=== PATIENT | male | born 1945 | race Caucasian/White ===

== ENCOUNTER → 2017-06-27 | Outpatient (CLI) | payer OTHER ==
[~2017-06-27] MED LIST: ASPCH81X PO; FLV1 PO; GABA-113 PO; LISI-787 PO; MTH25 PO; MULT-506 PO; OMEP20TA PO; [UNRECOGNIZED DRUG - CODE] PO; [UNRECOGNIZED DRUG - OTHER] INJ
[2017-06-27 12:45] LABS: BASO % 0.6 %; BASO ABS # 0.05 K/uL (0-0.2); EOS % 2.7 %; EOS ABS # 0.22 K/uL (0-0.5); HEMATOCRIT 44.7 % (42-52); IG# 0.04 K/uL (0.00-0.02); LYMPH % 20.1 %; LYMPH ABS # 1.67 K/uL (1.2-3.4); MEAN CELL VOLUME 93.5 fL (80-100); MEAN CORPUSCULAR HEMOGLOBIN 31.4 pg (25-34); MEAN CORPUSCULAR HGB CONC 33.6 g/dl (32-36); MEAN PLATELET VOLUME 9.4 fL (7.4-10.4); MONO % 7.8 %; MONO ABS # 0.65 K/uL (0.11-0.59); NEUT % 68.3 %; NEUT ABS # 5.66 K/uL (1.4-6.5); PLATELET COUNT 183 K/uL (130-400); RED CELL DISTRIBUTION WIDTH CV 14.7 % (11.5-14.5); RED CELL DISTRIBUTION WIDTH SD 49.6 fL (36.4-46.3); WHITE BLOOD COUNT 8.29 K/uL (4.8-10.8)
[2017-06-27 13:14] LABS: HEMOGLOBIN A1C 5.3 % (4.5-5.6)
[2017-06-27 15:35] LABS: ALBUMIN 3.6 gm/dl (3.4-5.0); ALT/SGPT 30 U/L (12-78); AST/SGOT 27 U/L (15-37); BLOOD UREA NITROGEN 16 mg/dl (7-18); CARBON DIOXIDE 30 mmol/L (21-32); CREATININE 0.96 mg/dl (0.60-1.40); GLUCOSE 74 mg/dl (70-99); POTASSIUM 4.4 mmol/L (3.5-5.1); SODIUM 139 mmol/L (136-145)
[2017-06-27 15:38] LABS: ALKALINE PHOSPHATASE 79 U/L (45-117); CHOLESTEROL 132 mg/dl (0-200); LDL CHOLESTEROL CALCULATED 41 mg/dl; TOTAL PROTEIN 7.3 gm/dl (6.4-8.2)
== END | disposition home or self-care (01) ==
LOC: C.LABPBG 10:25
PROVIDERS: ATTEND Internal Medicine Geriatric Medicine
DX: Z12.5 Encounter for screening for malignant neoplasm of prostate (principal); M06.9 Rheumatoid arthritis, unspecified; I10 Essential (primary) hypertension; R73.9 Hyperglycemia, unspecified; M45.9 Ankylosing spondylitis of unspecified sites in spine; I25.10 Atherosclerotic heart disease of native coronary artery without angina pectoris

== ENCOUNTER → 2017-11-05 | Outpatient (CLI) | payer OTHER ==
[2017-11-05 13:45] LABS: HEMOGLOBIN 14.4 g/dL (14.0-18.0); MEAN CELL VOLUME 91.9 fL (80-100); MEAN CORPUSCULAR HEMOGLOBIN 30.8 pg (25-34); MEAN CORPUSCULAR HGB CONC 33.5 g/dl (32-36); MEAN PLATELET VOLUME 9.5 fL (7.4-10.4); NUCLEATED RED BLOOD CELL ABS 0.06 K/uL (0-0); PLATELET COUNT 185 K/uL (130-400); RED CELL DISTRIBUTION WIDTH CV 14.6 % (11.5-14.5); WHITE BLOOD COUNT 8.35 K/uL (4.8-10.8)
[2017-11-05 13:47] LABS: BASO % 0.7 %; BASO ABS # 0.06 K/uL (0-0.2); EOS % 3.1 %; EOS ABS # 0.26 K/uL (0-0.5); IG# 0.04 K/uL (0.00-0.02); LYMPH % 20.6 %; LYMPH ABS # 1.72 K/uL (1.2-3.4); MONO % 8.5 %; MONO ABS # 0.71 K/uL (0.11-0.59); NEUT % 66.6 %; NEUT ABS # 5.56 K/uL (1.4-6.5)
== END | disposition home or self-care (01) ==
LOC: C.LABPBG 10:45
PROVIDERS: ATTEND Internal Medicine
DX: M05.79 Rheumatoid arthritis with rheumatoid factor of multiple sites without organ or systems involvement (principal); Z79.899 Other long term (current) drug therapy

== ENCOUNTER 2023-06-23 12:46 | Inpatient (IN) ==
[2023-06-23 13:34] LABS: Basophils # (auto) 0.05 K/uL (0.00-0.20); Basophils % (auto) 0.3 %; Eosinophils # (auto) 0.11 K/uL (0.00-0.50); Eosinophils % (auto) 0.8 %; Hematocrit (blood only) 41.8 % (42.0-52.0); Hemoglobin 14.1 g/dl (14.0-18.0); Immature Granulocytes # (auto) 0.09 K/uL (0.01-0.20); Immature Granulocytes % (auto) 0.6 %; Lymphocytes # (auto) 0.99 K/uL (1.20-3.40); Lymphocytes % (auto) 6.9 %; Mean Corpuscular Hemoglobin 27.9 pg (25.0-34.0); Mean Corpuscular Hgb Conc 33.7 g/dL (32.0-36.0); Mean Corpuscular Volume 82.8 fL (80.0-100.0); Mean Platelet Volume 9.5 fL (9.4-12.4); Monocytes # (auto) 0.67 K/uL (0.11-0.59); Monocytes % (auto) 4.7 %; Neutrophils # (auto) 12.45 K/uL (1.40-6.50); Neutrophils % (auto) 86.7 %; Platelet Count 204 K/uL (130-400); RDW Coefficient of Variation 15.7 % (11.5-14.5); RDW Standard Deviation 47.7 fL (36.4-46.3); Red Blood Count 5.05 M/uL (4.70-6.10); White Blood Count 14.36 K/ul (4.8-10.8)
--- NOTE | 2023-06-23 13:37 | Emergency Department Note ---
Impression & Plan Pneumonia, Interstitial lung disease, Chronic hypoxic respiratory failure, UTI (urinary tract infection), Immunocompromised state ED Provider Note NAME: JOSE F KANG AGE: 78 SEX: M ARRIVES VIA: Walk-In INFORMANT: Patient ED PROVIDER(S): Warren Alfonso MD CHIEF COMPLAINT: Weakness, congestion PLAN: Disposition: Admit MEDICAL DECISION MAKING: The patient is a pleasant 78-year-old gentleman with a past medical history of interstitial pulmonary fibrosis, chronic hypoxic respiratory failure on home oxygen which the patient reports he uses during the day but does not use at night though admits that this was recommended to be used at night, rheumatoid arthritis, on chronic prednisone, essential tremor, hypertension, GERD who presents to the emergency department via walk-in, by his for evaluation of worsening cough, congestion,, generalized weakness and body aches over the past several days. He denies nausea, vomiting or diarrhea. The patient feels he is hydrating but concurs with his that he probably could be hydrating better. The patient denies chest pain or new shortness of breath. On my evaluation the patient is acute on chronic ill-appearing but no acute distress, afebrile with heart in the 100s and O2 saturation 84% on room air though the patient does have oxygen ordered for home, vital signs otherwise stable. He appears clinically dry. He is wheezes and rhonchi of bilateral lower lung yeung without significant increased work of breathing. EKG without overt acute ischemia. Chest x-ray without overt acute cardiopulmonary process and otherwise evidence of interstitial lung disease. WBC 14.3 K with neutrophil predominance though no left shift, nonspecific. Hemoglobin and platelets within normal limits. Chemistry without metabolic acidosis. BUNs/creatinine is 40 consistent with the patient's clinically dry appearance. High-sensitivity troponin is 24, nonspecific. Procalcitonin is elevated at 0.7. TSH within normal limits. Respiratory BioFire was negative. Given the patient's elevated procalcitonin and negative BioFire in the setting of degree of immunocompromise status on chronic prednisone blood cultures were obtained and empiric cefepime ordered in addition to CTA of the chest to further evaluate the patient's symptoms /SIRS. CTA of the chest was performed was negative for PE. Note is made of mild dilation of central pulmonary arteries which raises possibility of pulmonary hypertension. Additional description of basilar and peripheral honeycombing consistent with UIP pattern of pulmonary fibrosis has progressed since April 2023. Additionally, mild grass glass opacities within the lungs may reflect superimposed infectious process or active alveolitis. Markedly enlarged mediastinal and bilateral hilar lymph nodes are seen and likely reactive. The patient did feel some improvement after initial treatment with IV fluid hydration, Solu-Medrol, DuoNeb, guaifenesin. Findings reviewed with the patient and family. Initially, patient did prefer outpatient management but ultimately did agree with plan for admission due to his pneumonia in the setting of his interstitial lung disease and immunocompromise status. Of note, the patient was also reporting burning with urination for approximately the past week. Ultimately he was able to urinate and his urine is suspicious for infection. This likely would be covered by his cefepime provided. He was additionally ordered IV doxycycline for atypical coverage. MRSA swab was negative. The patient did receive 2L of normal saline which in combination of volume from additional medications are 30 cc/kg given SIRS criteria. Case was discussed with CHACHA Fabian PAC, with CHACHA Parisi hospitalist who will evaluate the patient for admission. Further management per admitting team. Triage Nursing notes reviewed and agree them. Prior/external medical records reviewed Vital Signs: reviewed Differential diagnosis: Reactive airway disease, pneumonia, pneumothorax, COPD, CHF, infections, cardiac ischemia, pulmonary embolism, musculoskeletal, gastrointestinal, as well as other pathologies. ER treatment provided: See below. Diagnostics interpreted by me: ECG: Sinus tachycardia with premature supraventricular complexes, 108 bpm, no overt ST elevation or depression, QTc 434, QRS 90. Cardiac Monitoring: An order for continuous cardiac monitoring was placed and demonstrated inus tachycardia with premature supraventricular complexes, 108 bpm. Laboratory studies: See below Imaging studies: See below Consultation(s): CHACHA Fabian PAC, with CHACHA Parisi hospitalist HPI: The patient is a pleasant 78-year-old gentleman with a past medical history of interstitial pulmonary fibrosis, chronic hypoxic respiratory failure on home oxygen which the patient reports he uses during the day but does not use at night though admits that this was recommended to be used at night, rheumatoid arthritis, on chronic prednisone, essential tremor, hypertension, GERD who presents to the emergency department via walk-in, by his for evaluation of worsening cough, congestion,, generalized weakness and body aches over the past several days. He denies nausea, vomiting or diarrhea. The patient feels he is hydrating but concurs with his that he probably could be hydrating better. The patient denies chest pain or new shortness of breath. ROS: See above HPI for pertinent positives & negatives. A total of 10 systems reviewed and were otherwise negative. VITALS:See Below PHYSICAL EXAMINATION: GENERAL: Awake, alert, acute on chronically ill-appearing, in no distress HENT: Normocephalic, atraumatic. Oropharynx with dry mucous membranes and otherwise unremarkable. EYES: Normal conjunctiva. Sclera non-icteric. NECK: Supple. No nuchal rigidity. FROM. No JVD. RESPIRATORY: Wheezes and rhonchi of bilateral lower lung yeung and otherwise clear. CARDIAC: Tachycardic rate, normal rhythm. Extremities warm and well perfused. Pulses equal. ABDOMEN: Soft, non-distended. No tenderness to palpation. No rebound or guarding. No masses. RECTAL: Deferred. MUSCULOSKELETAL: Chest examination reveals no tenderness. The back is symmetrical on inspection without obvious abnormality. There is no CVA tenderness to palpation. No joint edema. LOWER EXTREMITIES: Calves are equal size bilaterally and non-tender. No edema. No discoloration. NEURO: Normal sensorium. No sensory or motor deficits noted. SKIN: No rash or jaundice noted. ED COURSE: Critical Care: I have personally spent greater than 35 minutes of critical care time in the direct management of this patient. This includes bedside care, interpretation of diagnostic studies, and testing, discussion with consultants, patient, and family members, and other required patient management activities. This 35 minutes is in excess of all separately billable procedures. Warren Alfonso MD Past Med/Surg History Medical History Chronic cough Hypoxia Essential tremor Urinary incontinence Pulmonary emphysema 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, intermediate, current use Exercise hypoxemia Interstitial lung disease Post herpetic neuralgia Coronary artery calcification GERD without esophagitis Rheumatoid arthritis Pulmonary nodules Interstitial pulmonary fibrosis Hypertension Carotid artery disease Surgical History History of tonsillectomy and adenoidectomy History of cholecystectomy (2000) Family History Other Adopted Social History Smoking Status: Never smoker Age Quit Using Tobacco: 54; packs per day: 2; Second Hand Exposure: No; Do You Dip or Chew Tobacco: No; Hx Alcohol Use: Yes Alcohol type: beer Alcohol Intake Frequency: 2-3 x/Week Hx Substance Use: No Preferred Language: [place] Communication Ability: Effective Visual Impairment: No Limitations Hearing Ability: Normal Automation Tester Required: No Beliefs That Will Affect Care: None marital status: Current Living Situation: Spouse current occupational status: retired 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 [employer] Feels Safe at Home: Yes Childhood Exposure to Second-Hand Smoke: Yes Diet: regular Diet Comment: regular caffeine: Yes (coffee x 2-3 per day.) during the past year weight has: decreased > 10 lbs Dental Care, Regularly: Yes Physical Activity Frequency: Daily Physical Activity Frequency Comment: walk Seatbelt Use: always Sunscreen Use: Yes Allergies Allergies Allergy/AdvReac Type Severity Reaction Status Date / Time No Known Allergies Allergy Verified 06/23/23 15:05 Home Meds Home Medications Medication Instructions Recorded Confirmed multivitamin (Daily Multi-Vitamin 1 tab PO DAILY 02/03/19 06/23/23 tablet) aspirin 81 mg tablet,delayed 81 mg PO DAILY 06/23/23 06/23/23 release brinzolamide 1 % eye 1 drp ophthalmic (eye) DIRECTED 06/23/23 06/23/23 drops,suspension (Azopt) gabapentin 300 mg capsule 300 mg PO HS 06/23/23 06/23/23 latanoprost 0.005 % eye drops 1 drp ophthalmic (eye) PM 06/23/23 06/23/23 leflunomide 10 mg tablet (Arava) 10 mg PO DAILY 06/23/23 06/23/23 naproxen 500 mg tablet 500 mg PO BID PRN Pain 06/23/23 06/23/23 prednisone 5 mg tablet 5 mg PO DAILY 06/23/23 06/23/23 Previous Rx's Medication Instructions Recorded atorvastatin 10 mg tablet 10 mg PO DAILY #90 tabs 01/06/23 omeprazole 20 mg capsule,delayed 20 mg PO DAILY #90 caps 01/22/23 release lisinopril 20 1 tab PO DAILY #90 tabs 01/23/23 mg-hydrochlorothiazide 12.5 mg tablet Oxygen Home #2 L 05/19/23 pirfenidone 267 mg capsule See Rx Instructions PO .COMPLEX 06/13/23 (Esbriet) #90 caps Results & Data (ED) Vital Signs Vital Signs - 24 hr 06/23/23 12:51 06/23/23 12:58 06/23/23 13:37 Temperature 36.8 C Temperature Source Temporal Artery Scan Pulse Rate 103 H 102 H Pulse Rate [Apical] Pulse Rate from SpO2 Sensor Respiratory Rate 18 Respiratory Effort / Characteristics Respiratory Depth Respiratory Pattern Blood Pressure 121/76 Blood Pressure [Left Arm] Blood Pressure Mean 91 Blood Pressure Mean [Left Arm] Blood Pressure Position [Left Arm] Pulse Oximetry 84 L 84 L Oxygen Delivery Method Room Air Room Air Oxygen Flow Rate Sepsis Recent Fever Within 48 Hours No Sepsis New/Unexplained Change in Mental Status N/A Sepsis Action Taken by Nursing No Action Required Oxygen Flow Rate - Titration 2 Pulse Oximetry Post Tiitration 95 06/23/23 14:27 06/23/23 15:32 06/23/23 16:30 Temperature Temperature Source Pulse Rate 99 H Pulse Rate [Apical] 99 H 102 H Pulse Rate from SpO2 Sensor 99 H Respiratory Rate 20 18 24 Respiratory Effort / Characteristics Non-Labored Spontaneous Respiratory Depth Normal Normal Respiratory Pattern Regular Blood Pressure 124/81 Blood Pressure [Left Arm] 120/78 122/78 Blood Pressure Mean 95 Blood Pressure Mean [Left Arm] 92 92 Blood Pressure Position [Left Arm] Sitting Pulse Oximetry 96 97 96 Oxygen Delivery Method Nasal Cannula Room Air Oxygen Flow Rate 2 Sepsis Recent Fever Within 48 Hours Sepsis New/Unexplained Change in Mental Status Sepsis Action Taken by Nursing Oxygen Flow Rate - Titration Pulse Oximetry Post Tiitration Laboratory Data Attestation: I reviewed the patient's lab results. 06/23/23 13:09 06/23/23 13:09 Lab Results 06/23/23 06/23/23 06/23/23 Range/Units 13:09 13:22 14:43 WBC 14.36 H (4.8-10.8) K/ul RBC 5.05 (4.70-6.10) M/uL Hgb 14.1 (14.0-18.0) g/dl Hct 41.8 L (42.0-52.0) % MCV 82.8 (80.0-100.0) fL MCH 27.9 (25.0-34.0) pg MCHC 33.7 (32.0-36.0) g/dL RDW Std Deviation 47.7 H (36.4-46.3) fL RDW Coeff of Carl 15.7 H (11.5-14.5) % Plt Count 204 (130-400) K/uL MPV 9.5 (9.4-12.4) fL Immature Gran % (Auto) 0.6 % Neut % (Auto) 86.7 % Lymph % (Auto) 6.9 % Blanco % (Auto) 4.7 % Eos % (Auto) 0.8 % Baso % (Auto) 0.3 % Neut # (Auto) 12.45 H (1.40-6.50) K/uL Lymph # (Auto) 0.99 L (1.20-3.40) K/uL Blanco # (Auto) 0.67 H (0.11-0.59) K/uL Eos # (Auto) 0.11 (0.00-0.50) K/uL Baso # (Auto) 0.05 (0.00-0.20) K/uL Immature Gran # (Auto) 0.09 (0.01-0.20) K/uL Sodium 131 L (136-145) mmol/L Potassium 4.1 (3.5-5.1) mmol/L Chloride 96 L (98-107) mmol/L Carbon Dioxide 26 (21-32) mmol/L Anion Gap 9 (3-11) BUN 34 H (6-23) mg/dl Creatinine 0.84 (0.6-1.4) mg/dl Est Cr Clr Drug Dosing 70.1 ml/min Est GFR ( Amer) 95.8 ml/min Est GFR (Non-Af Amer) 82.7 ml/min BUN/Creatinine Ratio 40.5 H (10-20) Glucose 103 H (70-99(Fasting)) mg/dl Lactate 1.1 (0.4-2.0) mmol/L Calcium 9.0 (8.6-10.3) mg/dl Total Bilirubin 0.8 (0.2-1.0) mg/dl AST 32 (13-39) U/L ALT 16 (7-52) U/L Alkaline Phosphatase 82 (34-104) U/L Troponin I High Sens 24.4 H (0-20) pg/ml Total Protein 7.3 (6.0-8.3) gm/dl Albumin 3.3 L (3.4-5.0) gm/dl Globulin 4.0 (2.5-4.0) gm/dl Albumin/Globulin Ratio 0.8 L (0.9-2) Procalcitonin 0.70 H (0-0.5) ng/ml TSH 3.590 (0.300-4.500) uIu/ml Nasal Screen MRSA (PCR) (Negative) Adenovirus (PCR) Not Detected (NotDetected) B. pertussis DNA (PCR) Not Detected (NotDetected) B.parapertussis DNA PCR Not Detected (NotDetected) C. pneumoniae DNA (PCR) Not Detected (NotDetected) Coronavirus OC43 (PCR) Not Detected (NotDetected) Coronavirus HKU1 (PCR) Not Detected (NotDetected) Coronavirus 229E (PCR) Not Detected (NotDetected) SARS-CoV-2 (PCR) Not Detected (NotDetected) Coronavirus NL63 (PCR) Not Detected (NotDetected) Human Metapneumovir PCR Not Detected (NotDetected) Influenza Type A (PCR) Not Detected (NotDetected) Influenza Type B (PCR) Not Detected (NotDetected) M. pneumoniae (PCR) Not Detected (NotDetected) Parainfluenza 1 (PCR) Not Detected (NotDetected) Parainfluenza 2 (PCR) Not Detected (NotDetected) Parainfluenza 3 (PCR) Not Detected (NotDetected) Parainfluenza 4 (PCR) Not Detected (NotDetected) RSV (PCR) Not Detected (NotDetected) Entero/Rhino (PCR) Not Detected (NotDetected) 06/23/23 06/23/23 Range/Units 15:11 15:45 WBC (4.8-10.8) K/ul RBC (4.70-6.10) M/uL Hgb (14.0-18.0) g/dl Hct (42.0-52.0) % MCV (80.0-100.0) fL MCH (25.0-34.0) pg MCHC (32.0-36.0) g/dL RDW Std Deviation (36.4-46.3) fL RDW Coeff of Carl (11.5-14.5) % Plt Count (130-400) K/uL MPV (9.4-12.4) fL Immature Gran % (Auto) % Neut % (Auto) % Lymph % (Auto) % Blanco % (Auto) % Eos % (Auto) % Baso % (Auto) % Neut # (Auto) (1.40-6.50) K/uL Lymph # (Auto) (1.20-3.40) K/uL Blanco # (Auto) (0.11-0.59) K/uL Eos # (Auto) (0.00-0.50) K/uL Baso # (Auto) (0.00-0.20) K/uL Immature Gran # (Auto) (0.01-0.20) K/uL Sodium (136-145) mmol/L Potassium (3.5-5.1) mmol/L Chloride (98-107) mmol/L Carbon Dioxide (21-32) mmol/L Anion Gap (3-11) BUN (6-23) mg/dl Creatinine (0.6-1.4) mg/dl Est Cr Clr Drug Dosing ml/min Est GFR ( Amer) ml/min Est GFR (Non-Af Amer) ml/min BUN/Creatinine Ratio (10-20) Glucose (70-99(Fasting)) mg/dl Lactate (0.4-2.0) mmol/L Calcium (8.6-10.3) mg/dl Total Bilirubin (0.2-1.0) mg/dl AST (13-39) U/L ALT (7-52) U/L Alkaline Phosphatase (34-104) U/L Troponin I High Sens 22.4 H (0-20) pg/ml Total Protein (6.0-8.3) gm/dl Albumin (3.4-5.0) gm/dl Globulin (2.5-4.0) gm/dl Albumin/Globulin Ratio (0.9-2) Procalcitonin (0-0.5) ng/ml TSH (0.300-4.500) uIu/ml Nasal Screen MRSA (PCR) Negative (Negative) Adenovirus (PCR) (NotDetected) B. pertussis DNA (PCR) (NotDetected) B.parapertussis DNA PCR (NotDetected) C. pneumoniae DNA (PCR) (NotDetected) Coronavirus OC43 (PCR) (NotDetected) Coronavirus HKU1 (PCR) (NotDetected) Coronavirus 229E (PCR) (NotDetected) SARS-CoV-2 (PCR) (NotDetected) Coronavirus NL63 (PCR) (NotDetected) Human Metapneumovir PCR (NotDetected) Influenza Type A (PCR) (NotDetected) Influenza Type B (PCR) (NotDetected) M. pneumoniae (PCR) (NotDetected) Parainfluenza 1 (PCR) (NotDetected) Parainfluenza 2 (PCR) (NotDetected) Parainfluenza 3 (PCR) (NotDetected) Parainfluenza 4 (PCR) (NotDetected) RSV (PCR) (NotDetected) Entero/Rhino (PCR) (NotDetected) Administered Medications Albuterol (Albut/Ipratrop 3mg/0.5mg Neb 3 Ml Vial) 3 ml NEB QIDR [facility]; Protocol Stop: 07/23/23 18:59 Last Admin: 06/23/23 20:11 Dose: 3 ml Documented By: SAGAR Discontinued Medications Albuterol (Albut/Ipratrop 3mg/0.5mg Neb 3 Ml Vial) 3 ml NEB NOW STA; Protocol Stop: 06/23/23 14:32 Last Admin: 06/23/23 14:45 Dose: 3 ml Documented By: CONCEPCION Doxycycline Hyclate (Doxycycline Hyclate 100 Mg Cap) 100 mg PO NOW STA Stop: 06/23/23 16:51 Last Admin: 06/23/23 18:04 Dose: 100 mg Documented By: NADIA Guaifenesin (Guaifenesin 600 Mg Tabcr) 1,200 mg PO NOW STA Stop: 06/23/23 14:32 Last Admin: 06/23/23 14:43 Dose: 1,200 mg Documented By: CONCEPCION Sodium Chloride (Nss) 1,000 mls @ 999 mls/hr IV .Q1H1M [facility] Stop: 06/23/23 16:45 Last Infusion: 06/23/23 17:38 Dose: Infused Documented By: Admin: 06/23/23 15:45 Dose: 999 mls/hr Documented By: Infusion: 06/23/23 15:45 Dose: Infused Documented By: Admin: 06/23/23 14:55 Dose: 999 mls/hr Documented By: CONCEPCION Cefepime HCl (Maxipime) 2,000 mg in 20 mls @ 5 mls/min IV NOW STA; Protocol Stop: 06/23/23 14:37 Last Admin: 06/23/23 14:43 Dose: 5 mls/min Documented By: CONCEPCION Ioversol (Optiray 320 125ml) 115 ml IV ONCE ONE Stop: 06/23/23 15:31 Last Admin: 06/23/23 15:30 Dose: 115 ml Documented By: CAMELIA Methylprednisolone (Methylprednisolone 125 Mg/2 Ml Vial) 125 mg IV NOW STA Stop: 06/23/23 14:32 Last Admin: 06/23/23 14:43 Dose: 125 mg Documented By: CONCEPCION Tamsulosin HCl (Tamsulosin Hcl 0.4 Mg Cap) 0.4 mg PO NOW ONE Stop: 06/23/23 17:36 Last Admin: 06/23/23 19:13 Dose: Not Given Documented By: JAMES Tamsulosin HCl (Tamsulosin Hcl 0.4 Mg Cap) Confirm Administered Dose 0.4 mg .ROUTE .STK-MED ONE Stop: 06/23/23 18:04 Last Admin: 06/23/23 18:04 Dose: 0.4 mg Documented By: NADIA Imaging Data Radiologist's Impression: Chest X-Ray 06/23/23 12:57 XR chest 1V portable CLINICAL HISTORY: Weakness. COMPARISON STUDY: Chest radiograph June 22, 2022. Chest CT May 01, 2023. FINDINGS: Elevation of the right hemidiaphragm is chronic. There is no pneumothorax or pleural effusion. Diffuse interstitial thickening is similar to CT of May 01, 2023. Cardiomegaly is unchanged. No superimposed consolidation is identified. IMPRESSION: 1. Diffuse interstitial thickening, similar to chest CT of May 01, 2023. This is consistent with interstitial lung disease with pulmonary fibrosis. No superimposed consolidation. 2. Cardiomegaly. ACT 112: Negative or not required by law. Electronically signed by: Jon Valladares M.D. 06/23/2023 1:59 PM Chest CTA 06/23/23 14:34 CT ANGIOGRAPHY OF THE CHEST, PULMONARY EMBOLUS PROTOCOL CLINICAL HISTORY: Shortness of breath. Hypoxia. Evaluate for pulmonary embolus. COMPARISON STUDY: Chest radiograph performed earlier today. Chest CT May 01, 2023. Chest CT December 15, 2012. TECHNIQUE: Following IV administration of 115 mL of Optiray, helical axial images of the chest were obtained utilizing the pulmonary embolus protocol. Maximal intensity projections and sagittal and coronal reformats were viewed on an independent 3D workstation. IV contrast was administered without complication. Automated exposure control was utilized for the study. A dose lowering technique was utilized adhering to the principles of ALARA. CT DOSE: 905.2 mGy.cm FINDINGS: No pulmonary emboli are identified. There is mild dilatation of the central pulmonary arteries. There is mild cardiomegaly and moderate coronary artery catheterization. No pericardial effusion is present. There is no thoracic aortic dissection. Mildly enlarged mediastinal and bilateral hilar lymph nodes are similar to CT of May 01, 2023. Index right paratracheal lymph node on image 152 of 261 measures 1.1 cm in short axis diameter. No pneumothorax or pleural effusion is present. Basilar and peripheral predominant honeycombing has mildly progressed since CT of May 01, 2023. Associated traction bronchiectasis is present. Scattered ground glass opacities are most evident within the left lower lobe. No confluent consolidation is present. No central obstructing mass is present. There is no cavitation. Upper lobe predominant emphysema is also noted. There are several incompletely healed right-sided rib fractures which appear unchanged since prior CT. The gallbladder is surgically absent. IMPRESSION: 1. No pulmonary emboli identified. Mild dilatation of the central pulmonary arteries which raises the possibility of pulmonary arterial hypertension. 2. Basilar and peripheral predominant honeycombing. The findings are consistent with a UIP pattern of pulmonary fibrosis with mild progression since CT of May 01, 2023. 3. Mild groundglass opacities within the lungs, as described above. The findings could reflect a superimposed infectious process or active alveolitis. 4. Mildly enlarged mediastinal and bilateral hilar lymph nodes which are probably reactive or related to interstitial lung disease. ACT 112: Negative or not required by law. Electronically signed by: Jon Valladares M.D. 06/23/2023 3:49 PM Discharge Plan Visit Data Chief Complaint: Weakness Stated Complaint: WEAKNESS ED Provider: Warren Alfonso Discharge Problem: Pneumonia, Interstitial lung disease, Chronic hypoxic respiratory failure, UTI (urinary tract infection), Immunocompromised state Patient Disposition: Admitted As Inpatient Discharge Instructions Interventions: ED Discharge Assessment Last Done: 06/23/23 19:51 Discharge Problem: Pneumonia Qualifiers: Pneumonia type: due to unspecified organism Laterality: bilateral Lung location: lower lobe of lung Qualified Code(s): J18.9 - Pneumonia, unspecified organism UTI (urinary tract infection) Qualifiers: Urinary tract infection type: acute cystitis Hematuria presence: without hematuria Qualified Code(s): N30.00 - Acute cystitis without hematuria
[2023-06-23 13:53] LABS: Albumin Globulin Ratio 0.8 (0.9-2); Albumin Level 3.3 gm/dl (3.4-5.0); BUN Creatinine Ratio 40.5 (10-20); Bilirubin,Total 0.8 mg/dl (0.2-1.0); Creatinine Clr Calc Pharmacy 70.1 ml/min; Est GFR (African American) 95.8 ml/min; Est GFR (Non-African American) 82.7 ml/min; Potassium 4.1 mmol/L (3.5-5.1); Total Protein 7.3 gm/dl (6.0-8.3)
[2023-06-23 14:00] LABS: Troponin I High Sensitivity 24.4 pg/ml (0-20)
--- NOTE | 2023-06-23 14:01 | XRay Report ---
XR chest 1V portable CLINICAL HISTORY: Weakness. COMPARISON STUDY: Chest radiograph June 22, 2022. Chest CT May 01, 2023. FINDINGS: Elevation of the right hemidiaphragm is chronic. There is no pneumothorax or pleural effusi on. Diffuse interstitial thickening is similar to CT of May 01, 2023. Cardiomegaly is unchanged. No superimposed consolidation is identified. IMPRESSION: 1. Diffuse interstitial thickening, similar to chest CT of May 01, 2023. This is consistent with interstitial lung disease with pulmonary fibrosis. No superimposed consolidation. 2. Cardiomegaly. ACT 112: Negative or not required by law. Electronically signed by: Jon Valladares M.D. 06/23/2023 1:59 PM
[2023-06-23 14:09] LABS: Thyroid Stimulating Hormone 3.59 uIu/ml (0.300-4.500)
[2023-06-23 14:23] LABS: Adenovirus PCR Not Detected (NotDetected); Bordetella parapertussis PCR Not Detected (NotDetected); Bordetella pertussis PCR Not Detected (NotDetected); Chlamydia pneumoniae PCR Not Detected (NotDetected); Coronavirus 229E PCR Not Detected (NotDetected); Coronavirus CoV-2 (COVID19)PCR Not Detected (NotDetected); Coronavirus HKU1 PCR Not Detected (NotDetected); Coronavirus NL63 PCR Not Detected (NotDetected); Coronavirus OC43PCR Not Detected (NotDetected); Human Metapneumovirus PCR Not Detected (NotDetected); Influenza A PCR Not Detected (NotDetected); Influenza B PCR Not Detected (NotDetected); Mycoplasma pneumoniae PCR Not Detected (NotDetected); Parainfluenza Virus 1 PCR Not Detected (NotDetected); Parainfluenza Virus 2 PCR Not Detected (NotDetected); Parainfluenza Virus 3 PCR Not Detected (NotDetected); Parainfluenza Virus 4 PCR Not Detected (NotDetected); Respiratory Syncytial VirusPCR Not Detected (NotDetected); Rhinovirus/Enterovirus PCR Not Detected (NotDetected)
[2023-06-23] MEDS ORDERED: methylPREDNISolone 125 MG/2 ML VIAL IV STA (14:31)
[2023-06-23] MEDS ORDERED: guaiFENesin 600 MG TABCR PO STA (14:31)
[2023-06-23] MEDS ORDERED: ALBUT/IPRATROP 3MG/0.5MG NEB 3 ML VIAL NEB STA (14:31)
[2023-06-23] MEDS ORDERED: CEFEPIME 2,000 MG/20 ML VIAL IV STA (14:34)
--- NOTE | 2023-06-23 14:48 | Electrocardiogram Report ---
Test Reason : Blood Pressure : / mmHG Vent. Rate : 108 BPM Atrial Rate : 108 BPM P-R Int : 130 ms QRS Dur : 090 ms QT Int : 324 ms P-R-T Axes : 031 -34 046 degrees QTc Int : 434 ms Sinus tachycardia with Premature supraventricular complexes Left axis deviation Abnormal ECG When compared with ECG of 29-MAY-2023 13:19, Premature supraventricular complexes are now Present Confirmed by Grzegorz Palomo ([id number]) on 06/23/2023 2:48:21 PM Referred By: Confirmed By:Grzegorz Palomo
[2023-06-23] MEDS: SODIUM CHLORIDE 0.9% 1,000 ML IV SCH ×2 (14:55→15:45)
[2023-06-23] MEDS ORDERED: OPTIRAY 320 125ml IV ONE (15:30)
--- NOTE | 2023-06-23 15:51 | CT Scan Report ---
CT ANGIOGRAPHY OF THE CHEST, PULMONARY EMBOLUS PROTOCOL CLINICAL HISTORY: Shortness of breath. Hypoxia. Evaluate for pulmonary embolus. COMPARISON STUDY: Chest radiograph performed earlier today. Chest CT May 01, 2023. Chest CT December 15, 2012. TECHNIQUE: Following IV administration of 115 mL of Optiray, helical axial images of the chest were o btained utilizing the pulmonary embolus protocol. Maximal intensity projections and sagittal and cor onal reformats were viewed on an independent 3D workstation. IV contrast was administered without co mplication. Automated exposure control was utilized for the study. A dose lowering technique was ut ilized adhering to the principles of ALARA. CT DOSE: 905.2 mGy.cm FINDINGS: No pulmonary emboli are identified. There is mild dilatation of the central pulmonary lu clemencia. There is mild cardiomegaly and moderate coronary artery catheterization. No pericardial effusio n is present. There is no thoracic aortic dissection. Mildly enlarged mediastinal and bilateral hilar lymph nodes are similar to CT of May 01, 2023. Index right paratracheal lymph node on image 152 of 261 measures 1.1 cm in short axis diameter. No pneumothorax or pleural effusion is present. Basila r and peripheral predominant honeycombing has mildly progressed since CT of May 01, 2023. Associa octavio traction bronchiectasis is present. Scattered ground glass opacities are most evident within the left lower lobe. No confluent consolidation is present. No central obstructing mass is present. There is no cavitation. Upper lobe predominant emphysema is also noted. There are several incompletely hea led right-sided rib fractures which appear unchanged since prior CT. The gallbladder is surgically ab sent. IMPRESSION: 1. No pulmonary emboli identified. Mild dilatation of the central pulmonary arteries which raises the possibility of pulmonary arterial hypertension. 2. Basilar and peripheral predominant honeycombing. The findings are consistent with a UIP pattern of pulmonary fibrosis with mild progression since CT of May 01, 2023. 3. Mild groundglass opacities within the lungs, as described above. The findings could reflect a supe rimposed infectious process or active alveolitis. 4. Mildly enlarged mediastinal and bilateral hilar lymph nodes which are probably reactive or related to interstitial lung disease. ACT 112: Negative or not required by law. Electronically signed by: Jon Valladares M.D. 06/23/2023 3:49 PM
[2023-06-23] MEDS ORDERED: DOXYCYCLINE HYCLATE 100 MG CAP PO STA (16:50)
--- NOTE | 2023-06-23 17:11 | History & Physical Report ---
Date of Service June 23, 2023 Assessment & Plan (1) Pneumonia: Plan: -Admit to med/tele -Currently hemodynamically stable and stable on his baseline 2L NC -Presented to the ED with 3 days of significantly increased cough, wheezing and generalized weakness -States that his chronic cough has been getting progressively worse over the past month -Is stable on his baseline 2L NC and not in acute respiratory failure -Has a leukocytosis of 14 with neutrophil predominance of 12, these are near his baseline levels with chronic steroid use -Procal is elevated at 0.70, CTA of the chest shows Mild groundglass opacities within the lungs -S/P cefepime, doxycycline, albuterol, and guaifenesin in the ED -Will continue with Cefepime and doxycycline with his structural lung disease -S/P 125 mg IV solu-medrol in the ED, will continue with 40 mg IV q8h for now -Blood cultures obtained in the ED, will obtain sputum culture with gram stain -Incentive spirometry, flutter therapy, QIDr DuoNebs, prn O2 to keep SpO2 between 89-92% -SQ Lovenox for DVT PPX -HH diet -AM CBC, BMP, mag (2) Interstitial lung disease: Plan: -See pneumonia (3) UTI (urinary tract infection): Plan: -Noted on UA today -Likely contributing to his urinary retention along with dehydration -No previous hx of resistant UTI's -Continue Cefepime for PNA and UTI -Follow urine culture (4) Urinary retention: Plan: -Patient has not voided since ED arrival -Was bladder scanned earlier for approximately 250 cc -He is dehydrated on exam, renal function is stable -UA finally resulted and appears consistent with UTI as well -Will continue to monitor for now and given one dose of flomax -Monitor intake/output q-shift (5) Hypertension: Plan: -Stable -Will hold his lisinopril-HCTZ for now as he appears mildly dehydrated on exam today with urinary retention (6) Rheumatoid arthritis: Plan: -Has been on Prednisone and Arava -Hold both for now with IV steroids (7) Carotid artery disease: Plan: -Continue aspirin Plan The patient was discussed with Dr. Hsieh at the time of the admission History of Present Illness Chief Complaint: Cough, congestion, generalized weakness Primary Care Provider: Rosanna Torres DO Arun Knutson is an 78 year old male with a PMH significant for Idiopathic pulmonary fibrosis on chronic O2 therapy, RA on methotrexate and prednisone therapy, HTN, CAD, and GERD who presented to the [facility] ED on 06/23/23 with complaints of generalized weakness, cough, and congestion. He was noted to be hypoxic at 84% on RA in triage and tachycardic at 102 but otherwise stable. Labs were significant for a leukocytosis of 14 with neutrophil predominance of 12, sodium of 131, chloride of 96, BUN of 34, initial high sen trop of 24, procal of 0.70, and full respiratory biofire negative. Chest xray was read as 1. Diffuse interstitial thickening, similar to chest CT of May 01, 2023. This is consistent with interstitial lung disease with pulmonary fibrosis. No superimposed consolidation. 2. Cardiomegaly.. CTA of the chest with PE protocol was read as "1. No pulmonary emboli identified. Mild dilatation of the central pulmonary arteries which raises the possibility of pulmonary arterial hypertension. 2. Basilar and peripheral predominant honeycombing. The findings are consistent with a UIP pattern of pulmonary fibrosis with mild progression since CT of May 01, 2023. 3. Mild groundglass opacities within the lungs, as described above. The findings could reflect a superimposed infectious process or active alveolitis. 4. Mildly enlarged mediastinal and bilateral hilar lymph nodes which are probably reactive or related to interstitial lung disease.". Prior to admission the patient was given 1L NSS, 125 IV Solu-Medrol, an albuterol treatment, a dose of cefepime, and a dose of Guaifenesin. At the time of the exam the patient was sitting in bed in no acute distress, currently stable on 2L NC. He states that he started to develop a mild, non- productive cough approximately one month ago. Over the past 3 days his cough, wheezing, and generalized weakness have significantly increased. He uses 2L NC prn during the day and is supposed to us HS O2 as well but tries to avoid it as it often keeps him up at night. He has not seen a need for increased O2 but feels generally unwell. He denies recent fever, chills, chest pain, hemoptysis, abd pain, nausea, vomiting, diarrhea, dysuria, hematuria, melena, LE swelling, and recent trauma. At this time he wishes to be a full code. He would want his daughter to make medical decisions for him if he could not make them himself. Please refer to Dr. Hsieh's attestation for any changes to the treatment plan Allergies Allergy/AdvReac Type Severity Reaction Status Date / Time No Known Allergies Allergy Verified 06/23/23 15:05 Home Medications Medication Instructions Recorded Confirmed Type multivitamin (Daily Multi-Vitamin 1 tab PO DAILY 02/03/19 06/23/23 History tablet) atorvastatin 10 mg tablet 10 mg PO DAILY #90 tabs 01/06/23 06/23/23 Rx omeprazole 20 mg capsule,delayed 20 mg PO DAILY #90 caps 01/22/23 06/23/23 Rx release lisinopril 20 1 tab PO DAILY #90 tabs 01/23/23 06/23/23 Rx mg-hydrochlorothiazide 12.5 mg tablet Oxygen Home #2 L 05/19/23 05/19/23 Rx pirfenidone 267 mg capsule See Rx Instructions PO .COMPLEX 06/13/23 06/23/23 Rx (Esbriet) #90 caps aspirin 81 mg tablet,delayed 81 mg PO DAILY 06/23/23 06/23/23 History release brinzolamide 1 % eye 1 drp ophthalmic (eye) DIRECTED 06/23/23 06/23/23 History drops,suspension (Azopt) gabapentin 300 mg capsule 300 mg PO HS 06/23/23 06/23/23 History latanoprost 0.005 % eye drops 1 drp ophthalmic (eye) PM 06/23/23 06/23/23 History leflunomide 10 mg tablet (Arava) 10 mg PO DAILY 06/23/23 06/23/23 History naproxen 500 mg tablet 500 mg PO BID PRN Pain 06/23/23 06/23/23 History prednisone 5 mg tablet 5 mg PO DAILY 06/23/23 06/23/23 History Past Med/Surg History Medical History (Updated 06/23/23 @ 18:08 by Smith Holley PA-C) Chronic cough Hypoxia Essential tremor Urinary incontinence Pulmonary emphysema 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, assisted, current use Exercise hypoxemia Interstitial lung disease Post herpetic neuralgia Coronary artery calcification GERD without esophagitis Rheumatoid arthritis Pulmonary nodules Interstitial pulmonary fibrosis Hypertension Carotid artery disease Surgical History History of tonsillectomy and adenoidectomy History of cholecystectomy (2000) Family History Other Adopted Social History Smoking Status: Never smoker Age Quit Using Tobacco: 54; packs per day: 2; Second Hand Exposure: No; Do You Dip or Chew Tobacco: No; Hx Alcohol Use: Yes Alcohol type: beer Alcohol Intake Frequency: 2-3 x/Week Hx Substance Use: No Preferred Language: Burmese Communication Ability: Effective Visual Impairment: No Limitations Hearing Ability: Normal Manager Online Required: No Beliefs That Will Affect Care: None marital status: Current Living Situation: Spouse current occupational status: retired 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 [employer] Feels Safe at Home: Yes Childhood Exposure to Second-Hand Smoke: Yes Diet: regular Diet Comment: regular caffeine: Yes (coffee x 2-3 per day.) during the past year weight has: decreased > 10 lbs Dental Care, Regularly: Yes Physical Activity Frequency: Daily Physical Activity Frequency Comment: walk Seatbelt Use: always Sunscreen Use: Yes Physical Exam Physical Exam: Physical Exam: General: In no acute distress, stated age, malnourished, chronically ill appearing HEENT: Normocephalic, atraumatic, no scleral icterus, pupils around round, symmetrical, and reactive to light, moist mucus membranes, trachea midline, no thyromegaly Chest/Pulm: No respiratory distress, symmetrical chest expansion, scattered rhonchi and wheezing throughout Cardiac: RRR, no murmurs noted Abdomen: Negative for ascites and bruising, normoactive bowel sounds, soft, non-tender to palpation throughout Musculoskeletal: Symmetrical and without signs of acute trauma, upper and lower extremities with full ROM, no atrophy, spasticity, or flaccidity Extremities: Radial, dorsalis pedis, and posterior tibial pulses are intact and symmetrical, no edema noted in the BL LE's Skin: Warm, dry, no rashes , lesions, or scars noted Neuro: Alert and oriented to person, place, month, year, and president, no focal defects, no tremors noted Psych: No acute distress, calm and cooperative during the exam Results & Data Results & Data Vital Signs (Past 12 Hours) Vital Signs Temp Pulse Pulse Resp BP BP Pulse Ox 01/01/24 15:32 102 H 18 122/78 97 06/23/23 14:27 99 H 20 120/78 96 06/23/23 13:37 102 H 06/23/23 12:58 84 L 06/23/23 12:51 36.8 C 103 H 18 121/76 84 L O2 Del Method O2 Flow Rate 06/23/23 15:32 Nasal Cannula 2 06/23/23 14:27 06/23/23 13:37 06/23/23 12:58 Room Air 06/23/23 12:51 Room Air Laboratory Results Abnormal lab results 06/23/23 06/23/23 Range/Units 13:09 15:11 WBC 14.36 H (4.8-10.8) K/ul Hct 41.8 L (42.0-52.0) % RDW Std Deviation 47.7 H (36.4-46.3) fL RDW Coeff of Carl 15.7 H (11.5-14.5) % Neut # (Auto) 12.45 H (1.40-6.50) K/uL Lymph # (Auto) 0.99 L (1.20-3.40) K/uL Meriwether # (Auto) 0.67 H (0.11-0.59) K/uL Sodium 131 L (136-145) mmol/L Chloride 96 L (98-107) mmol/L BUN 34 H (6-23) mg/dl BUN/Creatinine Ratio 40.5 H (10-20) Glucose 103 H (70-99(Fasting)) mg/dl Troponin I High Sens 24.4 H 22.4 H (0-20) pg/ml Albumin 3.3 L (3.4-5.0) gm/dl Albumin/Globulin Ratio 0.8 L (0.9-2) Procalcitonin 0.70 H (0-0.5) ng/ml Diagnostic Findings Chest X-Ray 06/23/23 12:57 XR chest 1V portable CLINICAL HISTORY: Weakness. COMPARISON STUDY: Chest radiograph June 22, 2022. Chest CT May 01, 2023. FINDINGS: Elevation of the right hemidiaphragm is chronic. There is no pneumothorax or pleural effusion. Diffuse interstitial thickening is similar to CT of May 01, 2023. Cardiomegaly is unchanged. No superimposed consolidation is identified. IMPRESSION: 1. Diffuse interstitial thickening, similar to chest CT of May 01, 2023. This is consistent with interstitial lung disease with pulmonary fibrosis. No superimposed consolidation. 2. Cardiomegaly. ACT 112: Negative or not required by law. Electronically signed by: Jon Valladares M.D. 06/23/2023 1:59 PM Chest CTA 06/23/23 14:34 CT ANGIOGRAPHY OF THE CHEST, PULMONARY EMBOLUS PROTOCOL CLINICAL HISTORY: Shortness of breath. Hypoxia. Evaluate for pulmonary embolus. COMPARISON STUDY: Chest radiograph performed earlier today. Chest CT May 01, 2023. Chest CT December 15, 2012. TECHNIQUE: Following IV administration of 115 mL of Optiray, helical axial images of the chest were obtained utilizing the pulmonary embolus protocol. Maximal intensity projections and sagittal and coronal reformats were viewed on an independent 3D workstation. IV contrast was administered without complication. Automated exposure control was utilized for the study. A dose lowering technique was utilized adhering to the principles of ALARA. CT DOSE: 905.2 mGy.cm FINDINGS: No pulmonary emboli are identified. There is mild dilatation of the central pulmonary arteries. There is mild cardiomegaly and moderate coronary artery catheterization. No pericardial effusion is present. There is no thoracic aortic dissection. Mildly enlarged mediastinal and bilateral hilar lymph nodes are similar to CT of May 01, 2023. Index right paratracheal lymph node on image 152 of 261 measures 1.1 cm in short axis diameter. No pneumothorax or pleural effusion is present. Basilar and peripheral predominant honeycombing has mildly progressed since CT of May 01, 2023. Associated traction bronchiectasis is present. Scattered ground glass opacities are most evident within the left lower lobe. No confluent consolidation is present. No central obstructing mass is present. There is no cavitation. Upper lobe predominant emphysema is also noted. There are several incompletely healed right-sided rib fractures which appear unchanged since prior CT. The gallbladder is surgically absent. IMPRESSION: 1. No pulmonary emboli identified. Mild dilatation of the central pulmonary arteries which raises the possibility of pulmonary arterial hypertension. 2. Basilar and peripheral predominant honeycombing. The findings are consistent with a UIP pattern of pulmonary fibrosis with mild progression since CT of May 01, 2023. 3. Mild groundglass opacities within the lungs, as described above. The findings could reflect a superimposed infectious process or active alveolitis. 4. Mildly enlarged mediastinal and bilateral hilar lymph nodes which are probably reactive or related to interstitial lung disease. ACT 112: Negative or not required by law. Electronically signed by: Jon Valladares M.D. 06/23/2023 3:49 PM ECG Additional Comments: Sinus tachycardia with Premature supraventricular complexes Left axis deviation Abnormal ECG When compared with ECG of 29-MAY-2023 13:19, Premature supraventricular complexes are now Present Code Status & VTE Plan Code Status full code VTE Prophylaxis Plan VTE Prophylaxis will be ordered: Yes Supervising Physician Co-Signing Physician Notes Patient was seen and examined independently I discussed the case with Smith HILL I reviewed pertinent past medical social family history and also the plan of care and agree with the plan of care. Patient interviewed in the face of his family is having increasing respiratory distress. Cough and weakness. Patient has history of chronic lung disease with both interstitial lung disease and changes of some bullous emphysema. Physical exam the patient was conversant he was on 2 L nasal cannula but took his oxygen off to the bathroom and was not significantly hypoxic. His lung exams had to have coarse rales heard throughout all lung yeung there is no wheezes or focal air loss. Patient be admitted for good pulmonary pain at toilet and broad-spectrum antibiotics covering for Pseudomonas with cefepime and atypical Patient put on steroids and if he declines will see Dr. pan who is his typical outpatient physician Any exceptions will be noted below PG Care Time/CCT Total # of Minutes Spent Total Time Spent with Patient: Total time spent is greater than 50% in coordination of care (as documented) at patient's floor/unit and/or counseling patient: Coding [place] [address] INT INP/OBS CARE 3/75MIN Patient Type Established History Comprehensive Exam Comprehensive Medical Decision Making High Complexity Diagnoses Pneumonia J18.9 Interstitial lung disease J84.9 UTI (urinary tract infection) N39.0 Urinary retention R33.9 Hypertension I10 Rheumatoid arthritis M06.9 Carotid artery disease I77.9
[2023-06-23] MEDS ORDERED: TAMSULOSIN HCL 0.4 MG CAP PO ONE (17:35)
[2023-06-23] MEDS ORDERED: ACETAMINOPHEN 325 MG TAB PO PRN (17:44)
[2023-06-23 17:58] LABS: Appearance Urine Cloudy (Clear); Bacteria Urine Automated Negative (Negative); Bilirubin Urine Negative (Negative); Blood Urine 2+ (Negative); Color Urine Yellow; Glucose Urine UA Negative (Negative); Ketones Urine 1+ (Negative); Leukocyte Esterase Urine 2+ (Negative); Nitrite Urine Positive (Negative); Specific Gravity Urine > 1.045 (1.000-1.030); Urobilinogen Urine Negative (Negative); WBC Urine Automated >30 /hpf (0-5); pH Urine 8.5 (4.5-7.5)
[2023-06-23] MEDS ORDERED: TAMSULOSIN HCL 0.4 MG CAP ONE (18:03)
[2023-06-23 18:07] LABS: Protein Urine 2+ (Negative)
[2023-06-23] MEDS ORDERED: BRINZOLAMIDE (AZOPT) OPS 10 ML BTL OP SCH (19:50)
[2023-06-23] MEDS: ALBUT/IPRATROP 3MG/0.5MG NEB 3 ML VIAL NEB SCH (20:11)
[2023-06-23] MEDS ORDERED: LATANOPROST 0.005% OP SOLN 2.5 ML BTL OP SCH (21:00)
[2023-06-23] MEDS: ENOXAPARIN INJ 40 MG/0.4 ML SYR SQ SCH (21:46)
[2023-06-23] MEDS: CEFEPIME 2,000 MG in SYRINGE 0 ML IV SCH (21:47)
[2023-06-23] MEDS: GABAPENTIN 300 MG CAP PO SCH (21:47)
[2023-06-23] MEDS: guaiFENesin 600 MG TABCR PO SCH (21:47)
[2023-06-23] MEDS: methylPREDNISolone 40 MG in SYRINGE 0 ML IV SCH (21:47)
[2023-06-24] MEDS: methylPREDNISolone 40 MG in SYRINGE 0 ML IV SCH ×3 (06:23→20:20)
[2023-06-24] MEDS: CEFEPIME 2,000 MG in SYRINGE 0 ML IV SCH ×3 (06:31→20:20)
[2023-06-24] MEDS: DOXYCYCLINE HYCLATE 100 MG in DEXTROSE 5% MINI-B 100 ML IV SCH ×2 (06:35→18:14)
[2023-06-24] MEDS: ALBUT/IPRATROP 3MG/0.5MG NEB 3 ML VIAL NEB SCH ×4 (07:43→20:22)
[2023-06-24] MEDS: PANTOprazole 40 MG TAB PO SCH ×2 (08:27→08:35)
[2023-06-24] MEDS: ASPIRIN 81 MG ECTAB PO SCH ×2 (08:27→08:36)
[2023-06-24] MEDS: guaiFENesin 600 MG TABCR PO SCH ×2 (08:27→20:20)
[2023-06-24] MEDS: ATORVASTATIN 10 MG TAB PO SCH (08:28)
[2023-06-24 10:38] LABS: Basophils # (auto) 0.02 K/uL (0.00-0.20); Basophils % (auto) 0.3 %; Hematocrit (blood only) 38.6 % (42.0-52.0); Hemoglobin 12.8 g/dl (14.0-18.0); Immature Granulocytes # (auto) 0.05 K/uL (0.01-0.20); Immature Granulocytes % (auto) 0.8 %; Lymphocytes # (auto) 0.53 K/uL (1.20-3.40); Lymphocytes % (auto) 8.3 %; Mean Corpuscular Hemoglobin 27.6 pg (25.0-34.0); Mean Corpuscular Hgb Conc 33.2 g/dL (32.0-36.0); Mean Corpuscular Volume 83.2 fL (80.0-100.0); Mean Platelet Volume 9.2 fL (9.4-12.4); Monocytes % (auto) 1.6 %; Neutrophils # (auto) 5.67 K/uL (1.40-6.50); Platelet Count 185 K/uL (130-400); RDW Coefficient of Variation 15.5 % (11.5-14.5); RDW Standard Deviation 46.8 fL (36.4-46.3); Red Blood Count 4.64 M/uL (4.70-6.10); White Blood Count 6.37 K/ul (4.8-10.8)
[2023-06-24 10:58] LABS: BUN Creatinine Ratio 44.3 (10-20); Calcium 8.7 mg/dl (8.6-10.3); Creatinine Clr Calc Pharmacy 74.6 ml/min; Est GFR (African American) 98.3 ml/min; Est GFR (Non-African American) 84.8 ml/min; Potassium 4.2 mmol/L (3.5-5.1)
--- NOTE | 2023-06-24 17:15 | Hospitalist Progress Note ---
Date of Service June 24, 2023 Assessment & Plan (1) Pneumonia: Plan: Clinically improving On cefepime and doxycycline Plan to switch to p.o. antibiotics soon Awaiting blood cultures Leukocytosis resolved (2) Interstitial lung disease: Plan: Continue to treat with IV Solu-Medrol 40 mg every 8 Plan to switch to p.o. prednisone soon (3) UTI (urinary tract infection): Plan: -Noted on UA today However urine culture is negative Continue to treat pneumonia with cefepime (4) Urinary retention: Plan: -Patient has not voided since ED arrival Seems to have resolved -He was dehydrated on exam, renal function is stable -Monitor intake/output q-shift (5) Hypertension: Plan: -Stable -Will continue to hold his lisinopril-HCTZ for now as he appeared mildly dehydrated on exam with urinary retention on admission (6) Rheumatoid arthritis: Plan: -Has been on Prednisone and Arava -Hold both for now with IV steroids (7) Carotid artery disease: Plan: -Continue aspirin Admission and Anticipated Discharge Date Admission Date: June 23, 2023 Subjective Patient feels better overall. Breathing better. Denies chest pain. Review of Systems Review of Systems: All systems reviewed & are unremarkable except as noted in Subjective Physical Exam Physical Exam: General: Awake, conversant Heart: S1, S2/regular rate and rhythm, no murmur rubs or gallops Lungs: Bilateral crackles. Normal effort Abdomen: Soft/nontender/nondistended. No hepatosplenomegaly Extremities: No clubbing/cyanosis. No edema Behavior: Appropriate, cooperative Results & Data Results & Data Vital Signs (Past 12 Hours) Vital Signs Temp Pulse Pulse Resp BP Pulse Ox O2 Del Method 06/24/23 16:49 78 06/24/23 15:38 83 18 96 Nasal Cannula 06/24/23 15:21 36.7 C 72 18 134/79 96 Nasal Cannula 06/24/23 10:53 36.8 C 81 20 117/72 95 Nasal Cannula 06/24/23 10:41 81 18 97 Nasal Cannula 06/24/23 08:30 Nasal Cannula 06/24/23 07:45 78 18 98 Nasal Cannula 06/24/23 07:42 68 06/24/23 07:34 36.7 C 83 18 118/65 96 Nasal Cannula O2 Flow Rate 06/24/23 16:49 06/24/23 15:38 2 06/24/23 15:21 2 06/24/23 10:53 2 06/24/23 10:41 2 06/24/23 08:30 2 06/24/23 07:45 2 06/24/23 07:42 06/24/23 07:34 2 Laboratory Results Abnormal lab results 06/23/23 06/24/23 Range/Units 17:45 09:52 RBC 4.64 L (4.70-6.10) M/uL Hgb 12.8 L (14.0-18.0) g/dl Hct 38.6 L (42.0-52.0) % RDW Std Deviation 46.8 H (36.4-46.3) fL RDW Coeff of Carl 15.5 H (11.5-14.5) % MPV 9.2 L (9.4-12.4) fL Lymph # (Auto) 0.53 L (1.20-3.40) K/uL Porter # (Auto) 0.10 L (0.11-0.59) K/uL Sodium 132 L (136-145) mmol/L BUN 35 H (6-23) mg/dl BUN/Creatinine Ratio 44.3 H (10-20) Glucose 187 H (70-99(Fasting)) mg/dl Urine Appearance Cloudy A (Clear) Urine pH 8.5 H (4.5-7.5) Ur Specific Wallace > 1.045 H (1.000-1.030) Urine Protein 2+ H (Negative) Urine Ketones 1+ H (Negative) Urine Blood 2+ H (Negative) Urine Nitrite Positive A (Negative) Ur Leukocyte Esterase 2+ H (Negative) Urine WBC (Auto) >30 H (0-5) /hpf Urine RBC (Auto) 10-30 H (0-4) /hpf U Epithel Cells (Auto) 10-20 H (0-5) /lpf PG Care Time/CCT Total # of Minutes Spent Total Time Spent with Patient: Total time spent is greater than 50% in coordination of care (as documented) at patient's floor/unit and/or counseling patient: Coding Level of Care Code 21370 SUB INP/OBS CARE 2/35MIN Diagnoses Pneumonia J18.9 Laterality: bilateral Lung location: lower lobe of lung Pneumonia type: due to unspecified organism Interstitial lung disease J84.9 UTI (urinary tract infection) N30.00 Hematuria presence: without hematuria Urinary tract infection type: acute cystitis Urinary retention R33.9 Hypertension I10 Rheumatoid arthritis M06.9 Carotid artery disease I77.9 (1) Pneumonia Laterality: bilateral Lung location: lower lobe of lung Pneumonia type: due to unspecified organism Qualified Code(s): J18.9 - Pneumonia, unspecified organism (3) UTI (urinary tract infection) Hematuria presence: without hematuria Urinary tract infection type: acute cystitis Qualified Code(s): N30.00 - Acute cystitis without hematuria
[2023-06-24] MEDS: ENOXAPARIN INJ 40 MG/0.4 ML SYR SQ SCH (20:20)
[2023-06-24] MEDS: GABAPENTIN 300 MG CAP PO SCH (20:20)
[2023-06-25] MEDS: methylPREDNISolone 40 MG in SYRINGE 0 ML IV SCH (05:42)
[2023-06-25] MEDS: CEFEPIME 2,000 MG in SYRINGE 0 ML IV SCH (05:42)
[2023-06-25] MEDS: DOXYCYCLINE HYCLATE 100 MG in DEXTROSE 5% MINI-B 100 ML IV SCH ×2 (05:42→17:56)
[2023-06-25 07:19] LABS: Basophils # (auto) 0.02 K/uL (0.00-0.20); Basophils % (auto) 0.1 %; Hematocrit (blood only) 36.9 % (42.0-52.0); Hemoglobin 12.2 g/dl (14.0-18.0); Immature Granulocytes # (auto) 0.15 K/uL (0.01-0.20); Immature Granulocytes % (auto) 1.1 %; Lymphocytes # (auto) 0.89 K/uL (1.20-3.40); Lymphocytes % (auto) 6.6 %; Mean Corpuscular Hemoglobin 27.9 pg (25.0-34.0); Mean Corpuscular Hgb Conc 33.1 g/dL (32.0-36.0); Mean Corpuscular Volume 84.2 fL (80.0-100.0); Mean Platelet Volume 9.4 fL (9.4-12.4); Monocytes # (auto) 0.53 K/uL (0.11-0.59); Monocytes % (auto) 3.9 %; Neutrophils # (auto) 11.91 K/uL (1.40-6.50); Neutrophils % (auto) 88.3 %; Platelet Count 203 K/uL (130-400); RDW Coefficient of Variation 15.1 % (11.5-14.5); RDW Standard Deviation 46.5 fL (36.4-46.3); Red Blood Count 4.38 M/uL (4.70-6.10)
[2023-06-25 07:27] LABS: Calcium 8.6 mg/dl (8.6-10.3); Est GFR (African American) 90.7 ml/min; Est GFR (Non-African American) 78.3 ml/min; Potassium 4.5 mmol/L (3.5-5.1)
[2023-06-25] MEDS: ALBUT/IPRATROP 3MG/0.5MG NEB 3 ML VIAL NEB SCH ×4 (07:29→18:37)
[2023-06-25] MEDS: ATORVASTATIN 10 MG TAB PO SCH (08:08)
[2023-06-25] MEDS: ASPIRIN 81 MG ECTAB PO SCH (08:08)
[2023-06-25] MEDS: guaiFENesin 600 MG TABCR PO SCH ×2 (08:08→19:31)
[2023-06-25] MEDS: PANTOprazole 40 MG TAB PO SCH (08:08)
[2023-06-25] MEDS ORDERED: methylPREDNISolone 40 MG in SYRINGE 0 ML IV SCH (09:00)
[2023-06-25] MEDS: cephALEXin 500 MG CAP PO SCH ×4 (09:47→19:32)
--- NOTE | 2023-06-25 15:12 | Hospitalist Progress Note ---
Date of Service June 25, 2023 Assessment & Plan (1) Pneumonia: Plan: Clinically improving Switch cefepime to p.o. Keflex Continue doxycycline Blood cultures negative so far Leukocytosis resolved but now elevated likely steroid-induced (2) Interstitial lung disease: Plan: Will decrease IV Solu-Medrol to once daily. Plan to switch to p.o. prednisone soon (3) UTI (urinary tract infection): Plan: -Noted on UA today However urine culture is negative Continue to treat pneumonia with ceftriaxone Patient has not had any further issues with urinary retention (4) Urinary retention: Plan: -Patient has not voided since ED arrival Seems to have resolved -He was dehydrated upon presentation, renal function is stable -Monitor intake/output q-shift (5) Hypertension: Plan: -Stable -Will continue to hold his lisinopril-HCTZ for now as he appeared mildly dehydrated on exam with urinary retention on admission (6) Rheumatoid arthritis: Plan: -Has been on Prednisone and Arava -Hold both for now with IV steroids (7) Carotid artery disease: Plan: -Continue aspirin Admission and Anticipated Discharge Date Admission Date: June 23, 2023 Subjective Patient continues to feel better overall. Denies chest pain. Says that his cough is becoming more and more loose. Shortness of breath is improving. Review of Systems Review of Systems: All systems reviewed & are unremarkable except as noted in Subjective Physical Exam Physical Exam: General: Awake, conversant Heart: S1, S2/regular rate and rhythm, no murmur rubs or gallops Lungs: Bilateral crackles. Normal effort Abdomen: Soft/nontender/nondistended. No hepatosplenomegaly Extremities: No clubbing/cyanosis. No edema Behavior: Appropriate, cooperative Results & Data Results & Data Vital Signs (Past 12 Hours) Vital Signs Temp Pulse Pulse Resp BP Pulse Ox O2 Del Method 06/25/23 12:02 36.2 C L 86 15 124/80 97 Nasal Cannula 06/25/23 11:11 85 18 98 Nasal Cannula 06/25/23 08:09 36.7 C 83 16 98/40 L 95 Nasal Cannula 06/25/23 08:00 Nasal Cannula 06/25/23 07:50 36.7 C 64 15 111/64 97 Nasal Cannula 06/25/23 07:30 85 18 96 Nasal Cannula 06/25/23 07:14 79 O2 Flow Rate 06/25/23 12:02 2 06/25/23 11:11 2 06/25/23 08:09 2 06/25/23 08:00 2 06/25/23 07:50 2 06/25/23 07:30 2 06/25/23 07:14 Laboratory Results Abnormal lab results 06/25/23 Range/Units 06:43 WBC 13.50 H (4.8-10.8) K/ul RBC 4.38 L (4.70-6.10) M/uL Hgb 12.2 L (14.0-18.0) g/dl Hct 36.9 L (42.0-52.0) % RDW Std Deviation 46.5 H (36.4-46.3) fL RDW Coeff of Carl 15.1 H (11.5-14.5) % Neut # (Auto) 11.91 H (1.40-6.50) K/uL Lymph # (Auto) 0.89 L (1.20-3.40) K/uL Sodium 134 L (136-145) mmol/L BUN 35 H (6-23) mg/dl BUN/Creatinine Ratio 38.0 H (10-20) Glucose 123 H (70-99(Fasting)) mg/dl PG Care Time/CCT Total # of Minutes Spent Total Time Spent with Patient: Total time spent is greater than 50% in coordination of care (as documented) at patient's floor/unit and/or counseling patient: Coding Level of Care Code 02278 SUB INP/OBS CARE 2/35MIN Diagnoses Pneumonia J18.9 Laterality: bilateral Lung location: lower lobe of lung Pneumonia type: due to unspecified organism Interstitial lung disease J84.9 UTI (urinary tract infection) N30.00 Hematuria presence: without hematuria Urinary tract infection type: acute cystitis Urinary retention R33.9 Hypertension I10 Rheumatoid arthritis M06.9 Carotid artery disease I77.9 (1) Pneumonia Laterality: bilateral Lung location: lower lobe of lung Pneumonia type: due to unspecified organism Qualified Code(s): J18.9 - Pneumonia, unspecified organism (3) UTI (urinary tract infection) Hematuria presence: without hematuria Urinary tract infection type: acute cystitis Qualified Code(s): N30.00 - Acute cystitis without hematuria
[2023-06-25] MEDS: GABAPENTIN 300 MG CAP PO SCH (19:31)
[2023-06-25] MEDS: ENOXAPARIN INJ 40 MG/0.4 ML SYR SQ SCH (19:32)
[2023-06-26] MEDS: DOXYCYCLINE HYCLATE 100 MG in DEXTROSE 5% MINI-B 100 ML IV SCH (05:44)
[2023-06-26 07:35] LABS: Basophils # (auto) 0.09 K/uL (0.00-0.20); Basophils % (auto) 0.8 %; Hematocrit (blood only) 36.9 % (42.0-52.0); Immature Granulocytes # (auto) 0.48 K/uL (0.01-0.20); Immature Granulocytes % (auto) 4.2 %; Lymphocytes # (auto) 1.82 K/uL (1.20-3.40); Lymphocytes % (auto) 15.9 %; Mean Corpuscular Hemoglobin 27.5 pg (25.0-34.0); Mean Corpuscular Hgb Conc 32.5 g/dL (32.0-36.0); Mean Corpuscular Volume 84.4 fL (80.0-100.0); Mean Platelet Volume 9.3 fL (9.4-12.4); Monocytes # (auto) 0.82 K/uL (0.11-0.59); Monocytes % (auto) 7.2 %; Neutrophils # (auto) 8.22 K/uL (1.40-6.50); Neutrophils % (auto) 71.9 %; Platelet Count 209 K/uL (130-400); RDW Coefficient of Variation 15.1 % (11.5-14.5); RDW Standard Deviation 47.1 fL (36.4-46.3); Red Blood Count 4.37 M/uL (4.70-6.10); White Blood Count 11.43 K/ul (4.8-10.8)
[2023-06-26] MEDS: ALBUT/IPRATROP 3MG/0.5MG NEB 3 ML VIAL NEB SCH ×2 (07:48→10:38)
[2023-06-26 07:51] LABS: BUN Creatinine Ratio 37.2 (10-20); Calcium 8.5 mg/dl (8.6-10.3); Creatinine Clr Calc Pharmacy 75.5 ml/min; Est GFR (African American) 98.8 ml/min; Est GFR (Non-African American) 85.3 ml/min; Potassium 4.2 mmol/L (3.5-5.1)
[2023-06-26] MEDS ORDERED: predniSONE 20 MG TAB PO ONE (08:00)
[2023-06-26] MEDS: PANTOprazole 40 MG TAB PO SCH (08:45)
[2023-06-26] MEDS: cephALEXin 500 MG CAP PO SCH (08:45)
[2023-06-26] MEDS: guaiFENesin 600 MG TABCR PO SCH (08:46)
[2023-06-26] MEDS: ASPIRIN 81 MG ECTAB PO SCH (08:46)
[2023-06-26] MEDS: ATORVASTATIN 10 MG TAB PO SCH (08:46)
--- NOTE | 2023-06-26 10:13 | Discharge Summary ---
Date of Service June 26, 2023 Admission HPI Per Admitting Provider Arun Knutson is an 78 year old male with a PMH significant for Idiopathic pulmonary fibrosis on chronic O2 therapy, RA on methotrexate and prednisone therapy, HTN, CAD, and GERD who presented to the [facility] ED on 06/23/23 with complaints of generalized weakness, cough, and congestion. He was noted to be hypoxic at 84% on RA in triage and tachycardic at 102 but otherwise stable. Labs were significant for a leukocytosis of 14 with neutrophil predominance of 12, sodium of 131, chloride of 96, BUN of 34, initial high sen trop of 24, procal of 0.70, and full respiratory biofire negative. Chest xray was read as 1. Diffuse interstitial thickening, similar to chest CT of May 01, 2023. This is consistent with interstitial lung disease with pulmonary fibrosis. No superimposed consolidation. 2. Cardiomegaly.. CTA of the chest with PE protocol was read as "1. No pulmonary emboli identified. Mild dilatation of the central pulmonary arteries which raises the possibility of pulmonary arterial hypertension. 2. Basilar and peripheral predominant honeycombing. The findings are consistent with a UIP pattern of pulmonary fibrosis with mild progression since CT of May 01, 2023. 3. Mild groundglass opacities within the lungs, as described above. The findings could reflect a superimposed infectious process or active alveolitis. 4. Mildly enlarged mediastinal and bilateral hilar lymph nodes which are probably reactive or related to interstitial lung disease.". Prior to admission the patient was given 1L NSS, 125 IV Solu-Medrol, an albuterol treatment, a dose of cefepime, and a dose of Guaifenesin. At the time of the exam the patient was sitting in bed in no acute distress, currently stable on 2L NC. He states that he started to develop a mild, non- productive cough approximately one month ago. Over the past 3 days his cough, wheezing, and generalized weakness have significantly increased. He uses 2L NC prn during the day and is supposed to us HS O2 as well but tries to avoid it as it often keeps him up at night. He has not seen a need for increased O2 but feels generally unwell. He denies recent fever, chills, chest pain, hemoptysis, abd pain, nausea, vomiting, diarrhea, dysuria, hematuria, melena, LE swelling, and recent trauma. At this time he wishes to be a full code. He would want his daughter to make medical decisions for him if he could not make them himself. Please refer to Dr. Hsieh's attestation for any changes to the treatment plan Admission Exam Per Admitting Provider General: In no acute distress, stated age, malnourished, chronically ill appearing HEENT: Normocephalic, atraumatic, no scleral icterus, pupils around round, symmetrical, and reactive to light, moist mucus membranes, trachea midline, no thyromegaly Chest/Pulm: No respiratory distress, symmetrical chest expansion, scattered rhonchi and wheezing throughout Cardiac: RRR, no murmurs noted Abdomen: Negative for ascites and bruising, normoactive bowel sounds, soft, non- tender to palpation throughout Musculoskeletal: Symmetrical and without signs of acute trauma, upper and lower extremities with full ROM, no atrophy, spasticity, or flaccidity Extremities: Radial, dorsalis pedis, and posterior tibial pulses are intact and symmetrical, no edema noted in the BL LE's Skin: Warm, dry, no rashes , lesions, or scars noted Neuro: Alert and oriented to person, place, month, year, and president, no focal defects, no tremors noted Psych: No acute distress, calm and cooperative during the exam Principal Diagnosis Pneumonia Acute exacerbation of insterstitial pulmonary fibrosis Discharge Exam General: Awake, conversant Heart: S1, S2/regular rate and rhythm, no murmur rubs or gallops Lungs: Bilateral crackles. Normal effort Abdomen: Soft/nontender/nondistended. No hepatosplenomegaly Extremities: No clubbing/cyanosis. No edema Behavior: Appropriate, cooperative Discharge Data Allergies Allergy/AdvReac Type Severity Reaction Status Date / Time No Known Allergies Allergy Verified 06/23/23 15:05 Consultations 06/23/23 17:19 ED Decision to Admit Stat Ordered Studies 06/23/23 14:34 CT angio chest PE protocol Stat Hospital Course (1) Pneumonia: Clinically improving Being discharged on Keflex and doxycycline to complete the course Blood cultures negative so far Leukocytosis resolved but now mildly elevated likely steroid-induced (2) Interstitial lung disease: Was treated with IV Solu-Medrol during the hospital stay Discharging on p.o. prednisone few more days Advised to complete the 40 mg p.o. prednisone course, then switch to usual 5 mg home dose of prednisone (3) UTI (urinary tract infection): -Suspected on urinalysis However urine culture is negative Patient has not had any further issues with urinary retention (4) Urinary retention: Seems to have resolved -He was dehydrated upon presentation, renal function is stable -Monitor intake/output q-shift (5) Hypertension: -Stable -Resume lisinopril/hydrochlorothiazide upon discharge (6) Rheumatoid arthritis: -Has been on Prednisone and Arava Resume (7) Carotid artery disease: -Continue aspirin Plan Discharge today Total Time Total Time Spent Total Time Spent (In Minutes): 35 Discharge Plan Discharge Items Patient Disposition: Home - Self-Care Reason For Visit: PNEUMONITIS, GENERALIZED WEAKNESS Discharge Diagnosis: Pneumonia Acute exacerbation of insterstitial pulmonary fibrosis Activity: Resume your previous activity Non-emergency contact: Primary Care Provider Call non-emergency contact if: you have any medication questions and your symptoms worsen Follow-up/Referrals: Rosanna Torres DO [Primary Care Provider] - 07/08/23 10:20 am Diet: Regular Addtl Attending Provider Instructions: Advised to follow-up with PCP in 1 week Advised to note that you are being discharged on 40 mg of prednisone for 3 days, Keflex and doxycycline to complete the course. Advised that you can resume your 5 mg of prednisone after the 40 mg prednisone course is finished. Pending Studies at Discharge: No Stand-Alone Forms: My [facility] Medications and DC Order Prescriptions: New cephalexin 500 mg Capsule 500 mg PO BID 4 Days Qty: 8 0RF prednisone 20 mg Tablet 40 mg PO NOW Qty: 6 0RF doxycycline hyclate 100 mg capsule 100 mg PO BID 3 Days Qty: 6 0RF Continued atorvastatin 10 mg tablet 10 mg PO DAILY Qty: 90 1RF omeprazole 20 mg capsule,delayed release(DR/EC) 20 mg PO DAILY Qty: 90 1RF lisinopril-hydrochlorothiazide 20-12.5 mg tablet 1 tab PO DAILY Qty: 90 1RF (DME) Oxygen Home Liters Per Minute See Rx Instructions .ROUTE .MEDSUPPLY Qty: 2 0RF Rx Instructions: 2 L of oxygen with exertion and when sleeping. Assess for portability. Length of need 99 years. pirfenidone [Esbriet] 267 mg capsule See Rx Instructions PO .COMPLEX Qty: 90 0RF Rx Instructions: ORDERED 06/12/23... take 1 capsule 3 times daily for 7 days; 2 capsules 3 times daily for 7 days, then 3 capsules 3 times daily DAY 15 AND ON. multivitamin [Daily Multi-Vitamin] tablet 1 tab PO DAILY latanoprost 0.005 % Drops 1 drp OPHTHALMIC (EYE) PM brinzolamide [Azopt] 1 % Drops,Suspension 1 drp OPHTHALMIC (EYE) DIRECTED leflunomide [Arava] 10 mg Tablet 10 mg PO DAILY aspirin 81 mg Tablet,Delayed Release (Dr/Ec) 81 mg PO DAILY gabapentin 300 mg capsule 300 mg PO HS naproxen 500 mg tablet 500 mg PO BID PRN (Reason: Pain) Held prednisone 5 mg tablet 5 mg PO DAILY Hold Instructions: Resume on 06/29/23. Resume after 40 mg prednisone course completed Discharge Orders: Discharge Order (Routine); Ordered 06/26/23 Ordered By: Karey Danielson Admission Data Admit Date/Time: 06/23/23 17:21 Attending Provider: Karey Danielson Admit Provider: Geoff Hsieh Primary Care Provider: Rosanna Torres Other Providers: Geoff Hsieh Other Interventions: Discharge Summary Assessment (RN) Last Done: 06/26/23 12:13 Coding Level of Care Code 01437 INP/OBS DISCH >30 MIN Diagnoses Pneumonia J18.9 Laterality: bilateral Lung location: lower lobe of lung Pneumonia type: due to unspecified organism Interstitial lung disease J84.9 UTI (urinary tract infection) N30.00 Hematuria presence: without hematuria Urinary tract infection type: acute cystitis Urinary retention R33.9 Hypertension I10 Rheumatoid arthritis M06.9 Carotid artery disease I77.9
--- NOTE | 2023-07-01 12:58 | Coding Query ---
CODING QUERY To promote full compliance with coding requirements relating to patient care, provider participation is requested in all cases of caster helper uncertainty. Please assist us with the question(s) below: Coding Question(s): The Discharge Summary documents, " UTI (urinary tract infection): -Suspected on urinalysis However urine culture is negative Patient has not had any further issues with urinary retention". It is not clear if there was still suspected/possible UTI, or if it was ruled- out. Please specify below, in your clinical opinion, regarding Suspected UTI: ( ) Suspected UTI still possible (x ) UTI Ruled-Out ( ) Other: Please Specify Physician's Response(s): Thank you Domitila Lowry Principal Diagnosis: "that condition established after study, to be chiefly responsible for occasioning the admission of the patient to the hospital for care." Co-Existing Principal Diagnosis: "when two or more diagnoses equally meet the criteria for principal diagnosis as determined by the circumstances of admission, diagnostic work up, and/or therapy provided, and the Alphabetic Index, Tabular List, or another coding guideline does not provide sequencing direction, any one of the diagnoses may be sequenced first." "When the physician has documented what appears to be a current diagnosis in the body of the record, but has not included the diagnosis in the final diagnostic statement, the physician should be asked whether the diagnosis should be added." (Source Coding [facility] 2 QTR90. p3-4) LUCIO
--- NOTE | 2023-07-01 13:04 | Coding Query ---
To promote full compliance with coding requirements relating to patient care, provider participation is requested in all cases of supervisor cigarette making department uncertainty. Please assist us with the question(s) below: Coding Question(s): The diagnosis(es) below was documented in the ER, then subsequently fell off all further documentation. Please indicate if it is still a possible diagnosis or ruled out. Physician's Response(s): CHRONIC HYPOXIC RESPIRATORY FAILURE (documented on ER) ( x ) Diagnosed ( ) Ruled out ( ) Other (please specify) IMMUNOCOMPROMISED STATE (documented on ER) ( x ) Diagnosed ( ) Ruled out ( ) Other (please specify) MTDD
== END 2023-06-26 13:31 | disposition home or self-care (01) | DRG 194 ==
LOC: ED 12:46 → EDINP 17:21 → SUATTDRO 17:21 → EDINP 19:51 → 2N 06-24 00:57

== ENCOUNTER 2024-06-08 14:48 | Observation (INO) ==
--- NOTE | 2024-06-08 15:15 | ED Triage Note ---
Date of Service June 08, 2024 Provider in Triage Author: Myla Suggs History of Present Illness This patient was briefly evaluated while in triage. An abbreviated physical exam was performed. This patient is a 79-year-old Male who presents to the ED for evaluation of generalized weakness x3 days. No pain, CP, SOB. Able to ambulate. No recent diarrhea or vomiting. Per daughter, been having difficulty getting around. Pt. supposed to wear Oxygen due to emphysema and interstitial lung disease, though is noncompliant with Oxygen therapy. Physical Exam VITALS: Vitals are noted on the nurse's note and reviewed by myself. GENERAL: This is an 79 year old male, in no acute distress, nondiaphoretic, well-developed well-nourished. SKIN: No obvious rashes, edema, erythema HEAD: Normocephalic atraumatic. EYES: Conjunctivae without injection, sclerae without icterus. NECK: No JVD. LUNGS: No retractions or accessory muscle use. MUSCULOSKELETAL: Presents in a wheelchair. NEURO: Patient was alert and oriented to person place and time. No focal neurological deficits. Initial orders for labs and / or imaging were placed and patient was placed in the waiting area until a bed is available. Please see further documentation for the full ED course.
[2024-06-08 17:02] LABS: Basophils % (auto) 0.9 %; Eosinophils % (auto) 0.9 %; Hematocrit (blood only) 42.9 % (42.0-52.0); Hemoglobin 14.1 g/dl (14.0-18.0); Immature Granulocytes # (auto) 0.19 K/uL (0.01-0.20); Immature Granulocytes % (auto) 1.7 %; Lymphocytes # (auto) 1.16 K/uL (1.20-3.40); Lymphocytes % (auto) 10.4 %; Mean Corpuscular Hemoglobin 26.7 pg (25.0-34.0); Mean Corpuscular Hgb Conc 32.9 g/dL (32.0-36.0); Mean Corpuscular Volume 81.3 fL (80.0-100.0); Mean Platelet Volume 8.5 fL (9.4-12.4); Monocytes # (auto) 0.81 K/uL (0.11-0.59); Monocytes % (auto) 7.2 %; Neutrophils # (auto) 8.84 K/uL (1.40-6.50); Neutrophils % (auto) 78.9 %; Platelet Count 321 K/uL (130-400); RDW Coefficient of Variation 15.5 % (11.5-14.5); RDW Standard Deviation 45.4 fL (36.4-46.3); Red Blood Count 5.28 M/uL (4.70-6.10)
[2024-06-08 17:09] LABS: Albumin Globulin Ratio 0.8 (0.9-2); Albumin Level 3.6 gm/dl (3.4-5.0); Bilirubin,Total 0.4 mg/dl (0.2-1.0); Calcium 9.6 mg/dl (8.6-10.3); Creatinine Clr Calc Pharmacy 54.4 ml/min; Globulin 4.3 gm/dl (2.5-4.0); Magnesium 1.8 mg/dl (1.7-2.4); Potassium 4.7 mmol/L (3.5-5.1); Total Protein 7.9 gm/dl (6.0-8.3)
[2024-06-08 17:17] LABS: Troponin I High Sensitivity 23.1 pg/ml (0-20)
[2024-06-08 17:24] LABS: Thyroid Stimulating Hormone 5.474 uIu/ml (0.300-4.500)
[2024-06-08 17:27] LABS: INR 1.1 (0.9-1.1); Prothrombin Time 11.4 Seconds (9.0-12.0)
--- NOTE | 2024-06-08 17:30 | Emergency Department Note ---
Impression & Plan Generalized weakness, Acute hyponatremia ED Provider Note HISTORY OF PRESENT ILLNESS: Patient is an 79-year-old male presenting with generalized weakness. Patient reports has been feeling very weak and rundown for the last 4 days. Reports has gotten progressively worse over the last 4 days. He denies any focal deficits. Denies any chest pain or shortness of breath. Denies any abdominal pain, nausea or vomiting. Denies any dysuria or hematuria. Patient lives home alone. He reports that he has been very "slow" and getting his daily activities finished. He states that he feels very unsteady on his feet when he ambulates. He walks with no assistive devices at home. Daughter reports that since June he has lost about 40 pounds. Patient denies any fevers. Patient denies any recent sick contact exposure or recent travel. ROS: as above PHYSICAL EXAM: Constitutional: Patient appears in no acute distress. HENT: Head: Normocephalic and atraumatic. Eyes: EOMI, PERRL Mouth/Throat: Mucous membranes moist. Neck: Trachea midline. Neck supple. Cardiovascular: RRR, No murmurs, rubs or gallops. Intact distal pulses. Pulmonary/Chest: No respiratory distress. Breath sounds clear and equal bilaterally. No wheezes or rales. Abdominal: Abdomen soft, no tenderness, rebound or guarding. Musculoskeletal: No edema, tenderness or deformity noted. Skin: Warm and dry. No rash, erythema, pallor or cyanosis Psychiatric: Appropriate mood and affect for situation. Neurological: Alert and keenly responsive. Facies symmetric. Able to raise eyebrows, close eyes, smile, puff mouth, stick out tongue, move tongue left and right and raise palate symmetrically. Able to shrug shoulders. PERRLA. SILT to forehead below eye and at jawline. Can hear soft noise bilaterally. Strength 5/5 in bilateral upper and lower extremities. SILT throughout bilateral upper and lower extremities. MDM: - Vitals signs stable - History obtained via patient. History as above. - Chronic conditions affecting care: rheumatoid arthritis; HTN; CAD; GERD; interstitial lung disease - Differential diagnoses include, but are not limited to: pneumonia; UTI; CVA; intracranial hemorrhage; ACS; electrolyte abnormality; dehydration; viral syndrome - Order placed for continuous cardiac monitoring. At this time, monitor showed rate of 77 bpm with normal sinus rhythm, per my interpretation. - External medical records reviewed. Primary care visit note dated 05/24/2024 was reviewed. Patient was seen in the clinic for his depression and fatigue. He had noted he has been feeling very rundown and they noted that it is likely secondary to his depressed mood. - EKG interpreted by myself showed normal sinus rhythm. Rate 96 bpm. QT 348. No acute ischemic changes. - Laboratory workup interpreted by myself showed slight leukocytosis (WBC 11.20); normal PT/INR; acute hyponatremia (Na 128); elevated troponin (28); elevated TSH (5.474) with normal T4; normal procalcitonin - UA negative for infection. Noted to have ketonuria - CXR negative for pneumonia, per my interpretation - CT head wo contrast negative for acute pathology - Viral respiratory panel negative - Unclear etiology for patient's generalized weakness at this time. May be secondary to patient's hyponatremia. Will admit to hospitalist service for further evaluation and management. - Discussion was had with case manager specialist about patient's case and need for admission - Hospitalist, Dr. Moody, consulted for admission - Patient admitted to [facility] hospitalist service for further evaluation and management. ASSESSMENT AND PLAN: Diagnosis: generalized weakness; acute hyponatremia Plan: admit Past Med/Surg History Problem List (Updated 06/09/24 @ 00:17 by No Calix MD) Acute hyponatremia (Acute) Generalized weakness (Acute) Depression Immunocompromised state (Acute) Urinary retention Chronic hypoxic respiratory failure Essential tremor Gait disturbance Urinary incontinence Pulmonary emphysema Interstitial lung disease (Acute) Coronary artery calcification GERD without esophagitis Carotid artery disease Hypertension Interstitial pulmonary fibrosis Pulmonary nodules Rheumatoid arthritis Medical History Chronic cough Hypoxia 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, 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, 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 Exercise hypoxemia Post herpetic neuralgia Pneumonia Surgical History S/P cataract surgery History of tonsillectomy and adenoidectomy History of cholecystectomy (2000) Family History Other Adopted Social History Smoking Status: Former smoker Tobacco Type: Cigarettes Age Started Using Tobacco: 14; Age Quit Using Tobacco: 54; packs per day: 2; Second Hand Exposure: No; Do You Dip or Chew Tobacco: No; Hx Alcohol Use: Yes Alcohol type: beer Alcohol Intake Frequency: 2-3 x/Week Hx Substance Use: No Preferred Language: Tajik Communication Ability: Effective Visual Impairment: No Limitations Hearing Ability: Normal 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 Required: No Beliefs That Will Affect Care: None marital status: Current Living Situation: Alone current occupational status: retired 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 [employer] Feels Safe at Home: Yes Childhood Exposure to Second-Hand Smoke: Yes Diet: regular Diet Comment: regular caffeine: Yes (coffee x 2-3 per day.) during the past year weight has: decreased > 10 lbs Dental Care, Regularly: Yes Physical Activity Frequency: Daily Physical Activity Frequency Comment: walk Seatbelt Use: always Sunscreen Use: Yes Assistive Devices: Oxygen - Continuous (w/exertion - from yourdelivery ([facility], [employer] Allergies Allergies Allergy/AdvReac Type Severity Reaction Status Date / Time No Known Allergies Allergy Verified 05/24/24 09:49 Home Meds Home Medications Medication Instructions Recorded Confirmed multivitamin (Daily Multi-Vitamin 1 tab PO DAILY 02/03/19 05/24/24 tablet) aspirin 81 mg tablet,delayed 81 mg PO DAILY 06/23/23 05/24/24 release Previous Rx's Medication Instructions Recorded Oxygen Home #1 ea 07/02/23 gabapentin 300 mg capsule 300 mg PO HS #90 caps 07/22/23 naproxen 500 mg tablet 500 mg PO BID PRN Pain #180 tabs 09/25/23 atorvastatin 10 mg tablet 10 mg PO DAILY #90 tabs 01/12/24 lisinopril 20 1 tab PO DAILY #90 tabs 01/26/24 mg-hydrochlorothiazide 12.5 mg tablet omeprazole 20 mg capsule,delayed 20 mg PO DAILY #90 caps 01/26/24 release prednisone 1 mg tablet 4 mg (4 x 1 mg) PO DAILY #120 tabs 03/02/24 sertraline 50 mg tablet See Rx Instructions .Route 05/24/24 .COMPLEX #30 tabs Results & Data (ED) Vital Signs Vital Signs - 24 hr 06/08/24 15:14 06/08/24 16:52 06/08/24 16:52 Temperature 36.7 C Temperature Source Temporal Artery Scan Pulse Rate 97 H Pulse Rate [Apical] 88 Pulse Rhythm Pulse Rhythm [Apical] Regular Pulse Strength [Apical] Normal Respiratory Rate 18 17 Respiratory Effort / Characteristics Non-Labored Spontaneous Non-Labored Spontaneous Respiratory Depth Normal Normal Respiratory Pattern Regular Regular Blood Pressure 95/60 L Blood Pressure [Left Arm] 106/69 Blood Pressure Mean 71 Blood Pressure Mean [Left Arm] 81 Blood Pressure Position [Left Arm] Sitting Pulse Oximetry 91 95 94 Oxygen Delivery Method Room Air Room Air Room Air Sepsis Recent Fever Within 48 Hours No Sepsis New/Unexplained Change in Mental Status N/A Sepsis Action Taken by Nursing No Action Required 06/08/24 16:52 06/08/24 17:25 06/08/24 17:47 Temperature Temperature Source Pulse Rate 87 80 Pulse Rate [Apical] 80 Pulse Rhythm Regular Pulse Rhythm [Apical] Pulse Strength [Apical] Respiratory Rate 17 29 H Respiratory Effort / Characteristics Spontaneous Respiratory Depth Normal Respiratory Pattern Regular Blood Pressure Blood Pressure [Left Arm] 113/69 Blood Pressure Mean Blood Pressure Mean [Left Arm] 83 Blood Pressure Position [Left Arm] Semi-fowlers Pulse Oximetry 95 96 Oxygen Delivery Method Room Air Room Air Sepsis Recent Fever Within 48 Hours Sepsis New/Unexplained Change in Mental Status Sepsis Action Taken by Nursing Laboratory Data 06/08/24 16:30 06/08/24 16:30 Lab Results 06/08/24 06/08/24 Range/Units 16:30 19:08 WBC 11.20 H (4.8-10.8) K/ul RBC 5.28 (4.70-6.10) M/uL Hgb 14.1 (14.0-18.0) g/dl Hct 42.9 (42.0-52.0) % MCV 81.3 (80.0-100.0) fL MCH 26.7 (25.0-34.0) pg MCHC 32.9 (32.0-36.0) g/dL RDW Std Deviation 45.4 (36.4-46.3) fL RDW Coeff of Carl 15.5 H (11.5-14.5) % Plt Count 321 (130-400) K/uL MPV 8.5 L (9.4-12.4) fL Immature Gran % (Auto) 1.7 % Neut % (Auto) 78.9 % Lymph % (Auto) 10.4 % [place] % (Auto) 7.2 % Eos % (Auto) 0.9 % Baso % (Auto) 0.9 % Neut # (Auto) 8.84 H (1.40-6.50) K/uL Lymph # (Auto) 1.16 L (1.20-3.40) K/uL [place] # (Auto) 0.81 H (0.11-0.59) K/uL Eos # (Auto) 0.10 (0.00-0.50) K/uL Baso # (Auto) 0.10 (0.00-0.20) K/uL Immature Gran # (Auto) 0.19 (0.01-0.20) K/uL PT 11.4 (9.0-12.0) Seconds INR 1.1 (0.9-1.1) Sodium 128 L (136-145) mmol/L Potassium 4.7 (3.5-5.1) mmol/L Chloride 93 L (98-107) mmol/L Carbon Dioxide 30 (21-32) mmol/L Anion Gap 5 (3-11) BUN 36 H (6-23) mg/dl Creatinine 1.03 (0.6-1.4) mg/dl Est Cr Clr Drug Dosing 54.4 ml/min eGFR 72.98 BUN/Creatinine Ratio 35.0 H (10-20) Glucose 137 H (70-99(Fasting)) mg/dl Calcium 9.6 (8.6-10.3) mg/dl Magnesium 1.8 (1.7-2.4) mg/dl Total Bilirubin 0.4 (0.2-1.0) mg/dl AST 20 (13-39) U/L ALT 10 (7-52) U/L Alkaline Phosphatase 82 (34-104) U/L Troponin I High Sens 23.1 H 28.0 H (0-20) pg/ml Total Protein 7.9 (6.0-8.3) gm/dl Albumin 3.6 (3.4-5.0) gm/dl Globulin 4.3 H (2.5-4.0) gm/dl Albumin/Globulin Ratio 0.8 L (0.9-2) Procalcitonin 0.13 (0-0.5) ng/ml TSH 5.474 H (0.300-4.500) uIu/ml Free T4 1.01 (0.61-1.60) ng/dl Adenovirus (PCR) Not Detected (NotDetected) B. pertussis DNA (PCR) Not Detected (NotDetected) B.parapertussis DNA PCR Not Detected (NotDetected) Lyme Disease Screen Negative (Negative) C. pneumoniae DNA (PCR) Not Detected (NotDetected) Coronavirus OC43 (PCR) Not Detected (NotDetected) Coronavirus HKU1 (PCR) Not Detected (NotDetected) Coronavirus 229E (PCR) Not Detected (NotDetected) SARS-CoV-2 (PCR) Not Detected (NotDetected) Coronavirus NL63 (PCR) Not Detected (NotDetected) Human Metapneumovir PCR Not Detected (NotDetected) Influenza Type A (PCR) Not Detected (NotDetected) Influenza Type B (PCR) Not Detected (NotDetected) M. pneumoniae (PCR) Not Detected (NotDetected) Parainfluenza 1 (PCR) Not Detected (NotDetected) Parainfluenza 2 (PCR) Not Detected (NotDetected) Parainfluenza 3 (PCR) Not Detected (NotDetected) Parainfluenza 4 (PCR) Not Detected (NotDetected) RSV (PCR) Not Detected (NotDetected) Entero/Rhino (PCR) Not Detected (NotDetected) Administered Medications Sodium Chloride (Nss) 1,000 mls @ 80 mls/hr IV .[id number] SAMMY Stop: 06/09/24 12:18 Last Admin: 06/09/24 00:01 Dose: 80 mls/hr Documented By: TAYLOR Discontinued Medications Sodium Chloride (Nss) 500 mls @ 999 mls/hr IV .Q31M ONE Stop: 06/08/24 17:52 Last Infusion: 06/08/24 18:26 Dose: Infused Documented By: Admin: 06/08/24 17:51 Dose: 999 mls/hr Documented By: TONEY Sodium Chloride (Nss) 500 mls @ 999 mls/hr IV .Q31M ONE Stop: 06/08/24 21:57 Last Infusion: 06/08/24 22:15 Dose: Infused Documented By: Admin: 06/08/24 21:44 Dose: 999 mls/hr Documented By: TASH Imaging Data Radiologist's Impression: Chest X-Ray 06/08/24 15:15 EXAM: Radiograph of the Chest 1 View INDICATION: Chest pain and cough. TECHNIQUE: Frontal view of the chest. COMPARISON: 06/23/2023 FINDINGS: Lungs and pleural spaces: Stable extensive fibrosis and honeycombing in the lung bases. No pleural effusion or pneumothorax. Heart: Stable cardiac shadow. Mediastinum: Normal contour. Bones/joints: No fracture, erosion or dislocation. Soft tissues: No abnormality noted. No radiopaque foreign body noted. Vasculature: Stable mild ectatic aorta. Upper abdomen: No abnormality noted. IMPRESSION: Stable extensive fibrosis and honeycombing in the lung bases. Exclusion of acute superimposed pneumonitis or pulmonary edema is difficult given the severity of fibrotic changes. ACT 112: Negative or not required by law. Electronically signed by Maria Luisa Braxton 06-08-2024 6:[address] 06/08/24 17:36 EXAM: CT Head Without Intravenous Contrast INDICATION: Weakness. TECHNIQUE: Axial computed tomography images of the head/brain without intravenous contrast. Sagittal and/or coronal reformats are provided. Sagittal and coronal reformatted images were created and reviewed. This CT exam was performed using one or more of the following dose reduction techniques: automated exposure control, adjustment of the mA and/or kV according to patient size, and/or use of iterative reconstruction technique. COMPARISON: No relevant prior studies available. FINDINGS: Limitations: None. Brain and extra-axial spaces: There is age appropriate cortical atrophy and chronic ischemic periventricular white matter hypodensity. No acute infarct, hemorrhage or mass noted. Bones/joints: No acute changes. Soft tissues: No significant abnormality noted. Vasculature: Atherosclerotic calcification of the intracranial right vertebral and bilateral carotid arteries. Sinuses: No layering fluid in the visualized portions of the paranasal sinuses. Mastoid air cells: No mastoid effusion. Orbits: No significant abnormality noted. IMPRESSION: Cerebral atrophy. No acute changes. ACT 112: Negative or not required by law. Electronically signed by Maria Luisa Braxton 06-08-2024 6:56 PM Discharge Plan Visit Data Chief Complaint: Weakness Stated Complaint: WEAKNESS, CAN'T WALK ED Provider: No Calix Discharge Problem: Generalized weakness, Acute hyponatremia Discharge Instructions Interventions: ED Discharge Assessment Last Done: 06/08/24 23:02
[2024-06-08 17:43] LABS: Adenovirus PCR Not Detected (NotDetected); Bordetella parapertussis PCR Not Detected (NotDetected); Bordetella pertussis PCR Not Detected (NotDetected); Chlamydia pneumoniae PCR Not Detected (NotDetected); Coronavirus 229E PCR Not Detected (NotDetected); Coronavirus CoV-2 (COVID19)PCR Not Detected (NotDetected); Coronavirus HKU1 PCR Not Detected (NotDetected); Coronavirus NL63 PCR Not Detected (NotDetected); Coronavirus OC43PCR Not Detected (NotDetected); Human Metapneumovirus PCR Not Detected (NotDetected); Influenza A PCR Not Detected (NotDetected); Influenza B PCR Not Detected (NotDetected); Mycoplasma pneumoniae PCR Not Detected (NotDetected); Parainfluenza Virus 1 PCR Not Detected (NotDetected); Parainfluenza Virus 2 PCR Not Detected (NotDetected); Parainfluenza Virus 3 PCR Not Detected (NotDetected); Parainfluenza Virus 4 PCR Not Detected (NotDetected); Respiratory Syncytial VirusPCR Not Detected (NotDetected); Rhinovirus/Enterovirus PCR Not Detected (NotDetected)
[2024-06-08] MEDS: SODIUM CHLORIDE 0.9% 500 ML IV ONE ×2 (17:51→21:44)
[2024-06-08 17:59] LABS: T4 Free Thyroxine 1.01 ng/dl (0.61-1.60)
--- NOTE | 2024-06-08 18:02 | XRay Report ---
EXAM: Radiograph of the Chest 1 View INDICATION: Chest pain and cough. TECHNIQUE: Frontal view of the chest. COMPARISON: 06/23/2023 FINDINGS: Lungs and pleural spaces: Stable extensive fibrosis and honeycombing in the lung bases. No pleural effusion or pneumothorax. Heart: Stable cardiac shadow. Mediastinum: Normal contour. Bones/joints: No fracture, erosion or dislocation. Soft tissues: No abnormality noted. No radiopaque foreign body noted. Vasculature: Stable mild ectatic aorta. Upper abdomen: No abnormality noted. IMPRESSION: Stable extensive fibrosis and honeycombing in the lung bases. Exclusion of acute superimposed pneumonitis or pulmonary edema is difficult given the severity of fibrotic changes. ACT 112: Negative or not required by law. Electronically signed by Maria Luisa Braxton 06-08-2024 6:01 PM
--- NOTE | 2024-06-08 18:56 | CT Scan Report ---
EXAM: CT Head Without Intravenous Contrast INDICATION: Weakness. TECHNIQUE: Axial computed tomography images of the head/brain without intravenous contrast. Sagittal and/or coronal reformats are provided. Sagittal and coronal reformatted images were created and reviewed. This CT exam was performed using one or more of the following dose reduction techniques: automated exposure control, adjustment of the mA and/or kV according to patient size, and/or use of iterative reconstruction technique. COMPARISON: No relevant prior studies available. FINDINGS: Limitations: None. Brain and extra-axial spaces: There is age appropriate cortical atrophy and chronic ischemic periventricular white matter hypodensity. No acute infarct, hemorrhage or mass noted. Bones/joints: No acute changes. Soft tissues: No significant abnormality noted. Vasculature: Atherosclerotic calcification of the intracranial right vertebral and bilateral carotid arteries. Sinuses: No layering fluid in the visualized portions of the paranasal sinuses. Mastoid air cells: No mastoid effusion. Orbits: No significant abnormality noted. IMPRESSION: Cerebral atrophy. No acute changes. ACT 112: Negative or not required by law. Electronically signed by Maria Luisa Braxton 06-08-2024 6:56 PM
--- NOTE | 2024-06-08 21:16 | History & Physical Report ---
Date of Service June 08, 2024 Assessment & Plan (1) Generalized weakness: Plan: 79yo male presenting with 4 days of generalized weakness and gait instability. Patient with no additional complaints. Labs reveal leukocytosis with WBC=11.2 and elevated neutrophil:lympohocyte, mild hyponatremia and hypochloremia as well as mildly elevated BUN and Cr from prior. Possible early infection? Possible dehydration? -Admit to medical -Continue gentle IVF - NSS at 80mL/hr x 1L ordered -PT/OT evaluation -Encourage PO intake - consider nutritional assessment, dietary supplements (2) Depression: Plan: Chronic. -Continue Sertraline 50mg po daily. This medication was recently started for Depression (3) GERD without esophagitis: Plan: Chronic. Stable -Continue Omeprazole (4) Hypertension: Plan: Chronic. Blood pressure is at goal currently -Hold Lisinopril/HCTZ for now -Monitor (5) Rheumatoid arthritis: Plan: Chronic. Patient does not feel that his is in RA flare at present -Continue Prednisone 4mg po daily -Low threshold for stress dosing should patient develop hypotension History of Present Illness Chief Complaint: generalized weakness Primary Care Provider: Rosanna Torres DO Arun Knutson is an 79yo male with history of RA on Prednisone, ILD, HTN, CAD and GERD presenting with 4 days of generalized weakness as well as gait instability. Patient reports poor appetite and decreased oral intake as well. He denies fever, chills, nausea, vomiting, diarrhea or constipation. Denies chest pain, palpitations, SOB. He is having a zaldivar time urinating today but otherwise has no urinary complaints. No recent travel or vaccinations. No sick contacts. He currently lives alone and is independent. Ambulates with a cane History of RA but does not feel that he is currently in a flare Patient's family is at bedside and reports they are concerned about his poor appetite and decreased intake. In the ER patient is afebrile, HD stable ER Course: NSS x 1L Allergies Allergy/AdvReac Type Severity Reaction Status Date / Time No Known Allergies Allergy Verified 05/24/24 09:49 Home Medications Medication Instructions Recorded Confirmed Type multivitamin (Daily Multi-Vitamin 1 tab PO DAILY 02/03/19 05/24/24 History tablet) aspirin 81 mg tablet,delayed 81 mg PO DAILY 06/23/23 05/24/24 History release Oxygen Home #1 ea 07/02/23 05/24/24 Rx gabapentin 300 mg capsule 300 mg PO HS #90 caps 07/22/23 05/24/24 Rx naproxen 500 mg tablet 500 mg PO BID PRN Pain #180 tabs 09/25/23 05/24/24 Rx atorvastatin 10 mg tablet 10 mg PO DAILY #90 tabs 01/12/24 05/24/24 Rx lisinopril 20 1 tab PO DAILY #90 tabs 01/26/24 05/24/24 Rx mg-hydrochlorothiazide 12.5 mg tablet omeprazole 20 mg capsule,delayed 20 mg PO DAILY #90 caps 01/26/24 05/24/24 Rx release prednisone 1 mg tablet 4 mg (4 x 1 mg) PO DAILY #120 tabs 03/02/24 05/24/24 Rx sertraline 50 mg tablet See Rx Instructions .Route 05/24/24 05/24/24 Rx .COMPLEX #30 tabs Past Med/Surg History Problem List Acute hyponatremia (Acute) Generalized weakness (Acute) Depression Immunocompromised state (Acute) Urinary retention Chronic hypoxic respiratory failure Essential tremor Gait disturbance Urinary incontinence Pulmonary emphysema Interstitial lung disease (Acute) Coronary artery calcification GERD without esophagitis Carotid artery disease Hypertension Interstitial pulmonary fibrosis Pulmonary nodules Rheumatoid arthritis Medical History Chronic cough Hypoxia 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, prison, current use Exercise hypoxemia Post herpetic neuralgia Pneumonia Surgical History S/P cataract surgery Jul 2023 History of tonsillectomy and adenoidectomy History of cholecystectomy (2000) Family History Other Adopted Social History Smoking Status: Former smoker Tobacco Type: Cigarettes Age Started Using Tobacco: 14; Age Quit Using Tobacco: 54; packs per day: 2; Second Hand Exposure: No; Do You Dip or Chew Tobacco: No; Hx Alcohol Use: Yes Alcohol type: beer Alcohol Intake Frequency: 2-3 x/Week Hx Substance Use: No Preferred Language: Lao Communication Ability: Effective Visual Impairment: No Limitations Hearing Ability: Normal Neurodiagnostic Tech Required: No Beliefs That Will Affect Care: None marital status: Current Living Situation: Alone current occupational status: retired 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 [employer] Feels Safe at Home: Yes Safety Concerns: Feels Safe At This Time Childhood Exposure to Second-Hand Smoke: Yes Diet: regular Diet Comment: regular caffeine: Yes (coffee x 2-3 per day.) during the past year weight has: decreased > 10 lbs Dental Care, Regularly: Yes Physical Activity Frequency: Daily Physical Activity Frequency Comment: walk Seatbelt Use: always Sunscreen Use: Yes Assistive Devices: Denture - Upper and Denture - Lower Assistive Devices Comment: hearing aids at home per pt Review of Systems Review of Systems: All systems reviewed & are unremarkable except as noted in HPI & below Physical Exam Physical Exam: General: patient resting comfortably, NAD, non-toxic in appearance, AA&O x 4 Skin: warm, dry, intact, no rashes or lesions HEENT: NC/AT, PERRL, EOMI, anicteric sclera, conjunctiva without injection, external ear normal to inspection and nontender, nares patent, moist mucus membranes, dentition intact, no oropharyngeal lesions, neck supple, trachea midline, no LAD, no thyromegaly, no JVD Heart: +S1/S2, regular, no m/r/g Lungs: equal air entry bilaterally, no rales/rhonchi/wheezes Abd: +BS, soft, NT/ND, no masses/organomegaly/ascites Ext: warm, 2+ pulses in UE/LE bilaterally, no clubbing/cyanosis or edema Neuro: nonfocal, patient AA&O x 4, speech intact, no facial droop, moving all extremities on command with equal strength 5/5 Results & Data Results & Data Vital Signs (Past 12 Hours) Vital Signs Temp Pulse Pulse Resp BP BP Pulse Ox 06/08/24 17:47 80 29 H 113/69 96 06/08/24 17:25 80 06/08/24 16:52 87 17 95 06/08/24 16:52 88 17 106/69 94 06/08/24 16:52 95 06/08/24 15:14 36.7 C 97 H 18 95/60 L 91 O2 Del Method 06/08/24 17:47 Room Air 06/08/24 17:25 12/17/24 16:52 Room Air 06/08/24 16:52 Room Air 06/08/24 16:52 Room Air 06/08/24 15:14 Room Air Laboratory Results Laboratory Results WBC 11.20 K/ul (4.8-10.8) H 06/08/24 16:30 RBC 5.28 M/uL (4.70-6.10) 06/08/24 16:30 Hgb 14.1 g/dl (14.0-18.0) 06/08/24 16:30 Hct 42.9 % (42.0-52.0) 06/08/24 16:30 MCV 81.3 fL (80.0-100.0) 06/08/24 16:30 MCH 26.7 pg (25.0-34.0) 06/08/24 16:30 MCHC 32.9 g/dL (32.0-36.0) 06/08/24 16:30 RDW Std Deviation 45.4 fL (36.4-46.3) 06/08/24 16:30 RDW Coeff of Carl 15.5 % (11.5-14.5) H 06/08/24 16:30 Plt Count 321 K/uL (130-400) 06/08/24 16:30 MPV 8.5 fL (9.4-12.4) L 06/08/24 16:30 Immature Gran % (Auto) 1.7 % 06/08/24 16:30 Neut % (Auto) 78.9 % 06/08/24 16:30 Lymph % (Auto) 10.4 % 06/08/24 16:30 [place] % (Auto) 7.2 % 06/08/24 16:30 Eos % (Auto) 0.9 % 06/08/24 16:30 Baso % (Auto) 0.9 % 06/08/24 16:30 Neut # (Auto) 8.84 K/uL (1.40-6.50) H 06/08/24 16:30 Lymph # (Auto) 1.16 K/uL (1.20-3.40) L 06/08/24 16:30 [place] # (Auto) 0.81 K/uL (0.11-0.59) H 06/08/24 16:30 Eos # (Auto) 0.10 K/uL (0.00-0.50) 06/08/24 16:30 Baso # (Auto) 0.10 K/uL (0.00-0.20) 06/08/24 16:30 Immature Gran # (Auto) 0.19 K/uL (0.01-0.20) 06/08/24 16:30 PT 11.4 Seconds (9.0-12.0) 06/08/24 16:30 INR 1.1 (0.9-1.1) 06/08/24 16:30 Sodium 128 mmol/L (136-145) L 06/08/24 16:30 Potassium 4.7 mmol/L (3.5-5.1) 06/08/24 16:30 Chloride 93 mmol/L (98-107) L 06/08/24 16:30 Carbon Dioxide 30 mmol/L (21-32) 06/08/24 16:30 Anion Gap 5 (3-11) 06/08/24 16:30 BUN 36 mg/dl (6-23) H 06/08/24 16:30 Creatinine 1.03 mg/dl (0.6-1.4) 06/08/24 16:30 Est Cr Clr Drug Dosing 54.4 ml/min 06/08/24 16:30 eGFR 72.98 06/08/24 16:30 BUN/Creatinine Ratio 35.0 (10-20) H 06/08/24 16:30 Glucose 137 mg/dl (70-99(Fasting)) H 06/08/24 16:30 Calcium 9.6 mg/dl (8.6-10.3) 06/08/24 16:30 Magnesium 1.8 mg/dl (1.7-2.4) 06/08/24 16:30 Total Bilirubin 0.4 mg/dl (0.2-1.0) 06/08/24 16:30 AST 20 U/L (13-39) 06/08/24 16:30 ALT 10 U/L (7-52) 06/08/24 16:30 Alkaline Phosphatase 82 U/L (34-104) 06/08/24 16:30 Troponin I High Sens 29.5 pg/ml (0-20) H 06/09/24 00:20 Total Protein 7.9 gm/dl (6.0-8.3) 06/08/24 16: Albumin 3.6 gm/dl (3.4-5.0) 06/08/24 16: Globulin 4.3 gm/dl (2.5-4.0) H 06/08/24 16:30 Albumin/Globulin Ratio 0.8 (0.9-2) L 06/08/24 16:30 Procalcitonin 0.13 ng/ml (0-0.5) 06/08/24 16:30 TSH 5.474 uIu/ml (0.300-4.500) H 06/08/24 16: Free T4 1.01 ng/dl (0.61-1.60) 06/08/24 16: Urine Color Dark Yellow 06/08/24 23:25 Urine Appearance Clear (Clear) 06/08/24 23: Urine pH 5.5 (4.5-7.5) 06/08/24 23:25 Ur Specific [place] 1.026 (1.000-1.030) 06/08/24 23:25 Urine Protein Trace (Negative) H 06/08/24 23:25 Urine Glucose (UA) Negative (Negative) 06/08/24 23: Urine Ketones 1+ (Negative) H 06/08/24 23: Urine Blood Negative (Negative) 06/08/24 23: Urine Nitrite Negative (Negative) 06/08/24 23: Urine Bilirubin 1+ (Negative) H 06/08/24 23:25 Urine Urobilinogen Negative (Negative) 06/08/24 23: Ur Leukocyte Esterase Negative (Negative) 06/08/24 23:25 Urine WBC (Auto) 0-5 /hpf (0-5) 06/08/24 23:25 Urine RBC (Auto) 0-2 /hpf (0-2) 06/08/24 23: U Hyaline Cast (Auto) 0-2 /lpf (0-2) 06/08/24 23:25 U Epithel Cells (Auto) 0-2 /hpf (0-2) 06/08/24 23:25 Urine Bacteria (Auto) None Seen (None Seen) 06/08/24 23:25 Adenovirus (PCR) Not Detected (NotDetected) 06/08/24 16:30 B. pertussis DNA (PCR) Not Detected (NotDetected) 06/08/24 16:30 B.parapertussis DNA PCR Not Detected (NotDetected) 06/08/24 16:30 Lyme Disease Screen Negative (Negative) 06/08/24 16:30 C. pneumoniae DNA (PCR) Not Detected (NotDetected) 06/08/24 16:30 Coronavirus OC43 (PCR) Not Detected (NotDetected) 06/08/24 16:30 Coronavirus HKU1 (PCR) Not Detected (NotDetected) 06/08/24 16:30 Coronavirus 229E (PCR) Not Detected (NotDetected) 06/08/24 16:30 SARS-CoV-2 (PCR) Not Detected (NotDetected) 06/08/24 16:30 Coronavirus NL63 (PCR) Not Detected (NotDetected) 06/08/24 16:30 Human Metapneumovir PCR Not Detected (NotDetected) 06/08/24 16:30 Influenza Type A (PCR) Not Detected (NotDetected) 06/08/24 16:30 Influenza Type B (PCR) Not Detected (NotDetected) 06/08/24 16:30 M. pneumoniae (PCR) Not Detected (NotDetected) 06/08/24 16:30 Parainfluenza 1 (PCR) Not Detected (NotDetected) 06/08/24 16:30 Parainfluenza 2 (PCR) Not Detected (NotDetected) 06/08/24 16:30 Parainfluenza 3 (PCR) Not Detected (NotDetected) 06/08/24 16:30 Parainfluenza 4 (PCR) Not Detected (NotDetected) 06/08/24 16:30 RSV (PCR) Not Detected (NotDetected) 06/08/24 16:30 Entero/Rhino (PCR) Not Detected (NotDetected) 06/08/24 16:30 Impressions Chest X-Ray 06/08/24 15:15 EXAM: Radiograph of the Chest 1 View INDICATION: Chest pain and cough. TECHNIQUE: Frontal view of the chest. COMPARISON: 06/23/2023 FINDINGS: Lungs and pleural spaces: Stable extensive fibrosis and honeycombing in the lung bases. No pleural effusion or pneumothorax. Heart: Stable cardiac shadow. Mediastinum: Normal contour. Bones/joints: No fracture, erosion or dislocation. Soft tissues: No abnormality noted. No radiopaque foreign body noted. Vasculature: Stable mild ectatic aorta. Upper abdomen: No abnormality noted. IMPRESSION: Stable extensive fibrosis and honeycombing in the lung bases. Exclusion of acute superimposed pneumonitis or pulmonary edema is difficult given the severity of fibrotic changes. ACT 112: Negative or not required by law. Electronically signed by Maria Luisa Braxton 06-08-2024 6:[address] 06/08/24 17:36 EXAM: CT Head Without Intravenous Contrast INDICATION: Weakness. TECHNIQUE: Axial computed tomography images of the head/brain without intravenous contrast. Sagittal and/or coronal reformats are provided. Sagittal and coronal reformatted images were created and reviewed. This CT exam was performed using one or more of the following dose reduction techniques: automated exposure control, adjustment of the mA and/or kV according to patient size, and/or use of iterative reconstruction technique. COMPARISON: No relevant prior studies available. FINDINGS: Limitations: None. Brain and extra-axial spaces: There is age appropriate cortical atrophy and chronic ischemic periventricular white matter hypodensity. No acute infarct, hemorrhage or mass noted. Bones/joints: No acute changes. Soft tissues: No significant abnormality noted. Vasculature: Atherosclerotic calcification of the intracranial right vertebral and bilateral carotid arteries. Sinuses: No layering fluid in the visualized portions of the paranasal sinuses. Mastoid air cells: No mastoid effusion. Orbits: No significant abnormality noted. IMPRESSION: Cerebral atrophy. No acute changes. ACT 112: Negative or not required by law. Electronically signed by Maria Luisa Braxton 06-08-2024 6:56 PM Code Status & VTE Plan VTE Prophylaxis Plan VTE Prophylaxis will be ordered: Yes PG Care Time/CCT Total # of Minutes Spent Total Time Spent with Patient: Total time spent is greater than 50% in coordination of care (as documented) at patient's floor/unit and/or counseling patient: Coding Level of Care Code 28647 INT INP/OBS CARE 2/55MIN Diagnoses Generalized weakness R53.1 Depression F32.A GERD without esophagitis K21.9 Hypertension I10 Rheumatoid arthritis M06.9
[2024-06-08 22:09] VITALS: RESP 18
[2024-06-08 23:47] LABS: Appearance Urine Clear (Clear); Bacteria Urine Automated None Seen (None Seen); Bilirubin Urine 1+ (Negative); Blood Urine Negative (Negative); Cast Urine Automated 0-2 /lpf (0-2); Color Urine Dark Yellow; Epithelial Cell Urine Auto 0-2 /hpf (0-2); Glucose Urine UA Negative (Negative); Ketones Urine 1+ (Negative); Leukocyte Esterase Urine Negative (Negative); Nitrite Urine Negative (Negative); Protein Urine Trace (Negative); RBC Urine Automated 0-2 /hpf (0-2); Specific Gravity Urine 1.026 (1.000-1.030); Urobilinogen Urine Negative (Negative); WBC Urine Automated 0-5 /hpf (0-5); pH Urine 5.5 (4.5-7.5)
[2024-06-08] MEDS ORDERED: ONDANSETRON INJ 2 MG/ML 2 ML VIAL IV PRN (23:49)
[2024-06-08] MEDS ORDERED: ACETAMINOPHEN 325 MG TAB PO PRN (23:49)
[2024-06-09] MEDS: SODIUM CHLORIDE 0.9% 1,000 ML IV SCH (00:01)
[2024-06-09 07:14] VITALS: TEMP 97.9
[2024-06-09] MEDS: predniSONE 1 MG TAB PO SCH (07:30)
[2024-06-09] MEDS: ATORVASTATIN 10 MG TAB PO SCH (07:31)
[2024-06-09] MEDS: ASPIRIN 81 MG ECTAB PO SCH (07:31)
[2024-06-09] MEDS: PANTOprazole 40 MG TAB PO SCH (07:31)
[2024-06-09] MEDS: SERTRALINE HCL 50 MG TABLET PO SCH (07:31)
[2024-06-09 08:48] LABS: Hematocrit (blood only) 37.8 % (42.0-52.0); Hemoglobin 12.4 g/dl (14.0-18.0); Mean Corpuscular Hemoglobin 26.7 pg (25.0-34.0); Mean Corpuscular Hgb Conc 32.8 g/dL (32.0-36.0); Mean Corpuscular Volume 81.3 fL (80.0-100.0); Mean Platelet Volume 8.4 fL (9.4-12.4); Platelet Count 240 K/uL (130-400); RDW Coefficient of Variation 15.3 % (11.5-14.5); RDW Standard Deviation 45.1 fL (36.4-46.3); Red Blood Count 4.65 M/uL (4.70-6.10); White Blood Count 8.39 K/ul (4.8-10.8)
--- NOTE | 2024-06-09 08:54 | Hospitalist Progress Note ---
Date of Service June 09, 2024 Assessment & Plan (1) Generalized weakness: Plan: Presented with generalized weakness, gait instability, and decreased PO intake x 4 days prior to admission - Mild leukocytosis, however in setting of chronic daily steroid use. Afebrile, no additional signs of infection - Received 2 L NSS on admission - Hyponatremic with Mf=217 on admission, which could explain his symptoms of lethargy and decreased appetite/PO intake > Suspect this is due to starting Sertraline recently -- placed on HOLD - Encourage PO intake - consider nutritional assessment, dietary supplements - PT/OT evaluation (2) Depression: Plan: Recently started on Sertraline 50mg po daily for depression - Placed on HOLD as possibly the cause of his hyponatremia/symptoms that brought him to the hospital (3) Rheumatoid arthritis: Plan: Chronic. Patient does not feel that his is in RA flare at present - Continue Prednisone 4mg po daily - Low threshold for stress dosing should patient develop hypotension Pulmonary fibrosis thought to be related to RA - Established with Dr Mak - Per review of PCP note, patient is to be on supplemental O2 with exertion and HS (4) Hypertension: Plan: Chronic. Blood pressure is at goal currently - Hold Lisinopril/HCTZ for now - Monitor Plan Chronic stable problems: GERD: Continue omeprazole/formulary equivalent CAD: Continue aspirin, atorvastatin Postherpetic neuralgia: Continue gabapentin Of note, TSH elevated with normal Free T4. TSH WNL in April 2024. Could repeat TSH in 6 weeks to ensure WNL VTE PPx: SCDs CODE STATUS: Full code Admission and Anticipated Discharge Date Admission Date: June 08, 2024 Physical Exam Physical Exam: General: No acute distress, nondiaphoretic, well-developed, well-nourished. Skin: The skin was without rashes, erythema, edema, or bruising. Cardiac: Regular rate and rhythm without murmurs gallops or rubs. Pulm: Diminished breath sounds in bases bilaterally R>L but otherwise clear to auscultation without wheezes, rales or rhonchi. No respiratory distress. 91% on room air. Abdominal: Soft, nontender, nondistended. Bowel sounds present. Neuro: A&O x3. No focal neurological deficits. Results & Data Results & Data Vital Signs (Past 12 Hours) Vital Signs Temp Pulse Pulse Pulse Resp BP BP 06/09/24 07:14 97.9 F 89 18 130/79 06/09/24 07:00 78 06/09/24 02:55 97.7 F 83 18 135/77 06/08/24 23:54 83 06/08/24 23:45 06/08/24 23:45 97.9 F 73 18 127/80 06/08/24 22:08 77 18 136/87 06/08/24 21:25 83 Pulse Ox O2 Del Method 06/09/24 07:14 91 Room Air 06/09/24 07:00 06/09/24 02:55 93 Room Air 06/08/24 23:54 06/08/24 23:45 Room Air 06/08/24 23:45 96 Room Air 06/08/24 22:08 97 Room Air 06/08/24 21:25 Laboratory Results Reviewed CBC Reviewed BMP PG Care Time/CCT Total # of Minutes Spent Total Time Spent with Patient: Total time spent is greater than 50% in coordination of care (as documented) at patient's floor/unit and/or counseling patient: Coding Diagnoses Generalized weakness R53.1 Depression F32.A Rheumatoid arthritis M06.9 Hypertension I10
[2024-06-09 09:05] LABS: Calcium 8.6 mg/dl (8.6-10.3); Creatinine Clr Calc Pharmacy 78.9 ml/min; Potassium 4.2 mmol/L (3.5-5.1)
[2024-06-09 11:37] VITALS: O2SAT 93
--- NOTE | 2024-06-09 14:39 | Discharge Summary ---
Discharge Summary Date of Service June 09, 2024 Principal Dx & Hospital Course #1 = Principal Diagnosis (1) Generalized weakness: Presented with generalized weakness, gait instability, and decreased PO intake x 4 days prior to admission - Mild leukocytosis on admission (now resolved), in setting of chronic daily steroid use. Afebrile, no additional signs of infection - Received 2 L NSS on admission - Hyponatremic with Bb=724 on admission, which could explain his symptoms of lethargy and decreased appetite/PO intake > Suspect this is due to starting Sertraline recently -- discontinued on discharge - Na improved to 131 with subjective improvement in symptoms - Encourage PO intake - PT/OT recommended home health and walker -- set up by case management prior to discharge - Recommend PCP recheck BMP in 1 week (2) Acute hyponatremia: Has chronic hyponatremia possibly from HCTZ use but here Na+ worse at 128 after starting sertraline as above ok to continue HCTZ but stop sertraline (3) Depression: Recently started on Sertraline 50mg po daily for depression - Discontinued on discharge as suspect this was the cause of his hyponatr emia/symptoms that brought him to the hospital (4) Rheumatoid arthritis: Chronic. Patient does not feel that his is in RA flare at present - Continue Prednisone 4mg po daily Pulmonary fibrosis thought to be related to RA - Established with Dr Mak - Per review of PCP note, patient is to be on supplemental O2 with exertion and HS (5) Hypertension: Chronic. Blood pressure is at goal currently - Continue Lisinopril/HCTZ Plan Chronic stable problems: GERD: Continue omeprazole/formulary equivalent CAD: Continue aspirin, atorvastatin Postherpetic neuralgia: Continue gabapentin Of note, TSH elevated with normal Free T4. TSH WNL in April 2024. Could repeat TSH in 6 weeks to ensure WNL VTE PPx: SCDs CODE STATUS: Full code Notes For Next Care Provider Suspect recent sertraline use caused hyponatremia, which resulted in the symptoms bring him to the hospital Consider new medication for his underlying depression Recommend BMP recheck in 1 week from discharge Consider repeat TSH in 6 weeks Medication Changes From Visit Discontinued sertraline Admission HPI Per Admitting Provider Arun Knutson is an 79yo male with history of RA on Prednisone, ILD, HTN, CAD and GERD presenting with 4 days of generalized weakness as well as gait instability. Patient reports poor appetite and decreased oral intake as well. He denies fever, chills, nausea, vomiting, diarrhea or constipation. Denies chest pain, palpitations, SOB. He is having a zaldivar time urinating today but otherwise has no urinary complaints. No recent travel or vaccinations. No sick contacts. He currently lives alone and is independent. Ambulates with a cane History of RA but does not feel that he is currently in a flare Patient's family is at bedside and reports they are concerned about his poor appetite and decreased intake. In the ER patient is afebrile, HD stable ER Course: NSS x 1L Discharge Exam General: No acute distress, nondiaphoretic, well-developed, well-nourished. Skin: The skin was without rashes, erythema, edema, or bruising. Cardiac: Regular rate and rhythm without murmurs gallops or rubs. Pulm: Diminished breath sounds in bases bilaterally R>L but otherwise clear to auscultation without wheezes, rales or rhonchi. No respiratory distress. 93% on room air. Abdominal: Soft, nontender, nondistended. Bowel sounds present. Neuro: A&O x3. No focal neurological deficits. Discharge Plan Discharge Items Patient Disposition: Home - Self-Care Reason For Visit: GENERALIZED WEAKNESS Discharge Diagnosis: Hyponatremia, generalized weakness Activity: Resume your previous activity Non-emergency contact: Primary Care Provider Call non-emergency contact if: you have any medication questions and your symptoms worsen Follow-up/Referrals: Rosanna Torres DO [Primary Care Provider] - 06/22/24 9:20 am () Diet: Heart Healthy Addtl Attending Provider Instructions: Mr. Knutson, Michel were admitted to the hospital due to generalized weakness. You were found to be hyponatremic (low sodium levels), which could explain your symptoms of weakness, gait instability, and decreased oral intake. I suspect this was due to recently being started on sertraline (Zoloft) for depression. Upon discharge from the hospital: * STOP taking sertraline (Zoloft). * Follow-up with your PCP in 1-2 weeks. You can discuss further options for depression treatment. * Continue your other home medications as prescribed. * Please have your PCP check your sodium levels again in 1 week. Please return to the hospital if you experience any of the following: Chest pain , heart palpitations, shortness of breath, difficulty breathing, lightheadedness, dizziness, passing out, confusion, or any other symptoms concerning for you. It was a pleasure taking care of you while you were in the hospital, Neva Allen PA-C Pending Studies at Discharge: No Stand-Alone Forms: [facility], Smoking Cessation Medications and DC Order Prescriptions: Continued gabapentin 300 mg capsule 300 mg PO HS Qty: 90 3RF naproxen 500 mg tablet 500 mg PO BID PRN (Reason: Pain) Qty: 180 3RF atorvastatin 10 mg tablet 10 mg PO DAILY Qty: 90 1RF lisinopril-hydrochlorothiazide 20-12.5 mg tablet 1 tab PO DAILY Qty: 90 1RF omeprazole 20 mg capsule,delayed release(DR/EC) 20 mg PO DAILY Qty: 90 1RF prednisone 1 mg tablet 4 mg PO DAILY Qty: 120 0RF Hold Instructions: Resume on 06/29/23. Resume after 40 mg prednisone course completed (DME) Oxygen Home Liters Per Minute See Rx Instructions .MEDSUPPLY Qty: 1 0RF Rx Instructions: Home Oxygen concentrator with portability, test for conserving device. 0LMP via n/c at rest and 2LPM via n/c with exertion/sleep; KHUSHI 99. multivitamin [Daily Multi-Vitamin] tablet 1 tab PO DAILY aspirin 81 mg Tablet,Delayed Release (Dr/Ec) 81 mg PO DAILY Discontinued sertraline 50 mg tablet See Rx Instructions .Route .COMPLEX Qty: 30 2RF Rx Instructions: Take 1/2 tab PO daily x 6 days, then 1 tab PO daily Discharge Orders: Discharge Order (Routine); Ordered 06/09/24 Ordered By: Neva Allen Admission Data Admit Date/Time: 06/08/24 21:15 Attending Provider: Rafaela Almazan Admit Provider: Val Moody Primary Care Provider: Rosanna Torres Other Providers: Val Moody; [facility],Home Healthcare Other Interventions: Discharge Summary Assessment (RN) Last Done: 06/09/24 14:54 Hospital Stay Data Consultations 06/08/24 20:54 ED Decision to Admit Stat Diagnostic Imagining Performed 06/08/24 17:36 CT head/brain wo con Stat Pending Results Patient Have Any Pending Studies at Discharge: No Discharge Instructions Given to Patient (Per Discharging Provider) Mr. Knutson, You were admitted to the hospital due to generalized weakness. You were found to be hyponatremic (low sodium levels), which could explain your symptoms of weakness, gait instability, and decreased oral intake. I suspect this was due to recently being started on sertraline (Zoloft) for depression. Upon discharge from the hospital: * STOP taking sertraline (Zoloft). * Follow-up with your PCP in 1-2 weeks. You can discuss further options for depression treatment. * Continue your other home medications as prescribed. * Please have your PCP check your sodium levels again in 1 week. Please return to the hospital if you experience any of the following: Chest pain, heart palpitations, shortness of breath, difficulty breathing, lightheadedness, dizziness, passing out, confusion, or any other symptoms concerning for you. It was a pleasure taking care of you while you were in the hospital, Neva Allen PA-C Supervising Physician Co-Signing Physician Notes PA Supervision Note: I personally saw and examined the patient. I verified all balbuena points and agree with EDER Allen with the following exceptions and/or additions: S-Pt feeling much better, stronger O- Vitals reviewed Gen: [AAOx3, NAD] HEENT: [anicteric sclerae, EOMI] CV: [RRR no mgr nl S1S2] Pulm: [+basilar crackles] BMP reviewed A/P-79 yo male here with weakness from acute on chronic hyyponatremia stop sertraline stable for dc to home Total Time Total Time Spent Total Time Spent (In Minutes): Greater than 30 minutes spent completing this discharge process including direct patient care, medication reconciliation, documentation, review of labs and images, and coordination of care. Coding Level of Care Code 74331 INP/OBS DISCH >30 MIN Diagnoses Generalized weakness R53.1 Acute hyponatremia E87.1 Depression F32.A Rheumatoid arthritis M06.9 Hypertension I10
[2024-06-09 14:55] VITALS: BP 135/77; PULSE 73
[2024-06-09] MEDS ORDERED: GABAPENTIN 300 MG CAP PO SCH (21:00)
--- NOTE | 2024-06-10 21:22 | Electrocardiogram Report ---
Test Reason : Blood Pressure : */* mmHG Vent. Rate : 96 BPM Atrial Rate : 96 BPM P-R Int : 134 ms QRS Dur : 92 ms QT Int : 348 ms P-R-T Axes : 22 -31 40 degrees QTcB Int : 439 ms Normal sinus rhythm Left axis deviation Abnormal ECG When compared with ECG of 23-Jun-2023 13:00, Premature supraventricular complexes are no longer Present Confirmed by Blaine Aparicio ([id number]) on 06/10/2024 9:22:35 PM Referred By: Confirmed By: Blaine Aparicio
== END 2024-06-09 17:59 | disposition home or self-care (01) ==
LOC: ED 14:48 → 2N 14:48 → SUATTDRO 21:15 → 2N 23:02

== ENCOUNTER 2024-06-26 17:20 | Inpatient (IN) ==
--- OUTSIDE RECORDS SUMMARY | 2024-06-26 17:26 | External Medical Summary | Summary of Care ---
Author Name Unknown Organization [facility] Address [address] [facility] [place] [address] Phone [phone] Care Team Providers Care Salesperson Men'S Hats Name Role Phone NeelampetrRosanna DO Primary Care Provider [phone] Reason for Visit * Reason Comments Rheum Follow Up Follow up - RA, pt h as been feeling weak lately Encounter Details Date Type Department Care Team (Late st Contact Info) Description 06/18/2024 8:00 AM EST Office Visit Rheumatology [address] [place] [phone] Tali Arroyo CRNP [address] [facility] [place] [address] Rheumatoid arthritis involving multiple sites with positive rheumatoid factor (HCC)*; GENERAL OSTEOARTHROSIS; Osteoporosis with symptom management only; halfway current use of systemic steroids Allergies No known active allergiesdocumented as of this encounter (statuses as of 06/21/2024) Medications OMEPRAZOLE 20 MG PO CPDR One pill by mouth once a day 1 hour before the first meal of the day 0 Active NAPROXEN 500 MG PO TABSIndications:Ar thritis, rheumatoid (HCC),Generalized osteoarthritis TAKE 1 TABLET TWICE A DAY NEEDED 180 Tab 3 1 Active LISINOPRIL-HYDROCH LOROTHIAZIDE 20-12.5 MG PO TABSIndications:HT N, goal below 140/90 TAKE 1 TABLET EVERY DAY 90 Tab 3 2 Active Aspirin 81 MG Tablet Take 1 Tablet by mouth in the morning. Active Multiple Vitamins-Minerals (MULTIVITAL) chewable tablet Take 1 Tablet by mouth in the morning. Active gabapentin (NEURONTIN) 300 MG Capsule Take 1 Capsule by mouth at bedtime. 30 Cap 8 Active AZOPT 1 % ophthalmic suspension As directed 9 Active latanoprost (XALATAN) 0.005 % ophthalmic solution As directed 9 Active atorvaSTATin (LIPITOR) 10 MG Tablet 1 daily 9 Active Pirfenidone 267 MG Oral Capsule (Esbriet) Take 3 capsules (801mg) orally three times a day 270 Capsule 2 3 Active Pirfenidone 267 MG Oral Capsule (Esbriet) Take 1 capsule by mouth 3 times daily with meals on days 1-7, then 2 capsules 3 times daily wtih meals on days 8-14, then 3 capsules 3 times daily days 15 and on 207 Capsule 3 Active predniSONE 5 MG Oral Tablet (Deltasone) TAKE ONE TABLET BY MOUTH IN THE MORNING 60 Tablet 4 Active Leflunomide 10 MG Oral Tablet (Arava)Indications :Rheumatoid arthritis involving multiple sites with positive rheumatoid factor (HCC) Take by mouth 1 Tablet in the morning. 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 GENERAL OSTEOARTHROSIS 07/21/2007 documented as of this encounter (statuses as of 06/21/2024) Resolved Problems Problem Noted Date Diagnosed Date Resolved Date BENIGN HYPERTENSION 10/10/2000 04/28/20 09 Overview (2009): Modified per HTN Taxonomy. ARTHRITIS,RHEUMATOID 016 Calculus of gallbladder with out mention of cholecystitis or obstruction 01/26/2008 documented as of this encounter (statuses as of 06/21/2024) Immunizations Name Administration Dates Next Due COVID-19 mRNA, LNP-s, No Pre serve, 2-Dose Series (Pfizer) 04/09/2021,09/01/2020,08/11/2020 Pneumococcal Polysaccharide PPV23 (Pneumovax) 09/12/2014,08/02/2008 Seasonal Influenza Vac., MDV , IM, 0.5 mL (Fluzone) 03/15/2014,03/13/2012,03/12/2011,05/01,04/10/2009,04/23/2007,04/21/2006 Seasonal Influenza, Quadriva lent, No Preserve, IM 04/08/2015 Seasonal Influenza, Trivalen t, (IIV3), PF, (Fluzone) 04/08/2017,04/12/2016,04/14/2014 TDAP, Age 7 and older, IM (Adacel) 01/26/2008 Zoster Vaccine Recombinant (Shingrix) 03/23/2019 ,12/18/2018 documented as of this encounter Social History Tobacco Use Types Packs/Day Years Used Date Smoking Tobacco: Former Smokeless Tobacco: Never Tobacco Cessation:Counseling Given: Not Answered Comments:quit 1999 Alcohol Use Standard Drinks/Week Comments Yes 0 (1 standard drink = 0.6 oz pur e alcohol) rarely Sex and Gender Information Value Date Recorded Sex Assigned at Not on file Legal Sex Male 5:27 AM EST Gender Identity Not on file Sexual Orientation Not on file documented as of this encounter Last Filed Vital Signs Vital Sign Reading Time Taken Comments Blood Pressure 102/56 06/18/2024 8:08 AM EST Pulse - - Temperature 35.8 C (96.4 F) 06/18/2024 8:08 AM ES T Respiratory Rate - - Oxygen Saturation - - Inhaled Oxygen Concentration - - Weight 69.4 kg (153 lb) 06/18/2024 8:08 AM EST Height - - Body Mass Index 21.95 11/07/2017 1:25 PM EDT documented in this encounter Progress Notes * Tali Arroyo CRNP - 06/18/2024 8:03 AM EST Date of last clinic visit reviewed: 04/16/2023 Current medication therapy: Prednisone Prior medication therapy: 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, sulfasalazine, leflunomide, Enbrel, Humira Subjective: Patient seen today for further follow up evaluation of rheumatoid arthritis with positive rheumatoid factor, OA, . He is accompanied by his aid who is providing some history. Since the last visit he declined osteoporosis treatment. Continues on prednisone 5 mg daily. Reports that he feels weakness in his upper body. He saw his PCP two weeks ago and has a follow up 06/29/2024. He went to the ER at [facility] last week and did a CT and labs which I do not have available at this time. Reports that his RA is feeling ok without hot swollen joints. Reports that he is doing PT for his back and going 3x a week for a week or so. Denies interval fractures but had a fall getting into the car and his right ribs are painful but hedid not want an X-ray, continues multivitamin. He reports he is taking 2 Motrin a day for rib pain. Denies interval illnesses or surgeries. Musculoskeletal ROS: . Normal Other ROS: . Constitutional: normal . Head normal . Eyes: normal . Ears, nose, throat, mouth: normal . Cardiovascular: normal . Respiratory: normal . Gastrointestinal: normal . Genitourinary: normal . Skin: normal . Neurologic: normal All other ROS reviewed and negative. Pertinent positives listed in HPI. Social History: Social History Tobacco Use Smoking status: Former Smokeless tobacco: Never Tobacco comments: quit 1999 Substance Use Topics Alcohol use: Yes Comment: rarely Vaping/E-Cigarette Use Vaping/E-Cigarette Substances Vaping/E-Cigarette Devices Current Outpatient Medications Medication Sig Dispense Refill OMEPRAZOLE 20 MG PO CPDR One pill by mouth once a day 1 hour before the first meal of the day NAPROXEN 500 MG PO TABS TAKE 1 TABLET TWICE A DAY NEEDED 180 Tab 3 LISINOPRIL-HYDROCHLOROTHIAZIDE 20-12.5 MG PO TABS TAKE 1 TABLET EVERY DAY 90 Tab 3 Aspirin 81 MG Tablet Take 1 Tablet by mouth in the morning. Multiple Vitamins-Minerals (MULTIVITAL) chewable tablet Take 1 Tablet by mouth in the morning. gabapentin (NEURONTIN) 300 MG Capsule Take 1 Capsule by mouth at bedtime. 30 Cap 0 atorvaSTATin (LIPITOR) 10 MG Tablet 1 daily Pirfenidone 267 MG Oral Capsule (Esbriet) Take 3 capsules (801mg) orally three times a day 270 Capsule 2 Pirfenidone 267 MG Oral Capsule (Esbriet) Take 1 capsule by mouth 3 times daily with meals on days 1-7, then 2 capsules 3 times daily wtih meals on days 8-14, then 3 capsules 3 times daily days 15 and on 207 Capsule 0 predniSONE 5 MG Oral Tablet (Deltasone) TAKE ONE TABLET BY MOUTH IN THE MORNING 60 Tablet 0 AZOPT 1 % ophthalmic suspension As directed (Patient not taking: Reported on 06/18/2024) latanoprost (XALATAN) 0.005 % ophthalmic solution As directed (Patient not taking: Reported on 06/18/2024) No current facility-administered medications for this visit. Physical Exam: BP 102/56 (BP Site: Right Arm, BP Position: Sitting) | Temp 35.8 C (96.4 F) (Infrared ) | Wt 69.4 kg (153 lb) | BMI 21.95 kg/m | BSA 1.85 m General: alert, healthy, and no distress HENT: normocephalic, external ears normal, no mucosal erythema, no mucosal edema, moist mucosa, no oral ulcers Eye Exam: PERRL, EOMI, conjunctiva are pink and non-injected, sclera clear Neck: supple, no adenopathy Lymph: no palpable lymphadenopathy Heart: regular rate & rhythm, no murmur, and no gallops Lungs: clear to auscultation , no rales, wheezes or rhonchi Extremities: no edema, no clubbing, no cyanosis Neuro Exam: alert & oriented x 3 with fluent speech, no focal motor/sensory deficits, gait normal Musculoskeletal Exam: A comprehensive musculoskeletal exam was performed for all joints of each upper and lower extremity and assessed for swelling, tenderness and range of motion. No peripheral joint tenderness. Good range of motion of all joints. No SI joint tenderness. No joint swelling. Muscle strength 5/5 in upper and lower extremities. Numberer And Wirer strength 4/5 in bilateral hands. Chronic degenerati ve changes of bilateral hands. Assessment: (M05.79) Rheumatoid arthritis involving multiple sites with positive rheumatoid factor (HCC) (primary encounter diagnosis) (M15.9) GENERAL OSTEOARTHROSIS (M81.0) Osteoporosis with symptom management only (Z79.52) halfway current use of systemic steroids Mr. Knutson returns today for management of RA. He is doing overall well from an RA standpoint on low-dose prednisone. We will continue low-dose prednisone. Advised patient to take Tylenol instead ofMotrin for acute rib pain due to prednisone use. We will have patient sign release of records from [facility] for review of labs and imaging. Patient's muscle strength intact. Discussed his upper back pain may be causing his arms to feel weak. Discussed stretching and exercising daily to improvesymptoms. We will continue symptom management only for osteoporosis. We will continue multivitamin daily.Patient encouraged to participate in weight-bearing exercise (i.e., walking). Discussed fall avoidance measures and recommend fall prevention. Although falls are never planned, I discussed with the patient the goal of therapy to slow down / stop the process of osteoporosis from progressing. Patient voiced understanding of the discussion. Discussed the above in detail with the patient. All questions were answered. Plan: 1. Sign release of records from [facility] 2. Continue low-dose prednisone 3. Follow up 8 months, sooner if needed 4. Contact clinic with any questions, concerns or worsening symptoms 5. Discussed the above in detail with the patient. All questions answered. CC NATHAN Amanda Department of Rheumatology The patient was discussed with me. I agree with the findings and plan as documented by Tali EVANS in this note. Howard Saez MD Rheumatology Department documented in this encounter Nursing Notes * Abbi Ly LPN - 06/18/2024 8:04 AM EST Chief Complaint Patient presents with Rheum Follow Up Follow up - RA, pt has been feeling weak lately Pt reported a fall injuring the right rib area. Pt reports feeling tired and weak for the past week. documented in this encounter Plan of Treatment Upcoming Encounters Date Type Department Care Team (Late st Contact Info) Description 08/11/2024 12:00 PM EST Office [address], [address] [place] [address] Marcello Mcclure, DO [address] [place] [address] 08/23/2024 9:50 AM EST [address] [place] [address] Marcello Mcclure, DO [address] [place] [address] 02/25/2025 8:00 AM EDT Office Visit Rheumatology [address] [place] [phone] Tali Arroyo CRNP [address] [place] [address] [place] [address] Health Maintenance Due Date Last Done Comments Depression Screening 1957 Albumin/Creatinine Ratio 1961 DTap/Tdap Vaccines (2 - Td or Tdap) 01/25/2018 01/26/2008 GFR 12/16/2019 12/15/2018, 05/24, 11/11/2016, Additional history exists Zoster Vaccines Completed 03/23/2019, 12/18/2018 Pneumococcal Vaccine: 50+ Years Completed 10/14/2022, 09/12/2014, 08/02/2008 Influenza Vaccine (FLU shot) Completed , 03/22/2024, 02/22/2020, Additional history exists COVID-19 Vaccine Completed 03/29/2024, , 03/31/2023, Additional history exists HPV (Gardasil) Vaccine Aged Out No lo nger eligible based on patient's age to complete this topic Hepatitis B Vaccine Aged Out No longe r eligible based on patient's age to complete this topic MENINGOCOCCAL (MENACTRA/MENVEO) Aged Out No longer eligible based on patient's age to complete this topic documented as of this encounter Medical Devices Not on filedocumented as of this encounter Visit Diagnoses Diagnosis Rheumatoid arthritis involving multiple sites with positive rheumatoid factor (HCC)- Primary GENERAL OSTEOARTHROSIS Generalized osteoarthrosis, unspecified site Osteoporosis with symptom management only Osteoporosis, unspecified halfway current use of systemic steroids Encounter for long-term (current) use of steroids documented in this encounter Care Teams Salesperson Men'S Hats Relationship Specialty Start Date End Date Rosanna Torres DO [address] [address] PCP - General Family Medicine 03/22/19 documented as of this encounter"
[2024-06-26 18:00] LABS: Basophils # (auto) 0.08 K/uL (0.00-0.20); Basophils % (auto) 0.6 %; Eosinophils # (auto) 0.03 K/uL (0.00-0.50); Eosinophils % (auto) 0.2 %; Hemoglobin 13.4 g/dl (14.0-18.0); Immature Granulocytes # (auto) 0.14 K/uL (0.01-0.20); Immature Granulocytes % (auto) 1.1 %; Lymphocytes # (auto) 1.05 K/uL (1.20-3.40); Mean Corpuscular Hemoglobin 27.2 pg (25.0-34.0); Mean Corpuscular Hgb Conc 33.5 g/dL (32.0-36.0); Mean Corpuscular Volume 81.3 fL (80.0-100.0); Mean Platelet Volume 8.5 fL (9.4-12.4); Monocytes # (auto) 0.73 K/uL (0.11-0.59); Monocytes % (auto) 5.5 %; Neutrophils # (auto) 11.15 K/uL (1.40-6.50); Neutrophils % (auto) 84.6 %; Platelet Count 347 K/uL (130-400); RDW Coefficient of Variation 15.7 % (11.5-14.5); RDW Standard Deviation 46.2 fL (36.4-46.3); Red Blood Count 4.92 M/uL (4.70-6.10); White Blood Count 13.18 K/ul (4.8-10.8)
[2024-06-26] MEDS: SODIUM CHLORIDE 0.9% 1,000 ML IV SCH (18:06)
--- NOTE | 2024-06-26 18:10 | Emergency Department Note ---
Impression & Plan Generalized weakness, Tremor, Hyponatremia, Acute UTI (urinary tract infection), Unintended weight loss, Non-compliant behavior ED Provider Note ED Provider Note NAME: JOSE F KANG AGE:79 SEX: Male : 1945 ARRIVES VIA: Private vehicle INFORMANT: Patient ED PROVIDER(s): Temi Zhou DO CHIEF COMPLAINT: Weakness, decreased appetite, tremors HPI: This is an 79-year-old male brought in by family due to concern for worsening weakness, decreased appetite, and tremors that began 1 month ago. They state he was evaluated in the ER 2 weeks ago and discharged home to follow- up with his PCP. They state he has not improved. They state they thought his symptoms at the time were due to low sodium and discussed this with his PCP. They state he has hardly been eating and drinking. Patient denies having an appetite but denies overt nausea and has had no vomiting. He denies fevers but admits to frequent chills. Family states he has been more fatigued and sleeping. They state 2 weeks ago he did have a slight fall where he landed on his side. He states he has had mild right rib pain, but no difficulty breathing and no other concern for injury. No head injury or loss of consciousness. He did not seek any evaluation for this. He denies chest pain, abdominal pain, headaches, neck or back pain, or difficulty breathing. He denies any diarrhea or change in urine. PAST MEDICAL HISTORY:See Below PAST SURGICAL HISTORY:See Below FAMILY HISTORY:See Below SOCIAL HISTORY:See Below HOME MEDICATIONS:See Below ALLERGIES:See Below VITALS:See Below PHYSICAL EXAMINATION: GENERAL: alert, unwell appearing, well nourished, no distress, non-toxic EYE EXAM: normal conjunctiva, PERRL and EOM's grossly intact OROPHARYNX: no exudate, no erythema, lips, buccal mucosa, and tongue normal and mucous membranes are dry NECK: supple, no nuchal rigidity, no adenopathy, non-tender LUNGS: Decreased b/l to auscultation. Normal chest wall mechanics, no w/r/r HEART: no murmurs, S1 normal and S2 normal ABDOMEN: abdomen soft, non-tender, normo-active bowel sounds, no masses, no rebound or guarding. BACK: Back is symmetrical on inspection and there is no deformity SKIN: no rashes, petechiae, orbruising UPPER EXTREMITIES: upper extremities are grossly normal. FROM, nml pulses b/l. LOWER EXTREMITIES: No pitting edema. FROM, nml pulses b/l. NEURO EXAM: Normal sensorium, cranial nerves II-XII grossly intact, normal speech, no facial droop,nogross weakness of arms, no gross weakness of legs. Gross sensation intact. No ataxia. Tremulous. Vital Signs: reviewed and remarkable Differential Diagnosis: dehydration, stroke, anemia, hypoglycemia, hyponatremia, hypernatremia, urinary tract infection, pneumonia, bronchitis, sepsis, gastroenteritis, additional abdominal pathology, metabolic abnormalities, as well as others were considered MEDICAL DECISION MAKING: This is an 79-year-old male presents emergency department with family bedside due to concern for worsening weakness, tremors, and decreased appetite over the course of the last month or so. Patient with prior evaluation here 2 weeks ago. They also note a fall following that evaluation at home 2 weeks ago the patient did not seek any treatment or evaluation of. Labs drawn and sent, IV established, EKG performed at bedside interpreted me and patient monitored on telemetry. He was started on gentle IV fluid hydration due to concern for clinical dehydration and reported decreased appetite. After review of outpatient PCP evaluation additionally, patient sent for CT chest and CT abdomen and pelvis. Patient was noted to have hyponatremia although improved compared to prior. It is unclear how much this could have been contributing to his symptoms over the course of the last month. Patient was hydrated however was unable to provide urine specimen. Patient did have greater than 200 on a bedside bladder scan and eventually a cath urine specimen was obtained which was suggestive of infection. Patient started on IV antibiotics additionally after review of prior cultures. I did review all CT results with the patient and family at bedside. Patient does have a known history of pulmonary fibrosis and follows with pulmonology. They were unaware of the abdominal aortic aneurysm that was noted and we discussed follow-up for this with vascular surgery. Due to concern for multifactorial etiology of the patient's symptoms and family concern as the patient lives alone and due to increasing weakness they are concern for increased risk of fall safe discharge plan, case was discussed with the hospitalist team for additional evaluation and management. Patient was noted to have mild hypoxia here down to 88% and was placed on oxygen at 2 L via nasal cannula. Patient does state he is supposed to wear oxygen at home but typically does not. Consultation(s): 234: Discussed with Dr. Wei, [place] hospitalist team for additional evaluation and management. ER Treatment Provided: See below 2335: Patient and family updated at bedside. Patient states he does follow with [facility] pulmonology due to the history of pulmonary fibrosis. He admits to not wearing his oxygen as he was previously instructed to. He states he does not routinely use any MDI/nebulizer treatments for it. Diagnostics Interpreted By Me: -ECG: Sinus tachycardia 115, leftward axis, normal intervals, nonspecific ST/T wave change -Cardiac Monitoring: An order was placed for continuous cardiac monitoring. The monitor shows a rate of 112 with sinus tachycardia rhythm. -Laboratory studies: As stated above and show below. -Imaging studies: ct chest: Changes of pulmonary fibrosis noted bilaterally Triage Nursing Note Reviewed Prior/Outside Records Reviewed Past Med/Surg History Problem List (Updated 06/27/24 @ 06:02 by Eric Wei MD) Right rib fracture Status post fall Hypomagnesemia Non-compliant behavior (Acute) Unintended weight loss (Acute) Acute UTI (urinary tract infection) (Acute) Hyponatremia (Acute) Tremor (Acute) Generalized weakness (Acute) Mild anemia Hyponatremia Depression Immunocompromised state (Acute) Urinary retention Chronic hypoxic respiratory failure Essential tremor Gait disturbance Urinary incontinence Pulmonary emphysema Interstitial lung disease (Acute) Coronary artery calcification GERD without esophagitis Carotid artery disease Hypertension Interstitial pulmonary fibrosis Pulmonary nodules Rheumatoid arthritis Medical History (Updated 06/27/24 @ 06:02 by Eric Wei MD) Acute hyponatremia Generalized weakness Chronic cough Hypoxia 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, 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, 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 Exercise hypoxemia Post herpetic neuralgia Pneumonia Surgical History S/P cataract surgery Jul 2023 History of tonsillectomy and adenoidectomy History of cholecystectomy (2000) Family History Other Adopted Social History Smoking Status: Former smoker Tobacco Type: Cigarettes Age Started Using Tobacco: 14; Age Quit Using Tobacco: 54; packs per day: 2; Second Hand Exposure: No; Do You Dip or Chew Tobacco: No; Hx Alcohol Use: Yes Alcohol type: beer Alcohol Intake Frequency: 2-3 x/Week Hx Substance Use: No Preferred Language: [place]al[place] Communication Ability: Effective Visual Impairment: No Limitations Hearing Ability: Normal Reliability Manager Required: No Beliefs That Will Affect Care: None marital status: Current Living Situation: Alone current occupational status: retired 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 [employer] Feels Safe at Home: Yes Childhood Exposure to Second-Hand Smoke: Yes Diet: regular Diet Comment: regular caffeine: Yes (coffee x 2-3 per day.) during the past year weight has: decreased > 10 lbs Dental Care, Regularly: Yes Physical Activity Frequency: Daily Physical Activity Frequency Comment: walk Seatbelt Use: always Sunscreen Use: Yes Assistive Devices: Oxygen - Continuous Allergies Allergies Allergy/AdvReac Type Severity Reaction Status Date / Time No Known Allergies Allergy Verified 06/10/24 15:36 Home Meds Home Medications Medication Instructions Recorded Confirmed multivitamin (Daily Multi-Vitamin 1 tab PO DAILY 02/03/19 06/26/24 tablet) aspirin 81 mg tablet,delayed 81 mg PO DAILY 06/23/23 06/26/24 release prednisone 1 mg tablet 4 mg PO UD 06/26/24 06/26/24 Previous Rx's Medication Instructions Recorded Oxygen Home #1 ea 07/02/23 gabapentin 300 mg capsule 300 mg PO HS #90 caps 07/22/23 naproxen 500 mg tablet 500 mg PO BID PRN Pain #180 tabs 09/25/23 atorvastatin 10 mg tablet 10 mg PO DAILY #90 tabs 01/12/24 lisinopril 20 1 tab PO DAILY #90 tabs 01/26/24 mg-hydrochlorothiazide 12.5 mg tablet omeprazole 20 mg capsule,delayed 20 mg PO DAILY #90 caps 01/26/24 release Portable Oxygen #1 ea 06/14/24 Results & Data (ED) Vital Signs Vital Signs - 24 hr 06/26/24 21:00 06/26/24 21:48 06/26/24 21:51 Temperature 37.6 C H Temperature Source Oral Pulse Rate 117 H Pulse Rate [Apical] 113 H 114 H Respiratory Rate 33 H 35 H Respiratory Effort / Characteristics Spontaneous Spontaneous Respiratory Depth Normal Normal Blood Pressure Blood Pressure [Right Arm] 95/57 L 110/70 Blood Pressure Mean Blood Pressure Mean [Right Arm] 69 83 Blood Pressure Position [Right Arm] Semi-fowlers Pulse Oximetry 92 92 Oxygen Delivery Method Room Air Room Air Oxygen Flow Rate - Titration Pulse Oximetry Post Tiitration 06/26/24 22:22 06/26/24 23:00 06/27/24 00:15 Temperature 37.2 C Temperature Source Oral Pulse Rate 103 H Pulse Rate [Apical] 108 H Respiratory Rate 18 24 Respiratory Effort / Characteristics Respiratory Depth Blood Pressure 121/66 Blood Pressure [Right Arm] 113/66 Blood Pressure Mean 84 Blood Pressure Mean [Right Arm] 81 Blood Pressure Position [Right Arm] Pulse Oximetry 86 L 96 96 Oxygen Delivery Method Room Air Oxygen Flow Rate - Titration 2 Pulse Oximetry Post Tiitration 97 Laboratory Data 06/27/24 03:46 06/27/24 12:46 Lab Results 06/26/24 06/26/24 Range/Units 17:47 22:06 WBC 13.18 H (4.8-10.8) K/ul RBC 4.92 (4.70-6.10) M/uL Hgb 13.4 L (14.0-18.0) g/dl Hct 40.0 L (42.0-52.0) % MCV 81.3 (80.0-100.0) fL MCH 27.2 (25.0-34.0) pg MCHC 33.5 (32.0-36.0) g/dL RDW Std Deviation 46.2 (36.4-46.3) fL RDW Coeff of Carl 15.7 H (11.5-14.5) % Plt Count 347 (130-400) K/uL MPV 8.5 L (9.4-12.4) fL Immature Gran % (Auto) 1.1 % Neut % (Auto) 84.6 % Lymph % (Auto) 8.0 % Tillman % (Auto) 5.5 % Eos % (Auto) 0.2 % Baso % (Auto) 0.6 % Neut # (Auto) 11.15 H (1.40-6.50) K/uL Lymph # (Auto) 1.05 L (1.20-3.40) K/uL Tillman # (Auto) 0.73 H (0.11-0.59) K/uL Eos # (Auto) 0.03 (0.00-0.50) K/uL Baso # (Auto) 0.08 (0.00-0.20) K/uL Immature Gran # (Auto) 0.14 (0.01-0.20) K/uL PT 12.1 H (9.0-12.0) Seconds INR 1.1 (0.9-1.1) Sodium 130 L (136-145) mmol/L Potassium 3.8 (3.5-5.1) mmol/L Chloride 95 L (98-107) mmol/L Carbon Dioxide 25 (21-32) mmol/L Anion Gap 10 (3-11) BUN 34 H (6-23) mg/dl Creatinine 1.08 (0.6-1.4) mg/dl Est Cr Clr Drug Dosing 52.1 ml/min eGFR 68.94 BUN/Creatinine Ratio 31.5 H (10-20) Glucose 145 H (70-99(Fasting)) mg/dl Calcium 9.2 (8.6-10.3) mg/dl Magnesium 1.5 L (1.7-2.4) mg/dl Total Bilirubin 0.7 (0.2-1.0) mg/dl AST 23 (13-39) U/L ALT 10 (7-52) U/L Alkaline Phosphatase 89 (34-104) U/L Troponin I High Sens 18.0 (0-20) pg/ml Total Protein 7.7 (6.0-8.3) gm/dl Albumin 3.2 L (3.4-5.0) gm/dl Globulin 4.5 H (2.5-4.0) gm/dl Albumin/Globulin Ratio 0.7 L (0.9-2) Lipase 20 (11-82) U/L TSH 4.036 (0.300-4.500) uIu/ml Urine Color Yellow Urine Appearance Cloudy A (Clear) Urine pH 5.5 (4.5-7.5) Ur Specific [place] 1.041 H (1.000-1.030) Urine Protein Trace H (Negative) Urine Glucose (UA) Negative (Negative) Urine Ketones Trace H (Negative) Urine Blood Negative (Negative) Urine Nitrite Negative (Negative) Urine Bilirubin Negative (Negative) Urine Urobilinogen Negative (Negative) Ur Leukocyte Esterase 2+ H (Negative) Urine WBC (Auto) 21-50 H (0-5) /hpf Urine RBC (Auto) >20 H (0-2) /hpf U Hyaline Cast (Auto) 3-5 H (0-2) /lpf U Epithel Cells (Auto) 0-2 (0-2) /hpf Urine Bacteria (Auto) 4+ H (None Seen) Adenovirus (PCR) Not Detected (NotDetected) B. pertussis DNA (PCR) Not Detected (NotDetected) B.parapertussis DNA PCR Not Detected (NotDetected) C. pneumoniae DNA (PCR) Not Detected (NotDetected) Coronavirus OC43 (PCR) Not Detected (NotDetected) Coronavirus HKU1 (PCR) Not Detected (NotDetected) Coronavirus 229E (PCR) Not Detected (NotDetected) SARS-CoV-2 (PCR) Not Detected (NotDetected) Coronavirus NL63 (PCR) Not Detected (NotDetected) Human Metapneumovir PCR Not Detected (NotDetected) Influenza Type A (PCR) Not Detected (NotDetected) Influenza Type B (PCR) Not Detected (NotDetected) M. pneumoniae (PCR) Not Detected (NotDetected) Parainfluenza 1 (PCR) Not Detected (NotDetected) Parainfluenza 2 (PCR) Not Detected (NotDetected) Parainfluenza 3 (PCR) Not Detected (NotDetected) Parainfluenza 4 (PCR) Not Detected (NotDetected) RSV (PCR) Not Detected (NotDetected) Entero/Rhino (PCR) Not Detected (NotDetected) Administered Medications Aspirin (Aspirin 81 Mg Ectab) 81 mg PO DAILY [facility] Stop: 07/27/24 08:59 Last Admin: 06/27/24 08:56 Dose: 81 mg Documented By: DEBRA Atorvastatin Calcium (Atorvastatin 10 Mg Tab) 10 mg PO DAILY [facility] Stop: 07/27/24 08:59 Last Admin: 06/27/24 08:56 Dose: 10 mg Documented By: DEBRA Hydrocortisone Sodium (Succinate 50 mg/ Syringe) 1 mls @ 4 mls/min IV Q8H [facility] Stop: 06/28/24 22:01 Last Admin: 06/27/24 14:05 Dose: 4 mls/min Documented By: Admin: 06/27/24 05:47 Dose: 4 mls/min Documented By: JOSELUIS Methocarbamol (Methocarbamol 500 Mg Tablet) 250 mg PO BID SAMMY Stop: 06/27/24 21:01 Last Admin: 06/27/24 13:00 Dose: 250 mg Documented By: DEBRA Multivitamins (Multivitamin Tab) 1 tab PO DAILY SAMMY Stop: 07/27/24 08:59 Last Admin: 06/27/24 08:56 Dose: 1 tab Documented By: DEBRA Pantoprazole Sodium (Pantoprazole 40 Mg Tab) 40 mg PO DAILY SAMMY Stop: 07/27/24 08:59 Last Admin: 06/27/24 08:56 Dose: 40 mg Documented By: DEBRA Sodium Chloride (Sodium Chloride 1 Gm Tablet) 1 gm PO BID SAMMY Stop: 06/28/24 21:01 Last Admin: 06/27/24 08:57 Dose: 1 gm Documented By: DEBRA Discontinued Medications Albuterol (Albut/Ipratrop 3mg/0.5mg Neb 3 Ml Vial) 3 ml NEB NOW STA; Protocol Stop: 06/26/24 23:35 Last Admin: 06/27/24 00:16 Dose: 3 ml Documented By: JOSELUIS Bisacodyl (Bisacodyl 10 Mg Supp) 10 mg [place] NOW STA Stop: 06/27/24 16:25 Last Admin: 06/27/24 18:23 Dose: Not Given Documented By: JENNIFER Hydrocortisone Sodium Succinate (Hydrocortisone Sod Succinate 100 Mg/2 Ml Vial) 50 mg IV NOW STA Stop: 06/27/24 01:55 Last Admin: 06/27/24 03:20 Dose: Not Given Documented By: JOSELUIS Sodium Chloride (Nss) 1,000 mls @ 125 mls/hr IV .Q8H SAMMY Stop: 06/27/24 17:59 Last Admin: 06/27/24 01:58 Dose: Not Given Documented By: Infusion: 06/26/24 22:45 Dose: Infused Documented By: Admin: 06/26/24 18:06 Dose: 125 mls/hr Documented By: ASW Sodium Chloride (Nss) 500 mls @ 999 mls/hr IV .Q31M ONE Stop: 06/26/24 19:07 Last Infusion: 06/26/24 20:15 Dose: Infused Documented By: Admin: 06/26/24 18:46 Dose: 999 mls/hr Documented By: BCN Magnesium Sulfate/Dextrose (Magnesium Sulfate / D5w) 1 gm in 100 mls @ 100 mls/hr IV NOW STA Stop: 06/26/24 19:59 Last Infusion: 06/26/24 20:15 Dose: Infused Documented By: Admin: 06/26/24 19:08 Dose: 100 mls/hr Documented By: REYMUNDO Ceftriaxone Sodium (Rocephin) 2,000 mg in 50 mls @ 100 mls/hr IV NOW STA Stop: 06/26/24 23:31 Last Infusion: 06/27/24 00:12 Dose: Infused Documented By: Admin: 06/26/24 23:37 Dose: 100 mls/hr Documented By: JOSELUIS Magnesium Sulfate/Dextrose (Magnesium Sulfate / D5w) 1 gm in 100 mls @ 50 mls/hr IV ONE ONE Stop: 06/27/24 02:40 Last Infusion: 06/27/24 03:40 Dose: Infused Documented By: Admin: 06/27/24 01:36 Dose: 50 mls/hr Documented By: JOSELUIS Potassium Chloride/Sodium Chloride (Normal Saline W/20 Meq Kcl) 20 meq in 1,000 mls @ 100 mls/hr IV .Q10H SAMMY Stop: 06/27/24 10:44 Last Infusion: 06/27/24 11:15 Dose: Infused Documented By: Admin: 06/27/24 01:10 Dose: 100 mls/hr Documented By: JOSELUIS Magnesium Sulfate/Dextrose (Magnesium Sulfate / D5w) 1 gm in 100 mls @ 50 mls/hr IV Q2H SAMMY Stop: 06/27/24 10:14 Last Infusion: 06/27/24 10:54 Dose: Infused Documented By: Katelin Admin: 06/27/24 08:51 Dose: 50 mls/hr Documented By: Infusion: 06/27/24 08:30 Dose: Infused Documented By: E Admin: 06/27/24 06:17 Dose: 50 mls/hr Documented By: JOSELUIS Ioversol (Optiray 320 100ml) 94 ml IV ONCE ONE Stop: 06/26/24 18:55 Last Admin: 06/26/24 18:54 Dose: 94 ml Documented By: CAMELIA Lidocaine (Lidocaine 5% 1 Patch) 1 patch TD NOW STA Stop: 06/27/24 00:44 Last Admin: 06/27/24 01:15 Dose: 1 patch Documented By: JOSELUIS Miscellaneous (Remove Lidoderm Patch) 1 each N/A 1300 ONE Stop: 06/27/24 13:01 Last Admin: 06/27/24 12:59 Dose: 1 each Documented By: DEBRA Potassium Chloride (Potassium Chloride Crtab 20 Meq Tabcr) 40 meq PO NOW STA Stop: 06/27/24 05:52 Last Admin: 06/27/24 06:15 Dose: 40 meq Documented By: JOSELUIS Imaging Data Radiologist's Impression: Abdomen/Pelvis CT 06/26/24 18:06 Exam(s): CT ABDOMEN + PELVIS With Contrast IV Amt: 94ml EXAM: CT Abdomen and Pelvis With Intravenous Contrast CLINICAL HISTORY: weight loss, weakness, poor appetite. TECHNIQUE: Axial computed tomography images of the abdomen and pelvis with intravenous contrast. CTDI is 15 mGy and DLP is 472 mGy-cm. Automated exposure control was utilized for the study. A dose lowering technique was utilized adhering to the principles of ALARA. CONTRAST: Patient received 94ml of IV contrast COMPARISON: CT chest 06/23/2023 FINDINGS: Lung bases: Small left pleural effusion. Extensive scarring. Partially visualized mediastinal and hilar lymphadenopathy. ABDOMEN: Liver: Unremarkable. No mass. Gallbladder and bile ducts: Post cholecystectomy. No ductal dilation. Pancreas: Unremarkable. No mass. No ductal dilation. Spleen: Unremarkable. No splenomegaly. Adrenals: Unremarkable. No mass. Kidneys and ureters: 4.1 x 3.5 cm cyst midpole left kidney. No obstructive uropathy. No obstructing renal or ureteral calculi. No hydronephrosis or hydroureter. Stomach and bowel: No obstruction or ileus. Abundant stool throughout the colon. No evidence for diverticulitis. PELVIS: Appendix: No findings to suggest acute appendicitis. Bladder: Unremarkable. No mass. Reproductive: Unremarkable as visualized. ABDOMEN and PELVIS: Intraperitoneal space: No free air. No free fluid. Bones/joints: Acute fractures of the right eighth and ninth ribs. Degenerative changes of the spine Soft tissues: Unremarkable. Vasculature: Atherosclerotic vascular calcifications. 7.6 cm length infrarenal fusiform abdominal aortic aneurysm up to 4.9 cm right CP diameter. Circumferential plaque/thrombus with a 2.8 cm central patent lumen. Aneurysmal dilatation extends into the bilateral common iliac arteries, right greater left. Intact distal runoff. Lymph nodes: Unremarkable. No enlarged lymph nodes. IMPRESSION: Acute fractures of the right eighth and ninth ribs. No acute posttraumatic abnormality of the abdomen or pelvis. Diffuse vascular calcifications with an infrarenal abdominal aortic aneurysm. Post cholecystectomy. Left renal cyst. Abundant stool throughout the colon. Electronically signed by: Rodolfo Gunter M.D. 06/26/24 23:[address] 06/26/24 18:06 Exam(s): CT CHEST With Contrast IV Amt: 94ml EXAM: CT Chest With Intravenous Contrast CLINICAL HISTORY: weight loss, weakness, poor appetite. TECHNIQUE: Axial computed tomography images of the chest with intravenous contrast. CTDI is 14 mGy and DLP is 811 mGy-cm. Automated exposure control was utilized for the study. A dose lowering technique was utilized adhering to the principles of ALARA. CONTRAST: Patient received 94 ml of IV contrast COMPARISON: CTA Chest 06-23-2023 FINDINGS: Lungs: Redemonstrated extensive bronchiectasis, emphysematous changes, multiple lung cyst and extensive honeycombing greatest in the bilateral lower lobes in lingula. Pleural space: Small left pleural effusion. No pneumothorax. Heart: No cardiomegaly. No significant pericardial effusion. Coronary artery calcifications. Bones/joints: Degenerative changes of the spine. Acute fractures the lateral aspect of the right seventh and eighth ribs with chest wall infiltration/hemorrhage. Soft tissues: Unremarkable. Vasculature: Atherosclerotic vascular calcifications. No thoracic aortic aneurysm. Redemonstrated prominent main pulmonary artery. Lymph nodes: Unremarkable. No enlarged lymph nodes. Abdomen: Post cholecystectomy IMPRESSION: Acute fractures the lateral aspect of the right seventh and eighth ribs. No associated pleural effusion or pneumothorax. Small left pleural effusion. Remainder of the examination is unchanged. Extensive bronchiectasis, interstitial lung disease, fibrosis and lung cyst. Unchanged sternal and hilar lymphadenopathy. Prominent main pulmonary artery consistent with pulmonary artery hypertension. Electronically signed by: Rodolfo Gunter M.D. 06/26/24 23:03 PM Discharge Plan Visit Data Chief Complaint: Weakness Stated Complaint: NOT EATING/DRINKING/WALKING, WEAKNESS ED Provider: Temi Zhou Discharge Problem: Generalized weakness, Tremor, Hyponatremia, Acute UTI (urinary tract infection), Unintended weight loss, Non-compliant behavior Patient Disposition: Admitted As Inpatient Discharge Instructions Interventions: ED Discharge Assessment Last Done: 06/27/24 13:16
[2024-06-26 18:19] LABS: Albumin Globulin Ratio 0.7 (0.9-2); Albumin Level 3.2 gm/dl (3.4-5.0); BUN Creatinine Ratio 31.5 (10-20); Bilirubin,Total 0.7 mg/dl (0.2-1.0); Calcium 9.2 mg/dl (8.6-10.3); Creatinine Clr Calc Pharmacy 52.1 ml/min; Globulin 4.5 gm/dl (2.5-4.0); Magnesium 1.5 mg/dl (1.7-2.4); Potassium 3.8 mmol/L (3.5-5.1); Total Protein 7.7 gm/dl (6.0-8.3)
[2024-06-26 18:27] LABS: INR 1.1 (0.9-1.1); Prothrombin Time 12.1 Seconds (9.0-12.0)
[2024-06-26 18:33] LABS: Thyroid Stimulating Hormone 4.036 uIu/ml (0.300-4.500)
[2024-06-26] MEDS: SODIUM CHLORIDE 0.9% 500 ML IV ONE (18:46)
[2024-06-26] MEDS: OPTIRAY 320 100ml IV ONE (18:54)
[2024-06-26] MEDS: MAGNESIUM SULFATE / D5W 1 GM/100 ML BAG IV STA (19:08)
[2024-06-26 19:15] LABS: Adenovirus PCR Not Detected (NotDetected); Bordetella parapertussis PCR Not Detected (NotDetected); Bordetella pertussis PCR Not Detected (NotDetected); Chlamydia pneumoniae PCR Not Detected (NotDetected); Coronavirus 229E PCR Not Detected (NotDetected); Coronavirus CoV-2 (COVID19)PCR Not Detected (NotDetected); Coronavirus HKU1 PCR Not Detected (NotDetected); Coronavirus NL63 PCR Not Detected (NotDetected); Coronavirus OC43PCR Not Detected (NotDetected); Human Metapneumovirus PCR Not Detected (NotDetected); Influenza A PCR Not Detected (NotDetected); Influenza B PCR Not Detected (NotDetected); Mycoplasma pneumoniae PCR Not Detected (NotDetected); Parainfluenza Virus 1 PCR Not Detected (NotDetected); Parainfluenza Virus 2 PCR Not Detected (NotDetected); Parainfluenza Virus 3 PCR Not Detected (NotDetected); Parainfluenza Virus 4 PCR Not Detected (NotDetected); Respiratory Syncytial VirusPCR Not Detected (NotDetected); Rhinovirus/Enterovirus PCR Not Detected (NotDetected)
[2024-06-26 22:59] LABS: Appearance Urine Cloudy (Clear); Bacteria Urine Automated 4+ (None Seen); Bilirubin Urine Negative (Negative); Blood Urine Negative (Negative); Color Urine Yellow; Epithelial Cell Urine Auto 0-2 /hpf (0-2); Glucose Urine UA Negative (Negative); Ketones Urine Trace (Negative); Leukocyte Esterase Urine 2+ (Negative); Nitrite Urine Negative (Negative); Protein Urine Trace (Negative); RBC Urine Automated >20 /hpf (0-2); Specific Gravity Urine 1.041 (1.000-1.030); Urobilinogen Urine Negative (Negative); WBC Urine Automated 21-50 /hpf (0-5); pH Urine 5.5 (4.5-7.5)
--- NOTE | 2024-06-26 23:03 | CT Scan Report ---
Exam(s): CT CHEST With Contrast IV Amt: 94ml EXAM: CT Chest With Intravenous Contrast CLINICAL HISTORY: weight loss, weakness, poor appetite. TECHNIQUE: Axial computed tomography images of the chest with intravenous contrast. CTDI is 14 mGy and DLP is 811 mGy-cm. Automated exposure control was utilized for the study. A dose lowering technique was utilized adhering to the principles of ALARA. CONTRAST: Patient received 94 ml of IV contrast COMPARISON: CTA Chest 06-23-2023 FINDINGS: Lungs: Redemonstrated extensive bronchiectasis, emphysematous changes, multiple lung cyst and extensive honeycombing greatest in the bilateral lower lobes in lingula. Pleural space: Small left pleural effusion. No pneumothorax. Heart: No cardiomegaly. No significant pericardial effusion. Coronary artery calcifications. Bones/joints: Degenerative changes of the spine. Acute fractures the lateral aspect of the right seventh and eighth ribs with chest wall infiltration/hemorrhage. Soft tissues: Unremarkable. Vasculature: Atherosclerotic vascular calcifications. No thoracic aortic aneurysm. Redemonstrated prominent main pulmonary artery. Lymph nodes: Unremarkable. No enlarged lymph nodes. Abdomen: Post cholecystectomy IMPRESSION: Acute fractures the lateral aspect of the right seventh and eighth ribs. No associated pleural effusion or pneumothorax. Small left pleural effusion. Remainder of the examination is unchanged. Extensive bronchiectasis, interstitial lung disease, fibrosis and lung cyst. Unchanged sternal and hilar lymphadenopathy. Prominent main pulmonary artery consistent with pulmonary artery hypertension. Electronically signed by: Rodolfo Gunter M.D. 06/26/24 23:03 PM
--- NOTE | 2024-06-26 23:12 | CT Scan Report ---
Exam(s): CT ABDOMEN + PELVIS With Contrast IV Amt: 94ml EXAM: CT Abdomen and Pelvis With Intravenous Contrast CLINICAL HISTORY: weight loss, weakness, poor appetite. TECHNIQUE: Axial computed tomography images of the abdomen and pelvis with intravenous contrast. CTDI is 15 mGy and DLP is 472 mGy-cm. Automated exposure control was utilized for the study. A dose lowering technique was utilized adhering to the principles of ALARA. CONTRAST: Patient received 94ml of IV contrast COMPARISON: CT chest 06/23/2023 FINDINGS: Lung bases: Small left pleural effusion. Extensive scarring. Partially visualized mediastinal and hilar lymphadenopathy. ABDOMEN: Liver: Unremarkable. No mass. Gallbladder and bile ducts: Post cholecystectomy. No ductal dilation. Pancreas: Unremarkable. No mass. No ductal dilation. Spleen: Unremarkable. No splenomegaly. Adrenals: Unremarkable. No mass. Kidneys and ureters: 4.1 x 3.5 cm cyst midpole left kidney. No obstructive uropathy. No obstructing renal or ureteral calculi. No hydronephrosis or hydroureter. Stomach and bowel: No obstruction or ileus. Abundant stool throughout the colon. No evidence for diverticulitis. PELVIS: Appendix: No findings to suggest acute appendicitis. Bladder: Unremarkable. No mass. Reproductive: Unremarkable as visualized. ABDOMEN and PELVIS: Intraperitoneal space: No free air. No free fluid. Bones/joints: Acute fractures of the right eighth and ninth ribs. Degenerative changes of the spine Soft tissues: Unremarkable. Vasculature: Atherosclerotic vascular calcifications. 7.6 cm length infrarenal fusiform abdominal aortic aneurysm up to 4.9 cm right CP diameter. Circumferential plaque/thrombus with a 2.8 cm central patent lumen. Aneurysmal dilatation extends into the bilateral common iliac arteries, right greater left. Intact distal runoff. Lymph nodes: Unremarkable. No enlarged lymph nodes. IMPRESSION: Acute fractures of the right eighth and ninth ribs. No acute posttraumatic abnormality of the abdomen or pelvis. Diffuse vascular calcifications with an infrarenal abdominal aortic aneurysm. Post cholecystectomy. Left renal cyst. Abundant stool throughout the colon. Electronically signed by: Rodolfo Gunter M.D. 06/26/24 23:12 PM
[2024-06-26] MEDS: cefTRIAXone SODIUM 2,000 MG/50 ML BAG IV STA (23:37)
[2024-06-27] MEDS: ALBUT/IPRATROP 3MG/0.5MG NEB 3 ML VIAL NEB STA (00:16)
--- NOTE | 2024-06-27 00:59 | History & Physical Report ---
Date of Service June 27, 2024 Assessment & Plan (1) UTI (urinary tract infection): (2) Hypomagnesemia: (3) Rheumatoid arthritis: (4) Interstitial pulmonary fibrosis: (5) Status post fall: (6) Right rib fracture: Plan The patient is an 79-year-old male with past medical history including hyponatremia, depression, chronic hypoxic respiratory failure, essential tremor, interstitial lung disease, CAD, GERD without esophagitis, carotid artery disease, hypertension, IPF, pulmonary nodules and rheumatoid arthritis. The patient most recently been admitted to [facility] from 06/08-06/09/2024 due to abnormal gait, generalized weakness, and hyponatremia. At that time attempt was being made to arrange for PT/OT in the outpatient setting, which the patient was about to have started a couple days. However, patient had progression of symptoms as noted by family, who had the patient come to the emergency department after falls, and patient also noted to have 3 rib fractures that are new. #Generalized weakness status post fall/gait disturbance- Previous admission from 06/08-06/09/2024, and patient was recommended to go to PT/OT, which was being arranged in the outpatient setting. Nonsustained V. tach- Patient did have an episode of self-limited asymptomatic V. tach early in the morning Give magnesium sulfate 2 g IV, Klor-Con 40 mEq p.o., NSS + KCl 20 mEq at 100 mL/h x 1 L Recheck laboratories in the a.m. Hyponatremia- Sodium was 128 on 06/08/2024 Presently 130 Sertraline had been discontinued after 3 days previously More likely secondary to lisinopril/HCTZ, which will be held at this time Recheck laboratories in the a.m. BioFire test negative Multiple right-sided rib fractures- Right 7, 8 and 9 ribs fractured as noted on imaging Apply Lidoderm patch Monitor for secondary signs of pneumonia PT/OT consults Urinary tract infection- Follow urine culture and sensitivity Empiric ceftriaxone 2 g IV daily Likely generalized weakness contributing to falls Status post NSS 500 mL bolus in the ED Steroid-dependent rheumatoid arthritis/- Hold prednisone Stress dose hydrocortisone 50 mg IV every 8 hours x 2 days, then resume prednisone Hypomagnesemia- Mag 1.5 on admission Give magnesium sulfate 2 g IV, and recheck laboratories in the a.m. History of Present Illness Chief Complaint: The patient presents to the emergency department with generalized weakness, overall decreased appetite and increasing tremors that initially began about 1 month ago, but has worsened over the past few weeks, in particular after recent discharge from hospital on 06/09/2024. Primary Care Provider: Rosanna Torres DO The patient is an 79-year-old male with past medical history including hyponatremia, depression, chronic hypoxic respiratory failure, essential tremor, interstitial lung disease, CAD, GERD without esophagitis, carotid artery disease, hypertension, IPF, pulmonary nodules and rheumatoid arthritis. The pa noel most recently been admitted to [facility] from 06/08-06/09/2024 due to abnormal gait, generalized weakness, and hyponatremia. At that time attempt was being made to arrange for PT/OT in the outpatient setting, which the patient was about to have started a couple days. However, patient had progression of symptoms as noted by family, who had the patient come to the emergency department after falls, and patient also noted to have 3 rib fractures that are new. Allergies Allergy/AdvReac Type Severity Reaction Status Date / Time No Known Allergies Allergy Verified 06/10/24 15:36 Home Medications Medication Instructions Recorded Confirmed Type multivitamin (Daily Multi-Vitamin 1 tab PO DAILY 02/03/19 06/26/24 History tablet) aspirin 81 mg tablet,delayed 81 mg PO DAILY 06/23/23 06/26/24 History release Oxygen Home #1 ea 07/02/23 06/10/24 Rx gabapentin 300 mg capsule 300 mg PO HS #90 caps 07/22/23 06/26/24 Rx naproxen 500 mg tablet 500 mg PO BID PRN Pain #180 tabs 09/25/23 06/26/24 Rx atorvastatin 10 mg tablet 10 mg PO DAILY #90 tabs 01/12/24 06/26/24 Rx lisinopril 20 1 tab PO DAILY #90 tabs 01/26/24 06/26/24 Rx mg-hydrochlorothiazide 12.5 mg tablet omeprazole 20 mg capsule,delayed 20 mg PO DAILY #90 caps 01/26/24 06/26/24 Rx release Portable Oxygen #1 ea 06/14/24 06/14/24 Rx prednisone 1 mg tablet 4 mg PO UD 06/26/24 06/26/24 History Past Med/Surg History Problem List (Updated 06/27/24 @ 06:02 by Eric Wei MD) Right rib fracture Status post fall Hypomagnesemia Non-compliant behavior (Acute) Unintended weight loss (Acute) Acute UTI (urinary tract infection) (Acute) Hyponatremia (Acute) Tremor (Acute) Generalized weakness (Acute) Mild anemia Hyponatremia Depression Immunocompromised state (Acute) Urinary retention Chronic hypoxic respiratory failure Essential tremor Gait disturbance Urinary incontinence Pulmonary emphysema Interstitial lung disease (Acute) Coronary artery calcification GERD without esophagitis Carotid artery disease Hypertension Interstitial pulmonary fibrosis Pulmonary nodules Rheumatoid arthritis Medical History (Updated 06/27/24 @ 06:02 by Eric Wei MD) Acute hyponatremia Generalized weakness Chronic cough Hypoxia 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, 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, 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 Exercise hypoxemia Post herpetic neuralgia Pneumonia Surgical History S/P cataract surgery Jul 2023 History of tonsillectomy and adenoidectomy History of cholecystectomy (2000) Family History Other Adopted Social History Smoking Status: Former smoker Tobacco Type: Cigarettes Age Started Using Tobacco: 14; Age Quit Using Tobacco: 54; packs per day: 2; Second Hand Exposure: No; Do You Dip or Chew Tobacco: No; Hx Alcohol Use: Yes Alcohol type: beer Alcohol Intake Frequency: 2-3 x/Week Hx Substance Use: No Preferred Language: Mongolian Communication Ability: Effective Visual Impairment: No Limitations Hearing Ability: Normal Telephone Advice Nurse Required: No Beliefs That Will Affect Care: None marital status: Current Living Situation: Alone current occupational status: retired 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 [employer] Feels Safe at Home: Yes Childhood Exposure to Second-Hand Smoke: Yes Diet: regular Diet Comment: regular caffeine: Yes (coffee x 2-3 per day.) during the past year weight has: decreased > 10 lbs Dental Care, Regularly: Yes Physical Activity Frequency: Daily Physical Activity Frequency Comment: walk Seatbelt Use: always Sunscreen Use: Yes Assistive Devices: Cane and Oxygen - Continuous Review of Systems Review of Systems: The patient denies chest pain, palpitations, shortness of breath, dyspnea on exertion, cough, lower extremity swelling, sore throat, fevers, chills, sweats, nausea, vomiting, diarrhea , constipation, abdominal pain, pelvic pain, blood in urine or stool,loss of consciousness, rash, abnormal bruising or bleeding, focal or generalized weakness, numbness or tingling in arms or legs, generalized arthralgias or myalgias, back or neck pain, or night sweats. The review of systems is otherwise negative other than for that already noted above, and at least 10 systems have been reviewed. Physical Exam Physical Exam: The patient is awake, alert, mildly confused, but supported by family. normocephalic and atraumatic, lying in bed and in no acute distress. HEENT--PERRL, EOMI, mucous membranes and oropharynx mildly dry. Neck--supple. No JVD. No bruits. Thyroid normal, trachea midline, no adenopathy. Heart--normal S1 and S2. No murmurs, rubs or gallops. Lungs--clear bilaterally, no respiratory distress, no accessory muscle use. Abdomen--normal bowel sounds and soft. Nontender. Nondistended, no hernias or masses, no organomegaly. Extremities-. No edema. Dermatologic--normal skin turgor, normal color, no abnormal lymph nodes, no rash. Neurologic--cranial nerves II through XII grossly intact. Rheumatologic--normal range of motion. Psychiatric--normal affect. Results & Data Results & Data Vital Signs (Past 12 Hours) Vital Signs Temp Pulse Pulse Resp BP BP Pulse Ox 06/27/24 00:15 103 H 24 121/66 96 06/26/24 23:00 37.2 C 108 H 18 113/66 96 06/26/24 22:22 86 L 06/26/24 21:51 117 H 06/26/24 21:48 37.6 C H 114 H 35 H 110/70 92 06/26/24 21:00 113 H 33 H 95/57 L 92 06/26/24 19:21 115 H 34 H 107/74 94 06/26/24 18:42 110 H 06/26/24 18:33 110 H 06/26/24 18:30 101/70 06/26/24 18:30 101/70 06/26/24 18:30 101/70 06/26/24 18:24 102/64 06/26/24 18:24 102/64 06/26/24 18:24 102/64 06/26/24 18:24 109 H 06/26/24 18:21 110 H 06/26/24 18:03 111 H 96 06/26/24 18:01 82/58 L 06/26/24 18:01 82/58 L 06/26/24 17:45 116 H 96 06/26/24 17:42 116 H 96 06/26/24 17:41 116 H 06/26/24 17:33 118 H 33 H 168/132 H 96 06/26/24 17:33 06/26/24 17:23 36.4 C L 80 18 97/66 L 95 O2 Del Method 06/27/24 00:15 06/26/24 23:00 06/26/24 22:22 Room Air 06/26/24 21:51 06/26/24 21:48 Room Air 06/26/24 21:00 Room Air 06/26/24 19:21 Room Air 06/26/24 18:42 06/26/24 18:33 06/26/24 18:30 06/26/24 18:30 06/26/24 18:30 06/26/24 18:24 06/26/24 18:24 06/26/24 18:24 06/26/24 18:24 06/26/24 18:21 06/26/24 18:03 06/26/24 18:01 06/26/24 18:01 06/26/24 17:45 06/26/24 17:42 06/26/24 17:41 06/26/24 17:33 Room Air 06/26/24 17:33 Room Air 06/26/24 17:23 Room Air Laboratory Results Laboratory Results WBC 9.42 K/ul (4.8-10.8) 06/27/24 03:46 RBC 4.08 M/uL (4.70-6.10) L 06/27/24 03:46 Hgb 11.0 g/dl (14.0-18.0) L 06/27/24 03:46 Hct 32.7 % (42.0-52.0) L 06/27/24 03:46 MCV 80.1 fL (80.0-100.0) 06/27/24 03:46 MCH 27.0 pg (25.0-34.0) 06/27/24 03:46 MCHC 33.6 g/dL (32.0-36.0) 06/27/24 03:46 RDW Std Deviation 45.3 fL (36.4-46.3) 06/27/24 03:46 RDW Coeff of Carl 15.6 % (11.5-14.5) H 06/27/24 03:46 Plt Count 261 K/uL (130-400) 06/27/24 03:46 MPV 8.5 fL (9.4-12.4) L 06/27/24 03:46 Immature Gran % (Auto) 1.5 % 06/27/24 03:46 Neut % (Auto) 77.4 % 06/27/24 03:46 Lymph % (Auto) 11.6 % 06/27/24 03:46 Mercer % (Auto) 7.7 % 06/27/24 03:46 Eos % (Auto) 1.2 % 06/27/24 03:46 Baso % (Auto) 0.6 % 06/27/24 03:46 Neut # (Auto) 7.29 K/uL (1.40-6.50) H 06/27/24 03:46 Lymph # (Auto) 1.09 K/uL (1.20-3.40) L 06/27/24 03:46 Mercer # (Auto) 0.73 K/uL (0.11-0.59) H 06/27/24 03:46 Eos # (Auto) 0.11 K/uL (0.00-0.50) 06/27/24 03:46 Baso # (Auto) 0.06 K/uL (0.00-0.20) 06/27/24 03:46 Immature Gran # (Auto) 0.14 K/uL (0.01-0.20) 06/27/24 03:46 PT 12.1 Seconds (9.0-12.0) H 06/26/24 17:47 INR 1.1 (0.9-1.1) 06/26/24 17:47 Sodium 129 mmol/L (136-145) L 06/27/24 03:46 Potassium 3.5 mmol/L (3.5-5.1) 06/27/24 03:46 Chloride 99 mmol/L (98-107) 06/27/24 03:46 Carbon Dioxide 25 mmol/L (21-32) 06/27/24 03:46 Anion Gap 5 (3-11) 06/27/24 03:46 BUN 28 mg/dl (6-23) H 06/27/24 03:46 Creatinine 0.75 mg/dl (0.6-1.4) D 06/27/24 03:46 Est Cr Clr Drug Dosing 75.1 ml/min 06/27/24 03:46 eGFR 90.66 06/27/24 03:46 BUN/Creatinine Ratio 37.3 (10-20) H 06/27/24 03:46 Glucose 108 mg/dl (70-99(Fasting)) H 06/27/24 03:46 Calcium 8.2 mg/dl (8.6-10.3) L 06/27/24 03:46 Magnesium 1.5 mg/dl (1.7-2.4) L 06/26/24 17:47 Total Bilirubin 0.4 mg/dl (0.2-1.0) 06/27/24 03:46 AST 17 U/L (13-39) 06/27/24 03:46 ALT 8 U/L (7-52) 06/27/24 03:46 Alkaline Phosphatase 71 U/L (34-104) 06/27/24 03:46 Troponin I High Sens 18.0 pg/ml (0-20) 06/26/24 17:47 Total Protein 6.2 gm/dl (6.0-8.3) 06/27/24 03:46 Albumin 2.6 gm/dl (3.4-5.0) L 06/27/24 03:46 Globulin 3.6 gm/dl (2.5-4.0) 06/27/24 03:46 Albumin/Globulin Ratio 0.7 (0.9-2) L 06/27/24 03:46 Lipase 20 U/L (11-82) 06/26/24 17:47 TSH 4.036 uIu/ml (0.300-4.500) 06/26/24 17:47 Urine Color Yellow 06/26/24 22:06 Urine Appearance Cloudy (Clear) A 06/26/24 22:06 Urine pH 5.5 (4.5-7.5) 06/26/24 22:06 Ur Specific [place] 1.041 (1.000-1.030) H 06/26/24 22:06 Urine Protein Trace (Negative) H 06/26/24 22:06 Urine Glucose (UA) Negative (Negative) 06/26/24 22:06 Urine Ketones Trace (Negative) H 06/26/24 22:06 Urine Blood Negative (Negative) 06/26/24 22:06 Urine Nitrite Negative (Negative) 06/26/24 22:06 Urine Bilirubin Negative (Negative) 06/26/24 22:06 Urine Urobilinogen Negative (Negative) 06/26/24 22:06 Ur Leukocyte Esterase 2+ (Negative) H 06/26/24 22:06 Urine WBC (Auto) 21-50 /hpf (0-5) H 06/26/24 22:06 Urine RBC (Auto) >20 /hpf (0-2) H 06/26/24 22:06 U Hyaline Cast (Auto) 3-5 /lpf (0-2) H 06/26/24 22:06 U Epithel Cells (Auto) 0-2 /hpf (0-2) 06/26/24 22:06 Urine Bacteria (Auto) 4+ (None Seen) H 06/26/24 22:06 Adenovirus (PCR) Not Detected (NotDetected) 06/26/24 17:47 B. pertussis DNA (PCR) Not Detected (NotDetected) 06/26/24 17:47 B.parapertussis DNA PCR Not Detected (NotDetected) 06/26/24 17:47 C. pneumoniae DNA (PCR) Not Detected (NotDetected) 06/26/24 17:47 Coronavirus OC43 (PCR) Not Detected (NotDetected) 06/26/24 17:47 Coronavirus HKU1 (PCR) Not Detected (NotDetected) 06/26/24 17:47 Coronavirus 229E (PCR) Not Detected (NotDetected) 06/26/24 17:47 SARS-CoV-2 (PCR) Not Detected (NotDetected) 06/26/24 17:47 Coronavirus NL63 (PCR) Not Detected (NotDetected) 06/26/24 17:47 Human Metapneumovir PCR Not Detected (NotDetected) 06/26/24 17:47 Influenza Type A (PCR) Not Detected (NotDetected) 06/26/24 17:47 Influenza Type B (PCR) Not Detected (NotDetected) 06/26/24 17:47 M. pneumoniae (PCR) Not Detected (NotDetected) 06/26/24 17:47 Parainfluenza 1 (PCR) Not Detected (NotDetected) 06/26/24 17:47 Parainfluenza 2 (PCR) Not Detected (NotDetected) 06/26/24 17:47 Parainfluenza 3 (PCR) Not Detected (NotDetected) 06/26/24 17:47 Parainfluenza 4 (PCR) Not Detected (NotDetected) 06/26/24 17:47 RSV (PCR) Not Detected (NotDetected) 06/26/24 17:47 Entero/Rhino (PCR) Not Detected (NotDetected) 06/26/24 17:47 Impressions Abdomen/Pelvis CT 06/26/24 18:06 Exam(s): CT ABDOMEN + PELVIS With Contrast IV Amt: 94ml EXAM: CT Abdomen and Pelvis With Intravenous Contrast CLINICAL HISTORY: weight loss, weakness, poor appetite. TECHNIQUE: Axial computed tomography images of the abdomen and pelvis with intravenous contrast. CTDI is 15 mGy and DLP is 472 mGy-cm. Automated exposure control was utilized for the study. A dose lowering technique was utilized adhering to the principles of ALARA. CONTRAST: Patient received 94ml of IV contrast COMPARISON: CT chest 06/23/2023 FINDINGS: Lung bases: Small left pleural effusion. Extensive scarring. Partially visualized mediastinal and hilar lymphadenopathy. ABDOMEN: Liver: Unremarkable. No mass. Gallbladder and bile ducts: Post cholecystectomy. No ductal dilation. Pancreas: Unremarkable. No mass. No ductal dilation. Spleen: Unremarkable. No splenomegaly. Adrenals: Unremarkable. No mass. Kidneys and ureters: 4.1 x 3.5 cm cyst midpole left kidney. No obstructive uropathy. No obstructing renal or ureteral calculi. No hydronephrosis or hydroureter. Stomach and bowel: No obstruction or ileus. Abundant stool throughout the colon. No evidence for diverticulitis. PELVIS: Appendix: No findings to suggest acute appendicitis. Bladder: Unremarkable. No mass. Reproductive: Unremarkable as visualized. ABDOMEN and PELVIS: Intraperitoneal space: No free air. No free fluid. Bones/joints: Acute fractures of the right eighth and ninth ribs. Degenerative changes of the spine Soft tissues: Unremarkable. Vasculature: Atherosclerotic vascular calcifications. 7.6 cm length infrarenal fusiform abdominal aortic aneurysm up to 4.9 cm right CP diameter. Circumferential plaque/thrombus with a 2.8 cm central patent lumen. Aneurysmal dilatation extends into the bilateral common iliac arteries, right greater left. Intact distal runoff. Lymph nodes: Unremarkable. No enlarged lymph nodes. IMPRESSION: Acute fractures of the right eighth and ninth ribs. No acute posttraumatic abnormality of the abdomen or pelvis. Diffuse vascular calcifications with an infrarenal abdominal aortic aneurysm. Post cholecystectomy. Left renal cyst. Abundant stool throughout the colon. Electronically signed by: Rodolfo Gunter M.D. 06/26/24 23:[address] 06/26/24 18:06 Exam(s): CT CHEST With Contrast IV Amt: 94ml EXAM: CT Chest With Intravenous Contrast CLINICAL HISTORY: weight loss, weakness, poor appetite. TECHNIQUE: Axial computed tomography images of the chest with intravenous contrast. CTDI is 14 mGy and DLP is 811 mGy-cm. Automated exposure control was utilized for the study. A dose lowering technique was utilized adhering to the principles of ALARA. CONTRAST: Patient received 94 ml of IV contrast COMPARISON: CTA Chest 06-23-2023 FINDINGS: Lungs: Redemonstrated extensive bronchiectasis, emphysematous changes, multiple lung cyst and extensive honeycombing greatest in the bilateral lower lobes in lingula. Pleural space: Small left pleural effusion. No pneumothorax. Heart: No cardiomegaly. No significant pericardial effusion. Coronary artery calcifications. Bones/joints: Degenerative changes of the spine. Acute fractures the lateral aspect of the right seventh and eighth ribs with chest wall infiltration/hemorrhage. Soft tissues: Unremarkable. Vasculature: Atherosclerotic vascular calcifications. No thoracic aortic aneurysm. Redemonstrated prominent main pulmonary artery. Lymph nodes: Unremarkable. No enlarged lymph nodes. Abdomen: Post cholecystectomy IMPRESSION: Acute fractures the lateral aspect of the right seventh and eighth ribs. No associated pleural effusion or pneumothorax. Small left pleural effusion. Remainder of the examination is unchanged. Extensive bronchiectasis, interstitial lung disease, fibrosis and lung cyst. Unchanged sternal and hilar lymphadenopathy. Prominent main pulmonary artery consistent with pulmonary artery hypertension. Electronically signed by: Rodolfo Gunter M.D. 06/26/24 23:03 PM Code Status & VTE Plan Code Status Full code VTE Prophylaxis Plan VTE Prophylaxis will be ordered: Yes PG Care Time/CCT Total # of Minutes Spent Total Time Spent with Patient: Total time spent is greater than 50% in coordination of care (as documented) at patient's floor/unit and/or counseling patient: Coding Level of Care Code 02932 INT INP/OBS CARE 3/75MIN Diagnoses UTI (urinary tract infection) N30.00 Hematuria presence: without hematuria Urinary tract infection type: acute cystitis Hypomagnesemia E83.42 Rheumatoid arthritis M06.9 Interstitial pulmonary fibrosis J84.10 Status post fall Z91.81 Right rib fracture S22.31XA (1) UTI (urinary tract infection) Hematuria presence: without hematuria Urinary tract infection type: acute cystitis Qualified Code(s): N30.00 - Acute cystitis without hematuria
[2024-06-27] MEDS: NSS + 20MEQ KCL 20 MEQ/1,000 ML BAG IV SCH (01:10)
[2024-06-27] MEDS: LIDOCAINE 5% 1 PATCH TD STA (01:15)
[2024-06-27] MEDS: MAGNESIUM SULFATE / D5W 1 GM/100 ML BAG IV ONE (01:36)
[2024-06-27] MEDS ORDERED: ONDANSETRON INJ 2 MG/ML 2 ML VIAL IV PRN (02:45)
[2024-06-27] MEDS: HYDROCORTISONE SOD SUCCINATE 100 MG/2 ML VIAL IV STA (03:20)
[2024-06-27 04:11] LABS: Basophils # (auto) 0.06 K/uL (0.00-0.20); Basophils % (auto) 0.6 %; Eosinophils # (auto) 0.11 K/uL (0.00-0.50); Eosinophils % (auto) 1.2 %; Hematocrit (blood only) 32.7 % (42.0-52.0); Immature Granulocytes # (auto) 0.14 K/uL (0.01-0.20); Immature Granulocytes % (auto) 1.5 %; Lymphocytes # (auto) 1.09 K/uL (1.20-3.40); Lymphocytes % (auto) 11.6 %; Mean Corpuscular Hgb Conc 33.6 g/dL (32.0-36.0); Mean Corpuscular Volume 80.1 fL (80.0-100.0); Mean Platelet Volume 8.5 fL (9.4-12.4); Monocytes # (auto) 0.73 K/uL (0.11-0.59); Monocytes % (auto) 7.7 %; Neutrophils # (auto) 7.29 K/uL (1.40-6.50); Neutrophils % (auto) 77.4 %; Platelet Count 261 K/uL (130-400); RDW Coefficient of Variation 15.6 % (11.5-14.5); RDW Standard Deviation 45.3 fL (36.4-46.3); Red Blood Count 4.08 M/uL (4.70-6.10); White Blood Count 9.42 K/ul (4.8-10.8)
[2024-06-27 04:29] LABS: Albumin Globulin Ratio 0.7 (0.9-2); Albumin Level 2.6 gm/dl (3.4-5.0); BUN Creatinine Ratio 37.3 (10-20); Bilirubin,Total 0.4 mg/dl (0.2-1.0); Calcium 8.2 mg/dl (8.6-10.3); Creatinine Clr Calc Pharmacy 75.1 ml/min; Globulin 3.6 gm/dl (2.5-4.0); Potassium 3.5 mmol/L (3.5-5.1); Total Protein 6.2 gm/dl (6.0-8.3)
[2024-06-27] MEDS: HYDROCORTISONE SOD 50 MG in SYRINGE 0 ML IV SCH (05:47)
[2024-06-27] MEDS: POTASSIUM CHLORIDE CRTAB 20 MEQ TABCR PO STA (06:15)
[2024-06-27] MEDS: MAGNESIUM SULFATE / D5W 1 GM/100 ML BAG IV SCH (06:17)
--- NOTE | 2024-06-27 07:49 | Hospitalist Progress Note ---
Date of Service June 27, 2024 Assessment & Plan (1) UTI (urinary tract infection): (2) Hypomagnesemia: (3) Rheumatoid arthritis: (4) Interstitial pulmonary fibrosis: (5) Status post fall: (6) Right rib fracture: Plan The patient is an 79-year-old male with past medical history including hyponatremia, depression, chronic hypoxic respiratory failure, essential tremor, interstitial lung disease, CAD, GERD without esophagitis, carotid artery disease, hypertension, IPF, pulmonary nodules and rheumatoid arthritis. The patient most recently been admitted to [facility] from 06/08-06/09/2024 due to abnormal gait, generalized weakness, and hyponatremia. At that time attempt was being made to arrange for PT/OT in the outpatient setting, which the patient was about to have started a couple days. However, patient had progression of symptoms as noted by family, who had the patient come to the emergency department after falls, and patient also noted to have 3 rib fractures that are new. #Generalized weakness status post fall/gait disturbance- - Previous admission from 06/08-06/09/2024, and patient was recommended to go to PT/OT, which was being arranged in the outpatient setting. #Nonsustained V. tach- - Patient did have an episode of self-limited asymptomatic V. tach early in the morning - maintain K > 4 and Mg > 2, replete and monitor - monitor pt on tele #Hyponatremia- - Sodium was 128 on 06/08/2024 - Presently 130 --> 129 - Sertraline had been discontinued after 3 days previously - More likely secondary to lisinopril/HCTZ, which will be held at this time - trend Na - BioFire test negative #Multiple right-sided rib fractures- - Right 7, 8 and 9 ribs fractured as noted on imaging - Apply Lidoderm patch - Monitor for secondary signs of pneumonia - PT/OT consults - continue incentive spirometry - will give two doses of robaxin and then prn to help with muscle spasms #Urinary tract infection- - urine culture and sensitivity pending - cont CTX - Likely generalized weakness contributing to falls - Status post NSS 500 mL bolus in the ED #Steroid-dependent rheumatoid arthritis - Hold prednisone - Stress dose hydrocortisone 50 mg IV every 8 hours x 2 days, then resume prednisone - monitor for delirium Admission and Anticipated Discharge Date Admission Date: June 27, 2024 Subjective No acute events overnight Pt states that his rib pain doesn't hurt at rest but can be aggravated with movement He also notes that he is taking shallow breaths. Incentive spirometry was encouraged but pt states that it was tiring him out. Instructed he does 1-2 breath intervals to prevent fatigue. He also noted that he was able to urinate much better today. Review of Systems Review of Systems: Comprehensive ROS neg Physical Exam Physical Exam: Gene: frail elderly man, NAD, lying in bed comfortable HEENT: NC/AT, MMM Lungs: diminished breath sounds due to shallow inspiration, but no wheezing / rales noted CVS: [id number] RRR Abd: normal bowel sounds, soft, NT Ext: no edema Results & Data Results & Data Vital Signs (Past 12 Hours) Vital Signs Temp Pulse Pulse Resp BP BP Pulse Ox 06/27/24 07:25 84 06/27/24 05:48 150 H 06/27/24 05:00 88 20 97 06/27/24 03:12 93 H 20 114/77 97 06/27/24 02:12 100 H 06/27/24 01:29 102 H 22 120/67 98 06/27/24 00:15 103 H 24 121/66 96 06/26/24 23:00 37.2 C 108 H 18 113/66 96 06/26/24 22:22 86 L 06/26/24 21:51 117 H 06/26/24 21:48 37.6 C H 114 H 35 H 110/70 92 06/26/24 21:00 113 H 33 H 95/57 L 92 O2 Del Method 06/27/24 07:25 06/27/24 05:48 06/27/24 05:00 06/27/24 03:12 06/27/24 02:12 06/27/24 01:29 06/27/24 00:15 06/26/24 23:00 06/26/24 22:22 Room Air 06/26/24 21:51 06/26/24 21:48 Room Air 06/26/24 21:00 Room Air PG Care Time/CCT Total # of Minutes Spent Total Time Spent with Patient: Total time spent is greater than 50% in coordination of care (as documented) at patient's floor/unit and/or counseling patient: Coding Level of Care Code 91590 SUB INP/OBS CARE 3/50MIN Diagnoses UTI (urinary tract infection) N30.00 Hematuria presence: without hematuria Urinary tract infection type: acute cystitis Hypomagnesemia E83.42 Rheumatoid arthritis M06.9 Interstitial pulmonary fibrosis J84.10 Status post fall Z91.81 Right rib fracture S22.31XA (1) UTI (urinary tract infection) Hematuria presence: without hematuria Urinary tract infection type: acute cystitis Qualified Code(s): N30.00 - Acute cystitis without hematuria
[2024-06-27] MEDS: PANTOprazole 40 MG TAB PO SCH (08:56)
[2024-06-27] MEDS: ASPIRIN 81 MG ECTAB PO SCH (08:56)
[2024-06-27] MEDS: ATORVASTATIN 10 MG TAB PO SCH (08:56)
[2024-06-27] MEDS: MULTIVITAMIN TAB PO SCH (08:56)
[2024-06-27] MEDS: SODIUM CHLORIDE 1 GM TABLET PO SCH (08:57)
[2024-06-27] MEDS: METHOCARBAMOL 500 MG TABLET PO SCH (13:00)
[2024-06-27 13:21] LABS: Potassium 4.3 mmol/L (3.5-5.1)
[2024-06-27] MEDS: bisacodyL 10 MG SUPP PR STA (18:23)
[2024-06-27] MEDS: DOCUSATE SODIUM/SENNA 50/8.6MG TAB PO SCH (21:03)
[2024-06-27] MEDS: GABAPENTIN 300 MG CAP PO SCH (21:06)
[2024-06-27] MEDS: cefTRIAXone SODIUM 2,000 MG/50 ML BAG IV SCH (21:56)
[2024-06-28 07:49] LABS: Basophils # (auto) 0.02 K/uL (0.00-0.20); Basophils % (auto) 0.2 %; Hematocrit (blood only) 32.9 % (42.0-52.0); Hemoglobin 10.8 g/dl (14.0-18.0); Immature Granulocytes # (auto) 0.09 K/uL (0.01-0.20); Immature Granulocytes % (auto) 1.1 %; Lymphocytes # (auto) 0.78 K/uL (1.20-3.40); Lymphocytes % (auto) 9.6 %; Mean Corpuscular Hemoglobin 26.7 pg (25.0-34.0); Mean Corpuscular Hgb Conc 32.8 g/dL (32.0-36.0); Mean Corpuscular Volume 81.2 fL (80.0-100.0); Mean Platelet Volume 8.6 fL (9.4-12.4); Monocytes % (auto) 4.9 %; Neutrophils % (auto) 84.2 %; Platelet Count 268 K/uL (130-400); RDW Coefficient of Variation 15.6 % (11.5-14.5); RDW Standard Deviation 46.4 fL (36.4-46.3); Red Blood Count 4.05 M/uL (4.70-6.10); White Blood Count 8.09 K/ul (4.8-10.8)
[2024-06-28 08:15] LABS: Albumin Globulin Ratio 0.7 (0.9-2); Albumin Level 2.7 gm/dl (3.4-5.0); BUN Creatinine Ratio 35.3 (10-20); Bilirubin,Total 0.3 mg/dl (0.2-1.0); Calcium 8.9 mg/dl (8.6-10.3); Creatinine Clr Calc Pharmacy 81.1 ml/min; Globulin 3.7 gm/dl (2.5-4.0); Magnesium 1.8 mg/dl (1.7-2.4); Potassium 4.9 mmol/L (3.5-5.1); Total Protein 6.4 gm/dl (6.0-8.3)
[2024-06-28] MEDS: POLYETHYLENE (MIRALAX) 17 GM PACK PO PRN (09:46)
[2024-06-28] MEDS: ACETAMINOPHEN 325 MG TAB PO PRN (09:46)
[2024-06-28] MEDS ORDERED: METHOCARBAMOL 500 MG TABLET PO PRN (12:39)
--- NOTE | 2024-06-28 16:25 | Electrocardiogram Report ---
Test Reason : Blood Pressure : */* mmHG Vent. Rate : 115 BPM Atrial Rate : 115 BPM P-R Int : 128 ms QRS Dur : 96 ms QT Int : 320 ms P-R-T Axes : 35 -38 37 degrees QTcB Int : 442 ms Sinus tachycardia Left axis deviation Possible Anterior infarct , age undetermined Abnormal ECG When compared with ECG of 08-Jun-2024 16:28, No significant change was found Confirmed by Dez Mccabe ([id number]) on 06/28/2024 4:25:28 PM Referred By: REFERRED SELF Confirmed By: Dez Mccabe
--- NOTE | 2024-06-28 16:56 | Hospitalist Progress Note ---
Date of Service June 28, 2024 Assessment & Plan (1) UTI (urinary tract infection): (2) Hypomagnesemia: (3) Rheumatoid arthritis: (4) Interstitial pulmonary fibrosis: (5) Status post fall: (6) Right rib fracture: Plan The patient is an 79-year-old male with past medical history including hyponatremia, depression, chronic hypoxic respiratory failure, essential tremor, interstitial lung disease, CAD, GERD without esophagitis, carotid artery disease, hypertension, IPF, pulmonary nodules and rheumatoid arthritis. The patient most recently been admitted to [facility] from 06/08-06/09/2024 due to abnormal gait, generalized weakness, and hyponatremia. At that time attempt was being made to arrange for PT/OT in the outpatient setting, which the patient was about to have started a couple days. However, patient had progression of symptoms as noted by family, who had the patient come to the emergency department after falls, and patient also noted to have 3 rib fractures that are new. #Generalized weakness status post fall/gait disturbance- - Previous admission from 06/08-06/09/2024, and patient was recommended to go to PT/OT, which was being arranged in the outpatient setting. -PT recommends Rehab #Nonsustained V. tach- - Patient did have an episode of self-limited asymptomatic V. tach early in the morning - maintain K > 4 and Mg > 2, replete and monitor - monitor pt on tele #Multiple right-sided rib fractures- - Right 7, 8 and 9 ribs fractured as noted on imaging - Apply Lidoderm patch - Monitor for secondary signs of pneumonia - PT/OT consults - continue incentive spirometry - will give two doses of robaxin and then prn to help with muscle spasms #Urinary tract infection- - urine culture growing Aerococcus - Transitioned to PO Amoxicillin #Steroid-dependent rheumatoid arthritis - Hold prednisone - Stress dose hydrocortisone 50 mg IV every 8 hours x 2 days, then resume prednisone - monitor for delirium #Hyponatremia- - Sodium was 128 on 06/08/2024 - Presently 130 --> 129 - Sertraline had been discontinued after 3 days previously - More likely secondary to lisinopril/HCTZ, which will be held at this time - trend Na - BioFire test negative Plan is for Rehab when accepted Admission and Anticipated Discharge Date Admission Date: June 27, 2024 Subjective patient seen and examined, feels better today Review of Systems Review of Systems: All systems reviewed are negative, apart from the ones contained in the history. Physical Exam Physical Exam: The patient is awake, alert and oriented 3, well developed and well nourished, normocephalic and atraumatic, lying in bed and in no acute distress. HEENT--PERRL, EOMI, mucous membranes and oropharynx mildly dry Neck--supple. No JVD. No bruits. Thyroid normal, trachea midline, no adenopathy. Heart--normal S1 and S2. No murmurs, rubs or gallops. Lungs--clear bilaterally, no respiratory distress, no accessory muscle use. Abdomen--normal bowel sounds and soft. Extremities--no cyanosis or clubbing. No edema. Dermatologic--normal skin turgor, normal color, no abnormal lymph nodes, no rash. Neurologic--cranial nerves II through XII grossly intact. Rheumatologic--normal range of motion. Psychiatric--normal affect. Results & Data Results & Data Vital Signs (Past 12 Hours) Vital Signs Temp Pulse Pulse Resp BP BP Pulse Ox 06/28/24 14:59 97.9 F 84 18 103/61 99 06/28/24 14:30 79 06/28/24 10:42 97.3 F L 102 H 24 100/63 97 06/28/24 08:00 58 L 06/28/24 07:53 97.5 F L 79 17 111/71 100 O2 Del Method O2 Flow Rate 06/28/24 14:59 Nasal Cannula 2.5 06/28/24 14:30 06/28/24 10:42 Nasal Cannula 2.5 06/28/24 08:00 06/28/24 07:53 Nasal Cannula 4 PG Care Time/CCT Total # of Minutes Spent Total Time Spent with Patient: Total time spent is greater than 50% in coordination of care (as documented) at patient's floor/unit and/or counseling patient: Coding Level of Care Code 52518 SUB INP/OBS CARE 2/35MIN Diagnoses UTI (urinary tract infection) N30.00 Hematuria presence: without hematuria Urinary tract infection type: acute cystitis Hypomagnesemia E83.42 Rheumatoid arthritis M06.9 Interstitial pulmonary fibrosis J84.10 Status post fall Z91.81 Right rib fracture S22.31XA Time Spent (min) 35 (1) UTI (urinary tract infection) Hematuria presence: without hematuria Urinary tract infection type: acute cystitis Qualified Code(s): N30.00 - Acute cystitis without hematuria
[2024-06-28] MEDS: AMOXICILLIN 875 MG TAB PO SCH (20:09)
[2024-06-28] MEDS: LIDOCAINE 5% 1 PATCH TD STA (21:05)
[2024-06-29 08:11] LABS: Albumin Globulin Ratio 0.7 (0.9-2); Albumin Level 2.5 gm/dl (3.4-5.0); BUN Creatinine Ratio 37.8 (10-20); Bilirubin,Total 0.3 mg/dl (0.2-1.0); Calcium 8.7 mg/dl (8.6-10.3); Creatinine Clr Calc Pharmacy 74.1 ml/min; Globulin 3.5 gm/dl (2.5-4.0); Magnesium 1.5 mg/dl (1.7-2.4); Potassium 4.5 mmol/L (3.5-5.1)
[2024-06-29 08:14] LABS: Basophils # (auto) 0.02 K/uL (0.00-0.20); Basophils % (auto) 0.2 %; Hematocrit (blood only) 32.2 % (42.0-52.0); Hemoglobin 10.4 g/dl (14.0-18.0); Immature Granulocytes # (auto) 0.08 K/uL (0.01-0.20); Immature Granulocytes % (auto) 0.8 %; Lymphocytes % (auto) 14.1 %; Mean Corpuscular Hemoglobin 26.4 pg (25.0-34.0); Mean Corpuscular Hgb Conc 32.3 g/dL (32.0-36.0); Mean Corpuscular Volume 81.7 fL (80.0-100.0); Mean Platelet Volume 8.7 fL (9.4-12.4); Monocytes # (auto) 0.56 K/uL (0.11-0.59); Monocytes % (auto) 5.6 %; Neutrophils % (auto) 79.3 %; Platelet Count 297 K/uL (130-400); RDW Coefficient of Variation 15.6 % (11.5-14.5); RDW Standard Deviation 46.6 fL (36.4-46.3); Red Blood Count 3.94 M/uL (4.70-6.10); White Blood Count 9.96 K/ul (4.8-10.8)
[2024-06-29] MEDS: predniSONE 1 MG TAB PO SCH (08:39)
--- NOTE | 2024-06-29 12:33 | Hospitalist Progress Note ---
Date of Service June 29, 2024 Assessment & Plan (1) UTI (urinary tract infection): (2) Hypomagnesemia: (3) Rheumatoid arthritis: (4) Interstitial pulmonary fibrosis: (5) Status post fall: (6) Right rib fracture: Plan The patient is an 79-year-old male with past medical history including hyponatremia, depression, chronic hypoxic respiratory failure, essential tremor, interstitial lung disease, CAD, GERD without esophagitis, carotid artery disease, hypertension, IPF, pulmonary nodules and rheumatoid arthritis. The patient most recently been admitted to [facility] from 06/08-06/09/2024 due to abnormal gait, generalized weakness, and hyponatremia. At that time attempt was being made to arrange for PT/OT in the outpatient setting, which the patient was about to have started a couple days. However, patient had progression of symptoms as noted by family, who had the patient come to the emergency department after falls, and patient also noted to have 3 rib fractures that are new. #Generalized weakness status post fall/gait disturbance- - Previous admission from 06/08-06/09/2024, and patient was recommended to go to PT/OT, which was being arranged in the outpatient setting. -PT recommends Rehab, but patient says he wants to go home -He was counselled on the importance of rehab given his frequent falls at home #Nonsustained V. tach- - Patient did have an episode of self-limited asymptomatic V. tach early in the morning - maintain K > 4 and Mg > 2, replete and monitor - monitor pt on tele #Multiple right-sided rib fractures- - Right 7, 8 and 9 ribs fractured as noted on imaging - Apply Lidoderm patch - Monitor for secondary signs of pneumonia - PT/OT consults - continue incentive spirometry - will give two doses of robaxin and then prn to help with muscle spasms #Urinary tract infection- Likely Sepsis in immunocompromised patient due to UTI - urine culture growing Aerococcus - Transitioned to PO Amoxicillin #Steroid-dependent rheumatoid arthritis - Hold prednisone - Stress dose hydrocortisone 50 mg IV every 8 hours x 2 days, then resume prednisone - monitor for delirium #Hyponatremia- - Sodium was 128 on 06/08/2024 - Presently 130 --> 129 - Sertraline had been discontinued after 3 days previously - More likely secondary to lisinopril/HCTZ, which will be held at this time - trend Na - BioFire test negative Plan is for Rehab when accepted, however, patient is adamant he wants to go home. I spoke with his daughter, who would try to convince him to go to rehab Admission and Anticipated Discharge Date Admission Date: June 27, 2024 Subjective patient seen and examined, feels better today, wants to go home Review of Systems Review of Systems: All systems reviewed are negative, apart from the ones contained in the history. Physical Exam Physical Exam: The patient is awake, alert and oriented 3, well developed and well nourished, normocephalic and atraumatic, lying in bed and in no acute distress. HEENT--PERRL, EOMI, mucous membranes and oropharynx mildly dry Neck--supple. No JVD. No bruits. Thyroid normal, trachea midline, no adenopathy. Heart--normal S1 and S2. No murmurs, rubs or gallops. Lungs--clear bilaterally, no respiratory distress, no accessory muscle use. Abdomen--normal bowel sounds and soft. Extremities--no cyanosis or clubbing. No edema. Dermatologic--normal skin turgor, normal color, no abnormal lymph nodes, no rash. Neurologic--cranial nerves II through XII grossly intact. Rheumatologic--normal range of motion. Psychiatric--normal affect. Results & Data Results & Data Vital Signs (Past 12 Hours) Vital Signs Temp Pulse Pulse Resp BP BP Pulse Ox 06/29/24 11:57 97.9 F 85 18 115/67 98 06/29/24 07:59 98.1 F 72 17 105/52 L 100 06/29/24 07:45 06/29/24 07:09 78 06/29/24 03:14 98.4 F 85 18 124/66 99 O2 Del Method O2 Flow Rate 06/29/24 11:57 Room Air 06/29/24 07:59 Nasal Cannula 2 06/29/24 07:45 Nasal Cannula 2 06/29/24 07:09 06/29/24 03:14 Nasal Cannula 2 PG Care Time/CCT Total # of Minutes Spent Total Time Spent with Patient: Total time spent is greater than 50% in coordination of care (as documented) at patient's floor/unit and/or counseling patient: Coding Level of Care Code 59241 SUB INP/OBS CARE 2/35MIN Diagnoses UTI (urinary tract infection) N30.00 Hematuria presence: without hematuria Urinary tract infection type: acute cystitis Hypomagnesemia E83.42 Rheumatoid arthritis M06.9 Interstitial pulmonary fibrosis J84.10 Status post fall Z91.81 Right rib fracture S22.31XA Time Spent (min) 35 (1) UTI (urinary tract infection) Hematuria presence: without hematuria Urinary tract infection type: acute cystitis Qualified Code(s): N30.00 - Acute cystitis without hematuria
--- NOTE | 2024-06-30 11:49 | Hospitalist Progress Note ---
Date of Service June 30, 2024 Assessment & Plan (1) UTI (urinary tract infection): (2) Hypomagnesemia: (3) Rheumatoid arthritis: (4) Interstitial pulmonary fibrosis: (5) Status post fall: (6) Right rib fracture: Plan The patient is an 79-year-old male with past medical history including hyponatremia, depression, chronic hypoxic respiratory failure, essential tremor, interstitial lung disease, CAD, GERD without esophagitis, carotid artery disease, hypertension, IPF, pulmonary nodules and rheumatoid arthritis. The patient most recently been admitted to [facility] from 06/08-06/09/2024 due to abnormal gait, generalized weakness, and hyponatremia. At that time attempt was being made to arrange for PT/OT in the outpatient setting, which the patient was about to have started a couple days. However, patient had progression of symptoms as noted by family, who had the patient come to the emergency department after falls, and patient also noted to have 3 rib fractures that are new. #Generalized weakness status post fall/gait disturbance- - Previous admission from 06/08-06/09/2024, and patient was recommended to go to PT/OT, which was being arranged in the outpatient setting. -PT recommends Rehab, -He was counselled on the importance of rehab given his frequent falls at home -He has agreed to go to [place] for rehab #Nonsustained V. tach- - Patient did have an episode of self-limited asymptomatic V. tach early in the morning - maintain K > 4 and Mg > 2, replete and monitor - monitor pt on tele #Multiple right-sided rib fractures- - Right 7, 8 and 9 ribs fractured as noted on imaging - Apply Lidoderm patch - Monitor for secondary signs of pneumonia - PT/OT consults - continue incentive spirometry - will give two doses of robaxin and then prn to help with muscle spasms #Urinary tract infection- Likely Sepsis in immunocompromised patient due to UTI - urine culture growing Aerococcus - Transitioned to PO Amoxicillin #Steroid-dependent rheumatoid arthritis - Hold prednisone - Stress dose hydrocortisone 50 mg IV every 8 hours x 2 days, then resume prednisone - monitor for delirium #Hyponatremia- - Sodium was 128 on 06/08/2024 - Presently 130 --> 129 - Sertraline had been discontinued after 3 days previously - More likely secondary to lisinopril/HCTZ, which will be held at this time - trend Na - BioFire test negative Plan is for Rehab when accepted, Admission and Anticipated Discharge Date Admission Date: June 27, 2024 Subjective patient seen and examined, feels better today, has agreed to go to [facility] for rehab Review of Systems Review of Systems: All systems reviewed are negative, apart from the ones contained in the history. Physical Exam Physical Exam: The patient is awake, alert and oriented 3, well developed and well nourished, normocephalic and atraumatic, lying in bed and in no acute distress. HEENT--PERRL, EOMI, mucous membranes and oropharynx mildly dry Neck--supple. No JVD. No bruits. Thyroid normal, trachea midline, no adenopathy. Heart--normal S1 and S2. No murmurs, rubs or gallops. Lungs--clear bilaterally, no respiratory distress, no accessory muscle use. Abdomen--normal bowel sounds and soft. Extremities--no cyanosis or clubbing. No edema. Dermatologic--normal skin turgor, normal color, no abnormal lymph nodes, no rash. Neurologic--cranial nerves II through XII grossly intact. Rheumatologic--normal range of motion. Psychiatric--normal affect. Results & Data Results & Data Vital Signs (Past 12 Hours) Vital Signs Temp Pulse Resp BP BP Pulse Ox O2 Del Method 06/30/24 11:42 98.1 F 86 18 135/80 99 Nasal Cannula 06/30/24 11:39 06/30/24 07:45 98.2 F 86 19 148/88 H 98 Nasal Cannula 06/30/24 03:57 98.4 F 77 20 126/81 98 Nasal Cannula 06/30/24 00:22 98.1 F 76 20 128/74 97 Nasal Cannula O2 Flow Rate 06/30/24 11:42 2 06/30/24 11:39 3 06/30/24 07:45 2 06/30/24 03:57 2 06/30/24 00:22 2 PG Care Time/CCT Total # of Minutes Spent Total Time Spent with Patient: Total time spent is greater than 50% in coordination of care (as documented) at patient's floor/unit and/or counseling patient: Coding Level of Care Code 77908 SUB INP/OBS CARE 2/35MIN Diagnoses UTI (urinary tract infection) N30.00 Hematuria presence: without hematuria Urinary tract infection type: acute cystitis Hypomagnesemia E83.42 Rheumatoid arthritis M06.9 Interstitial pulmonary fibrosis J84.10 Status post fall Z91.81 Right rib fracture S22.31XA Time Spent (min) 35 (1) UTI (urinary tract infection) Hematuria presence: without hematuria Urinary tract infection type: acute cystitis Qualified Code(s): N30.00 - Acute cystitis without hematuria
--- NOTE | 2024-07-01 11:26 | Discharge Summary ---
Date of Service July 01, 2024 Admission HPI Per Admitting Provider The patient is an 79-year-old male with past medical history including hyponatremia, depression, chronic hypoxic respiratory failure, essential tremor, interstitial lung disease, CAD, GERD without esophagitis, carotid artery disease, hypertension, IPF, pulmonary nodules and rheumatoid arthritis. The patient most recently been admitted to [facility] from 06/08-06/09/2024 due to abnormal gait, generalized weakness, and hyponatremia. At that time attempt was being made to arrange for PT/OT in the outpatient setting, which the patient was about to have started a couple days. However, patient had progression of symptoms as noted by family, who had the patient come to the emergency department after falls, and patient also noted to have 3 rib fractures that are new. Admission Exam (Per Admitting) Constitutional The patient is awake, alert and oriented 3, well developed and well nourished, normocephalic and atraumatic, lying in bed and in no acute distress. HEENT--PERRL, EOMI, mucous membranes and oropharynx mildly dry Neck--supple. No JVD. No bruits. Thyroid normal, trachea midline, no adenopathy. Heart--normal S1 and S2. No murmurs, rubs or gallops. Lungs--clear bilaterally, no respiratory distress, no accessory muscle use. Abdomen--normal bowel sounds and soft. Extremities--no cyanosis or clubbing. No edema. Dermatologic--normal skin turgor, normal color, no abnormal lymph nodes, no rash. Neurologic--cranial nerves II through XII grossly intact. Rheumatologic--normal range of motion. Psychiatric--normal affect. Discharge Data Consultations 06/26/24 23:37 ED Decision to Admit Stat Hospital Course (1) UTI (urinary tract infection): (2) Hypomagnesemia: (3) Rheumatoid arthritis: (4) Interstitial pulmonary fibrosis: (5) Status post fall: (6) Right rib fracture: Plan The patient is an 79-year-old male with past medical history including hyponatremia, depression, chronic hypoxic respiratory failure, essential tremor, interstitial lung disease, CAD, GERD without esophagitis, carotid artery disease, hypertension, IPF, pulmonary nodules and rheumatoid arthritis. The patient most recently been admitted to [facility] from 06/08-06/09/2024 due to abnormal gait, generalized weakness, and hyponatremia. At that time attempt was being made to arrange for PT/OT in the outpatient setting, which the patient was about to have started a couple days. However, patient had progression of symptoms as noted by family, who had the patient come to the emergency department after falls, and patient also noted to have 3 rib fractures that are new. #Generalized weakness status post fall/gait disturbance- - Previous admission from 06/08-06/09/2024, and patient was recommended to go to PT/OT, which was being arranged in the outpatient setting. -PT recommends Rehab, -He was counselled on the importance of rehab given his frequent falls at home -He has agreed to go to [place] for rehab #Nonsustained V. tach- - Patient did have an episode of self-limited asymptomatic V. tach early in the morning - maintain K > 4 and Mg > 2, replete and monitor - monitor pt on tele #Multiple right-sided rib fractures- - Right 7, 8 and 9 ribs fractured as noted on imaging - Apply Lidoderm patch - Monitor for secondary signs of pneumonia - PT/OT consults - continue incentive spirometry - will give two doses of robaxin and then prn to help with muscle spasms #Urinary tract infection- Likely Sepsis in immunocompromised patient due to UTI - urine culture growing Aerococcus - completed antibiotics #Steroid-dependent rheumatoid arthritis - Hold prednisone - Stress dose hydrocortisone 50 mg IV every 8 hours x 2 days, Per daughter, it causes him delirium. - monitor for delirium #Hyponatremia- - Sertraline had been discontinued after 3 days previously - More likely secondary to lisinopril/HCTZ, which will be held at this time - trend Na - BioFire test negative Plan is for Rehab when accepted, Coding Level of Care Code 95627 INP/OBS DISCH >30 MIN Diagnoses UTI (urinary tract infection) N30.00 Hematuria presence: without hematuria Urinary tract infection type: acute cystitis Hypomagnesemia E83.42 Rheumatoid arthritis M06.9 Interstitial pulmonary fibrosis J84.10 Status post fall Z91.81 Right rib fracture S22.31XA Time Spent (min) 35
[2024-07-01 11:46] VITALS: PULSE 84; RESP 18; TEMP 98.1; O2SAT 99
[2024-07-01 14:18] VITALS: BP 135/80
== END 2024-07-01 14:41 | DRG 872 ==
LOC: ED 17:20 → EDINP 06-27 00:58 → SUATTDRO 06-27 00:58 → 2N 06-27 13:16

== ENCOUNTER 2024-08-09 14:49 | Inpatient (IN) ==
[2024-08-09 16:04] LABS: Basophils # (auto) 0.04 K/uL (0.00-0.20); Basophils % (auto) 0.5 %; Eosinophils # (auto) 0.13 K/uL (0.00-0.50); Eosinophils % (auto) 1.5 %; Hematocrit (blood only) 41.3 % (42.0-52.0); Hemoglobin 13.5 g/dl (14.0-18.0); Immature Granulocytes % (auto) 1.2 %; Lymphocytes # (auto) 0.87 K/uL (1.20-3.40); Lymphocytes % (auto) 10.3 %; Mean Corpuscular Hemoglobin 26.8 pg (25.0-34.0); Mean Corpuscular Hgb Conc 32.7 g/dL (32.0-36.0); Mean Corpuscular Volume 81.9 fL (80.0-100.0); Mean Platelet Volume 8.3 fL (9.4-12.4); Monocytes # (auto) 0.28 K/uL (0.11-0.59); Monocytes % (auto) 3.3 %; Neutrophils # (auto) 7.05 K/uL (1.40-6.50); Neutrophils % (auto) 83.2 %; Platelet Count 272 K/uL (130-400); RDW Coefficient of Variation 17.1 % (11.5-14.5); RDW Standard Deviation 50.7 fL (36.4-46.3); Red Blood Count 5.04 M/uL (4.70-6.10); White Blood Count 8.47 K/ul (4.8-10.8)
[2024-08-09 16:12] LABS: INR 1.1 (0.9-1.1); Partial Thromboplastin Time 27 Seconds (21-31); Prothrombin Time 11.5 Seconds (9.0-12.0)
[2024-08-09 16:19] LABS: Albumin Globulin Ratio 0.8 (0.9-2); Albumin Level 3.4 gm/dl (3.4-5.0); BUN Creatinine Ratio 23.8 (10-20); Bilirubin,Total 0.5 mg/dl (0.2-1.0); Calcium 9.5 mg/dl (8.6-10.3); Creatinine Clr Calc Pharmacy 52.7 ml/min; Globulin 4.4 gm/dl (2.5-4.0); Magnesium 1.7 mg/dl (1.7-2.4); Potassium 4.7 mmol/L (3.5-5.1); Total Protein 7.8 gm/dl (6.0-8.3)
[2024-08-09 16:25] LABS: Troponin I High Sensitivity 14.8 pg/ml (0-20)
[2024-08-09 16:34] LABS: Thyroid Stimulating Hormone 3.912 uIu/ml (0.300-4.500)
--- NOTE | 2024-08-09 16:45 | XRay Report ---
Clinical History: Weakness Technique: A frontal view of the chest was obtained Comparison is made to the prior examination dated 07/15/2024 Findings: There is persistent left lower lobe alveolar consolidation, consistent with pneumonia. There is less severe bilateral upper lobe infiltrate. The heart size is within normal limits. No pleural effusion or pneumothorax is seen. There is elevation of the right hemidiaphragm No fracture is noted. No foreign body is seen Impression: No definite change in bilateral pneumonia Electronically signed by Luis Celis 08-09-2024 4:45 PM
[2024-08-09] MEDS: SODIUM CHLORIDE 0.9% 500 ML IV ONE ×2 (18:57→21:47)
--- NOTE | 2024-08-09 19:13 | Emergency Department Note ---
Impression & Plan Acute dehydration, Bronchiectasis, Decreased urine output, Unable to care for self ED Provider Note CHIEF COMPLAINT: Decreased urinary output, bilateral eyes are itchy HISTORY OF PRESENT ILLNESS: This 79-year-old male past medical history of patient hypertension, interstitial fibrosis, rheumatoid arthritis, GERD, coronary artery disease, essential tremor, AAA scheduled for repair tomorrow presents to the emergency department with complaints of decreased urinary output and itchy bilateral eyes. Patient's daughter reports that he has had less to eat and drink over the last 1 to 2 weeks. Patient states food no longer taste good. By report from the nursing staff COVID the patient's scheduled surgery tomorrow has been canceled by the OR. Patient has no other complaints at this time. Dehydration, REVIEW OF SYSTEMS: A review of systems was performed with positives and pertinent negatives listed in the history of present illness. 10 systems were reviewed and are otherwise negative. ALLERGIES: see below MEDICATIONS: see below PMH: see below SOCIAL HISTORY: see below DDx: UTI, dehydration, viral illness, conjunctivitis, pneumonia, renal failure among others. PHYSICAL EXAM: Vital signs reviewed. General: Chronically ill-appearing, elderly 79-year-old male, in no significant distress. HEENT: Conjunctival injection bilaterally with crusting. PERRLA, neck supple. Moist mucous membranes Cardiovascular: Regular rate and rhythm, no extra sounds. Pulmonary: Clear to auscultation bilaterally, normal work of breathing. Abdomen: Soft, nontender, nondistended, positive bowel sounds. Musculoskeletal: Atraumatic, no peripheral edema. Neurologic: Patient awake alert and oriented x 3, speech is clear Skin: Warm, dry, no rash EMERGENCY DEPARTMENT COURSE/MDM: This patient was evaluated and appeared to be in no significant distress. IV access was obtained and laboratory work was drawn. A bladder scan was performed and reveals approximately 300 cc of urine in the bladder. The patient's chest x-ray is read as pneumonia however in reviewing the patient's prior imaging studies, CT is consistent with bronchiectasis. I do not suspect the patient is suffering from an acute pneumonia today. Patient was given Cipro ophthalmic to both eyes for the conjunctivitis. He was hydrated with 500 mL of IV normal saline solution. A Powers catheter was placed due to the patient's inability to void. The urine is dark however does not appear to be infected. He was given a second bolus of 500 mL of normal saline solution. Nursing was able to contact the patient's daughter who stated he would not be able to come home as he lives by himself and she is not able to drive at night. Patient's case was discussed with Dr. Moody of the hospitalist service who will evaluate the patient for admission and further management. Patient was made aware of the plan and agreed. MONITORING: An order for cardiac monitoring was placed and the patient is noted to be in a normal sinus rhythm at 82 beats per minute. RADIOLOGY: Chest x-ray to my interpretation reveals patchy bibasilar infiltrates, likely chronic lung disease. No significant change from previous. EKG: To my interpretation reveals a normal sinus rhythm at 94 bpm. Left axis deviation, QTc of 455. No PVC, no PAC. DISPOSITION: Admission Past Med/Surg History Problem List Encounter for pre-operative examination Testicular microlithiasis (Chronic) Renal cyst (Chronic) Right rib fracture Status post fall Hypomagnesemia Non-compliant behavior (Acute) Unintended weight loss (Acute) Tremor (Acute) Generalized weakness (Acute) Mild anemia Hyponatremia Depression Immunocompromised state (Acute) Urinary retention Essential tremor Gait disturbance Urinary incontinence Pulmonary emphysema Interstitial lung disease (Acute) Coronary artery calcification GERD without esophagitis Rheumatoid arthritis Pulmonary nodules Interstitial pulmonary fibrosis Hypertension Medical History On home oxygen therapy 2L continuous Aneurysm of infrarenal abdominal aorta Chronic hypoxic respiratory failure Carotid artery disease Hx of fracture of rib 06/27/24, x3 ribs, ongoing mild pain Pulmonary emphysema Pulmonary nodules History of anemia Interstitial lung disease f/u dr. [place], [place] pulm. Hypertension GERD without esophagitis Essential tremor History of depression Generalized weakness Chronic cough Hypoxia O2 2L continous Exercise hypoxemia Post herpetic neuralgia Pneumonia hx 06/2024 Surgical History Hx of colonoscopy S/P cataract surgery rt/lt History of tonsillectomy and adenoidectomy History of cholecystectomy (2000) Family History Other Adopted Social History Smoking Status: Never smoker Tobacco Type: Cigarettes Age Started Using Tobacco: 14; Age Quit Using Tobacco: 54; packs per day: 2; Second Hand Exposure: No; Do You Dip or Chew Tobacco: No (quit years ago); Hx Alcohol Use: Yes Alcohol type: beer Alcohol Intake Frequency: 2-3 x/Week Hx Substance Use: No Preferred Language: Bengali Communication Ability: Effective Visual Impairment: No Limitations Hearing Ability: Normal Coloring Checker Required: No Beliefs That Will Affect Care: None marital status: Current Living Situation: Alone current occupational status: retired 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 [employer] Feels Safe at Home: Yes Childhood Exposure to Second-Hand Smoke: Yes Diet: regular Diet Comment: regular caffeine: Yes (coffee x 2-3 per day.) during the past year weight has: decreased > 10 lbs Dental Care, Regularly: Yes Physical Activity Frequency: Daily Physical Activity Frequency Comment: walk Seatbelt Use: always Sunscreen Use: Yes Assistive Devices: Denture - Upper, Denture - Lower and Oxygen - Continuous Allergies Allergies Allergy/AdvReac Type Severity Reaction Status Date / Time No Known Allergies Allergy Verified 08/06/24 13:39 Home Meds Home Medications Medication Instructions Recorded Confirmed acetaminophen 325 mg tablet 650 mg PO Q4H PRN fever > 100.5 or 07/15/24 08/09/24 pain aspirin 81 mg chewable tablet 81 mg PO QAM 07/15/24 08/09/24 (Aspirin Childrens) atorvastatin 10 mg tablet 10 mg PO QAM 07/15/24 08/09/24 multivitamin (Daily-Dolores tablet) 1 tab PO QAM 07/15/24 08/09/24 omeprazole 20 mg capsule,delayed 20 mg PO QAM 07/15/24 08/09/24 release lisinopril 20 mg tablet 20 mg PO QAM 08/06/24 08/09/24 naproxen 500 mg tablet 500 mg PO QAM 08/06/24 08/09/24 sertraline 50 mg tablet 50 mg PO QAM 08/06/24 08/09/24 tamsulosin 0.4 mg capsule (Flomax) 0.4 mg PO QAM 08/06/24 08/09/24 Previous Rx's Medication Instructions Recorded Oxygen Home #1 ea 07/02/23 gabapentin 300 mg capsule 300 mg PO HS #90 caps 07/22/23 Portable Oxygen #1 ea 06/14/24 Results & Data (ED) Vital Signs Vital Signs - 24 hr 08/09/24 14:55 08/09/24 15:01 08/09/24 15:30 Temperature 36.4 C L Temperature Source Oral Pulse Rate 98 H 97 H Pulse Rate [Left Apical] 92 H Pulse Rate from SpO2 Sensor Respiratory Rate 16 24 Respiratory Effort / Characteristics Non-Labored Spontaneous Non-Labored Spontaneous Respiratory Depth Normal Normal Respiratory Pattern Regular Blood Pressure 106/71 Blood Pressure [Right Arm] 111/64 Blood Pressure Mean 82 Blood Pressure Mean [Right Arm] 79 Pulse Oximetry 93 96 Oxygen Delivery Method Room Air Room Air Sepsis Recent Fever Within 48 Hours No Sepsis New/Unexplained Change in Mental Status N/A Sepsis Action Taken by Nursing No Action Required 08/09/24 15:42 08/09/24 16:06 08/09/24 16:32 Temperature Temperature Source Pulse Rate 85 92 H Pulse Rate [Left Apical] Pulse Rate from SpO2 Sensor Respiratory Rate 21 19 Respiratory Effort / Characteristics Respiratory Depth Respiratory Pattern Blood Pressure Blood Pressure [Right Arm] 99/76 L Blood Pressure Mean Blood Pressure Mean [Right Arm] 83 Pulse Oximetry 96 96 Oxygen Delivery Method Room Air Room Air Sepsis Recent Fever Within 48 Hours Sepsis New/Unexplained Change in Mental Status Sepsis Action Taken by Nursing 08/09/24 17:00 08/09/24 17:24 08/09/24 17:30 Temperature Temperature Source Pulse Rate 84 98 H 85 Pulse Rate [Left Apical] Pulse Rate from SpO2 Sensor Respiratory Rate 19 23 18 Respiratory Effort / Characteristics Respiratory Depth Respiratory Pattern Blood Pressure 98/63 L 101/61 Blood Pressure [Right Arm] Blood Pressure Mean 74 74 Blood Pressure Mean [Right Arm] Pulse Oximetry 96 96 94 Oxygen Delivery Method Room Air Room Air Room Air Sepsis Recent Fever Within 48 Hours Sepsis New/Unexplained Change in Mental Status Sepsis Action Taken by Nursing 08/09/24 17:51 08/09/24 18:00 08/09/24 18:12 Temperature Temperature Source Pulse Rate 85 82 Pulse Rate [Left Apical] Pulse Rate from SpO2 Sensor Respiratory Rate 18 20 Respiratory Effort / Characteristics Respiratory Depth Respiratory Pattern Blood Pressure 101/73 Blood Pressure [Right Arm] Blood Pressure Mean 88 Blood Pressure Mean [Right Arm] Pulse Oximetry 96 95 Oxygen Delivery Method Room Air Room Air Sepsis Recent Fever Within 48 Hours Sepsis New/Unexplained Change in Mental Status Sepsis Action Taken by Nursing 08/09/24 18:30 08/09/24 19:00 08/09/24 19:00 Temperature Temperature Source Pulse Rate Pulse Rate [Left Apical] Pulse Rate from SpO2 Sensor Respiratory Rate Respiratory Effort / Characteristics Respiratory Depth Respiratory Pattern Blood Pressure 104/75 117/78 117/78 Blood Pressure [Right Arm] Blood Pressure Mean 83 98 98 Blood Pressure Mean [Right Arm] Pulse Oximetry Oxygen Delivery Method Sepsis Recent Fever Within 48 Hours Sepsis New/Unexplained Change in Mental Status Sepsis Action Taken by Nursing 08/09/24 19:00 08/09/24 19:00 08/09/24 19:00 Temperature Temperature Source Pulse Rate 94 H Pulse Rate [Left Apical] Pulse Rate from SpO2 Sensor Respiratory Rate 21 Respiratory Effort / Characteristics Respiratory Depth Respiratory Pattern Blood Pressure 117/78 117/78 Blood Pressure [Right Arm] Blood Pressure Mean 98 98 Blood Pressure Mean [Right Arm] Pulse Oximetry 96 Oxygen Delivery Method Sepsis Recent Fever Within 48 Hours Sepsis New/Unexplained Change in Mental Status Sepsis Action Taken by Nursing 08/09/24 19:12 08/09/24 19:21 08/09/24 19:24 Temperature Temperature Source Pulse Rate 90 99 H 100 H Pulse Rate [Left Apical] Pulse Rate from SpO2 Sensor Respiratory Rate 21 21 20 Respiratory Effort / Characteristics Respiratory Depth Respiratory Pattern Blood Pressure Blood Pressure [Right Arm] Blood Pressure Mean Blood Pressure Mean [Right Arm] Pulse Oximetry Oxygen Delivery Method Sepsis Recent Fever Within 48 Hours Sepsis New/Unexplained Change in Mental Status Sepsis Action Taken by Nursing 08/09/24 19:30 08/09/24 19:30 08/09/24 19:33 Temperature Temperature Source Pulse Rate 90 Pulse Rate [Left Apical] Pulse Rate from SpO2 Sensor Respiratory Rate 20 Respiratory Effort / Characteristics Respiratory Depth Respiratory Pattern Blood Pressure 117/83 117/83 Blood Pressure [Right Arm] Blood Pressure Mean 92 92 Blood Pressure Mean [Right Arm] Pulse Oximetry Oxygen Delivery Method Sepsis Recent Fever Within 48 Hours Sepsis New/Unexplained Change in Mental Status Sepsis Action Taken by Nursing 08/09/24 19:42 08/09/24 20:00 08/09/24 20:00 Temperature Temperature Source Pulse Rate 93 H Pulse Rate [Left Apical] Pulse Rate from SpO2 Sensor Respiratory Rate 20 Respiratory Effort / Characteristics Respiratory Depth Respiratory Pattern Blood Pressure 110/71 110/71 Blood Pressure [Right Arm] Blood Pressure Mean 86 86 Blood Pressure Mean [Right Arm] Pulse Oximetry Oxygen Delivery Method Sepsis Recent Fever Within 48 Hours Sepsis New/Unexplained Change in Mental Status Sepsis Action Taken by Nursing 08/09/24 20:00 08/09/24 20:00 08/09/24 20:00 Temperature Temperature Source Pulse Rate Pulse Rate [Left Apical] Pulse Rate from SpO2 Sensor Respiratory Rate Respiratory Effort / Characteristics Respiratory Depth Respiratory Pattern Blood Pressure 110/71 110/71 110/71 Blood Pressure [Right Arm] Blood Pressure Mean 86 86 86 Blood Pressure Mean [Right Arm] Pulse Oximetry Oxygen Delivery Method Sepsis Recent Fever Within 48 Hours Sepsis New/Unexplained Change in Mental Status Sepsis Action Taken by Nursing 08/09/24 20:00 08/09/24 20:03 08/09/24 20:12 Temperature Temperature Source Pulse Rate 93 H Pulse Rate [Left Apical] Pulse Rate from SpO2 Sensor Respiratory Rate 21 23 Respiratory Effort / Characteristics Non-Labored Respiratory Depth Normal Respiratory Pattern Blood Pressure Blood Pressure [Right Arm] Blood Pressure Mean Blood Pressure Mean [Right Arm] Pulse Oximetry Oxygen Delivery Method Sepsis Recent Fever Within 48 Hours Sepsis New/Unexplained Change in Mental Status Sepsis Action Taken by Nursing 08/09/24 20:21 08/09/24 20:24 08/09/24 20:30 Temperature Temperature Source Pulse Rate 101 H 95 H Pulse Rate [Left Apical] Pulse Rate from SpO2 Sensor Respiratory Rate 16 20 Respiratory Effort / Characteristics Respiratory Depth Respiratory Pattern Blood Pressure 117/79 Blood Pressure [Right Arm] Blood Pressure Mean 85 Blood Pressure Mean [Right Arm] Pulse Oximetry Oxygen Delivery Method Sepsis Recent Fever Within 48 Hours Sepsis New/Unexplained Change in Mental Status Sepsis Action Taken by Nursing 08/09/24 20:33 08/09/24 20:42 08/09/24 21:00 Temperature Temperature Source Pulse Rate 94 H 99 H Pulse Rate [Left Apical] Pulse Rate from SpO2 Sensor Respiratory Rate 21 18 Respiratory Effort / Characteristics Respiratory Depth Respiratory Pattern Blood Pressure 111/76 Blood Pressure [Right Arm] Blood Pressure Mean 92 Blood Pressure Mean [Right Arm] Pulse Oximetry Oxygen Delivery Method Sepsis Recent Fever Within 48 Hours Sepsis New/Unexplained Change in Mental Status Sepsis Action Taken by Nursing 08/09/24 21:00 08/09/24 21:00 08/09/24 21:12 Temperature Temperature Source Pulse Rate 91 H 98 H Pulse Rate [Left Apical] Pulse Rate from SpO2 Sensor Respiratory Rate 21 22 Respiratory Effort / Characteristics Respiratory Depth Respiratory Pattern Blood Pressure 111/76 Blood Pressure [Right Arm] Blood Pressure Mean 92 Blood Pressure Mean [Right Arm] Pulse Oximetry Oxygen Delivery Method Sepsis Recent Fever Within 48 Hours Sepsis New/Unexplained Change in Mental Status Sepsis Action Taken by Nursing 08/09/24 21:21 08/09/24 21:30 08/09/24 21:30 Temperature Temperature Source Pulse Rate 100 H Pulse Rate [Left Apical] Pulse Rate from SpO2 Sensor Respiratory Rate 20 Respiratory Effort / Characteristics Respiratory Depth Respiratory Pattern Blood Pressure 126/86 126/86 Blood Pressure [Right Arm] Blood Pressure Mean 91 91 Blood Pressure Mean [Right Arm] Pulse Oximetry Oxygen Delivery Method Sepsis Recent Fever Within 48 Hours Sepsis New/Unexplained Change in Mental Status Sepsis Action Taken by Nursing 08/09/24 21:30 08/09/24 21:45 08/09/24 22:00 Temperature Temperature Source Pulse Rate 103 H 105 H Pulse Rate [Left Apical] Pulse Rate from SpO2 Sensor Respiratory Rate 20 24 Respiratory Effort / Characteristics Non-Labored Spontaneous Respiratory Depth Normal Respiratory Pattern Blood Pressure Blood Pressure [Right Arm] Blood Pressure Mean Blood Pressure Mean [Right Arm] Pulse Oximetry Oxygen Delivery Method Sepsis Recent Fever Within 48 Hours Sepsis New/Unexplained Change in Mental Status Sepsis Action Taken by Nursing 08/09/24 22:00 08/09/24 22:06 08/09/24 22:29 Temperature Temperature Source Pulse Rate 101 H 102 H Pulse Rate [Left Apical] Pulse Rate from SpO2 Sensor 101 H Respiratory Rate 26 H Respiratory Effort / Characteristics Respiratory Depth Respiratory Pattern Blood Pressure 131/84 Blood Pressure [Right Arm] Blood Pressure Mean 103 Blood Pressure Mean [Right Arm] Pulse Oximetry 94 Oxygen Delivery Method Sepsis Recent Fever Within 48 Hours Sepsis New/Unexplained Change in Mental Status Sepsis Action Taken by Nursing 08/09/24 23:15 Temperature Temperature Source Pulse Rate 96 H Pulse Rate [Left Apical] Pulse Rate from SpO2 Sensor Respiratory Rate 18 Respiratory Effort / Characteristics Respiratory Depth Respiratory Pattern Blood Pressure 93/68 L Blood Pressure [Right Arm] Blood Pressure Mean Blood Pressure Mean [Right Arm] Pulse Oximetry 96 Oxygen Delivery Method Room Air Sepsis Recent Fever Within 48 Hours Sepsis New/Unexplained Change in Mental Status Sepsis Action Taken by Long-Term Medications Current Medication List: was personally reviewed by me Laboratory Data Attestation: I reviewed the patient's lab results. 08/09/24 15:00 08/09/24 15:00 Lab Results 08/09/24 08/09/24 Range/Units 15:00 18:56 WBC 8.47 (4.8-10.8) K/ul RBC 5.04 (4.70-6.10) M/uL Hgb 13.5 L (14.0-18.0) g/dl Hct 41.3 L (42.0-52.0) % MCV 81.9 (80.0-100.0) fL MCH 26.8 (25.0-34.0) pg MCHC 32.7 (32.0-36.0) g/dL RDW Std Deviation 50.7 H (36.4-46.3) fL RDW Coeff of Carl 17.1 H (11.5-14.5) % Plt Count 272 (130-400) K/uL MPV 8.3 L (9.4-12.4) fL Immature Gran % (Auto) 1.2 % Neut % (Auto) 83.2 % Lymph % (Auto) 10.3 % [place] % (Auto) 3.3 % Eos % (Auto) 1.5 % Baso % (Auto) 0.5 % Neut # (Auto) 7.05 H (1.40-6.50) K/uL Lymph # (Auto) 0.87 L (1.20-3.40) K/uL [place] # (Auto) 0.28 (0.11-0.59) K/uL Eos # (Auto) 0.13 (0.00-0.50) K/uL Baso # (Auto) 0.04 (0.00-0.20) K/uL Immature Gran # (Auto) 0.10 (0.01-0.20) K/uL PT 11.5 (9.0-12.0) Seconds INR 1.1 (0.9-1.1) APTT 27 (21-31) Seconds PTT Ratio 1.0 Sodium 129 L (136-145) mmol/L Potassium 4.7 (3.5-5.1) mmol/L Chloride 95 L (98-107) mmol/L Carbon Dioxide 27 (21-32) mmol/L Anion Gap 7 (3-11) BUN 24 H (6-23) mg/dl Creatinine 1.01 (0.6-1.4) mg/dl Est Cr Clr Drug Dosing 52.7 ml/min eGFR 74.72 BUN/Creatinine Ratio 23.8 H (10-20) Glucose 99 (70-99(Fasting)) mg/dl Calcium 9.5 (8.6-10.3) mg/dl Magnesium 1.7 (1.7-2.4) mg/dl Total Bilirubin 0.5 (0.2-1.0) mg/dl AST 19 (13-39) U/L ALT 10 (7-52) U/L Alkaline Phosphatase 92 (34-104) U/L Troponin I High Sens 14.8 (0-20) pg/ml Total Protein 7.8 (6.0-8.3) gm/dl Albumin 3.4 (3.4-5.0) gm/dl Globulin 4.4 H (2.5-4.0) gm/dl Albumin/Globulin Ratio 0.8 L (0.9-2) TSH 3.912 (0.300-4.500) uIu/ml Urine Color Dark Yellow Urine Appearance Clear (Clear) Urine pH 6.0 (4.5-7.5) Ur Specific [place] 1.020 (1.000-1.030) Urine Protein 1+ H (Negative) Urine Glucose (UA) Negative (Negative) Urine Ketones 1+ H (Negative) Urine Blood Negative (Negative) Urine Nitrite Negative (Negative) Urine Bilirubin 1+ H (Negative) Urine Urobilinogen Positive H (Negative) Ur Leukocyte Esterase Trace H (Negative) Urine WBC (Auto) 0-5 (0-5) /hpf Urine RBC (Auto) 6-10 H (0-2) /hpf U Hyaline Cast (Auto) 0-2 (0-2) /lpf U Epithel Cells (Auto) 0-2 (0-2) /hpf Urine Bacteria (Auto) None Seen (None Seen) Administered Medications Discontinued Medications Ciprofloxacin (Ciprofloxacin Hcl 0.3% Op Soln 2.5 Ml Btl) 2 drops OPB NOW ONE Stop: 08/09/24 19:14 Last Admin: 08/09/24 19:48 Dose: 2 drops Documented By: CLARK Sodium Chloride (Nss) 500 mls @ 999 mls/hr IV .Q31M ONE Stop: 08/09/24 18:51 Last Infusion: 08/09/24 19:26 Dose: Infused Documented By: Admin: 08/09/24 18:57 Dose: 999 mls/hr Documented By: CLARK Sodium Chloride (Nss) 500 mls @ 999 mls/hr IV .Q31M ONE Stop: 08/09/24 21:34 Last Infusion: 08/09/24 22:55 Dose: Infused Documented By: Admin: 08/09/24 21:47 Dose: 999 mls/hr Documented By: CLARK Imaging Data Radiologist's Impression: Chest X-Ray 08/09/24 15:45 Clinical History: Weakness Technique: A frontal view of the chest was obtained Comparison is made to the prior examination dated 07/15/2024 Findings: There is persistent left lower lobe alveolar consolidation, consistent with pneumonia. There is less severe bilateral upper lobe infiltrate. The heart size is within normal limits. No pleural effusion or pneumothorax is seen. There is elevation of the right hemidiaphragm No fracture is noted. No foreign body is seen Impression: No definite change in bilateral pneumonia Electronically signed by Lius Celis 08-09-2024 4:45 PM Discharge Plan Visit Data Chief Complaint: Urinary Symptoms Stated Complaint: URINARY SYMPTOMS ED Provider: Milena Bhatt Discharge Problem: Acute dehydration, Bronchiectasis, Decreased urine output, Unable to care for self Patient Disposition: Admitted As Inpatient Discharge Instructions Interventions: ED Discharge Assessment Last Done: 08/09/24 23:15 Forms Stand Alone Forms: My [facility] Prescriptions Prescriptions: No Action gabapentin 300 mg capsule 300 mg PO HS Qty: 90 3RF (DME) Oxygen Home Liters Per Minute See Rx Instructions .MEDSUPPLY Qty: 1 0RF Rx Instructions: Home Oxygen concentrator with portability, test for conserving device. 0LMP via n/c at rest and 2LPM via n/c with exertion/sleep; KHUSHI 99. (DME) Portable Oxygen Misc See Rx Instructions .ROUTE .MEDSUPPLY Qty: 1 0RF Rx Instructions: Use 2L NC with exertion (prefers inogen or something similar) aspirin [Aspirin Childrens] 81 mg Tablet,Chewable 81 mg PO QAM Rx Instructions: take with food omeprazole 20 mg capsule,delayed release(DR/EC) 20 mg PO QAM atorvastatin 10 mg tablet 10 mg PO QAM multivitamin [Daily-Dolores] Tablet 1 tab PO QAM acetaminophen 325 mg Tablet 650 mg PO Q4H PRN (Reason: fever > 100.5 or pain) naproxen 500 mg Tablet 500 mg PO QAM lisinopril 20 mg tablet 20 mg PO QAM tamsulosin [Flomax] 0.4 mg capsule 0.4 mg PO QAM sertraline 50 mg tablet 50 mg PO QAM Rx Instructions: Take 1/2 tab PO daily x 6 days, then 1 tab PO daily Referrals Referrals: Rosanna Torres DO [Primary Care Provider] - Discharge Problem: Bronchiectasis Qualifiers: Bronchiectasis type: uncomplicated Qualified Code(s): J47.9 - Bronchiectasis, uncomplicated
[2024-08-09 19:22] LABS: Appearance Urine Clear (Clear); Bacteria Urine Automated None Seen (None Seen); Bilirubin Urine 1+ (Negative); Blood Urine Negative (Negative); Cast Urine Automated 0-2 /lpf (0-2); Color Urine Dark Yellow; Epithelial Cell Urine Auto 0-2 /hpf (0-2); Glucose Urine UA Negative (Negative); Ketones Urine 1+ (Negative); Leukocyte Esterase Urine Trace (Negative); Nitrite Urine Negative (Negative); Protein Urine 1+ (Negative); Urobilinogen Urine Positive (Negative); WBC Urine Automated 0-5 /hpf (0-5)
[2024-08-09] MEDS: CIPROFLOXACIN HCL 0.3% OP SOLN 2.5 ML BTL OPB ONE (19:48)
--- NOTE | 2024-08-09 22:29 | History & Physical Report ---
Date of Service August 09, 2024 Assessment & Plan (1) Generalized weakness: Plan: 79yo male presenting from home with generalized weakness, poor oral intake and diarrhea noted this AM. Seems to be somewhat chronic and progressive in nature as daughter was concerned about similar symptoms ongoing for the last several months. Patient does appear somewhat clinically dry on exam with dry MM and dark colored urine. Otherwise labs are largely unremarkable. He has no leukocytosis, stable normochromic/normocytic anemia. Br=228 which is near baseline, otherwise renal function and electrolytes are WNL. UA without bacteria. TSH is WNL Family reports they are unable to return to the hospital at this time and are uncomfortable taking him home. -Observation to medical -Will check respiratory biofire panel. Patient with new conjunctivitis and diarrhea. Consideration to influenza H5 given his conjunctivitis and diarrhea - however, in absence of other flu-like symptoms, fever, or exposure risk factors likelihood of this is unlikely -Stool biofire panel ordered as well -Gentle hydration overnight with LR at 100mL/hr x 2L -PT/OT evaluations appreciated -Tylenol as needed (2) Interstitial pulmonary fibrosis: Plan: Patient's CXR endorses no change in his bilateral PNA. Suspect radiographic findings are more consistent with his ILD. He denies fever or worsening cough. No leukocytosis. -Consider CT chest if patient's symptoms worsen Plan Chronic Medical Issues: Hypertension: Blood pressure borderline low -Hold Lisinopril -Continue to monitor Hyperlipidemia: Chronic -Continue Atorvastatin Depression -Continue Sertraline 50mg po qAM BPH -Continue Flomax -Powers in place, monitor output GERD -Protonix 40mg po daily while patient is admitted History of Present Illness Chief Complaint: diarrhea, weakness, conjunctivitis Primary Care Provider: Rosanna Torres DO Arun Knutson is a pleasant 79yo male with history of ILD, HTN, GERD presenting from home with several days of poor oral intake, generalized weakness and lethargy. Today his home health services reportedly found him still in bed in the afternoon and covered with diarrhea. Patient additionally reports red, itchy eyes with drainage over the last several days. Otherwise he denies fever, chills, chest pain, palpitations, abdominal pain, nausea, vomiting. He has a chronic, dry cough but denies worsening of this. He has had no sick contacts or recent travel. No exposure to farm animals/birds/raw milk. In the ER patient is afebrile, tachycardic ER Course: NSS x 1L Ciprofloxacin eye drops Per record reviews - patient's daughter reported several months of poor appetite, runny nose, cough, confusion and memory loss. She was requesting black mold testing. Patient was to have AAA repair performed by Dr. Paige tomorrow, however, his surgery has been cancelled. Allergies Allergy/AdvReac Type Severity Reaction Status Date / Time No Known Allergies Allergy Verified 08/06/24 13:39 Home Medications Medication Instructions Recorded Confirmed Type Oxygen Home #1 ea 07/02/23 07/23/24 Rx gabapentin 300 mg capsule 300 mg PO HS #90 caps 07/22/23 08/09/24 Rx Portable Oxygen #1 ea 06/14/24 07/23/24 Rx acetaminophen 325 mg tablet 650 mg PO Q4H PRN fever > 100.5 or 07/15/24 08/09/24 History pain aspirin 81 mg chewable tablet 81 mg PO QAM 07/15/24 08/09/24 History (Aspirin Childrens) atorvastatin 10 mg tablet 10 mg PO QAM 07/15/24 08/09/24 History multivitamin (Daily-Dolores tablet) 1 tab PO QAM 07/15/24 08/09/24 History omeprazole 20 mg capsule,delayed 20 mg PO [facility] 07/15/24 08/09/24 History release lisinopril 20 mg tablet 20 mg PO QAM 08/06/24 08/09/24 History naproxen 500 mg tablet 500 mg PO QAM 08/06/24 08/09/24 History sertraline 50 mg tablet 50 mg PO QA 08/06/24 08/09/24 History tamsulosin 0.4 mg capsule (Flomax) 0.4 mg PO QAM 08/06/24 08/09/24 History Past Med/Surg History Problem List Encounter for pre-operative examination Testicular microlithiasis (Chronic) Renal cyst (Chronic) Right rib fracture Status post fall Hypomagnesemia Non-compliant behavior (Acute) Unintended weight loss (Acute) Tremor (Acute) Generalized weakness (Acute) Mild anemia Hyponatremia Depression Immunocompromised state (Acute) Urinary retention Essential tremor Gait disturbance Urinary incontinence Pulmonary emphysema Interstitial lung disease (Acute) Coronary artery calcification GERD without esophagitis Rheumatoid arthritis Pulmonary nodules Interstitial pulmonary fibrosis Hypertension Medical History On home oxygen therapy 2L continuous Aneurysm of infrarenal abdominal aorta Chronic hypoxic respiratory failure Carotid artery disease Hx of fracture of rib 06/27/24, x3 ribs, ongoing mild pain Pulmonary emphysema Pulmonary nodules History of anemia Interstitial lung disease f/u dr. lafleur, [place] pulm. Hypertension GERD without esophagitis Essential tremor History of depression Generalized weakness Chronic cough Hypoxia O2 2L continous Exercise hypoxemia Post herpetic neuralgia Pneumonia hx 06/2024 Surgical History Hx of colonoscopy S/P cataract surgery rt/lt History of tonsillectomy and adenoidectomy History of cholecystectomy (2000) Family History Other Adopted Social History Smoking Status: Never smoker Tobacco Type: Cigarettes Age Started Using Tobacco: 14; Age Quit Using Tobacco: 54; packs per day: 2; Second Hand Exposure: No; Do You Dip or Chew Tobacco: No (quit years ago); Hx Alcohol Use: Yes Alcohol type: beer Alcohol Intake Frequency: 2-3 x/Week Hx Substance Use: No Preferred Language: Haitian Communication Ability: Effective Visual Impairment: No Limitations Hearing Ability: Normal Monument Erector Required: No Beliefs That Will Affect Care: None marital status: Current Living Situation: Alone current occupational status: retired 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 [employer] Feels Safe at Home: Yes Childhood Exposure to Second-Hand Smoke: Yes Diet: regular Diet Comment: regular caffeine: Yes (coffee x 2-3 per day.) during the past year weight has: decreased > 10 lbs Dental Care, Regularly: Yes Physical Activity Frequency: Daily Physical Activity Frequency Comment: walk Seatbelt Use: always Sunscreen Use: Yes Assistive Devices: Denture - Upper, Denture - Lower and Oxygen - Continuous Review of Systems Review of Systems: All systems reviewed & are unremarkable except as noted in HPI & below Physical Exam Physical Exam: General: patient resting comfortably, NAD, AA&O x 4 Skin: warm, dry, intact, scattered scaling lesions noted on head and face HEENT: NC/AT, PERRL, EOMI, anicteric sclera,injected conjunctival bilaterally with some drainage, external ear normal to inspection and nontender, nares patent, dry mucus membranes, dentition intact, no oropharyngeal lesions, neck supple, trachea midline, no LAD, no thyromegaly, no JVD Heart: +S1/S2, regular, no m/r/g Lungs: equal air entry bilaterally, no rales/rhonchi/wheezes Abd: +BS, soft, NT/ND, no masses/organomegaly/ascites Powers in place with dark colored urine in the bag - 300mL Ext: warm, 2+ pulses in UE/LE bilaterally, no clubbing/cyanosis or edema Neuro: nonfocal, patient AA&O x 4, speech intact, no facial droop, moving all extremities on command with equal strength 5/5 Results & Data Results & Data Vital Signs (Past 12 Hours) Vital Signs Temp Pulse Pulse Resp BP BP Pulse Ox 08/09/24 20:42 99 H 18 08/09/24 20:33 94 H 21 08/09/24 20:30 117/79 08/09/24 20:24 95 H 20 08/09/24 20:21 101 H 16 08/09/24 20:12 23 08/09/24 20:03 93 H 21 08/09/24 20:00 110/71 08/09/24 20:00 110/71 08/09/24 20:00 110/71 08/09/24 20:00 110/71 08/09/24 20:00 110/71 08/09/24 19:42 93 H 20 08/09/24 19:33 90 20 08/09/24 19:30 117/83 08/09/24 19:30 117/83 08/09/24 19:24 100 H 20 08/09/24 19:21 99 H 21 08/09/24 19:12 90 21 08/09/24 19:00 94 H 21 96 08/09/24 19:00 117/78 08/09/24 19:00 117/08/09/24 19:00 117/08/09/24 19:00 117/08/09/24 18:30 104/75 08/09/24 18:12 82 20 95 08/09/24 18:00 101/73 02/17/25 17:51 85 18 96 08/09/24 17:30 85 18 101/61 94 08/09/24 17:24 98 H 23 96 08/09/24 17:00 84 19 98/63 L 96 08/09/24 16:32 99/76 L 08/09/24 16:06 92 H 19 96 08/09/24 15:42 85 21 96 08/09/24 15:30 92 H 24 111/64 96 08/09/24 15:01 97 H 08/09/24 14:55 36.4 C L 98 H 16 106/71 93 O2 Del Method 08/09/24 20:42 08/09/24 20:33 08/09/24 20:30 08/09/24 20:24 08/09/24 20:21 08/09/24 20:12 08/09/24 20:03 08/09/24 20:00 08/09/24 20:00 08/09/24 20:00 08/09/24 20:00 08/09/24 20:00 08/09/24 19:42 08/09/24 19:33 08/09/24 19:30 08/09/24 19:30 08/09/24 19:24 08/09/24 19:21 08/09/24 19:12 08/09/24 19:00 08/09/24 19:00 08/09/24 19:00 08/09/24 19:00 08/09/24 19:00 08/09/24 18:30 08/09/24 18:12 Room Air 08/09/24 18:00 08/09/24 17:51 Room Air 08/09/24 17:30 Room Air 08/09/24 17:24 Room Air 08/09/24 17:00 Room Air 08/09/24 16:32 08/09/24 16:06 Room Air 08/09/24 15:42 Room Air 08/09/24 15:30 Room Air 08/09/24 15:01 08/09/24 14:55 Room Air Laboratory Results Laboratory Results WBC 8.47 K/ul (4.8-10.8) 08/09/24 15:00 RBC 5.04 M/uL (4.70-6.10) 08/09/24 15:00 Hgb 13.5 g/dl (14.0-18.0) L 08/09/24 15:00 Hct 41.3 % (42.0-52.0) L 08/09/24 15:00 MCV 81.9 fL (80.0-100.0) 08/09/24 15:00 MCH 26.8 pg (25.0-34.0) 08/09/24 15:00 MCHC 32.7 g/dL (32.0-36.0) 08/09/24 15:00 RDW Std Deviation 50.7 fL (36.4-46.3) H 08/09/24 15:00 RDW Coeff of Carl 17.1 % (11.5-14.5) H 08/09/24 15:00 Plt Count 272 K/uL (130-400) 08/09/24 15:00 MPV 8.3 fL (9.4-12.4) L 08/09/24 15:00 Immature Gran % (Auto) 1.2 % 08/09/24 15:00 Neut % (Auto) 83.2 % 08/09/24 15:00 Lymph % (Auto) 10.3 % 08/09/24 15:00 [place] % (Auto) 3.3 % 08/09/24 15:00 Eos % (Auto) 1.5 % 08/09/24 15:00 Baso % (Auto) 0.5 % 08/09/24 15:00 Neut # (Auto) 7.05 K/uL (1.40-6.50) H 08/09/24 15:00 Lymph # (Auto) 0.87 K/uL (1.20-3.40) L 08/09/24 15:00 [place] # (Auto) 0.28 K/uL (0.11-0.59) 08/09/24 15:00 Eos # (Auto) 0.13 K/uL (0.00-0.50) 08/09/24 15:00 Baso # (Auto) 0.04 K/uL (0.00-0.20) 08/09/24 15:00 Immature Gran # (Auto) 0.10 K/uL (0.01-0.20) 08/09/24 15:00 PT 11.5 Seconds (9.0-12.0) 08/09/24 15:00 INR 1.1 (0.9-1.1) 08/09/24 15:00 APTT 27 Seconds (21-31) 08/09/24 15:00 PTT Ratio 1.0 08/09/24 15:00 Sodium 129 mmol/L (136-145) L 08/09/24 15:00 Potassium 4.7 mmol/L (3.5-5.1) 08/09/24 15:00 Chloride 95 mmol/L (98-107) L 08/09/24 15:00 Carbon Dioxide 27 mmol/L (21-32) 08/09/24 15:00 Anion Gap 7 (3-11) 08/09/24 15:00 BUN 24 mg/dl (6-23) H 08/09/24 15:00 Creatinine 1.01 mg/dl (0.6-1.4) 08/09/24 15:00 Est Cr Clr Drug Dosing 52.7 ml/min 08/09/24 15:00 eGFR 74.72 08/09/24 15:00 BUN/Creatinine Ratio 23.8 (10-20) H 08/09/24 15:00 Glucose 99 mg/dl (70-99(Fasting)) 08/09/24 15:00 Calcium 9.5 mg/dl (8.6-10.3) 08/09/24 15:00 Magnesium 1.7 mg/dl (1.7-2.4) 08/09/24 15:00 Total Bilirubin 0.5 mg/dl (0.2-1.0) 08/09/24 15:00 AST 19 U/L (13-39) 08/09/24 15:00 ALT 10 U/L (7-52) 08/09/24 15:00 Alkaline Phosphatase 92 U/L (34-104) 08/09/24 15:00 Troponin I High Sens 14.8 pg/ml (0-20) 08/09/24 15:00 Total Protein 7.8 gm/dl (6.0-8.3) 08/09/24 15:00 Albumin 3.4 gm/dl (3.4-5.0) 08/09/24 15:00 Globulin 4.4 gm/dl (2.5-4.0) H 08/09/24 15:00 Albumin/Globulin Ratio 0.8 (0.9-2) L 08/09/24 15:00 TSH 3.912 uIu/ml (0.300-4.500) 08/09/24 15:00 Urine Color Dark Yellow 08/09/24 18:56 Urine Appearance Clear (Clear) 08/09/24 18:56 Urine pH 6.0 (4.5-7.5) 08/09/24 18:56 Ur Specific [place] 1.020 (1.000-1.030) 08/09/24 18:56 Urine Protein 1+ (Negative) H 08/09/24 18:56 Urine Glucose (UA) Negative (Negative) 08/09/24 18:56 Urine Ketones 1+ (Negative) H 08/09/24 18:56 Urine Blood Negative (Negative) 08/09/24 18:56 Urine Nitrite Negative (Negative) 08/09/24 18:56 Urine Bilirubin 1+ (Negative) H 08/09/24 18:56 Urine Urobilinogen Positive (Negative) H 08/09/24 18:56 Ur Leukocyte Esterase Trace (Negative) H 08/09/24 18:56 Urine WBC (Auto) 0-5 /hpf (0-5) 08/09/24 18:56 Urine RBC (Auto) 6-10 /hpf (0-2) H 08/09/24 18:56 U Hyaline Cast (Auto) 0-2 /lpf (0-2) 08/09/24 18:56 U Epithel Cells (Auto) 0-2 /hpf (0-2) 08/09/24 18:56 Urine Bacteria (Auto) None Seen (None Seen) 08/09/24 18:56 Impressions Chest X-Ray 08/09/24 15:45 Clinical History: Weakness Technique: A frontal view of the chest was obtained Comparison is made to the prior examination dated 07/15/2024 Findings: There is persistent left lower lobe alveolar consolidation, consistent with pneumonia. There is less severe bilateral upper lobe infiltrate. The heart size is within normal limits. No pleural effusion or pneumothorax is seen. There is elevation of the right hemidiaphragm No fracture is noted. No foreign body is seen Impression: No definite change in bilateral pneumonia Electronically signed by Luis Celis 08-09-2024 4:45 PM Code Status & VTE Plan VTE Prophylaxis Plan VTE Prophylaxis will be ordered: Yes PG Care Time/CCT Total # of Minutes Spent Total Time Spent with Patient: Total time spent is greater than 50% in coordination of care (as documented) at patient's floor/unit and/or counseling patient: Coding Level of Care Code 88563 INT INP/OBS CARE 3/75MIN Diagnoses Generalized weakness R53.1 Interstitial pulmonary fibrosis J84.10
[2024-08-09] MEDS ORDERED: ONDANSETRON INJ 2 MG/ML 2 ML VIAL IV PRN (23:47)
[2024-08-09] MEDS ORDERED: ACETAMINOPHEN 325 MG TAB PO PRN (23:47)
[2024-08-10 00:13] LABS: Adenovirus PCR Not Detected (NotDetected); Bordetella parapertussis PCR Not Detected (NotDetected); Bordetella pertussis PCR Not Detected (NotDetected); Chlamydia pneumoniae PCR Not Detected (NotDetected); Coronavirus 229E PCR Not Detected (NotDetected); Coronavirus CoV-2 (COVID19)PCR Not Detected (NotDetected); Coronavirus HKU1 PCR Not Detected (NotDetected); Coronavirus NL63 PCR Not Detected (NotDetected); Coronavirus OC43PCR Not Detected (NotDetected); Human Metapneumovirus PCR Not Detected (NotDetected); Influenza A PCR Not Detected (NotDetected); Influenza B PCR Not Detected (NotDetected); Mycoplasma pneumoniae PCR Not Detected (NotDetected); Parainfluenza Virus 1 PCR Not Detected (NotDetected); Parainfluenza Virus 2 PCR Not Detected (NotDetected); Parainfluenza Virus 3 PCR Not Detected (NotDetected); Parainfluenza Virus 4 PCR Not Detected (NotDetected); Respiratory Syncytial VirusPCR Not Detected (NotDetected); Rhinovirus/Enterovirus PCR Not Detected (NotDetected)
[2024-08-10] MEDS: LACTATED RINGER'S 1,000 ML IV SCH (00:29)
[2024-08-10] MEDS ORDERED: methylPREDNISolone 10 mg/mL (For Ped Dose < 7mg) IV SCH (07:15)
[2024-08-10 08:06] LABS: Hematocrit (blood only) 33.3 % (42.0-52.0); Hemoglobin 10.9 g/dl (14.0-18.0); Mean Corpuscular Hemoglobin 26.8 pg (25.0-34.0); Mean Corpuscular Hgb Conc 32.7 g/dL (32.0-36.0); Mean Corpuscular Volume 81.8 fL (80.0-100.0); Mean Platelet Volume 8.2 fL (9.4-12.4); Platelet Count 231 K/uL (130-400); RDW Coefficient of Variation 17.1 % (11.5-14.5); RDW Standard Deviation 50.8 fL (36.4-46.3); Red Blood Count 4.07 M/uL (4.70-6.10); White Blood Count 7.18 K/ul (4.8-10.8)
[2024-08-10 08:26] LABS: BUN Creatinine Ratio 32.9 (10-20); Calcium 8.6 mg/dl (8.6-10.3); Creatinine Clr Calc Pharmacy 66.9 ml/min; Potassium 4.1 mmol/L (3.5-5.1)
[2024-08-10] MEDS: ASPIRIN 81 MG ECTAB PO SCH (09:05)
[2024-08-10] MEDS: ATORVASTATIN 10 MG TAB PO SCH (09:06)
[2024-08-10] MEDS: NAPROXEN 250 MG TAB PO SCH (09:07)
[2024-08-10] MEDS: PANTOprazole 40 MG TAB PO SCH (09:08)
[2024-08-10] MEDS: SERTRALINE HCL 50 MG TABLET PO SCH (09:11)
[2024-08-10] MEDS: TAMSULOSIN HCL 0.4 MG CAP PO SCH (09:12)
[2024-08-10] MEDS: methylPREDNISolone 40 MG in SYRINGE 0 ML IV SCH (09:14)
--- NOTE | 2024-08-10 10:34 | Electrocardiogram Report ---
Test Reason : Blood Pressure : */* mmHG Vent. Rate : 94 BPM Atrial Rate : 94 BPM P-R Int : 138 ms QRS Dur : 102 ms QT Int : 364 ms P-R-T Axes : 33 -38 30 degrees QTcB Int : 455 ms Normal sinus rhythm Left axis deviation Abnormal ECG When compared with ECG of 15-Jul-2024 16:24, No significant change was found Confirmed by Primitivo Gomez [id number] on 08/10/2024 10:33:57 AM Referred By: Confirmed By: Primitivo Gomez
--- NOTE | 2024-08-10 11:02 | Hospitalist Progress Note ---
Date of Service August 10, 2024 Assessment & Plan (1) Generalized weakness: Plan: Appears that he had a viral enteritis causing the weakness. He states his diarrhea has resolved. Oral intake is adequate. IV fluids discontinued. Continue OT and PT (2) Enteritis: Plan: Suspected viral etiology. He states his diarrhea has resolved. Supportive care. Parenteral steroid therapy ordered (3) Interstitial pulmonary fibrosis: Plan: By history. Chest x-ray consistent with fibrotic changes in both lungs. Supportive care. No intervention needed at this time (4) Hypertension: Plan: Stable. Lisinopril has been discontinued as a possible cause of SIADH. Serial labs. IV fluids have been discontinued (5) SIADH (syndrome of inappropriate ADH production): Plan: Hypoosmolar hyponatremia noted. Lisinopril may be the cause of suspected SIADH. Lisinopril has been discontinued. Will follow. Serial labs Plan Disposition to be determined by OT and PT evaluations. He is anxious to go home Admission and Anticipated Discharge Date Admission Date: August 09, 2024 Subjective Alert and oriented. He states he only had 1 episode of diarrhea before admission and has not had any since. He is taking adequate oral intake. IV fluids are discontinued. He appears to have a viral illness and is now on parenteral steroid therapy. He has hypoosmolar hyponatremia that could possibly be related to DONALD inhibitor therapy. Lisinopril has been discontinued. OT and PT evaluations will determine disposition. Review of Systems 2 Review of Systems: Constitutionalno fever or chills ENTno blurred vision, no double vision, no epistaxis, no sore throat Respiratoryno cough, no wheezing, no shortness of breath Cardiacno palpitations, no chest pain, no syncope Katy nausea, vomiting, melena, hematochezia. He states he only had 1 episode of diarrhea prior to this admission which has now resolved GUno urinary retention, no urinary incontinence, no dysuria, no hematuria Musculoskeletalno joint pain, no muscle tenderness Skinno bruising, no rashes, no pruritus Neurono isolated weakness, no paresthesia Psychno depression, no anxiety Physical Exam 2 Physical Exam: General-alert and oriented x3, no fever, no chills HEENT-head atraumatic and normocephalic, pupils equal and reactive to light, extraocular muscles intact Neck-no lymphadenopathy or thyromegaly, trachea midline Chest-clear to auscultation. No rales, wheezing or rhonchi Cardiac-regular rate and rhythm, normal S1 and S2 Abdomen-normal bowel sounds, no hepatosplenomegaly Extremities-no cyanosis, clubbing, or edema Neuro-cranial nerves II through XII intact, motor and sensory function within normal limits, strength symmetrical, no focal deficits Psych-normal affect, normal mood Results & Data Results & Data Vital Signs (Past 12 Hours) Vital Signs Temp Pulse Pulse Resp BP BP Pulse Ox 08/10/24 09:36 08/10/24 07:29 36.9 C 96 H 16 124/69 96 08/09/24 23:50 08/09/24 23:50 36.5 C 112 H 16 114/74 93 08/09/24 23:15 96 H 18 93/68 L 96 O2 Del Method 08/10/24 09:36 Room Air 08/10/24 07:29 Room Air 08/09/24 23:50 Room Air 08/09/24 23:50 Room Air 08/09/24 23:15 Room Air Laboratory Results 08/10/24 07:42 08/10/24 07:42 PG Care Time/CCT Total # of Minutes Spent Total Time Spent with Patient: Total time spent is greater than 50% in coordination of care (as documented) at patient's floor/unit and/or counseling patient: Coding Level of Care Code 11032 SUB INP/OBS CARE 3/50MIN Diagnoses Generalized weakness R53.1 Enteritis K52.9 Interstitial pulmonary fibrosis J84.10 Hypertension I10 SIADH (syndrome of inappropriate ADH production) E22.2
[2024-08-10] MEDS: GABAPENTIN 300 MG CAP PO SCH (20:35)
[2024-08-11 08:15] LABS: Basophils # (auto) 0.01 K/uL (0.00-0.20); Basophils % (auto) 0.3 %; Hematocrit (blood only) 34.2 % (42.0-52.0); Hemoglobin 11.2 g/dl (14.0-18.0); Immature Granulocytes # (auto) 0.04 K/uL (0.01-0.20); Immature Granulocytes % (auto) 1.1 %; Lymphocytes # (auto) 0.68 K/uL (1.20-3.40); Lymphocytes % (auto) 18.6 %; Mean Corpuscular Hemoglobin 27.1 pg (25.0-34.0); Mean Corpuscular Hgb Conc 32.7 g/dL (32.0-36.0); Mean Corpuscular Volume 82.8 fL (80.0-100.0); Mean Platelet Volume 8.5 fL (9.4-12.4); Monocytes # (auto) 0.14 K/uL (0.11-0.59); Monocytes % (auto) 3.8 %; Neutrophils # (auto) 2.78 K/uL (1.40-6.50); Neutrophils % (auto) 76.2 %; Platelet Count 254 K/uL (130-400); RDW Coefficient of Variation 16.6 % (11.5-14.5); RDW Standard Deviation 50.4 fL (36.4-46.3); Red Blood Count 4.13 M/uL (4.70-6.10); White Blood Count 3.65 K/ul (4.8-10.8)
[2024-08-11 08:38] LABS: BUN Creatinine Ratio 32.4 (10-20); Creatinine Clr Calc Pharmacy 63.3 ml/min; Potassium 4.9 mmol/L (3.5-5.1)
--- NOTE | 2024-08-11 12:31 | Hospitalist Progress Note ---
Date of Service August 11, 2024 Assessment & Plan (1) Generalized weakness: Plan: Appears that he had a viral enteritis causing the weakness. He states his diarrhea has resolved. Oral intake is adequate. IV fluids have been discontinued. Continue OT and PT (2) Enteritis: Plan: Suspected viral etiology. He states his diarrhea has resolved. Supportive care. Parenteral steroids appear to be helping symptomatically (3) Acute conjunctivitis of left eye: Plan: Gentamicin ophthalmic drops ordered (4) SIADH (syndrome of inappropriate ADH production): Plan: Hypoosmolar hyponatremia noted. Lisinopril may be the cause of suspected SIADH. Lisinopril has been discontinued. Sodium has improved to 131. Will follow. Serial labs (5) Interstitial pulmonary fibrosis: Plan: By history. Chest x-ray consistent with fibrotic changes in both lungs. Supportive care. No intervention needed at this time (6) Hypertension: Plan: Stable. Lisinopril has been discontinued as a possible cause of SIADH. Serial labs. IV fluids have been discontinued Plan OT and PT both recommend IPR placement. The family has requested a [facility] referral. Admission and Anticipated Discharge Date Admission Date: August 09, 2024 Subjective Awake and alert. Pleasant. Both OT and PT recommend rehab placement. Family has requested a referral to [facility]. Review of Systems 2 Review of Systems: Constitutionalno fever or chills ENTmattering left eye, no blurred vision, no double vision, no epistaxis, no sore throat Respiratoryno cough, no wheezing, no shortness of breath Cardiacno palpitations, no chest pain, no syncope Katy nausea, vomiting, melena, hematochezia. He states he only had 1 episode of diarrhea prior to this admission which has now resolved GUno urinary retention, no urinary incontinence, no dysuria, no hematuria Musculoskeletalno joint pain, no muscle tenderness Skinno bruising, no rashes, no pruritus Neurono isolated weakness, no paresthesia Psychno depression, no anxiety Physical Exam 2 Physical Exam: General-alert and oriented x3, no fever, no chills HEENT-head atraumatic and normocephalic, pupils equal and reactive to light, extraocular muscles intact. Acute conjunctivitis with mattering noted involving left eye Neck-no lymphadenopathy or thyromegaly, trachea midline Chest-clear to auscultation. No rales, wheezing or rhonchi Cardiac-regular rate and rhythm, normal S1 and S2 Abdomen-normal bowel sounds, no hepatosplenomegaly Extremities-no cyanosis, clubbing, or edema Neuro-cranial nerves II through XII intact, motor and sensory function within normal limits, strength symmetrical, no focal deficits Psych-normal affect, normal mood Results & Data Results & Data Vital Signs (Past 12 Hours) Vital Signs Temp Pulse Resp BP Pulse Ox O2 Del Method 08/11/24 07:08 36 C L 88 16 128/61 95 Room Air 08/11/24 01:35 Room Air Laboratory Results 08/11/24 07:36 08/11/24 07:36 PG Care Time/CCT Total # of Minutes Spent Total Time Spent with Patient: Total time spent is greater than 50% in coordination of care (as documented) at patient's floor/unit and/or counseling patient: Coding Level of Care Code 30120 SUB INP/OBS CARE 2/35MIN Diagnoses Generalized weakness R53.1 Enteritis K52.9 Acute conjunctivitis of left eye H10.32 SIADH (syndrome of inappropriate ADH production) E22.2 Interstitial pulmonary fibrosis J84.10 Hypertension I10
[2024-08-11] MEDS: GENTAMICIN SULFATE 0.3% OP SOLN 5 ML BTL OP SCH (13:24)
[2024-08-12 07:43] LABS: Basophils # (auto) 0.01 K/uL (0.00-0.20); Basophils % (auto) 0.1 %; Eosinophils # (auto) 0.01 K/uL (0.00-0.50); Eosinophils % (auto) 0.1 %; Hematocrit (blood only) 35.2 % (42.0-52.0); Hemoglobin 11.7 g/dl (14.0-18.0); Immature Granulocytes # (auto) 0.05 K/uL (0.01-0.20); Immature Granulocytes % (auto) 0.6 %; Lymphocytes # (auto) 0.98 K/uL (1.20-3.40); Lymphocytes % (auto) 11.1 %; Mean Corpuscular Hemoglobin 27.5 pg (25.0-34.0); Mean Corpuscular Hgb Conc 33.2 g/dL (32.0-36.0); Mean Corpuscular Volume 82.8 fL (80.0-100.0); Mean Platelet Volume 8.5 fL (9.4-12.4); Monocytes # (auto) 0.45 K/uL (0.11-0.59); Monocytes % (auto) 5.1 %; Neutrophils # (auto) 7.32 K/uL (1.40-6.50); Platelet Count 270 K/uL (130-400); RDW Coefficient of Variation 16.7 % (11.5-14.5); RDW Standard Deviation 50.6 fL (36.4-46.3); Red Blood Count 4.25 M/uL (4.70-6.10); White Blood Count 8.82 K/ul (4.8-10.8)
[2024-08-12 08:03] LABS: BUN Creatinine Ratio 39.7 (10-20); Calcium 8.9 mg/dl (8.6-10.3); Creatinine Clr Calc Pharmacy 64.2 ml/min; Potassium 4.6 mmol/L (3.5-5.1)
--- NOTE | 2024-08-12 12:51 | Hospitalist Progress Note ---
Date of Service August 12, 2024 Assessment & Plan (1) Generalized weakness: Plan: Appears that he had a viral enteritis causing the weakness. He states his diarrhea has resolved. Oral intake is adequate. IV fluids have been discontinued. Continue OT and PT (2) Enteritis: Plan: Suspected viral etiology. He states his diarrhea has resolved. Supportive care. Parenteral steroids have been discontinued (3) Acute conjunctivitis of left eye: Plan: Gentamicin ophthalmic drops have helped quite a bit. (4) SIADH (syndrome of inappropriate ADH production): Plan: Hypoosmolar hyponatremia noted. Lisinopril may be the cause of suspected SIADH. Lisinopril has been discontinued. Sodium continues to improve. Now 132. Serial labs (5) Interstitial pulmonary fibrosis: Plan: By history. Chest x-ray consistent with fibrotic changes in both lungs. Supportive care. No intervention needed at this time (6) Hypertension: Plan: Stable. Lisinopril has been discontinued as a possible cause of SIADH. Systolic blood pressure is in the 150s now but in this age group this is acceptable. Plan Placement at [facility] pending. He is medically stable for discharge Admission and Anticipated Discharge Date Admission Date: August 11, 2024 Subjective Alert and oriented. Overall stable. Sodium has improved to 132 off of lisinopril. Blood pressure is acceptable for his age group. Placement in [facility] is pending Review of Systems 2 Review of Systems: Constitutionalno fever or chills ENTmattering left eye has resolved. No blurred vision, no double vision, no epistaxis, no sore throat Respiratoryno cough, no wheezing, no shortness of breath Cardiacno palpitations, no chest pain, no syncope Katy nausea, vomiting, melena, hematochezia. He states he only had 1 episode of diarrhea prior to this admission which has now resolved GUno urinary retention, no urinary incontinence, no dysuria, no hematuria Musculoskeletalno joint pain, no muscle tenderness Skinno bruising, no rashes, no pruritus Neurono isolated weakness, no paresthesia Psychno depression, no anxiety Physical Exam 2 Physical Exam: General-alert and oriented x3, no fever, no chills HEENT-head atraumatic and normocephalic, pupils equal and reactive to light, extraocular muscles intact. Acute conjunctivitis of left eye has resolved Neck-no lymphadenopathy or thyromegaly, trachea midline Chest-clear to auscultation. No rales, wheezing or rhonchi Cardiac-regular rate and rhythm, normal S1 and S2 Abdomen-normal bowel sounds, no hepatosplenomegaly Extremities-no cyanosis, clubbing, or edema Neuro-cranial nerves II through XII intact, motor and sensory function within normal limits, strength symmetrical, no focal deficits Psych-normal affect, normal mood Results & Data Results & Data Vital Signs (Past 12 Hours) Vital Signs Temp Pulse Resp BP Pulse Ox O2 Del Method 08/12/24 11:15 36.3 C L 77 16 156/69 H 97 Room Air 08/12/24 07:57 36.6 C 87 16 137/80 93 Room Air Laboratory Results 08/12/24 07:10 08/12/24 07:10 PG Care Time/CCT Total # of Minutes Spent Total Time Spent with Patient: Total time spent is greater than 50% in coordination of care (as documented) at patient's floor/unit and/or counseling patient: Coding Level of Care Code 67031 SUB INP/OBS CARE 2/35MIN Diagnoses Generalized weakness R53.1 Enteritis K52.9 Acute conjunctivitis of left eye H10.32 SIADH (syndrome of inappropriate ADH production) E22.2 Interstitial pulmonary fibrosis J84.10 Hypertension I10
--- NOTE | 2024-08-13 08:50 | Hospitalist Progress Note ---
Date of Service August 13, 2024 Assessment & Plan (1) Generalized weakness: Plan: 79yo male presented with several days of poor oral intake, generalized weakness and lethargy and was found by HH services still in bed in afternoon covered with diarrhea. Initially reported red/itchy eyes with drainage over prior days. Chronic dry cough/hx ILD. * Notable was also admitted in June with Sepsis/UTI/hypomagnesemia, also noted to have acute lateral right 7th/8th rib fractures w/ extensive bronchiectasis. * Also then seen in ER end of June and dc 3 days keflex for possible urinary symptoms. CXR on admission report no change in b/l PNA. No hypoxia or O2 requirement on admission. Biofire negative but suspected had viral enteritis on admission and was provided with supportive care with IV fluids and parenteral steroids and no further diarrhea following admission. No stool studies sent but reports diarrhea resolved. Notable had his HCTZ discontinued in June, hx SIADH. Na was 129 on admission, lisinopril has been discontinued as could contribute but also notable on sertaline. Hyperosmolar hyponatremia. Has been provided gentamicin eye drops and conjunctivitis resolved/has been continued - no issues on exam Notable BP was 99/63 in ER on admission and ?if was having adrenal insufficiency. Review of chart, was on Methylprednisolone 40mg Q8H from 08/10-08/12 and have been stopped. Is on chronic prednisone therapy for underlying RA/[facility] --Prednisone 10mg PO x 1 provided for this morning, schedule 5mg daily - will need f/u rheum at dc Notable hx hypomagnesemia/no recent check and was added to AM labs --> LOW at 1.2 -- 3gm IV ordered to start/monitor repeat level in AM but likely would benefit from ongoing PO replacement given chronic lows -- EKG obtained as was slightly irregular, sinus tach w/ PVC rate 105bpm Also possibly contributing to gait abn/weakness is his AAA --> recent PAT note for clearance for percutaneous endovascular abdominal aortic aneurysm repair with Dr Paige as well (size 5.3cm infrarenal -will need rescheduled at discharge) PT/OT consults rec rehab, [facility] pending (2) Hypomagnesemia: Plan: checked today/low as above. rec PO replacement if remains low given chronic nature. is on PPI daily (3) Enteritis: Plan: Resolved. Possible viral vs off prednisone therapy as unclear if was continued post recent hospital stay as PCP note still w/ hospital recs under RA w/ holding prednisone/stress dose HC provided at that time but is on med list from rehab for 4mg dosing No further diarrhea but did have stress steroids as above, resumed double dose x 1 today/5mg for AM If any recurrance could check stool biofire (4) Acute conjunctivitis of left eye: Plan: improved/resolved on gent drops/continued (5) SIADH (syndrome of inappropriate ADH production): Plan: Acute on chronic but was 129 on admission. TSH wnl. On sertaline at baseline Hypoosmolar hyponatremia noted. Lisinopril may be the cause of suspected SIADH and has been discontinued Na improved to 133 and stable/monitor (6) Interstitial pulmonary fibrosis: Plan: By history. Chest x-ray consistent with fibrotic changes in both lungs. Supportive care. No intervention needed at this time . No SOB reported. Repeat CXR w/o chronic marrow suppression/no consolidation (7) Hypertension: Plan: Stable/borderline Lisinopril dc as above, BP 113/78 (8) Hyponatremia: Plan: improving as noted (9) Urinary retention: Plan: on flomax, condom cath in place, UOP excellent. UA on admission without bacteria (10) Rheumatoid arthritis: Plan: as noted, chronic steroid therapy, re-instituted/monitor Plan DVT proph: added Lovenox SQ once daily. No calf tenderness/pleuritic pain but should monitor as has not been on during current stay Dispo: pending placement at [facility]. Mag replacement/prednisone as outlined. F/u exam/labs in AM Admission and Anticipated Discharge Date Admission Date: August 11, 2024 Subjective Eval this morning, resting in bed. No further diarrhea, no abdominal pain. Is on chronic steroids, given 10mg today as IV stopped after yesterday, will plan for 5mg in AM. Reports feeling alright, better than admission,was hopeful for possible dc today. Discuess haven't heard back if [facility] able to take today or not but discussed checked mag and LOW 1.2, IV replacement has been ordered. Waiting for bed [facility]. Denies CP/SOB but sounds slightly irregular/will check EKG for completeness/no prior hx of afib. Prior EKG sinus, do note last june PVCs, could just be PVCs but given admission w/ weakness and low mag, warrant repeat EKG for completeness. Powers draining yellow urine. Questions/concerns addressed at this time.. Physical Exam Physical Exam: General: 79yo male resting in bed, eating lunch, NAD HEENT: head atraumatic, normocephalic, mm slightly dry, trachea midline Resp: even/unlabored, slightly diminished in the bases, faint bibasilar crackles, no wheezing/rales, on room air, no cough/tachypnea CV: regular w/ PVCs vs irregular (EKG obtained, sinus tach 105bpm), no significant m/r/g, no pitting edema/calf tenderness GI: +BS, soft/nondistended, nontender : catheter draining yellow urine MSK/Neuro: generalized weakness but nonfocal, not confused, no slurred speech/facial droop, answering questions appropriately Psych: AOx3,cooperative with exam Results & Data Results & Data Vital Signs (Past 12 Hours) Vital Signs Temp Pulse Resp BP Pulse Ox O2 Del Method 08/13/24 07:09 36.7 C 94 H 18 113/78 93 Room Air Laboratory Results 08/13/24 Range/Units 09:48 WBC 13.05 H (4.8-10.8) K/ul RBC 4.71 (4.70-6.10) M/uL Hgb 12.6 L (14.0-18.0) g/dl Hct 39.4 L (42.0-52.0) % MCV 83.7 (80.0-100.0) fL MCH 26.8 (25.0-34.0) pg MCHC 32.0 (32.0-36.0) g/dL RDW Std Deviation 51.7 H (36.4-46.3) fL RDW Coeff of Carl 17.0 H (11.5-14.5) % Plt Count 254 (130-400) K/uL MPV 8.4 L (9.4-12.4) fL Immature Gran % (Auto) 1.5 % Neut % (Auto) 77.1 % Lymph % (Auto) 14.2 % [place] % (Auto) 6.1 % Eos % (Auto) 0.8 % Baso % (Auto) 0.3 % Neut # (Auto) 10.07 H (1.40-6.50) K/uL Lymph # (Auto) 1.85 (1.20-3.40) K/uL [place] # (Auto) 0.79 H (0.11-0.59) K/uL Eos # (Auto) 0.10 (0.00-0.50) K/uL Baso # (Auto) 0.04 (0.00-0.20) K/uL Immature Gran # (Auto) 0.20 (0.01-0.20) K/uL Sodium 133 L (136-145) mmol/L Potassium 3.9 (3.5-5.1) mmol/L Chloride 99 (98-107) mmol/L Carbon Dioxide 30 (21-32) mmol/L Anion Gap 4 (3-11) BUN 28 H (6-23) mg/dl Creatinine 0.67 (0.6-1.4) mg/dl Est Cr Clr Drug Dosing 69.9 ml/min eGFR 93.80 BUN/Creatinine Ratio 41.8 H (10-20) Glucose 83 (70-99(Fasting)) mg/dl Calcium 8.5 L (8.6-10.3) mg/dl Magnesium 1.2 L (1.7-2.4) mg/dl Diagnostic Findings Chest X-Ray 08/13/24 08:55 XR chest 2V PA/lateral CLINICAL HISTORY: follow up cough and weakness COMPARISON STUDY: 06/08/2024 and 08/09/2024 FINDINGS: Little interval change has occurred. The patient has extensive changes of pulmonary fibrosis bilaterally. There is no obvious superimposed acute process. Heart size and pulmonary vascularity are unremarkable. IMPRESSION: Extensive bone marrow fibrosis. No definite evidence of an acute process. ACT 112: Negative or not required by law. Electronically signed by: Lizette Gonzalez M.D. 08/13/2024 10:53 AM PG Care Time/CCT Total # of Minutes Spent Total Time Spent with Patient: Total time spent is greater than 50% in coordination of care (as documented) at patient's floor/unit and/or counseling patient: Coding Level of Care Code 93114 SUB INP/OBS CARE 3/50MIN Diagnoses Generalized weakness R53.1 Hypomagnesemia E83.42 Enteritis K52.9 Acute conjunctivitis of left eye H10.32 SIADH (syndrome of inappropriate ADH production) E22.2 Interstitial pulmonary fibrosis J84.10 Hypertension I10 Hyponatremia E87.1 Urinary retention R33.9 Rheumatoid arthritis M06.9
[2024-08-13] MEDS: predniSONE 10 MG TABLET PO ONE (10:06)
[2024-08-13 10:20] LABS: Basophils # (auto) 0.04 K/uL (0.00-0.20); Basophils % (auto) 0.3 %; Eosinophils % (auto) 0.8 %; Hematocrit (blood only) 39.4 % (42.0-52.0); Hemoglobin 12.6 g/dl (14.0-18.0); Immature Granulocytes % (auto) 1.5 %; Lymphocytes # (auto) 1.85 K/uL (1.20-3.40); Lymphocytes % (auto) 14.2 %; Mean Corpuscular Hemoglobin 26.8 pg (25.0-34.0); Mean Corpuscular Volume 83.7 fL (80.0-100.0); Mean Platelet Volume 8.4 fL (9.4-12.4); Monocytes # (auto) 0.79 K/uL (0.11-0.59); Monocytes % (auto) 6.1 %; Neutrophils # (auto) 10.07 K/uL (1.40-6.50); Neutrophils % (auto) 77.1 %; Platelet Count 254 K/uL (130-400); RDW Standard Deviation 51.7 fL (36.4-46.3); Red Blood Count 4.71 M/uL (4.70-6.10); White Blood Count 13.05 K/ul (4.8-10.8)
[2024-08-13 10:32] LABS: BUN Creatinine Ratio 41.8 (10-20); Calcium 8.5 mg/dl (8.6-10.3); Creatinine Clr Calc Pharmacy 69.9 ml/min; Potassium 3.9 mmol/L (3.5-5.1)
--- NOTE | 2024-08-13 10:54 | XRay Report ---
XR chest 2V PA/lateral CLINICAL HISTORY: follow up cough and weakness COMPARISON STUDY: 06/08/2024 and 08/09/2024 FINDINGS: Little interval change has occurred. The patient has extensive changes of pulmonary fibrosi s bilaterally. There is no obvious superimposed acute process. Heart size and pulmonary vascularity a re unremarkable. IMPRESSION: Extensive bone marrow fibrosis. No definite evidence of an acute process. ACT 112: Negative or not required by law. Electronically signed by: Lizette Gonzalez M.D. 08/13/2024 10:53 AM
--- NOTE | 2024-08-13 12:58 | Electrocardiogram Report ---
Test Reason : Blood Pressure : */* mmHG Vent. Rate : 105 BPM Atrial Rate : 105 BPM P-R Int : 122 ms QRS Dur : 94 ms QT Int : 324 ms P-R-T Axes : 34 -37 60 degrees QTcB Int : 428 ms Sinus tachycardia Left axis deviation Abnormal ECG When compared with ECG of 09-Aug-2024 15:12, No significant change was found Confirmed by Primitivo Gomez [id number] on 08/13/2024 12:58:05 PM Referred By: REFERRED SELF Confirmed By: Primitivo Gomez
[2024-08-13] MEDS: MAGNESIUM SULFATE / D5W 1 GM/100 ML BAG IV SCH (13:38)
[2024-08-13] MEDS: ENOXAPARIN INJ 40 MG/0.4 ML SYR SQ SCH (14:27)
[2024-08-13] MEDS: MAGNESIUM CHLORIDE W/CALCIUM 64MG DELAYED REL TAB PO SCH (20:33)
[2024-08-14 07:40] LABS: Hematocrit (blood only) 36.2 % (42.0-52.0); Hemoglobin 11.8 g/dl (14.0-18.0); Mean Corpuscular Hemoglobin 27.2 pg (25.0-34.0); Mean Corpuscular Hgb Conc 32.6 g/dL (32.0-36.0); Mean Corpuscular Volume 83.4 fL (80.0-100.0); Mean Platelet Volume 8.6 fL (9.4-12.4); Platelet Count 217 K/uL (130-400); RDW Coefficient of Variation 17.2 % (11.5-14.5); RDW Standard Deviation 52.1 fL (36.4-46.3); Red Blood Count 4.34 M/uL (4.70-6.10); White Blood Count 8.74 K/ul (4.8-10.8)
[2024-08-14 07:52] LABS: BUN Creatinine Ratio 33.8 (10-20); Calcium 8.4 mg/dl (8.6-10.3); Creatinine Clr Calc Pharmacy 72.1 ml/min; Magnesium 1.7 mg/dl (1.7-2.4); Potassium 4.2 mmol/L (3.5-5.1)
[2024-08-14] MEDS: predniSONE 5 MG TAB PO SCH (07:59)
--- NOTE | 2024-08-14 17:37 | Hospitalist Progress Note ---
Date of Service August 14, 2024 Assessment & Plan (1) Enteritis: Plan: Suspected viral etiology. Now resolved (2) SIADH (syndrome of inappropriate ADH production): Plan: Probably from DONALD inhibitor therapy. Lisinopril has been discontinued. Sodium has improved to 134. Blood pressure remained stable (3) Acute conjunctivitis of left eye: Plan: Resolved with gentamicin eyedrops over the past 3 days. Gentamicin eyedrops have now been discontinued (4) Hypomagnesemia: Plan: Corrected with replacement therapy (5) Generalized weakness: Plan: Improved since admission with continued OT and PT. (6) Steroid dependent: Plan: Steroids have been weaned down to his usual dosage of prednisone 5 mg daily. Plan Hopeful discharge to [facility] status. Peer to peer conversation needs to take place before Friday at 4 PM. Unfortunately, the offices are closed this weekend. Admission and Anticipated Discharge Date Admission Date: August 11, 2024 Subjective Alert and oriented. Stable overall. Sodium has improved to 134 since lisinopril discontinued. Solu-Medrol has been decreased to his usual oral prednisone dosing. Hypomagnesemia has been corrected. Unfortunately, a peer to peer request needs to be completed before he can go to [facility]. I tried to call today but the offices are closed. This will have to be done on Friday before 4 PM. Conjunctivitis has resolved and gentamicin eyedrops have been discontinued after 3 days of treatment. Review of Systems 2 Review of Systems: Constitutionalno fever or chills ENTmattering left eye has resolved. No blurred vision, no double vision, no epistaxis, no sore throat Respiratoryno cough, no wheezing, no shortness of breath Cardiacno palpitations, no chest pain, no syncope Katy nausea, vomiting, melena, hematochezia. He states he only had 1 episode of diarrhea prior to this admission which has now resolved GUno urinary retention, no urinary incontinence, no dysuria, no hematuria Musculoskeletalno joint pain, no muscle tenderness Skinno bruising, no rashes, no pruritus Neurono isolated weakness, no paresthesia Psychno depression, no anxiety Physical Exam 2 Physical Exam: General-alert and oriented x3, no fever, no chills HEENT-head atraumatic and normocephalic, pupils equal and reactive to light, extraocular muscles intact. Acute conjunctivitis of left eye has resolved Neck-no lymphadenopathy or thyromegaly, trachea midline Chest-clear to auscultation. No rales, wheezing or rhonchi Cardiac-regular rate and rhythm, normal S1 and S2 Abdomen-normal bowel sounds, no hepatosplenomegaly Extremities-no cyanosis, clubbing, or edema Neuro-cranial nerves II through XII intact, motor and sensory function within normal limits, strength symmetrical, no focal deficits Psych-normal affect, normal mood Results & Data Results & Data Vital Signs (Past 12 Hours) Vital Signs Temp Pulse Resp BP Pulse Ox O2 Del Method 08/14/24 15:27 36.8 C 82 16 114/66 94 Room Air 08/14/24 09:47 Room Air 08/14/24 07:54 36.6 C 77 16 125/69 94 Room Air Laboratory Results 08/14/24 07:07 08/14/24 07:07 PG Care Time/CCT Total # of Minutes Spent Total Time Spent with Patient: Total time spent is greater than 50% in coordination of care (as documented) at patient's floor/unit and/or counseling patient: Coding Level of Care Code 76606 SUB INP/OBS CARE 2/35MIN Diagnoses Enteritis K52.9 SIADH (syndrome of inappropriate ADH production) E22.2 Acute conjunctivitis of left eye H10.32 Hypomagnesemia E83.42 Generalized weakness R53.1 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
[2024-08-14] MEDS: POLYETHYLENE (MIRALAX) 17 GM PACK PO PRN (20:52)
--- NOTE | 2024-08-15 12:48 | Hospitalist Progress Note ---
Date of Service August 15, 2024 Assessment & Plan (1) Enteritis: Plan: Suspected viral etiology. Now resolved (2) SIADH (syndrome of inappropriate ADH production): Plan: Probably from DONALD inhibitor therapy. Lisinopril has been discontinued. Sodium has improved. Blood pressure remained stable (3) Acute conjunctivitis of left eye: Plan: Resolved with gentamicin eyedrops over the past 3 days. Gentamicin eyedrops have now been discontinued (4) Hypomagnesemia: Plan: Corrected with replacement therapy (5) Generalized weakness: Plan: Improved since admission with continued OT and PT. (6) Steroid dependent: Plan: Steroids have been weaned down to his usual dosage of prednisone 5 mg daily. Plan Insurance has denied [facility]. Peer to peer phone call will not be helpful in this case. SNF placement will be pursued. Admission and Anticipated Discharge Date Admission Date: August 11, 2024 Subjective Alert and oriented. No distress. Insurance denied [facility] placement. Case management will be instructed to pursue SNF placement. Blood pressure and heart rate are now stable. Will repeat lab again tomorrow morning, August 16 Review of Systems 2 Review of Systems: Constitutionalno fever or chills ENTmattering left eye has resolved. Left eye exotropion noted. No blurred vision, no double vision, no epistaxis, no sore throat Respiratoryno cough, no wheezing, no shortness of breath Cardiacno palpitations, no chest pain, no syncope Katy nausea, vomiting, melena, hematochezia. He states he only had 1 episode of diarrhea prior to this admission which has now resolved GUno urinary retention, no urinary incontinence, no dysuria, no hematuria Musculoskeletalno joint pain, no muscle tenderness Skinno bruising, no rashes, no pruritus Neurono isolated weakness, no paresthesia Psychno depression, no anxiety Physical Exam 2 Physical Exam: General-alert and oriented x3, no fever, no chills HEENT-head atraumatic and normocephalic, pupils equal and reactive to light, extraocular muscles intact. Acute conjunctivitis of left eye has resolved Neck-no lymphadenopathy or thyromegaly, trachea midline Chest-clear to auscultation. No rales, wheezing or rhonchi Cardiac-regular rate and rhythm, normal S1 and S2 Abdomen-normal bowel sounds, no hepatosplenomegaly Extremities-no cyanosis, clubbing, or edema Neuro-cranial nerves II through XII intact, motor and sensory function within normal limits, strength symmetrical, no focal deficits Psych-normal affect, normal mood Results & Data Results & Data Vital Signs (Past 12 Hours) Vital Signs Temp Pulse Resp BP Pulse Ox O2 Del Method 08/15/24 07:22 36.7 C 83 16 142/83 H 93 Room Air Laboratory Results 08/14/24 07:07 08/14/24 07:07 PG Care Time/CCT Total # of Minutes Spent Total Time Spent with Patient: Total time spent is greater than 50% in coordination of care (as documented) at patient's floor/unit and/or counseling patient: Coding Level of Care Code 26549 SUB INP/OBS CARE 2/35MIN Diagnoses Enteritis K52.9 SIADH (syndrome of inappropriate ADH production) E22.2 Acute conjunctivitis of left eye H10.32 Hypomagnesemia E83.42 Generalized weakness R53.1 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
[2024-08-16 08:26] LABS: BUN Creatinine Ratio 25.7 (10-20); Calcium 8.6 mg/dl (8.6-10.3); Creatinine Clr Calc Pharmacy 66.9 ml/min; Potassium 4.5 mmol/L (3.5-5.1)
[2024-08-16 14:34] VITALS: RESP 18
--- NOTE | 2024-08-16 19:52 | Hospitalist Progress Note ---
Date of Service August 16, 2024 Assessment & Plan (1) Enteritis: (2) Acute conjunctivitis of left eye: (3) Steroid dependent: (4) Interstitial lung disease: (5) Hyponatremia: Plan This pt is an 79yo male with a h/o RA on Prednisone, ILD, HTN, CAD, depression, post-herpetic neuralgia, and GERD presenting from home with generalized weakness, poor oral intake and diarrhea. He has had multiple admissions and has been declining over a few months. He reports a 10 lb weight loss before admission. #Generalized weakness/Viral gastroenteritis?/Hypomagnesemia/Relative adrenal insufficiency-appeared somewhat clinically dry on exam with dry MM and dark co lored urine on arrival. Otherwise labs are largely unremarkable. He has no leukocytosis, stable normochromic/normocytic anemia. Bs=428 which is near baseline, otherwise renal function and electrolytes are WNL. UA without bacteria. TSH is WNL Family reports they are unable to return to the hospital at this time and are uncomfortable taking him home. Biofire panel negative for respiratory illness but no Stool PCR checked. Was given IVFs and stress dose steroids. Much improved now, gaining weight back, eating, more energy, but needs PT/rehab Magnesium replaced and now back on home prednisone dose #Acute conjunctivitis-Resolved with gentamicin eyedrops over 3 days. Gentamicin eyedrops have now been discontinued #Hyponatremia-Na+ 129 on admission and now improved after IVF hydration and stress dose steroids to 135. Previously thought to be from his HCTZ or from his sertraline but is tolerating sertraline now. HCTZ remains on hold -follow BMP in 1 week at rehab -remain off HCTZ #BPH w/ LUTS and retention-had retention previous admission and then passed TOV at Urology office 07/21. Had cystoscopy 08/02 with Urology which revealed large prostate and moderate obstruction but PVR 200mL then. Has been on flomax. Powers place in ED this admission for retention-unclear amount -Continue Flomax -maintain Powers in place, would attempt TOV at SNF in 1 week after more mobile -f/u with Urology as outpt #Interstitial pulmonary fibrosis on chronic prednisone: Thought to be 2/2 RA. Patient's CXR with fibrosis. He denies fever or worsening cough. No leukocytosis. Follow with [facility] as outpt #Hypertension: BPs now normal to mildly elevated after stress dose steroids -Holding home Lisinopril as also may be contributing to hyponatremia -Continue to monitor #AAA-was to have AAA repair the day after admission which is now cancelled. AAA is 4.9 cm and with circumferential thrombus and plaque on CT from 06/2024 Continue ASA, statin and reschedule with Vascular Surgery #Hyperlipidemia: Chronic -Continue Atorvastatin #Depression-stable -Continue Sertraline 50mg po qAM #GERD -continue PPI DVT proph-SQ Lovenox Dispo-dc to [facility] tomorrow-I performed a Peer to Peer and got SNF denial overturned on 08/16 Admission and Anticipated Discharge Date Admission Date: August 11, 2024 Results & Data Results & Data Vital Signs (Past 12 Hours) Vital Signs Temp Pulse Resp BP Pulse Ox O2 Del Method 08/16/24 14:33 36.8 C 79 18 132/83 92 Room Air 08/16/24 12:13 36.5 C 88 16 126/82 94 Room Air 08/16/24 09:25 Room Air PG Care Time/CCT Total # of Minutes Spent Total Time Spent with Patient: Total time spent is greater than 50% in coordination of care (as documented) at patient's floor/unit and/or counseling patient: Coding Level of Care Code 87474 SUB INP/OBS CARE MIN Diagnoses Enteritis K52.9 Acute conjunctivitis of left eye H10.32 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 Interstitial lung disease J84.9 Hyponatremia E87.1
[2024-08-16] MEDS ORDERED: guaiFENesin/DEXTROM SYRUP 200MG/20MG 10ML UDC PO PRN (21:09)
[2024-08-16] MEDS ORDERED: COUGH DROP (SUGAR FREE) LOZ 24 LOZ/1 BOX BUCCAL PRN (21:09)
[2024-08-17 07:28] VITALS: BP 163/83; TEMP 97.9; O2SAT 93
--- NOTE | 2024-08-17 09:49 | Discharge Summary ---
Discharge Summary Date of Service August 17, 2024 Principal Dx & Hospital Course #1 = Principal Diagnosis (1) Enteritis: (2) Acute conjunctivitis of left eye: (3) Steroid dependent: (4) Interstitial lung disease: (5) Hyponatremia: Plan This pt is an 79yo male with a h/o RA on Prednisone, ILD, HTN, CAD, depression, post-herpetic neuralgia, and GERD presenting from home with generalized weakness, poor oral intake and diarrhea. He has had multiple admissions and has been declining over a few months. He reports a 10 lb weight loss before admission. #Generalized weakness/Viral gastroenteritis?/Hypomagnesemia/Relative adrenal insufficiency-appeared somewhat clinically dry on exam with dry MM and dark colored urine on arrival. Otherwise labs are largely unremarkable. He has no leukocytosis, stable normochromic/normocytic anemia. Gl=013 which is near baseline, otherwise renal function and electrolytes are WNL. UA without bacteria. TSH is WNL Family reports they are unable to return to the hospital at this time and are uncomfortable taking him home. Biofire panel negative for respiratory illness but no Stool PCR checked. Was given IVFs and stress dose steroids. Much improved now, gaining weight back, eating, more energy, but needs PT/rehab Magnesium replaced and now back on home prednisone dose #Acute conjunctivitis-Resolved with gentamicin eyedrops over 3 days. Gentamicin eyedrops have now been discontinued #Hyponatremia-Na+ 129 on admission and now improved after IVF hydration and stress dose steroids to 135. Previously thought to be from his HCTZ or from his sertraline but is tolerating sertraline now. HCTZ discontinued -follow BMP in 1 week at rehab -remain off HCTZ #BPH w/ LUTS and retention-had retention previous admission and then passed TOV at Urology office 07/21. Had cystoscopy 08/02 with Urology which revealed large prostate and moderate obstruction but PVR 200mL then. Has been on flomax. Powers place in ED this admission for retention-unclear amount -Continue Flomax -maintain Powers in place, would attempt TOV at SNF in 1 week after more mobile -f/u with Urology as outpt #Interstitial pulmonary fibrosis on chronic prednisone: Thought to be 2/2 RA. Patient's CXR with fibrosis. He denies fever or worsening cough. No leukocytosis. Follow with PULM as outpt #Hypertension: BPs now normal to mildly elevated after stress dose steroids -home Lisinopril was held by previous hospitalist as also may be contributing to hyponatremia, but BPs rising and doubtful this is the cause-resume on discharge -Continue to monitor BPs #AAA-was to have AAA repair the day after admission which is now cancelled. AAA is 4.9 cm and with circumferential thrombus and plaque on CT from 06/2024 Continue ASA, statin and reschedule with Vascular Surgery after discharge #Hyperlipidemia: Chronic -Continue Atorvastatin #Depression-stable -Continue Sertraline 50mg po qAM #GERD -continue PPI DVT proph-SQ Lovenox Dispo-dc to [facility] today-I performed a Peer to Peer and got SNF denial overturned on 08/16 Notes For Next Care Provider Check BMP in 1 week Needs to reschedule AAA repair Medication Changes From Visit Discontinue HCTZ Added magnesium chloride 64 mg po hs Admission HPI Per Admitting Provider Arun Knutson is a pleasant 79yo male with history of ILD, HTN, GERD presenting from home with several days of poor oral intake, generalized weakness and lethargy. Today his home health services reportedly found him still in bed in the afternoon and covered with diarrhea. Patient additionally reports red, itchy eyes with drainage over the last several days. Otherwise he denies fever, chills, chest pain, palpitations, abdominal pain, nausea, vomiting. He has a chronic, dry cough but denies worsening of this. He has had no sick contacts or recent travel. No exposure to farm animals/birds/raw milk. In the ER patient is afebrile, tachycardic ER Course: NSS x 1L Ciprofloxacin eye drops Per record reviews - patient's daughter reported several months of poor appetite, runny nose, cough, confusion and memory loss. She was requesting black mold testing. Patient was to have AAA repair performed by Dr. Paige tomorrow, however, his surgery has been cancelled. Discharge Exam Constitutional WD/WN, vitals as above Respiratory normal respiratory effort Auscultation: + crackles (lower lung yeung); no rhonchi and no wheezes Cardiovascular RRR, no murmur, no edema Gastrointestinal (Abdomen) normal bowel sounds, soft, nontender, no hepatosplenomegaly Psychiatric A+Ox3, euthymic affect Discharge Plan Discharge Items Patient Disposition: Transfer Shelter Fac Reason For Visit: WEAKNESS Discharge Diagnosis: Suspected viral gastroenteritis, relative adrenal insufficiency Generalized weakness Activity: As commented below Lifting: Gradually increase as tolerated Bathing: No limitations Exercise/Sports: Gradually increase as tolerated Exercise Comment: With PT/OT Non-emergency contact: Primary Care Provider Call non-emergency contact if: you have any medication questions and your symptoms worsen Follow-up/Referrals: Rosanna Torres, [Primary Care Provider] - (Follow-up within 2 weeks after discharge from rehab) Diet: Regular Addtl Attending Provider Instructions: You were admitted with dehydration and diarrhea and low blood pressures as well as mildly worsened low sodium level. This all improved with IV fluid hydration and stress dose steroids. You will need rehab for strengthening before he can return home. Please check a BMP in 1 week to ensure sodium is staying around the baseline level of 130-135. Your HCTZ will be discontinued. You had recurrent urinary retention and a Powers catheter will remain in place. Please perform a trial of void in 1 week and if you fail this, please return to the urologist for further evaluation. You will need to reschedule your vascular surgery with Dr. Paige in the near future. Pending Studies at Discharge: No Stand-Alone Forms: My [facility] Skilled Items Patient informed of condition?: Yes DNR: No Discharge Level of Care: Skilled Communicable Disease: No Discharge Prognosis: Improving Lines: None Urinary Catheter: Yes Medications and DC Order Prescriptions: New magnesium chloride [Mag 64] 64 mg Tablet,Delayed Release (Dr/Ec) 64 mg PO HS Qty: 30 0RF Continued gabapentin 300 mg capsule 300 mg PO HS Qty: 90 3RF (DME) Oxygen Home Liters Per Minute See Rx Instructions .MEDSUPPLY Qty: 1 0RF Rx Instructions: Home Oxygen concentrator with portability, test for conserving device. 0LMP via n/c at rest and 2LPM via n/c with exertion/sleep; KHUSHI 99. (DME) Portable Oxygen Misc See Rx Instructions .ROUTE .MEDSUPPLY Qty: 1 0RF Rx Instructions: Use 2L NC with exertion (prefers inogen or something similar) prednisone 5 mg tablet 5 mg PO QAM aspirin [Aspirin Childrens] 81 mg Tablet,Chewable 81 mg PO QAM Rx Instructions: take with food omeprazole 20 mg capsule,delayed release(DR/EC) 20 mg PO QAM atorvastatin 10 mg tablet 10 mg PO QAM multivitamin [Daily-Dolores] Tablet 1 tab PO QAM acetaminophen 325 mg Tablet 650 mg PO Q4H PRN (Reason: fever > 100.5 or pain) naproxen 500 mg Tablet 500 mg PO QAM lisinopril 20 mg tablet 20 mg PO QAM tamsulosin [Flomax] 0.4 mg capsule 0.4 mg PO QAM sertraline 50 mg tablet 50 mg PO QAM Rx Instructions: Take 1/2 tab PO daily x 6 days, then 1 tab PO daily Discharge Orders: Discharge Order (Routine); Ordered 08/17/24 Ordered By: Rafaela Almazan Admission Data Admit Date/Time: 08/11/24 12:28 Attending Provider: Rafaela Almazan Admit Provider: Val Moody Primary Care Provider: Rosanna Torres. Other Providers: Bebo Roland [facility] Hospital Stay Data Pending Results Patient Have Any Pending Studies at Discharge: No Discharge Instructions Given to Patient (Per Discharging Provider) You were admitted with dehydration and diarrhea and low blood pressures as well as mildly worsened low sodium level. This all improved with IV fluid hydration and stress dose steroids. You will need rehab for strengthening before he can return home. Please check a BMP in 1 week to ensure sodium is staying around the baseline level of 130-135. Your HCTZ will be discontinued. You had recurrent urinary retention and a Powers catheter will remain in place. Please perform a trial of void in 1 week and if you fail this, please return to the urologist for further evaluation. You will need to reschedule your vascular surgery with Dr. Paige in the near future. Total Time Total Time Spent Total Time Spent (In Minutes): 35 min Total Time Includes: Examination of the Patient, Discharge Planning and Medication Reconciliation Coding Level of Care Code 72398 INP/OBS DISCH >30 MIN Diagnoses Enteritis K52.9 Acute conjunctivitis of left eye H10.32 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 Interstitial lung disease J84.9 Hyponatremia E87.1
[2024-08-17 09:50] VITALS: PULSE 71
== END 2024-08-17 11:36 | DRG 392 ==
LOC: ED 14:49 → 3W 14:49 → SUATTDRO 22:29 → 3W 23:15 → SUATTDRO 08-11 12:28

== ENCOUNTER 2024-10-18 11:22 | Inpatient (IN) ==
--- NOTE | 2024-10-18 11:57 | Emergency Department Note ---
History of Present Illness General Chief complaint: Fall Time Seen by Provider: 10/18/24 11:39 History of Present Illness Maximum Pain Intensity: 6 This is an 79-year-old male that presents to the emergency department via EMS with complaints of "fall, right hip pain". The patient notes that he was ambulating in [employer] parking lot. He notes that he then lost his balance, fell backwards striking his head and injuring his right hip. He notes there is no headache or neck pain. No chest pain or abdominal pain. No back pain. Only area of pain is the right hip. He denies any numbness or tingling. He denies any anticoagulant use. Home Medications Medication Instructions Recorded Confirmed Type Oxygen Home #1 ea 07/02/23 09/29/24 Rx Portable Oxygen #1 ea 06/14/24 09/29/24 Rx acetaminophen 325 mg tablet 650 mg PO Q4H PRN fever > 100.5 or 07/15/24 10/18/24 History pain aspirin 81 mg chewable tablet 81 mg PO QAM 07/15/24 10/18/24 History (Aspirin Childrens) multivitamin (Daily-Dolores tablet) 1 tab PO QAM 07/15/24 10/18/24 History tamsulosin 0.4 mg capsule (Flomax) 0.4 mg PO QAM 08/06/24 10/18/24 History albuterol sulfate 90 mcg/actuation 2 puff inhalation Q6H PRN 08/25/24 10/18/24 History aerosol inhaler shortness of breath or wheezing magnesium oxide 400 mg PO BIDWMEAL 08/25/24 10/18/24 History atorvastatin 10 mg tablet 10 mg PO QAM #90 tabs 08/31/24 10/18/24 Rx gabapentin 300 mg capsule 300 mg PO HS #90 caps 08/31/24 10/18/24 Rx prednisone 5 mg tablet 5 mg PO QAM #90 tabs 08/31/24 10/18/24 Rx omeprazole 20 mg capsule,delayed 20 mg PO QAM #90 caps 09/10/24 10/18/24 Rx release naproxen 500 mg tablet 500 mg PO QAM #90 tabs 09/22/24 10/18/24 Rx nystatin 100,000 unit/gram topical 1 applic topical BID #30 grams 09/23/24 10/18/24 Rx cream sertraline 100 mg tablet 100 mg PO QAM #90 tabs 09/23/24 10/18/24 Rx lisinopril 20 mg tablet 20 mg PO QAM 10/18/24 10/18/24 History Allergies Allergy/AdvReac Type Severity Reaction Status Date / Time No Known Allergies Allergy Verified 09/29/24 14:58 Past Med/Surg History Problem List (Updated 10/18/24 @ 22:24 by Santos Martínez PA-C) Intramuscular hematoma (Acute) Fall (Acute) Intertrochanteric fracture of right femur (Acute) Closed right hip fracture Encounter for preoperative assessment (Acute) AAA (abdominal aortic aneurysm) Chronic hypoxic respiratory failure Carotid artery disease BPH (benign prostatic hyperplasia) (Chronic) 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) Renal cyst (Chronic) Tremor (Acute) Mild anemia Hyponatremia Depression Immunocompromised state (Acute) Urinary retention Essential tremor Gait disturbance Pulmonary emphysema Interstitial lung disease (Acute) Coronary artery calcification GERD without esophagitis Rheumatoid arthritis Pulmonary nodules Interstitial pulmonary fibrosis Hypertension Medical History Right rib fracture Status post fall Non-compliant behavior Unintended weight loss On home oxygen therapy 2L continuous Aneurysm of infrarenal abdominal aorta Hx of fracture of rib 06/27/24, x3 ribs, ongoing mild pain Pulmonary emphysema Pulmonary nodules Interstitial lung disease f/u dr. lafleur, [facility]. Chronic cough Hypoxia O2 2L continous Exercise hypoxemia Post herpetic neuralgia Pneumonia hx 06/2024 Surgical History Hx of colonoscopy S/P cataract surgery rt/lt History of tonsillectomy and adenoidectomy History of cholecystectomy (2000) Family History Other Adopted Social History Smoking Status: Former smoker Tobacco Type: Cigarettes Age Started Using Tobacco: 14; Age Quit Using Tobacco: 54; packs per day: 2; Smoking End Date: 1999; Second Hand Exposure: No; Do You Dip or Chew Tobacco: No; Tobacco Cessation Education Requested by Patient: No Hx Alcohol Use: No Hx Substance Use: No Preferred Language: Slovenian Communication Ability: Effective Visual Impairment: No Limitations Hearing Ability: Normal County Attorney Required: No Beliefs That Will Affect Care: None marital status: Current Living Situation: Alone current occupational status: retired 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 [employer] Other Information That Helps Us Care for You: No Feels Safe at Home: Yes Safety Concerns: Feels Safe At This Time Childhood Exposure to Second-Hand Smoke: Yes Diet: regular Diet Comment: regular caffeine: Yes (coffee x 2-3 per day.) during the past year weight has: decreased > 10 lbs Dental Care, Regularly: Yes Physical Activity Frequency: Daily Physical Activity Frequency Comment: walk Seatbelt Use: always Sunscreen Use: Yes Assistive Devices: Cane, Denture - Upper, Denture - Lower, Hearing Aid - Bilateral and Walker Review of Systems A total of 10 systems reviewed and were otherwise negative Physical Exam Vital Signs Vital Signs - 24 hr 10/18/24 11:26 10/18/24 11:51 10/18/24 11:58 Temperature 36.6 C Temperature Source Oral Pulse Rate 80 90 Pulse Rate [Apical] Respiratory Rate 20 Blood Pressure 115/83 Blood Pressure [Left Arm] Blood Pressure Mean 93 Blood Pressure Mean [Left Arm] Pulse Oximetry 93 98 Oxygen Delivery Method Room Air Room Air Sepsis Recent Fever Within 48 Hours No Sepsis New/Unexplained Change in Mental Status N/A Sepsis Action Taken by Nursing No Action Required 10/18/24 13:36 Temperature Temperature Source Pulse Rate Pulse Rate [Apical] 81 Respiratory Rate 22 Blood Pressure Blood Pressure [Left Arm] 126/81 Blood Pressure Mean Blood Pressure Mean [Left Arm] 96 Pulse Oximetry 94 Oxygen Delivery Method Room Air Sepsis Recent Fever Within 48 Hours Sepsis New/Unexplained Change in Mental Status Sepsis Action Taken by Nursing VITAL SIGNS - Vital signs and nursing notes were reviewed. Stable and afebrile. GENERAL -79-year-old male appearing his stated age. Communicates well with provider and answers questions appropriately. SKIN - Gross examination of the entire body surface demonstrates no lacerations to the body surface. Tiny abrasion to the superior, right occipital region. HEAD - Normocephalic.No Roth's Sign or Raccoon's Eyes. No depressed skull fractures palpable. EYES - PERRL with EOMI bilaterally. Without subconjunctival hemorrhage. Palpebral conjunctiva pink and moist with no injection. EARS - No deformities of external structures noted on gross examination bilaterally. No hemotympanum present. No tympanic perforation noted. Handle of malleus, umbo, cone of light, pars tensa/flaccid all easily visualized. NOSE - Midline and without cyanosis. No epistaxis or clear watery discharge noted. Septum midline without deviation. No septal hematoma noted. No overlying ecchymosis noted. MOUTH/OROPHARYNX - Without perioral cyanosis. Tongue midline with equal elevation of palate bilaterally. No blood noted in the oropharynx. No tonsillar hypertrophy, erythema, or exudates noted. No dental fractures noted. NECK -no tenderness to palpation over the cervical spinous processes. No cervical paraspinal muscle tenderness noted. LUNGS -clear to auscultation. CARDIAC - RRR ABDOMEN - Abdominal contour normal and without pulsations or visible masses. BS normoactive all four quadrants. No EXTREMITIES - right leg is shortened and externally rotated. Right lateral hip tenderness with palpable hematoma. The right leg is overall soft without evidence of compartment syndrome. Extremities appropriately warm and well- perfused. +5/5 strength noted in UE/LE bilaterally. NEUROLOGIC - Cranial nerves II through XII grossly intact. Sensory intact throughout the extremities without deficit. PSYCH -alert, oriented and pleasant on exam Course Administered Medications Acetaminophen (Acetaminophen 500 Mg Tab) 1,000 mg PO Q8H PRN PRN Reason: fever > 100.5 or pain Stop: 11/17/24 13:36 Last Admin: 10/18/24 19:33 Dose: 1,000 mg Documented By: MARIANELA Gabapentin (Gabapentin 300 Mg Cap) 300 mg PO HS [facility] Stop: 11/17/24 20:59 Last Admin: 10/18/24 20:39 Dose: 300 mg Documented By: MARIANELA Sodium Chloride (Nss) 1,000 mls @ 80 mls/hr IV .[id number] [facility] Stop: 10/19/24 16:14 Last Admin: 10/18/24 15:54 Dose: 80 mls/hr Documented By: HANH Magnesium Oxide (Magnesium Oxide 400 Mg Tab) 400 mg PO BIDM SAMMY Stop: 11/17/24 16:59 Last Admin: 10/18/24 17:26 Dose: 400 mg Documented By: HANH Nicotine Polacrilex (Nicotine Polacrilex 2 Mg Gum) 1 piece MT Q2H PRN PRN Reason: Cravings Stop: 11/17/24 19:21 Last Admin: 10/18/24 19:33 Dose: 1 piece Documented By: MARIANELA Nystatin (Nystatin Cr 15 Gm Tube) 1 appln EXT BID SAMMY Stop: 11/17/24 20:59 Last Admin: 10/18/24 20:40 Dose: 1 appln Documented By: MARIANELA Discontinued Medications Hydromorphone HCl (Hydromorphone Inj 0.5 Mg/0.5 Ml Syr) 0.5 mg IV NOW STA Stop: 10/18/24 13:09 Last Admin: 10/18/24 13:35 Dose: 0.5 mg Documented By: DREAD Ceftriaxone Sodium (Rocephin) 1,000 mg in 50 mls @ 100 mls/hr IV NOW STA Stop: 10/18/24 14:26 Last Infusion: 10/18/24 15:09 Dose: Infused Documented By: Admin: 10/18/24 14:39 Dose: 100 mls/hr Documented By: NATALIE Sodium Chloride (Nss) 1,000 mls @ 999 mls/hr IV .Q1H1M [facility] Stop: 10/18/24 15:05 Last Admin: 10/18/24 15:34 Dose: Not Given Documented By: HANH Medical Decision Making Laboratory Data 10/18/24 14:29 10/18/24 11:35 Lab Results 10/18/24 10/18/24 Range/Units 11:35 13:10 WBC 12.40 H (4.8-10.8) K/ul RBC 4.48 L (4.70-6.10) M/uL Hgb 12.9 L (14.0-18.0) g/dl Hct 39.3 L (42.0-52.0) % MCV 87.7 (80.0-100.0) fL MCH 28.8 (25.0-34.0) pg MCHC 32.8 (32.0-36.0) g/dL RDW Std Deviation 52.4 H (36.4-46.3) fL RDW Coeff of Carl 16.2 H (11.5-14.5) % Plt Count 161 (130-400) K/uL MPV 8.7 L (9.4-12.4) fL Immature Gran % (Auto) 1.7 % Neut % (Auto) 77.4 % Lymph % (Auto) 12.9 % Stark % (Auto) 5.6 % Eos % (Auto) 1.8 % Baso % (Auto) 0.6 % Neut # (Auto) 9.60 H (1.40-6.50) K/uL Lymph # (Auto) 1.60 (1.20-3.40) K/uL Stark # (Auto) 0.70 H (0.11-0.59) K/uL Eos # (Auto) 0.22 (0.00-0.50) K/uL Baso # (Auto) 0.07 (0.00-0.20) K/uL Immature Gran # (Auto) 0.21 H (0.01-0.20) K/uL PT 11.1 (9.0-12.0) Seconds INR 1.0 (0.9-1.1) APTT 26 (21-31) Seconds PTT Ratio 1.0 Sodium 137 (136-145) mmol/L Potassium 4.0 (3.5-5.1) mmol/L Chloride 102 (98-107) mmol/L Carbon Dioxide 31 (21-32) mmol/L Anion Gap 4 (3-11) BUN 20 (6-23) mg/dl Creatinine 0.71 (0.6-1.4) mg/dl Est Cr Clr Drug Dosing 79.1 ml/min eGFR 92.17 BUN/Creatinine Ratio 28.2 H (10-20) Glucose 94 (70-99(Fasting)) mg/dl Calcium 8.7 (8.6-10.3) mg/dl Total Bilirubin 0.3 (0.2-1.0) mg/dl AST 24 (13-39) U/L ALT 18 (7-52) U/L Alkaline Phosphatase 89 (34-104) U/L Total Protein 6.8 (6.0-8.3) gm/dl Albumin 3.3 L (3.4-5.0) gm/dl Globulin 3.5 (2.5-4.0) gm/dl Albumin/Globulin Ratio 0.9 (0.9-2) Urine Color Yellow Urine Appearance Turbid A (Clear) Urine pH 8.5 H (4.5-7.5) Ur Specific [place] 1.017 (1.000-1.030) Urine Protein Trace H (Negative) Urine Glucose (UA) Negative (Negative) Urine Ketones Trace H (Negative) Urine Blood Negative (Negative) Urine Nitrite Negative (Negative) Urine Bilirubin Negative (Negative) Urine Urobilinogen Negative (Negative) Ur Leukocyte Esterase 1+ H (Negative) Urine WBC (Auto) 6-10 H (0-5) /hpf Urine RBC (Auto) 0-2 (0-2) /hpf U Hyaline Cast (Auto) 0-2 (0-2) /lpf U Epithel Cells (Auto) 0-2 (0-2) /hpf Urine Bacteria (Auto) 4+ H (None Seen) Imaging Data Radiologist's Impression: Cervical Spine CT 10/18/24 11:56 CT SCAN OF THE CERVICAL SPINE CLINICAL HISTORY: Fall. COMPARISON STUDY: None. TECHNIQUE: CT scan of the cervical spine is performed from the skull base to the upper thoracic spine. Images are reviewed in the axial, sagittal, and coronal planes. IV contrast was not administered for this examination. A dose lowering technique was utilized adhering to the principles of ALARA. FINDINGS: Skeletal structures: There are no fractures within the cervical spine. Slight anterolisthesis of C6 on C7 and C7 on T1 is due to facet arthrosis. Vertebral body height and alignment are maintained. The odontoid process and lateral masses are intact. The atlantoaxial articulation is preserved. The spinous processes appear intact. There is moderate multilevel disc space narrowing and facet arthrosis within the cervical spine. Soft tissues: The prevertebral and paraspinous soft tissues are within normal limits. Calvarium: The visualized calvarium at the skull base appears intact. Brain parenchyma and skull base: Partially visualized brain parenchyma at the skull base is within normal limits. Trace fluid within the left mastoid air cells. Lung apices: Evidence for interstitial lung disease within the lung apices. IMPRESSION: No acute cervical spine fracture or subluxation. ACT 112: Negative or not required by law. Electronically signed by: Jon Valladares M.D. 10/18/2024 12:48 PM Chest X-Ray 10/18/24 11:56 XR chest 1V portable HISTORY: 79 years-old Male Fall acute chest trauma status post fall COMPARISON: 08/13/2024 TECHNIQUE: AP view of the chest FINDINGS: Cardiac silhouette is enlarged. Unchanged right hemidiaphragmatic elevation. Chronic interstitial lung disease with fibrosis again most pronounced in the left lung base. No pneumothorax, large pleural effusion or new airspace consolidation. Right upper quadrant surgical clips. The bones appear grossly intact. IMPRESSION: 1. Cardiomegaly without acute posttraumatic abnormality identified. 2. Chronic pulmonary fibrosis. ACT 112: Negative or not required by law. The above report was generated using voice recognition software. It may contain grammatical, syntax or spelling errors. Electronically signed by: Lalit Lopez M.D. 10/18/2024 12:[address] 10/18/24 11:56 CT head/brain wo con CLINICAL HISTORY: 79 years-old Male with Fall, struck head. Acute head trauma status post fall TECHNIQUE: Multiple axial CT images of the head were obtained without contrast. A dose lowering technique was utilized adhering to the principles of ALARA. CT DOSE: 1152.3 mGy.cm COMPARISON: 06/08/2024 FINDINGS: No acute intracranial hemorrhage, midline shift, intracranial mass, hydrocephalus, territorial ischemia or abnormal extra-axial collection. Involutional changes with white matter hypodensities redemonstrated suggestive of chronic microvascular ischemic disease. The calvarium is intact. Prior bilateral lens repair. The paranasal sinuses, mastoid air cells, and middle ear cavities are clear. IMPRESSION: No acute intracranial abnormality or calvarial fracture. ACT 112: Negative or not required by law. The above report was generated using voice recognition software. It may contain grammatical, syntax or spelling errors. Electronically signed by: Lalit Lopez M.D. 10/18/2024 12:50 PM Hip/Pelvis X-Ray 10/18/24 11:56 XR hip RT 2V w pelvis CLINICAL HISTORY: Fall, R hip pain COMPARISON: CT of the abdomen and pelvis June 26, 2024. FINDINGS: Sacroiliac joints and symphysis pubis are intact. There is an acute comminuted moderately displaced intertrochanteric fracture of the right femur. No additional fractures are identified. IMPRESSION: Acute comminuted moderately displaced intertrochanteric fracture of the right femur. ACT 112: Negative or not required by law. Electronically signed by: Jon Valladares M.D. 10/18/2024 12:[address] 10/18/24 12:12 CT hip RT wo con HISTORY: 79 years-old Male Fall, R hip fx acute right hip pain status post fall COMPARISON: Pelvis and hip radiographs of same day TECHNIQUE: Multiple axial CT images of the right hip were obtained without IV contrast. A dose lowering technique was used consistent with the principals of ROYA. FINDINGS: Confirmation of the acute and comminuted intertrochanteric right femoral fracture with the lesser trochanteric fracture fragment displaced medially approximately 1.7 cm. Moderate osteoarthritis of the right hip. No additional acute fracture or dislocation identified. There is moderate degeneration of the right SI joint. Intramuscular hematoma within the proximal quadriceps musculature measures up to approximately 16 cm in length, partially imaged. Surgical clips of the scrotum. There is a small right hip joint effusion/hemarthrosis. Colonic diverticulosis. Small right inguinal hernia. IMPRESSION: 1. Confirmation of the acute, comminuted and mildly displaced intertrochanteric right femoral fracture. 2. No dislocation. 3. Partially imaged intramuscular hematoma within the proximal quadriceps extends for a length of greater than 16 cm. ACT 112: Negative or not required by law. The above report was generated using voice recognition software. It may contain grammatical, syntax or spelling errors. Electronically signed by: Lalit Lopez M.D. 10/18/2024 1:10 PM Femur X-Ray 10/18/24 12:49 XR femur RT 2V routine HISTORY: 79 years-old Male R hip fx, assess remainder of femur acute pain of the right hip and proximal femur status post fall COMPARISON: CT right hip of same day TECHNIQUE: 2 views of the right femur FINDINGS: Arterial calcifications. Acute, comminuted and displaced intertrochanteric right femoral fracture. No extension of the femoral shaft. Moderate soft tissue swelling of the upper to mid thigh. Surgical clips project over the right scrotum. IMPRESSION: 1. Acute intertrochanteric right femoral fracture redemonstrated with adjacent soft tissue swelling. 2. No fracture extension into the femoral diaphysis. ACT 112: Negative or not required by law. The above report was generated using voice recognition software. It may contain grammatical, syntax or spelling errors. Electronically signed by: Lalit Lopez M.D. 10/18/2024 1:24 PM MDM Narrative Patient was seen and evaluated as above in room D02. Review was performed of triage nursing notes and vital signs. Patient presents to us today status post mechanical fall with right hip pain. He also struck his head. GCS 15. He is well-appearing and nontoxic on examination. Right hip is tender. Right lower extremity shortened and externally rotated. No open fracture. I offered the patient analgesia, he respectfully declined Options of care were discussed with the patient. CT imaging was obtained of the head and C-spine. Right hip x-rays were obtained. Right hip fracture noted. CT head and neck negative for acute process. I did add on CT right hip to further assess. Right femur also added. Case discussed with orthopedics, Dr. Mcdaniel at 12:48 PM. Plan will be medical admission, surgical intervention. Case discussed with the hospitalist service, please refer to further documentation regarding his stay. CT did result and there is a hematoma noted in addition to the fracture. Repeat assessments of the right lower extremity do not reveal any progressive enlargement of the extremity. He continues to be neurovascularly intact without deficit. No evidence of compartment syndrome After I discussed the case with the hospitalist service and hospitalist orders were in, I was called to bedside as there was what appeared to be brief episode of hypotension. IV fluids ordered by inpatient service. I did order i-STAT to recheck H&H and there was no concerning drop in hemoglobin which would likely cause this hypotensive state (12.9--> 10.8). Patient maintained good mentation throughout his brief episode of hypotension. He did receive IV Dilaudid prior to this however it is unclear if this was contributory. This will be closely monitored. The patient moved to resuscitation bay for close monitoring. Ultimately he was then taken upstairs to inpatient room. Case was discussed with the attending physician. A preoperative EKG was also obtained of this patient. This revealed per my interpretation sinus rhythm with PACs at a rate of 83 bpm. QTc 451. QRS 90. No ST elevation on this rhythm tracing. GCS: 15 In the evaluation and treatment of this patient the following differential diagnoses were entertained: Acute intracranial hemorrhage, skull fracture, hip fracture, hip dislocation., Hematoma, among others Impression & Plan Intertrochanteric fracture of right femur, Fall, Intramuscular hematoma Discharge Plan Visit Data Chief Complaint: Fall ED Provider: Isauro Barillas ED Midlevel Provider: Santos Martínez Discharge Problem: Intertrochanteric fracture of right femur, Fall, Intramuscular hematoma Patient Disposition: Admitted As Inpatient Condition: Good Discharge Instructions Interventions: ED Discharge Assessment Last Done: 10/18/24 14:56
[2024-10-18 12:19] LABS: Basophils # (auto) 0.07 K/uL (0.00-0.20); Basophils % (auto) 0.6 %; Eosinophils # (auto) 0.22 K/uL (0.00-0.50); Eosinophils % (auto) 1.8 %; Hematocrit (blood only) 39.3 % (42.0-52.0); Hemoglobin 12.9 g/dl (14.0-18.0); Immature Granulocytes # (auto) 0.21 K/uL (0.01-0.20); Immature Granulocytes % (auto) 1.7 %; Lymphocytes % (auto) 12.9 %; Mean Corpuscular Hemoglobin 28.8 pg (25.0-34.0); Mean Corpuscular Hgb Conc 32.8 g/dL (32.0-36.0); Mean Corpuscular Volume 87.7 fL (80.0-100.0); Mean Platelet Volume 8.7 fL (9.4-12.4); Monocytes % (auto) 5.6 %; Neutrophils % (auto) 77.4 %; Platelet Count 161 K/uL (130-400); RDW Coefficient of Variation 16.2 % (11.5-14.5); RDW Standard Deviation 52.4 fL (36.4-46.3); Red Blood Count 4.48 M/uL (4.70-6.10)
--- NOTE | 2024-10-18 12:23 | XRay Report ---
XR hip RT 2V w pelvis CLINICAL HISTORY: Fall, R hip pain COMPARISON: CT of the abdomen and pelvis June 26, 2024. FINDINGS: Sacroiliac joints and symphysis pubis are intact. There is an acute comminuted moderately displaced intertrochanteric fracture of the right femur. No additional fractures are identified. IMPRESSION: Acute comminuted moderately displaced intertrochanteric fracture of the right femur. ACT 112: Negative or not required by law. Electronically signed by: Jon Valladares M.D. 10/18/2024 12:22 PM
--- NOTE | 2024-10-18 12:23 | XRay Report ---
XR chest 1V portable HISTORY: 79 years-old Male Fall acute chest trauma status post fall COMPARISON: 08/13/2024 TECHNIQUE: AP view of the chest FINDINGS: Cardiac silhouette is enlarged. Unchanged right hemidiaphragmatic elevation. Chronic interstitial alexis g disease with fibrosis again most pronounced in the left lung base. No pneumothorax, large pleural e ffusion or new airspace consolidation. Right upper quadrant surgical clips. The bones appear grossly intact. IMPRESSION: 1. Cardiomegaly without acute posttraumatic abnormality identified. 2. Chronic pulmonary fibrosis. ACT 112: Negative or not required by law. The above report was generated using voice recognition software. It may contain grammatical, syntax o r spelling errors. Electronically signed by: Lailt Lopez M.D. 10/18/2024 12:22 PM
[2024-10-18 12:41] LABS: Partial Thromboplastin Time 26 Seconds (21-31); Prothrombin Time 11.1 Seconds (9.0-12.0)
--- NOTE | 2024-10-18 12:44 | History & Physical Report ---
Date of Service October 18, 2024 Assessment & Plan (1) Closed right hip fracture: Plan: #Right Hip Fracture Mechanical fall with acute fracture and hematoma formation. Ortho consulted - appreciate recs. Likely ORIF tomorrow. NPO at midnight. Tylenol 1 g Q8H SAMMY, Antiemetics on board Caution with opioids NPO @ midnight for probable ORIF PT/OT ordered for post-operative period ortho consulted #Hypotension Patient with an episode of hypotension about 30 minutes after he was given Dilaudid 0.5 mg. Will hold on narcotics for now. Improved with Trendelenburg and 1L IVF. H&H stable - did send type/screen. Judicious opioids if needed IVF @ 80 mL/hr if persistently hypotensive may need to hold BP meds #Rheumatoid Arthritis #Chronic Steroid Use Patient on 5 mg prednisone daily. Will check AM cortisol if > 10 likely minimal HPA axis suppression and will not need stress dosing. If < 10 will need to stress dose. #Urinary Retention #Recent UTI Patient with recent UTI with indwelling catheter adequately treated. Powers placed on admission - urine with foul odor. UA with culture sent. CTX empirically added. CTX f/u culture #HTN Continue home meds (2) Steroid dependent: (3) Chronic hypoxic respiratory failure: (4) Rheumatoid arthritis: (5) Hypertension: (6) Urinary retention: Plan Code status: full DVT ppx: pre-op, defer for now with developing hematoma FENGI: HH, NPO @ midnight, nutrition consulted, IVF @ 80 mL/hr x 2 L Dispo: PCU/Tele Lines: Powers placed 10/18, will need voiding trial prior to d/c History of Present Illness Chief Complaint: fall Primary Care Provider: Rosanna Torres, DO 79 y/o with a PMHx of HTN, rheumatoid arthritis on chronic prednisone, BPH with LUTS and urinary retention, CAD, HLD presents after a fall. Patient fell backwards striking his head in the [employer] parking loss. No LOC. No headache or vision changes. No CP or SOB. Pain isolated to the right hip. Otherwise feeling fine. No constipation history. Does have a history of BPH and prior urinary retention. Was recently treated for a CAUTI, Powers placed in the ED. Found to have an acute comminuted and displaced intertrochanteric right femoral fracture without extension of the femoral shaft. Ortho rec admission for surgical intervention - hospitalist team consulted for admission. Allergies Allergy/AdvReac Type Severity Reaction Status Date / Time No Known Allergies Allergy Verified 09/29/24 14:58 Home Medications Medication Instructions Recorded Confirmed Type Oxygen Home #1 ea 07/02/23 09/29/24 Rx Portable Oxygen #1 ea 06/14/24 09/29/24 Rx acetaminophen 325 mg tablet 650 mg PO Q4H PRN fever > 100.5 or 07/15/24 10/18/24 History pain aspirin 81 mg chewable tablet 81 mg PO QAM 07/15/24 10/18/24 History (Aspirin Childrens) multivitamin (Daily-Dolores tablet) 1 tab PO QAM 07/15/24 10/18/24 History tamsulosin 0.4 mg capsule (Flomax) 0.4 mg PO QAM 08/06/24 10/18/24 History albuterol sulfate 90 mcg/actuation 2 puff inhalation Q6H PRN 08/25/24 10/18/24 History aerosol inhaler shortness of breath or wheezing magnesium oxide 400 mg PO BIDWMEAL 08/25/24 10/18/24 History atorvastatin 10 mg tablet 10 mg PO QAM #90 tabs 08/31/24 10/18/24 Rx gabapentin 300 mg capsule 300 mg PO HS #90 caps 08/31/24 10/18/24 Rx prednisone 5 mg tablet 5 mg PO QAM #90 tabs 08/31/24 10/18/24 Rx omeprazole 20 mg capsule,delayed 20 mg PO QAM #90 caps 09/10/24 10/18/24 Rx release naproxen 500 mg tablet 500 mg PO QAM #90 tabs 09/22/24 10/18/24 Rx nystatin 100,000 unit/gram topical 1 applic topical BID #30 grams 09/23/24 10/18/24 Rx cream sertraline 100 mg tablet 100 mg PO QAM #90 tabs 09/23/24 10/18/24 Rx lisinopril 20 mg tablet 20 mg PO QAM 10/18/24 10/18/24 History Past Med/Surg History Problem List (Updated 10/18/24 @ 13:40 by Aissatou Gee MD) Closed right hip fracture Encounter for preoperative assessment (Acute) AAA (abdominal aortic aneurysm) Chronic hypoxic respiratory failure Carotid artery disease BPH (benign prostatic hyperplasia) (Chronic) 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) Renal cyst (Chronic) Tremor (Acute) Mild anemia Hyponatremia Depression Immunocompromised state (Acute) Urinary retention Essential tremor Gait disturbance Pulmonary emphysema Interstitial lung disease (Acute) Coronary artery calcification GERD without esophagitis Rheumatoid arthritis Pulmonary nodules Interstitial pulmonary fibrosis Hypertension Medical History (Updated 10/18/24 @ 13:40 by Aissatou Gee MD) Right rib fracture Status post fall Non-compliant behavior Unintended weight loss On home oxygen therapy 2L continuous Aneurysm of infrarenal abdominal aorta Hx of fracture of rib 06/27/24, x3 ribs, ongoing mild pain Pulmonary emphysema Pulmonary nodules Interstitial lung disease f/u dr. lafleur, [facility] pul[facility]. Chronic cough Hypoxia O2 2L continous Exercise hypoxemia Post herpetic neuralgia Pneumonia hx 06/2024 Surgical History Hx of colonoscopy S/P cataract surgery rt/lt History of tonsillectomy and adenoidectomy History of cholecystectomy (2000) Family History Other Adopted Social History Smoking Status: Never smoker Tobacco Type: Cigarettes Age Started Using Tobacco: 14; Age Quit Using Tobacco: 54; packs per day: 2; Second Hand Exposure: No; Do You Dip or Chew Tobacco: No; Hx Alcohol Use: Yes Alcohol type: beer Alcohol Intake Frequency: 2-3 x/Week Hx Substance Use: No Preferred Language: Estonian Communication Ability: Effective Visual Impairment: No Limitations Hearing Ability: Normal Grain Shipper Required: No Beliefs That Will Affect Care: None marital status: Current Living Situation: Alone current occupational status: retired 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 [employer] Feels Safe at Home: Yes Childhood Exposure to Second-Hand Smoke: Yes Diet: regular Diet Comment: regular caffeine: Yes (coffee x 2-3 per day.) during the past year weight has: decreased > 10 lbs Dental Care, Regularly: Yes Physical Activity Frequency: Daily Physical Activity Frequency Comment: walk Seatbelt Use: always Sunscreen Use: Yes Assistive Devices: Cane, Oxygen - Continuous and Walker Review of Systems 2 Review of Systems: See HPI Physical Exam 2 Physical Exam: Gen: well appearing patient in NAD HEENT: AT NC MMM Resp: CTAB no wheezing no increased work of breathing CV: RRR no m/r/g clinically well perfused Abd: +BS, soft, non-tender, non-distended MSK: RLE shortened and externally rotated, neurovascularly intact, thigh compartment is not tight Skin: no rashes or bruising Neuro: alert and oriented Psych: appropriate mood and affect Results & Data Results & Data Vital Signs (Past 12 Hours) Vital Signs Temp Pulse Resp BP Pulse Ox O2 Del Method 10/18/24 11:58 98 Room Air 10/18/24 11:51 90 10/18/24 11:26 36.6 C 80 20 115/83 93 Room Air Laboratory Results 10/18/24 11:35 10/18/24 11:35 Diagnostic Findings Cervical Spine CT 10/18/24 11:56 FINDINGS: Skeletal structures: There are no fractures within the cervical spine. Slight anterolisthesis of C6 on C7 and C7 on T1 is due to facet arthrosis. Vertebral body height and alignment are maintained. The odontoid process and lateral masses are intact. The atlantoaxial articulation is preserved. The spinous processes appear intact. There is moderate multilevel disc space narrowing and facet arthrosis within the cervical spine. Soft tissues: The prevertebral and paraspinous soft tissues are within normal limits. Calvarium: The visualized calvarium at the skull base appears intact. Brain parenchyma and skull base: Partially visualized brain parenchyma at the skull base is within normal limits. Trace fluid within the left mastoid air cells. Lung apices: Evidence for interstitial lung disease within the lung apices. IMPRESSION: No acute cervical spine fracture or subluxation. Chest X-Ray 10/18/24 11:56 FINDINGS: Cardiac silhouette is enlarged. Unchanged right hemidiaphragmatic elevation. Chronic interstitial lung disease with fibrosis again most pronounced in the left lung base. No pneumothorax, large pleural effusion or new airspace consolidation. Right upper quadrant surgical clips. The bones appear grossly intact. IMPRESSION: 1. Cardiomegaly without acute posttraumatic abnormality identified. 2. Chronic pulmonary fibrosis. Head CT 10/18/24 11:56 FINDINGS: No acute intracranial hemorrhage, midline shift, intracranial mass, hydrocephalus, territorial ischemia or abnormal extra-axial collection. Involutional changes with white matter hypodensities redemonstrated suggestive of chronic microvascular ischemic disease. The calvarium is intact. Prior bilateral lens repair. The paranasal sinuses, mastoid air cells, and middle ear cavities are clear. IMPRESSION: No acute intracranial abnormality or calvarial fracture. Hip/Pelvis X-Ray 10/18/24 11:56 FINDINGS: Sacroiliac joints and symphysis pubis are intact. There is an acute comminuted moderately displaced intertrochanteric fracture of the right femur. No additional fractures are identified. IMPRESSION: Acute comminuted moderately displaced intertrochanteric fracture of the right femur. Hip CT 10/18/24 12:12 FINDINGS: Confirmation of the acute and comminuted intertrochanteric right femoral fracture with the lesser trochanteric fracture fragment displaced medially approximately 1.7 cm. Moderate osteoarthritis of the right hip. No additional acute fracture or dislocation identified. There is moderate degeneration of the right SI joint. Intramuscular hematoma within the proximal quadriceps musculature measures up to approximately 16 cm in length, partially imaged. Surgical clips of the scrotum. There is a small right hip joint effusion/hemarthrosis. Colonic diverticulosis. Small right inguinal hernia. IMPRESSION: 1. Confirmation of the acute, comminuted and mildly displaced intertrochanteric right femoral fracture. 2. No dislocation. 3. Partially imaged intramuscular hematoma within the proximal quadriceps extends for a length of greater than 16 cm. Femur X-Ray 10/18/24 12:49 FINDINGS: Arterial calcifications. Acute, comminuted and displaced intertrochanteric right femoral fracture. No extension of the femoral shaft. Moderate soft tissue swelling of the upper to mid thigh. Surgical clips project over the right scrotum. IMPRESSION: 1. Acute intertrochanteric right femoral fracture redemonstrated with adjacent soft tissue swelling. 2. No fracture extension into the femoral diaphysis. Supervising Physician Co-Signing Physician Notes ATTESTATION I also saw the patient and confirmed balbuena portions of the history and exam. I agree with the impression and plan in the resident documentation, and as summarized below. Fell in parking lot this morning suffering fractured right hip. Pain fairly well controlled at rest at this time. EXAM VS stable Alert and oriented. NAD CV RRR Lungs CTA Mild rotation of RLE DATA Labs WBC 12.4 HgB 12.9 Sodium 137 Urine 1+ LE Imaging Reviewed Micro urine culture pending IMPRESSION & PLAN Right femur fracture History of urinary retention History of Hyponatremia Interstitial pulmonary fibrosis Chronic anemia RA Orthopedic consult appreciated; likely OR in AM Pain Control Powers placed, note history urinary retention Patient had episode of hypotension while in the ED. No complaints, but systolic dipped into the 60s. ISTAT HgB reassuring and BP responded to fluids bolus (now systolic 115 mm Hg). May have been secondary to pain medications given about 25 mins prior. Continue to monitor; will change to PCU Additional per resident documentation Resident Activity Tracking Resident Involvement: Resident Care Provided Care Provided: Adult Hospital Medicine
[2024-10-18 12:46] LABS: Albumin Globulin Ratio 0.9 (0.9-2); Albumin Level 3.3 gm/dl (3.4-5.0); BUN Creatinine Ratio 28.2 (10-20); Bilirubin,Total 0.3 mg/dl (0.2-1.0); Calcium 8.7 mg/dl (8.6-10.3); Creatinine Clr Calc Pharmacy 79.1 ml/min; Globulin 3.5 gm/dl (2.5-4.0); Total Protein 6.8 gm/dl (6.0-8.3)
--- NOTE | 2024-10-18 12:50 | CT Scan Report ---
CT SCAN OF THE CERVICAL SPINE CLINICAL HISTORY: Fall. COMPARISON STUDY: None. TECHNIQUE: CT scan of the cervical spine is performed from the skull base to the upper thoracic spine . Images are reviewed in the axial, sagittal, and coronal planes. IV contrast was not administered fo r this examination. A dose lowering technique was utilized adhering to the principles of ALARA. FINDINGS: Skeletal structures: There are no fractures within the cervical spine. Slight anterolisthesis of C6 o n C7 and C7 on T1 is due to facet arthrosis. Vertebral body height and alignment are maintained. The odontoid process and lateral masses are intact. The atlantoaxial articulation is preserved. The spin ous processes appear intact. There is moderate multilevel disc space narrowing and facet arthrosis wi thin the cervical spine. Soft tissues: The prevertebral and paraspinous soft tissues are within normal limits. Calvarium: The visualized calvarium at the skull base appears intact. Brain parenchyma and skull base: Partially visualized brain parenchyma at the skull base is within no rmal limits. Trace fluid within the left mastoid air cells. Lung apices: Evidence for interstitial lung disease within the lung apices. IMPRESSION: No acute cervical spine fracture or subluxation. ACT 112: Negative or not required by law. Electronically signed by: Jon Valladares M.D. 10/18/2024 12:48 PM
--- NOTE | 2024-10-18 12:52 | CT Scan Report ---
CT head/brain wo con CLINICAL HISTORY: 79 years-old Male with Fall, struck head. Acute head trauma status post fall TECHNIQUE: Multiple axial CT images of the head were obtained without contrast. A dose lowering tech nique was utilized adhering to the principles of ALARA. CT DOSE: 1152.3 mGy.cm COMPARISON: 06/08/2024 FINDINGS: No acute intracranial hemorrhage, midline shift, intracranial mass, hydrocephalus, territorial ischem ia or abnormal extra-axial collection. Involutional changes with white matter hypodensities redemonst rated suggestive of chronic microvascular ischemic disease. The calvarium is intact. Prior bilateral lens repair. The paranasal sinuses, mastoid air cells, and m iddle ear cavities are clear. IMPRESSION: No acute intracranial abnormality or calvarial fracture. ACT 112: Negative or not required by law. The above report was generated using voice recognition software. It may contain grammatical, syntax o r spelling errors. Electronically signed by: Lalit Lopez M.D. 10/18/2024 12:50 PM
--- NOTE | 2024-10-18 13:12 | CT Scan Report ---
CT hip RT wo con HISTORY: 79 years-old Male Fall, R hip fx acute right hip pain status post fall COMPARISON: Pelvis and hip radiographs of same day TECHNIQUE: Multiple axial CT images of the right hip were obtained without IV contrast. A dose loweri ng technique was used consistent with the principals of ROYA. FINDINGS: Confirmation of the acute and comminuted intertrochanteric right femoral fracture with the lesser tro chanteric fracture fragment displaced medially approximately 1.7 cm. Moderate osteoarthritis of the r ight hip. No additional acute fracture or dislocation identified. There is moderate degeneration of t he right SI joint. Intramuscular hematoma within the proximal quadriceps musculature measures up to approximately 16 cm in length, partially imaged. Surgical clips of the scrotum. There is a small right hip joint effusion /hemarthrosis. Colonic diverticulosis. Small right inguinal hernia. IMPRESSION: 1. Confirmation of the acute, comminuted and mildly displaced intertrochanteric right femoral fractur e. 2. No dislocation. 3. Partially imaged intramuscular hematoma within the proximal quadriceps extends for a length of gre ater than 16 cm. ACT 112: Negative or not required by law. The above report was generated using voice recognition software. It may contain grammatical, syntax o r spelling errors. Electronically signed by: Lalit Lopez M.D. 10/18/2024 1:10 PM
[2024-10-18 13:25] LABS: Appearance Urine Turbid (Clear); Bacteria Urine Automated 4+ (None Seen); Bilirubin Urine Negative (Negative); Blood Urine Negative (Negative); Cast Urine Automated 0-2 /lpf (0-2); Color Urine Yellow; Epithelial Cell Urine Auto 0-2 /hpf (0-2); Glucose Urine UA Negative (Negative); Ketones Urine Trace (Negative); Leukocyte Esterase Urine 1+ (Negative); Nitrite Urine Negative (Negative); Protein Urine Trace (Negative); RBC Urine Automated 0-2 /hpf (0-2); Specific Gravity Urine 1.017 (1.000-1.030); Urobilinogen Urine Negative (Negative); pH Urine 8.5 (4.5-7.5)
--- NOTE | 2024-10-18 13:26 | XRay Report ---
XR femur RT 2V routine HISTORY: 79 years-old Male R hip fx, assess remainder of femur acute pain of the right hip and proxi mal femur status post fall COMPARISON: CT right hip of same day TECHNIQUE: 2 views of the right femur FINDINGS: Arterial calcifications. Acute, comminuted and displaced intertrochanteric right femoral fracture. No extension of the femoral shaft. Moderate soft tissue swelling of the upper to mid thigh. Surgical cl ips project over the right scrotum. IMPRESSION: 1. Acute intertrochanteric right femoral fracture redemonstrated with adjacent soft tissue swelling. 2. No fracture extension into the femoral diaphysis. ACT 112: Negative or not required by law. The above report was generated using voice recognition software. It may contain grammatical, syntax o r spelling errors. Electronically signed by: Lalit Lopez M.D. 10/18/2024 1:24 PM
[2024-10-18] MEDS: HYDROmorphone INJ 0.5 MG/0.5 ML SYR IV STA (13:35)
[2024-10-18] MEDS ORDERED: ALBUTEROL HFA 8 GM INHALER INH PRN (13:37)
[2024-10-18] MEDS ORDERED: ACETAMINOPHEN 325 MG TAB PO PRN (13:37)
[2024-10-18] MEDS ORDERED: cefTRIAXone SODIUM 2,000 MG/50 ML BAG IV STA (13:56)
[2024-10-18] MEDS ORDERED: SODIUM CHLORIDE 0.9% 100 ML IV PRN (14:08)
[2024-10-18 14:25] LABS: iSTAT Creatinine 0.8 mg/dl (0.6-1.3); iSTAT Hemoglobin 11.6 g/dl (14.0-18.0); iSTAT Ionized Calcium 1.21 mmol/l (1.12-1.32); iSTAT Potassium 4.2 mmol/L (3.3-5.0)
[2024-10-18] MEDS: cefTRIAXone SODIUM 1,000 MG/50 ML BAG IV STA (14:39)
[2024-10-18 14:41] LABS: Hematocrit (blood only) 33.2 % (42.0-52.0); Hemoglobin 10.8 g/dl (14.0-18.0)
[2024-10-18] MEDS ORDERED: ALUMINUM/MAGNESIUM SUSP 30 ML UDC PO PRN (15:33)
[2024-10-18] MEDS ORDERED: MAGNESIUM HYDROXIDE SUSP 30 ML UDC PO PRN (15:33)
[2024-10-18] MEDS ORDERED: HYDROmorphone INJ 0.5 MG/0.5 ML SYR IV PRN (15:33)
[2024-10-18] MEDS ORDERED: ACETAMINOPHEN 500 MG TAB PO PRN (15:33)
[2024-10-18] MEDS: SODIUM CHLORIDE 0.9% 1,000 ML IV SCH ×2 (15:34→15:54)
[2024-10-18] MEDS: MAGNESIUM OXIDE 400 MG TAB PO SCH (17:26)
--- NOTE | 2024-10-18 18:18 | Orthopedic Consultation ---
Date of Consultation October 18, 2024 Assessment & Plan (1) Intertrochanteric fracture of right femur: Right intertrochanteric femur fracture, likely secondary to osteoporosis Multimodal pain control, ice hip PRN Bedrest, non-weightbearing to affected lower extremity until after surgery Admit to hospital under hospitalist service OR planned for 10/19/[address] Mcdaniel for open reduction internal fixation of the right hip Preoperative labs, EKG, chest x-ray NPO at midnight for planned surgery on 10/19/2024 Hold any anticoagulation for procedure Powers catheter while on bedrest Informed consent for surgery obtained today. We discussed the risk, benefits, and alternatives to surgery including but not limited to infection, blood loss, blood vessel or nerve damage, nonunion, malunion, hardware failure, need for additional procedures, pain, blood clot, heart attack, stroke, and even . We discussed alternatives to surgery including nonoperative management we discussed the risks with this including but not limited to pneumonia, bedsores, limited mobility, pain, nonunion or malunion of the fracture. We also discussed informed consent for possible blood transfusion if needed. Patient verbalized understanding, all questions were answered to his satisfaction. Written consent was signed. CM/SW for discharge planning Perioperative antibiotics and TXA ordered Recommend patient work with his primary care physician for possible osteoporosis including calcium and vitamin D supplementation, other medical treatments. This can be done as an outpatient postoperatively. This patient's history and exam as well as the plan were discussed with Dr. Mcdaniel who was in agreement. He will see the patient before surgery 2. Hypotension Management per medicine team, IV fluids as ordered per medicine Hemoglobin 12.9 on initial labs today, which appears to be near baseline 3. Rheumatoid arthritis Patient is on 5 mg prednisone daily. Medicine team will check a.m. cortisol and further manage as needed 4. Urinary retention with recent UTI Patient recently had a UTI which was treated. UA with culture has been sent today. Further management per medicine 5. Hypertension Management per medicine Patient is full code status Hold DVT prophylaxis Supervising Physician Co-Signing Physician Notes I saw and examined the patient, reviewed his x-ray findings, and agree with the above note. Patient has a displaced right intertrochanteric femur fracture with the lesser troches off. Surgery is indicated to restore his ability to ambulate and for comfort. Reviewed the risks and benefits of surgery, alternatives, and expected outcomes. He elects to proceed with surgery. Informed consent was signed. Surgical site was marked. Proceed to the operating room today. Readmit to internal medicine service after surgery. History of Present Illness Reason for Consultation: Right intertrochanteric femur fracture Attending Physician: Gee Fountain DO History of Present Illness This patient is an 79-year-old male with history of HTN, rheumatoid arthritis on chronic prednisone, BPH, CAD, HLD, emphysema on 2 L continuous home oxygen who presents to the hospital today after a fall. The patient states that he fell backwards striking his head in the [employer] parking lot. He was unloading groceries from the cart into his car when he tripped and fell backwards striking his buttocks and then hitting his head. He denies any loss of consciousness. He complains of pain about his right hip. The pain is worse with any movement and is better with rest and immobilization. He states that the pain is about the right hip. He denies any significant pain about his right knee, ankle, or foot. He denies any pain about his left lower extremity. He denies any pain about his bilateral upper extremities. He denies any neck pain. He denies any numbness or tingling about the right lower extremity. He denies any history of skin ulcers. He has been using a single-point cane for about the last 6 months due to his equilibrium feeling off. He states that he did not get dizzy or lightheaded prior to this fall at baseline he lives alone, he does have a granddaughter nearby who helps some. He is a former smoker, he quit about 25 years ago. Denies use of any blood thinners at current time. Allergies Allergy/AdvReac Type Severity Reaction Status Date / Time No Known Allergies Allergy Verified 10/19/24 14:00 Home Medications Medication Instructions Recorded Confirmed Type Oxygen Home #1 ea 07/02/23 09/29/24 Rx Portable Oxygen #1 ea 06/14/24 09/29/24 Rx acetaminophen 325 mg tablet 650 mg PO Q4H PRN fever > 100.5 or 07/15/24 10/18/24 History pain aspirin 81 mg chewable tablet 81 mg PO QAM 07/15/24 10/18/24 History (Aspirin Childrens) multivitamin (Daily-Dolores tablet) 1 tab PO QAM 07/15/24 10/18/24 History tamsulosin 0.4 mg capsule (Flomax) 0.4 mg PO QAM 08/06/24 10/18/24 History albuterol sulfate 90 mcg/actuation 2 puff inhalation Q6H PRN 08/25/24 10/18/24 History aerosol inhaler shortness of breath or wheezing magnesium oxide 400 mg PO BIDWMEAL 08/25/24 10/18/24 History atorvastatin 10 mg tablet 10 mg PO QAM #90 tabs 08/31/24 10/18/24 Rx gabapentin 300 mg capsule 300 mg PO HS #90 caps 08/31/24 10/18/24 Rx prednisone 5 mg tablet 5 mg PO QAM #90 tabs 08/31/24 10/18/24 Rx omeprazole 20 mg capsule,delayed 20 mg PO QAM #90 caps 09/10/24 10/18/24 Rx release naproxen 500 mg tablet 500 mg PO QAM #90 tabs 09/22/24 10/18/24 Rx nystatin 100,000 unit/gram topical 1 applic topical BID #30 grams 09/23/24 10/18/24 Rx cream sertraline 100 mg tablet 100 mg PO QAM #90 tabs 09/23/24 10/18/24 Rx lisinopril 20 mg tablet 20 mg PO QAM 10/18/24 10/18/24 History Patient History Medical History Right rib fracture Status post fall Non-compliant behavior Unintended weight loss On home oxygen therapy 2L continuous Aneurysm of infrarenal abdominal aorta Hx of fracture of rib 06/27/24, x3 ribs, ongoing mild pain Pulmonary emphysema Pulmonary nodules Interstitial lung disease f/u dr. [place], [place]. Chronic cough Hypoxia O2 2L continous Exercise hypoxemia Post herpetic neuralgia Pneumonia hx 06/2024 Surgical History Hx of colonoscopy S/P cataract surgery rt/lt History of tonsillectomy and adenoidectomy History of cholecystectomy (2000) Family History Other Adopted Social History Smoking Status: Former smoker Tobacco Type: Cigarettes Age Started Using Tobacco: 14; Age Quit Using Tobacco: 54; packs per day: 2; Smoking End Date: 1999; Second Hand Exposure: No; Do You Dip or Chew Tobacco: No; Tobacco Cessation Education Requested by Patient: No Hx Alcohol Use: No Hx Substance Use: No Preferred Language: Norwegian Communication Ability: Effective Visual Impairment: No Limitations Hearing Ability: Normal Pattern Worker Required: No Beliefs That Will Affect Care: None marital status: Current Living Situation: Alone current occupational status: retired 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 [employer] Other Information That Helps Us Care for You: No Feels Safe at Home: Yes Safety Concerns: Feels Safe At This Time Childhood Exposure to Second-Hand Smoke: Yes Diet: regular Diet Comment: regular caffeine: Yes (coffee x 2-3 per day.) during the past year weight has: decreased > 10 lbs Dental Care, Regularly: Yes Physical Activity Frequency: Daily Physical Activity Frequency Comment: walk Seatbelt Use: always Sunscreen Use: Yes Assistive Devices: Cane, Denture - Upper, Denture - Lower, Hearing Aid - Bilateral and Walker Review of Systems Constitutional: as per Subjective / HPI Cardiovascular: no lightheadedness Musculoskeletal: no neck pain Integumentary: no skin ulcer and no wounds Neurologic: + unsteadiness; no falls Denies history of falls prior to today Physical Exam Physical Exam: Vital signs stable on 2 L nasal cannula, afebrile, no acute distress, Alert Musculoskeletal: Right lower Extremity: Skin is clean and intact, no evidence of open fracture. No significant ecchymosis. There is an area of palpable soft tissue swelling about the lateral right hip likely secondary to hematoma Tenderness to palpation about the right hip No tenderness to palpation about the right knee, ankle, or foot L4-S1: SILT EHL/FHL/GS/TA motor intact DP/PT pulses palpable Compartments soft & compressible, no pain with passive ankle flexion or extension Leg shortened and externally rotated Pain with log roll and PROM of the right hip Secondary survey of the left lower extremity reveals no tenderness to palpation about the major joints of the left lower extremity including the hip, knee, ankle, or foot. There is no pain with active motion of the left lower extremity. The skin about the left lower extremity is clean dry and intact. There is no tenderness to palpation about the major joints of the bilateral upper extremities including the shoulders, elbows, wrists, and hands. No signif icant skin wounds noted. Active range of motion of the major joints of the bilateral upper extremities is pain-free. Patient has no tenderness to palpation along the spinous processes of the cervical spine nor with left and right rotation of the cervical spine Results & Data Vital Signs (Past 12 Hours) Vital Signs Temp Pulse Pulse Pulse Resp BP BP 10/18/24 17:22 85 10/18/24 15:15 10/18/24 15:15 36.4 C L 80 18 147/75 H 10/18/24 14:45 83 16 133/87 10/18/24 13:36 81 22 126/81 10/18/24 11:58 10/18/24 11:51 90 10/18/24 11:26 36.6 C 80 20 115/83 Pulse Ox O2 Del Method O2 Flow Rate 10/18/24 17:22 10/18/24 15:15 Nasal Cannula 2 10/18/24 15:15 95 Nasal Cannula 2 10/18/24 14:45 97 Nasal Cannula 2 10/18/24 13:36 94 Room Air 10/18/24 11:58 98 Room Air 10/18/24 11:51 10/18/24 11:26 93 Room Air Diagnostic Findings AP pelvis, AP right hip, AP and lateral x-rays of the right proximal and distal femur independently reviewed and interpreted by myself today demonstrate an acute comminuted intertrochanteric fracture of the right femur with shortening and apex anterior angulation. Femoral head well-seated within the acetabulum. No other acute fracture or dislocation appreciated.
[2024-10-18] MEDS ORDERED: NALOXONE HCL 0.4 MG/1 ML VIAL/CARP IV PRN (19:21)
[2024-10-18] MEDS: NICOTINE POLACRILEX 2 MG GUM MT PRN (19:33)
[2024-10-18] MEDS: ACETAMINOPHEN 500 MG TAB PO PRN (19:33)
[2024-10-18] MEDS: GABAPENTIN 300 MG CAP PO SCH (20:39)
[2024-10-18] MEDS: NYSTATIN CR 15 GM TUBE EXT SCH (20:40)
[2024-10-19] MEDS: KETOROLAC TROMETHAMINE 15 MG/ML VIAL IV ONE (01:26)
[2024-10-19] MEDS: MELATONIN 3 MG TAB PO PRN (01:34)
--- NOTE | 2024-10-19 07:18 | Hospitalist Progress Note ---
Date of Service October 19, 2024 Assessment & Plan (1) Closed right hip fracture: (2) Steroid dependent: (3) Chronic hypoxic respiratory failure: (4) Rheumatoid arthritis: (5) Hypertension: (6) Urinary retention: Plan 79 y/o with a PMHx of HTN, rheumatoid arthritis on chronic prednisone, BPH with LUTS and urinary retention, CAD, HLD admitted for Right sided intertrochanteric femur frature post fall. Fell with unsteadiness while in [place]. #Right Hip Fracture Mechanical fall with acute fracture and hematoma formation. Orthro on board: ORIF today, is NPO since last day. Tylenol 1 g Q8H SAMMY, Antiemetics on board Caution with opioids PT/OT ordered will follow post-operative period. #Rheumatoid Arthritis #Chronic Steroid Use Patient on 5 mg prednisone daily. AM cortisol if > 10, no stress dose needed. #Urinary Retention #Recent UTI Patient with recent UTI with indwelling catheter adequately treated. Ceftriaxone D2 on 10/19 Urine CS: Enterococcus, Sensitivity pending. #HTN BP stable now, had trabsient hypotension S/p dilaudid yesterday, consistently on range afterwards. Continue home meds Code status: full DVT ppx: pre-op, defer for now with developing hematoma Dispo: OT/PT eval post surgery. Lines: Powers placed 10/18, will need voiding trial prior to d/c Admission and Anticipated Discharge Date Admission Date: October 18, 2024 Supervising Physician Co-Signing Physician Notes ATTESTATION I also saw the patient and confirmed balbuena portions of the history and exam. I agree with the impression and plan in the resident documentation, and as summarized below. Patient on the PCU awaiting surgery which looks to be early this afternoon. Pain well controlled. No further episodes of hypotension since the ED. EXAM VS stable Alert and oriented. NAD CV RRR Lungs CTA Mild rotation of RLE DATA Labs WBC 8.39 HgB 10.4, down from admission but suspect was a little heme concentrated upon admission Sodium 136 Urine 1+ LE Micro Enterococcus faecalis IMPRESSION & PLAN Right femur fracture UTI History of urinary retention History of Hyponatremia Interstitial pulmonary fibrosis Chronic anemia RA OR later today Adjust antibiotics to cover enterococcus, Unasyn pending final sensitivities Adequate pain control at present Powers placed, noted history urinary retention Additional per resident documentation Subjective Overnight stable. No pain today when he is resting. No new complain. Oriented. Waiting for surgery, well aware about procedure he is going to have. Review of Systems Review of Systems: As per HPI Physical Exam Physical Exam: Constitutional: Well appearing, No acute distress, Pale looking. HEENT: Atraumatic, Normocephalic, No conjunctival injection CVS: Looks well perfused. Respiratory: No increased work of breathing GI: Soft, Nondistended MSK: RLE shortened and externally rotated, neurovascularly intact, No suspicious of compartment syndrome. Skin: Warm, Dry, No rashes Neuro: Alert, Oriented to TPP, No Focal deficit Psych: Mood and Affect congruent, Cooperative on exam Results & Data Results & Data Vital Signs (Past 12 Hours) Vital Signs Temp Pulse Pulse Resp BP Pulse Ox O2 Del Method 10/19/24 03:10 36.7 C 100 H 16 135/75 90 Room Air 10/18/24 23:13 36.6 C 91 H 19 131/76 91 Room Air 10/18/24 21:47 83 10/18/24 20:00 Room Air 10/18/24 19:26 36.6 C 89 18 152/84 H 92 Room Air Resident Activity Tracking Resident Involvement: Resident Care Provided Care Provided: Adult Hospital Medicine
[2024-10-19 07:27] LABS: Basophils # (auto) 0.05 K/uL (0.00-0.20); Basophils % (auto) 0.6 %; Eosinophils # (auto) 0.16 K/uL (0.00-0.50); Eosinophils % (auto) 1.9 %; Hematocrit (blood only) 32.1 % (42.0-52.0); Hemoglobin 10.4 g/dl (14.0-18.0); Immature Granulocytes % (auto) 1.2 %; Lymphocytes # (auto) 0.94 K/uL (1.20-3.40); Lymphocytes % (auto) 11.2 %; Mean Corpuscular Hemoglobin 27.9 pg (25.0-34.0); Mean Corpuscular Hgb Conc 32.4 g/dL (32.0-36.0); Mean Corpuscular Volume 86.1 fL (80.0-100.0); Mean Platelet Volume 8.5 fL (9.4-12.4); Monocytes # (auto) 0.57 K/uL (0.11-0.59); Monocytes % (auto) 6.8 %; Neutrophils # (auto) 6.57 K/uL (1.40-6.50); Neutrophils % (auto) 78.3 %; Platelet Count 128 K/uL (130-400); RDW Coefficient of Variation 16.4 % (11.5-14.5); RDW Standard Deviation 51.4 fL (36.4-46.3); Red Blood Count 3.73 M/uL (4.70-6.10); White Blood Count 8.39 K/ul (4.8-10.8)
[2024-10-19 07:42] LABS: BUN Creatinine Ratio 39.2 (10-20); Calcium 8.3 mg/dl (8.6-10.3); Creatinine Clr Calc Pharmacy 109.3 ml/min
[2024-10-19] MEDS ORDERED: NAPROXEN 250 MG TAB PO SCH (09:00)
[2024-10-19] MEDS ORDERED: ASPIRIN 81 MG ECTAB PO SCH (09:00)
[2024-10-19] MEDS: SERTRALINE HCL 100 MG TABLET PO SCH (09:16)
[2024-10-19] MEDS: ATORVASTATIN 10 MG TAB PO SCH (09:55)
[2024-10-19] MEDS: predniSONE 5 MG TAB PO SCH (09:55)
[2024-10-19] MEDS: TAMSULOSIN HCL 0.4 MG CAP PO SCH (09:55)
[2024-10-19] MEDS: MULTIVITAMIN TAB PO SCH (09:55)
[2024-10-19] MEDS: PANTOprazole 40 MG TAB PO SCH (09:55)
[2024-10-19] MEDS: lisinopril 20 MG TAB PO SCH (09:55)
--- NOTE | 2024-10-19 10:14 | Orthopedic Progress Note ---
Date of Service October 19, 2024 Assessment & Plan (1) Intertrochanteric fracture of right femur: Plan: Patient currently n.p.o., scheduled for surgery with Dr. Mcdaniel this afternoon. Coordinated with hospitalist team, and they are comfortable with the patient going to the OR this afternoon. Aspirin was ordered however patient did not receive this, and I held it this morning. Can resume this 24 hours after surgery. He is currently NPO. Albumin slightly low at 3.3. He has protein supplementation ordered. States that he drinks 1 of these per day at baseline. Continue bed rest until after surgery. Ice to the hip for swelling and pain. Preoperative TXA and antibiotics have been ordered. Patient agreeable with plan of care. Admission and Anticipated Discharge Date Admission Date: October 18, 2024 Saritha Dias is seen in bed this morning. He is doing as good as he can right now. His pain is controlled. He has not had any breakfast, remains NPO. He denies any chest pain or shortness of breath, numbness or tingling in his right toes. Physical Exam Constitutional: Resting comfortably in bed. In no distress. Cardiovascular: Right DP and PT pulses 2+ Musculoskeletal: Right lower extremity: Leg is shortened and externally rotated. Soft tissue swelling is present about the right hip. There is tenderness diffusely about the right hip. No ecchymosis. Compartments are soft in the thigh. Skin is closed. Able to actively plantarflex and dorsiflex the ankle. SCDs in place bilateral lower extremities. Neurologic: No sensory deficits to light touch in bilateral lower extremities Results & Data Vital Signs (Past 12 Hours) Vital Signs Temp Pulse Pulse Resp BP Pulse Ox O2 Del Method 10/19/24 07:53 92 H 10/19/24 07:43 98.2 F 100 H 20 135/85 91 Room Air 10/19/24 03:10 98.1 F 100 H 16 135/75 90 Room Air 10/18/24 23:13 97.9 F 91 H 19 131/76 91 Room Air Laboratory Results 10/18/24 13:10 Urine Culture - Pending Urine,Straight Cath 10/19/24 10/19/24 10/18/24 07:11 06:21 14:29 WBC 8.39 RBC 3.73 L Hgb 10.4 L 10.8 L POC Hgb Hct 32.1 L 33.2 L POC Hct MCV 86.1 MCH 27.9 MCHC 32.4 RDW Std Deviation 51.4 H RDW Coeff of Carl 16.4 H Plt Count 128 L MPV 8.5 L Immature Gran % (Auto) 1.2 Neut % (Auto) 78.3 Lymph % (Auto) 11.2 [place] % (Auto) 6.8 Eos % (Auto) 1.9 Baso % (Auto) 0.6 Neut # (Auto) 6.57 H Lymph # (Auto) 0.94 L [place] # (Auto) 0.57 Eos # (Auto) 0.16 Baso # (Auto) 0.05 Immature Gran # (Auto) 0.10 PT INR APTT PTT Ratio POC Sodium Sodium 136 POC Potassium Potassium 4.0 POC Chloride Chloride 105 Carbon Dioxide 27 POC Total CO2 Anion Gap 4 POC Anion Gap POC BUN BUN 20 Creatinine 0.51 L POC Creatinine Est Cr Clr Drug Dosing 109.3 eGFR 101.86 BUN/Creatinine Ratio 39.2 H Glucose 93 POC Glucose 86 POC Glucose (other) Calcium 8.3 L POC Ioniz Calcium Corie Total Bilirubin AST ALT Alkaline Phosphatase Total Protein Albumin Globulin Albumin/Globulin Ratio Cortisol AM Sample 10.66 Urine Color Urine Appearance Urine pH Ur Specific [facility] Urine Protein Urine Glucose (UA) Urine Ketones Urine Blood Urine Nitrite Urine Bilirubin Urine Urobilinogen Ur Leukocyte Esterase Urine WBC (Auto) Urine RBC (Auto) U Hyaline Cast (Auto) U Epithel Cells (Auto) Urine Bacteria (Auto) Blood Type Antibody Screen Crossmatch 10/18/24 10/18/24 10/18/24 14:18 14:14 13:10 WBC RBC Hgb POC Hgb 11.6 L Hct POC Hct 34 L MCV MCH MCHC RDW Std Deviation RDW Coeff of Carl Plt Count MPV Immature Gran % (Auto) Neut % (Auto) Lymph % (Auto) [place] % (Auto) Eos % (Auto) Baso % (Auto) Neut # (Auto) Lymph # (Auto) [place] # (Auto) Eos # (Auto) Baso # (Auto) Immature Gran # (Auto) PT INR APTT PTT Ratio POC Sodium 138 Sodium POC Potassium 4.2 Potassium POC Chloride 99 L Chloride Carbon Dioxide POC Total CO2 27 Anion Gap POC Anion Gap 18.0 POC BUN 21 H BUN Creatinine POC Creatinine 0.8 Est Cr Clr Drug Dosing eGFR BUN/Creatinine Ratio Glucose POC Glucose POC Glucose (other) 123 H Calcium POC Ioniz Calcium Corie 1.21 Total Bilirubin AST ALT Alkaline Phosphatase Total Protein Albumin Globulin Albumin/Globulin Ratio Cortisol AM Sample Urine Color Yellow Urine Appearance Turbid A Urine pH 8.5 H Ur Specific [facility] 1.017 Urine Protein Trace H Urine Glucose (UA) Negative Urine Ketones Trace H Urine Blood Negative Urine Nitrite Negative Urine Bilirubin Negative Urine Urobilinogen Negative Ur Leukocyte Esterase 1+ H Urine WBC (Auto) 6-10 H Urine RBC (Auto) 0-2 U Hyaline Cast (Auto) 0-2 U Epithel Cells (Auto) 0-2 Urine Bacteria (Auto) 4+ H Blood Type O Negative Antibody Screen NEGATIVE Crossmatch See Detail 10/18/24 11:35 WBC 12.40 H RBC 4.48 L Hgb 12.9 L POC Hgb Hct 39.3 L POC Hct MCV 87.7 MCH 28.8 MCHC 32.8 RDW Std Deviation 52.4 H RDW Coeff of Carl 16.2 H Plt Count 161 MPV 8.7 L Immature Gran % (Auto) 1.7 Neut % (Auto) 77.4 Lymph % (Auto) 12.9 [place] % (Auto) 5.6 Eos % (Auto) 1.8 Baso % (Auto) 0.6 Neut # (Auto) 9.60 H Lymph # (Auto) 1.60 [place] # (Auto) 0.70 H Eos # (Auto) 0.22 Baso # (Auto) 0.07 Immature Gran # (Auto) 0.21 H PT 11.1 INR 1.0 APTT 26 PTT Ratio 1.0 POC Sodium Sodium 137 POC Potassium Potassium 4.0 POC Chloride Chloride 102 Carbon Dioxide 31 POC Total CO2 Anion Gap 4 POC Anion Gap POC BUN BUN 20 Creatinine 0.71 POC Creatinine Est Cr Clr Drug Dosing 79.1 eGFR 92.17 BUN/Creatinine Ratio 28.2 H Glucose 94 POC Glucose POC Glucose (other) Calcium 8.7 POC Ioniz Calcium Corie Total Bilirubin 0.3 AST 24 ALT 18 Alkaline Phosphatase 89 Total Protein 6.8 Albumin 3.3 L Globulin 3.5 Albumin/Globulin Ratio 0.9 Cortisol AM Sample Urine Color Urine Appearance Urine pH Ur Specific [facility] Urine Protein Urine Glucose (UA) Urine Ketones Urine Blood Urine Nitrite Urine Bilirubin Urine Urobilinogen Ur Leukocyte Esterase Urine WBC (Auto) Urine RBC (Auto) U Hyaline Cast (Auto) U Epithel Cells (Auto) Urine Bacteria (Auto) Blood Type Antibody Screen Crossmatch
--- NOTE | 2024-10-19 11:43 | Anesthesiology Consultation ---
Date of Service October 19, 2024 Assessment & Plan (1) Encounter for pre-operative examination: Chart Review Chart Review: Acceptable Risk for Surgery and Patient NOT seen in Pre Admission Testing Consults Requested none History Surgery Operation Date: 10/19/24 13:00 Proposed Procedures p Right Long IM Nail - Enio Mcdaniel MD Height/Weight Height: 5 ft 9 in Weight: 68 kg Allergies Allergy/AdvReac Type Severity Reaction Status Date / Time No Known Allergies Allergy Verified 09/29/24 14:58 Medications Home Medications Medication Instructions Recorded Confirmed Last Taken Oxygen Home #1 ea 07/02/23 09/29/24 Unknown Portable Oxygen #1 ea 06/14/24 09/29/24 Unknown acetaminophen 325 mg tablet 650 mg PO Q4H PRN fever > 100.5 or 07/15/24 10/18/24 Unknown pain aspirin 81 mg chewable tablet 81 mg PO QAM 07/15/24 10/18/24 Unknown (Aspirin Childrens) multivitamin (Daily-Dolores tablet) 1 tab PO QAM 07/15/24 10/18/24 Unknown tamsulosin 0.4 mg capsule (Flomax) 0.4 mg PO QAM 08/06/24 10/18/24 Unknown albuterol sulfate 90 mcg/actuation 2 puff inhalation Q6H PRN 08/25/24 10/18/24 Unknown aerosol inhaler shortness of breath or wheezing magnesium oxide 400 mg PO BIDWMEAL 08/25/24 10/18/24 Unknown atorvastatin 10 mg tablet 10 mg PO QAM #90 tabs 08/31/24 10/18/24 Unknown gabapentin 300 mg capsule 300 mg PO HS #90 caps 08/31/24 10/18/24 Unknown prednisone 5 mg tablet 5 mg PO QAM #90 tabs 08/31/24 10/18/24 Unknown omeprazole 20 mg capsule,delayed 20 mg PO QAM #90 caps 09/10/24 10/18/24 Unknown release naproxen 500 mg tablet 500 mg PO QAM #90 tabs 09/22/24 10/18/24 Unknown nystatin 100,000 unit/gram topical 1 applic topical BID #30 grams 09/23/24 10/18/24 Unknown cream sertraline 100 mg tablet 100 mg PO QAM #90 tabs 09/23/24 10/18/24 Unknown lisinopril 20 mg tablet 20 mg PO QAM 10/18/24 10/18/24 Unknown Active Medications Generic Name Dose Route Start Last Admin Trade Name Freq PRN Reason Stop Dose Admin Acetaminophen 1,000 mg 10/18/24 14:17 10/19/24 05:57 Acetaminophen 500 Mg Tab PO 11/17/24 13:36 1,000 mg Q8H PRN Administration fever > 100.5 or pain Atorvastatin Calcium 10 mg 10/19/24 09:00 10/19/24 09:55 Atorvastatin 10 Mg Tab PO 11/18/24 08:59 Not Given QAM SAMMY Gabapentin 300 mg 10/18/24 21:00 10/18/24 20:39 Gabapentin 300 Mg Cap PO 11/17/24 20:59 300 mg HS SAMMY Administration Sodium Chloride 1,000 mls @ 80 mls/hr 10/18/24 15:15 10/19/24 05:56 Nss IV 10/19/24 16:14 80 mls/hr .[id number] SAMMY Administration Lisinopril 20 mg 10/19/24 09:00 10/19/24 09:55 Lisinopril 20 Mg Tab PO 11/18/24 08:59 Not Given QAM SAMMY Magnesium Oxide 400 mg 10/18/24 17:00 10/19/24 09:55 Magnesium Oxide 400 Mg Tab PO 11/17/24 16:59 Not Given BIDM SAMMY Melatonin 3 mg 10/18/24 15:33 10/19/24 01:34 Melatonin 3 Mg Tab PO 11/17/24 15:32 3 mg HS PRN Administration Insomnia Multivitamins 1 tab 10/19/24 09:00 10/19/24 09:55 Multivitamin Tab PO 11/18/24 08:59 Not Given QAM SAMMY Nicotine Polacrilex 1 piece 10/18/24 19:22 10/18/24 19:33 Nicotine Polacrilex 2 Mg Gum MT 11/17/24 19:21 1 piece Q2H PRN Administration Cravings Nystatin 1 appln 10/18/24 21:00 10/19/24 09:55 Nystatin Cr 15 Gm Tube EXT 11/17/24 20:59 Not Given BID SAMMY Pantoprazole Sodium 40 mg 10/19/24 09:00 10/19/24 09:55 Pantoprazole 40 Mg Tab PO 11/18/24 08:59 Not Given QAM SAMMY Prednisone 5 mg 10/19/24 09:00 10/19/24 09:55 Prednisone 5 Mg Tab PO 11/18/24 08:59 Not Given QAM SAMMY Sertraline HCl 100 mg 10/19/24 09:00 10/19/24 09:16 Sertraline Hcl 100 Mg Tablet PO 11/18/24 08:59 Not Given QAM SAMMY Tamsulosin HCl 0.4 mg 10/19/24 09:00 10/19/24 09:55 Tamsulosin Hcl 0.4 Mg Cap PO 11/18/24 08:59 Not Given QAM SAMMY Past Medical History Medical History Right rib fracture Status post fall Non-compliant behavior Unintended weight loss On home oxygen therapy 2L continuous Aneurysm of infrarenal abdominal aorta Hx of fracture of rib 06/27/24, x3 ribs, ongoing mild pain Pulmonary emphysema Pulmonary nodules Interstitial lung disease f/u dr. [place], [place] [facility]. Chronic cough Hypoxia O2 2L continous Exercise hypoxemia Post herpetic neuralgia Pneumonia hx 06/2024 Past Family History Family History Other Adopted Past Surgical History Surgical History Hx of colonoscopy S/P cataract surgery rt/lt History of tonsillectomy and adenoidectomy History of cholecystectomy (2000) Social History Smoking Status: Former smoker tobacco type: cigarettes Do You Dip or Chew Tobacco: No Smoking End Date: 1999 Hx Alcohol Use: No Alcohol type: beer alcohol intake frequency: a few times a week Hx Substance Use: No substance use type: does not use Physical Exam Vital Signs Last Vital Signs Temp 98.1 F 10/19/24 11:34 Pulse 90 10/19/24 11:34 Resp 20 10/19/24 11:34 BP 140/69 10/19/24 11:34 Pulse Ox 93 10/19/24 11:34 O2 Del Method Room Air 10/19/24 11:34 O2 Flow Rate 2 10/18/24 15:15 Testing Laboratory Results 10/19/24 07:11 10/19/24 07:11 PT 11.1 Seconds (9.0-12.0) 10/18/24 11:35 INR 1.0 (0.9-1.1) 10/18/24 11:35 APTT 26 Seconds (21-31) 10/18/24 11:35 Urine Color Yellow 10/18/24 13:10 Urine Appearance Turbid (Clear) A 10/18/24 13:10 Urine pH 8.5 (4.5-7.5) H 10/18/24 13:10 Ur Specific [place] 1.017 (1.000-1.030) 10/18/24 13:10 Urine Protein Trace (Negative) H 10/18/24 13:10 Urine Glucose (UA) Negative (Negative) 10/18/24 13:10 Urine Ketones Trace (Negative) H 10/18/24 13:10 Urine Nitrite Negative (Negative) 10/18/24 13:10 Ur Leukocyte Esterase 1+ (Negative) H 10/18/24 13:10 Urine WBC (Auto) 6-10 /hpf (0-5) H 10/18/24 13:10 Urine RBC (Auto) 0-2 /hpf (0-2) 10/18/24 13:10 U Hyaline Cast (Auto) 0-2 /lpf (0-2) 10/18/24 13:10 U Epithel Cells (Auto) 0-2 /hpf (0-2) 10/18/24 13:10 Urine Bacteria (Auto) 4+ (None Seen) H 10/18/24 13:10 Blood Type O Negative 10/18/24 14:18 Antibody Screen NEGATIVE 10/18/24 14:18 10/18/24 13:10 Urine Culture - Preliminary Urine,Straight Cath Enterococcus faecalis 10/19/24 06:21 POC Glucose 86 Electrocardiogram Date: 10/18/24 Findings: + NSR @ with PACs
[2024-10-19] MEDS: cefTRIAXone SODIUM 1,000 MG/50 ML BAG IV SCH (13:45)
[2024-10-19] MEDS: ACETAMINOPHEN 500 MG TAB PO ONE (14:14)
[2024-10-19] MEDS ORDERED: MIDAZOLAM HCL 1 MG/ML 2ML VIAL ONE (14:31)
[2024-10-19] MEDS ORDERED: LIDOCAINE 2% 2 ML VIAL/AMP(20MG/ML) INFIL ONE (14:31)
[2024-10-19] MEDS ORDERED: fentaNYL citrate PF 100 MCG/2 ML VIAL ONE (14:31)
[2024-10-19] MEDS ORDERED: PROPOFOL IV EMULSION 10 MG/ML 20 ML VIAL IV ONE ×2 (14:31→14:45)
[2024-10-19] MEDS ORDERED: ATROPINE SULFATE 0.1 MG/ML 10ML SYR IV PRN (14:43)
[2024-10-19] MEDS ORDERED: fentaNYL citrate PF 100 MCG/2 ML VIAL IV PRN (14:43)
[2024-10-19] MEDS ORDERED: ePHEDrine sulfate 50 MG/ML AMP IV PRN (14:43)
[2024-10-19] MEDS ORDERED: BUPIVACAINE 0.5 % 5 MG/1 ML PF 10ML VIAL ONE (14:55)
[2024-10-19] MEDS: ceFAZolin 2000MG 2,000 MG/15 ML SYR IV SCH (15:09)
[2024-10-19] MEDS ORDERED: PHENYLEPHRINE 100MCG/ML 5ML SYR ONE (16:06)
[2024-10-19] MEDS ORDERED: PHENYLEPHRINE HCL 10 MG/ML VIAL ONE (16:06)
[2024-10-19] MEDS: TRANEXAMIC ACID / 0.7% NACL 1,000 MG/100 ML BAG IV SCH ×3 (17:10→21:35)
[2024-10-19] MEDS: BUPIVACAINE 0.5 % 5 MG/1 ML MPF 30ML VIAL ONE (17:20)
--- NOTE | 2024-10-19 17:20 | Operative Report ---
Post Operative Report Pre & Post Diagnosis Operation Date: 10/19/24 13:00 Pre-Op Diagnosis: Displaced intertrochanteric fracture of right femur. Post-Op Diagnosis: Displaced intertrochanteric fracture of right femur. I identified the patient and participated in the time-out.: Yes Procedure Operation Date: 10/19/24 13:00 Actual Procedures Open reduction internal fixation with intramedullary nail for displaced intertrochanteric right femur fracture- Enio Mcdaniel MD Surgeon Enio Mcdaniel MD Saw Boss Donn Henry DO Estimated Blood Loss 100 Findings Consistent with Post-Op Diagnosis Specimens None Anesthesia Type Spinal MAC Complications none Disposition Disposition: Recovery Room Indications 79-year-old male, fell yesterday at the grocery store onto his right hip. Immediate onset of right hip pain and inability to walk. Was brought to the hospital where x-rays were obtained demonstrating a displaced right intertrochanteric femur fracture. Orthopedics was consulted for evaluation and management. Had a long discussion with the patient about his diagnosis and treatment options. Surgery is indicated to restore his ability to ambulate as well as for comfort. After reviewing all of his options, risks and benefits of surgery, alternatives, expected outcomes he elected to proceed with surgery. All questions were answered. Informed consent was signed. Description of Procedure Patient was identified in the preoperative holding area where surgical site was marked. He was brought back to the operating room where spinal anesthetic was placed by anesthesia. He was then carefully moved onto the fracture table. The operative foot was padded with ABD pads and secured in the fracture boot. Nonoperative hip was flexed and AB ducted to facilitate fluoroscopic imaging. This carefully slid down against the perineal post. All bony prominences were padded. Perioperative antibiotics were administered as well as 1 g of IV tranexamic acid. Prior to beginning the procedure a multidisciplinary timeout was called. All in the room were in agreement. We began by bringing in fluoroscopy and inspecting the fracture site. Fracture was shortened. We pulled traction using the fracture table to restore length. I then internally rotated the foot to bring the distal fragment into alignment with the proximal fragment. AP and lateral fluoroscopic view showed a acceptable reduction which I was happy with. Surgical site was then prepped and draped in the usual sterile fashion. A 7 cm long incision was made starting about 4 cm proximal to the tip of the greater trochanter. I dissected down through subcutaneous tissues to the level of the fascia. A K wire was pierced through the fascia and we optimized her starting point on AP and lateral fluoroscopic views. Once this was complete the K wire was driven down to just past the lesser trochanter on the AP and lateral fluoroscopic views. I then incised the fascia on each side of the K wire. Soft tissue protective sleeve was slid down over the wire and the opening reamer was used to ream down to the positive stop. Next, a ball-tipped guidewire was inserted down the intramedullary canal and stopped at the superior pole of the patella. The measurement came to 410 mm. I elected use a 400 mm length nail. I then passed a 12.5 mm reamer over the guidewire. There was very mild chatter at the isthmus where we stopped reaming and then brought the reamer out. We then opened up the 11 mm diameter nail by 400 mm in length. This was tapped down over the guidewire to the appropriate position. Next, the outrigger was attached and a knife was used to make a stab incision in the lateral aspect of the femur to allow the guide sleeve to be placed through the skin and directly on the lateral cortex of the femur. 3.2 mm guidewire was then drilled up into the femoral head. The guidewire set just slightly inferior and slightly posterior to the center center position where the bone is better which I was happy with. We took our measurement which was 110 mm. I elected to use 105 mm length helical blade in order to compress the fracture. We did not drill using the step drill 210 mm. I then inserted the helical blade to the level of the K wire. We then compressed the fracture using the outrigger device turning it in clockwise fashion. I was very happy with the reduction. I then locked the helical blade from the top using the setscrew in static mode. At this point the outrigger device was removed and we took a final AP fluoroscopic view of the hip. We then moved down to the distal femur where the C arm was used to place a single cross locking screw with perfect circles technique. Excellent fixation was obtained. At this point a final fluoroscopic images were obtained and saved to the system. Wounds were irrigated with copious amounts normal saline. The fascia was closed at the hip with 0 Vicryl suture in running fashion. 2-0 Vicryl suture was used in the deep dermal layers. Sherman were used for the skin. Sterile dressings were applied. Patient was taken out of the traction boot and carefully moved onto the hospital bed. He was then transferred to recovery room in stable condition. Postoperative course: Patient be readmitted to the internal medicine service from the recovery room. He will be weightbearing as tolerated with a walker and max assistance as he is a fall risk. Aspirin twice a day for DVT prophylaxis. Follow-up in the orthopedic clinic 2 weeks after discharge for x-rays and staple removal. He is okay to shower with his Tegaderm dressings in place. Please do not remove these dressings without permission from the orthopedic team. I attest to the content of the Intraoperative Record and any orders documented therein. Any exceptions are noted below.
--- NOTE | 2024-10-19 17:42 | Operative Report ---
Post Operative Report Pre & Post Diagnosis Operation Date: 10/19/24 13:00 Pre-Op Diagnosis: Intertrochanteric fracture of right femur. Post-Op Diagnosis: Intertrochanteric fracture of right femur. I identified the patient and participated in the time-out.: Yes Procedure Operation Date: 10/19/24 13:00 Actual Procedures p Right hip open reduction internal fixation.(Right) - Enio Mcdnaiel MD Surgeon Enio Mcdaniel MD Crop Duster Donn Henry DO Estimated Blood Loss 100 Findings Consistent with Post-Op Diagnosis Specimens None Description of Procedure Patient was brought the operative suite where he underwent anesthesia. Utilizing assistance of fracture table fracture was provisionally reduced. Right lower extremity was prepped and draped in the usual sterile fashion. Surgical timeout was performed. Patient underwent a right hip open reduction internal fixation with cephalomedullary nail. Please see Dr. Mcdaniel's operative report for full details. I was present and assisted with patient positioning, limb positioning, surgical procedure, hardware placement, wound closure, postoperative dressing placement. Patient was awakened and taken to the recovery room in satisfactory condition. I attest to the content of the Intraoperative Record and any orders documented therein. Any exceptions are noted below.
[2024-10-19] MEDS: ONDANSETRON INJ 2 MG/ML 2 ML VIAL IV PRN (17:55)
[2024-10-19] MEDS: AMPICILLIN/SULBACTAM SOD 1,500 MG/100 ML BAG IV SCH (18:50)
--- NOTE | 2024-10-19 21:17 | Anesthesiology Progress Note ---
Date of Service October 19, 2024 Anesthesia Post Procedure Vital Signs Vital Signs: Temp Pulse Pulse Pulse Resp BP Pulse Ox 10/19/24 18:25 83 21 138/89 98 10/19/24 18:15 36.4 C L 88 23 124/78 98 10/19/24 18:05 86 23 130/72 98 10/19/24 17:55 94 H 23 124/78 99 10/19/24 17:45 89 20 121/80 98 10/19/24 17:38 36.3 C L 93 H 20 137/81 93 10/19/24 13:55 36.8 C 91 H 20 154/93 H 93 10/19/24 12:59 98 H 10/19/24 11:34 36.7 C 90 20 140/69 93 10/19/24 07:53 92 H 10/19/24 07:43 36.8 C 100 H 20 135/85 91 10/19/24 03:10 36.7 C 100 H 16 135/75 90 10/18/24 23:13 36.6 C 91 H 19 131/76 91 10/18/24 21:47 83 O2 Del Method O2 Flow Rate 10/19/24 18:25 Nasal Cannula 2 10/19/24 18:15 Nasal Cannula 2 10/19/24 18:05 Nasal Cannula 2 10/19/24 17:55 Nasal Cannula 3 10/19/24 17:45 Nasal Cannula 3 10/19/24 17:38 Nasal Cannula 3 10/19/24 13:55 Room Air 10/19/24 12:59 10/19/24 11:34 Room Air 10/19/24 07:53 10/19/24 07:43 Room Air 10/19/24 03:10 Room Air 10/18/24 23:13 Room Air 10/18/24 21:47 Pain Intensity Right Hip: Pain Intensity: 5 Transfer of Care Handoff Completed per policy Notes Mental Status: alert / awake / arousable Patient Amnestic to Procedure: Yes Nausea / Vomiting: adequately controlled Pain: adequately controlled Airway Patency, RR, SpO2: stable & adequate BP & HR: stable & adequate Hydration State: stable & adequate Neuraxial Anesthesia: was administered and sensory block is resolving Anesthetic Complications: no major complications apparent and Pt Satisfied with anesthetic care
[2024-10-19] MEDS: oxyCODONE HCL IR 5 MG TAB (IMMEDIATE RELEASE) PO PRN (21:32)
[2024-10-19] MEDS: ASPIRIN 81 MG ECTAB PO SCH (21:33)
[2024-10-19] MEDS: ceFAZolin 1000MG 1,000 MG/7.5 ML SYR IV SCH (21:59)
--- NOTE | 2024-10-20 06:49 | Hospitalist Progress Note ---
Date of Service October 20, 2024 Assessment & Plan (1) Closed right hip fracture: (2) Steroid dependent: (3) Chronic hypoxic respiratory failure: (4) Rheumatoid arthritis: (5) Hypertension: (6) Urinary retention: Plan 79 y/o with a PMHx of HTN, rheumatoid arthritis on chronic prednisone, BPH with LUTS and urinary retention, CAD, HLD admitted for Right sided intertrochanteric femur frature post fall. Fell with unsteadiness while in [place]. #Right Hip Fracture S/P ORIF Pain control: Tylenol 1 g Q8H SAMMY Caution with opioids: Dialudid/ Tramadol/ Oxycodone PRN order in. PT/OT ordered will follow. Can bear partial weight per ortho. #Rheumatoid Arthritis #Chronic Steroid Use Patient on 5 mg prednisone daily. Cortisol if > 10, no stress dose needed. #Urinary Retention #Recent UTI Patient with recent UTI with indwelling catheter adequately treated. Urine CS: Mixed growth. Unasyn Stopped. #HTN BP stable now. Code status: full DVT ppx: defer for hematoma. Dispo: OT/PT eval post surgery. Lines: Powers placed 10/18, will need voiding trial prior to d/c Admission and Anticipated Discharge Date Admission Date: October 18, 2024 Supervising Physician Co-Signing Physician Notes ATTESTATION I also saw the patient and confirmed balbuena portions of the history and exam. I agree with the impression and plan in the resident documentation, and as summarized below. Just finished in room PT as we saw patient on rounds this morning. Had drop in O2 into the mid 80s, quickly improved to 93 percent with rest and increase in O2 to 3 lpm. He notes some pain. Denies feeling dyspnea. EXAM 95/51, HR 96 Alert and oriented. NAD CV RRR Lungs CTA DATA Labs WBC 11.24 HgB 8.9 Sodium 136 Micro Urine culture corrected - NOT Enterococcus faecalis, but three types present, all high counts. IMPRESSION & PLAN Right femur fracture UTI History of urinary retention History of Hyponatremia Interstitial pulmonary fibrosis Chronic anemia RA PT as inpatient; suspect will need further inpatient rehabilitation; case management aware Slightly low BP early this afternoon; will re-assess vitals. Asymptomatic. Urine culture results corrected; will d/c antibiotics Additional per resident documentation Subjective Pretty stable post surgery, Pain controlled. Appetite baseline. No nausea, vomiting, no fever. No CP, SOB, no calf pain. Review of Systems Review of Systems: As per HPI Physical Exam Physical Exam: Constitutional: Well appearing, No acute distress, Pale looking. HEENT: Atraumatic, Normocephalic, No conjunctival injection CVS: Looks well perfused. Respiratory: No increased work of breathing GI: Soft, Nondistended MSK:Right femur S/P ORIF Decreased ROM, DNVS intact. Skin: Warm, Dry, No rashes Neuro: Alert, Oriented to TPP, No Focal deficit Psych: Mood and Affect congruent, Cooperative on exam Results & Data Results & Data Vital Signs (Past 12 Hours) Vital Signs Temp Pulse Pulse Resp BP Pulse Ox O2 Del Method 10/20/24 03:17 36.7 C 91 H 18 128/79 91 Nasal Cannula 10/19/24 23:10 36.6 C 91 H 18 137/87 98 Nasal Cannula 10/19/24 21:59 90 10/19/24 21:00 91 H 18 133/79 10/19/24 20:30 99 H 20 123/75 10/19/24 20:00 99 H 18 120/66 95 Nasal Cannula 10/19/24 20:00 Nasal Cannula 10/19/24 19:45 85 19 156/76 H 96 Nasal Cannula 10/19/24 19:15 36.3 C L 93 H 18 139/86 96 Nasal Cannula O2 Flow Rate 10/20/24 03:17 2 10/19/24 23:10 1 10/19/24 21:59 10/19/24 21:00 10/19/24 20:30 10/19/24 20:00 2 10/19/24 20:00 2 10/19/24 19:45 2 10/19/24 19:15 2 Resident Activity Tracking Resident Involvement: Resident Care Provided Care Provided: Adult Hospital Medicine
[2024-10-20 06:50] LABS: Basophils # (auto) 0.05 K/uL (0.00-0.20); Basophils % (auto) 0.4 %; Eosinophils # (auto) 0.07 K/uL (0.00-0.50); Eosinophils % (auto) 0.6 %; Hematocrit (blood only) 27.5 % (42.0-52.0); Hemoglobin 8.9 g/dl (14.0-18.0); Immature Granulocytes # (auto) 0.16 K/uL (0.01-0.20); Immature Granulocytes % (auto) 1.4 %; Lymphocytes # (auto) 1.38 K/uL (1.20-3.40); Lymphocytes % (auto) 12.3 %; Mean Corpuscular Hemoglobin 28.1 pg (25.0-34.0); Mean Corpuscular Hgb Conc 32.4 g/dL (32.0-36.0); Mean Corpuscular Volume 86.8 fL (80.0-100.0); Mean Platelet Volume 8.8 fL (9.4-12.4); Monocytes # (auto) 0.85 K/uL (0.11-0.59); Monocytes % (auto) 7.6 %; Neutrophils # (auto) 8.73 K/uL (1.40-6.50); Neutrophils % (auto) 77.7 %; Platelet Count 123 K/uL (130-400); RDW Standard Deviation 51.1 fL (36.4-46.3); Red Blood Count 3.17 M/uL (4.70-6.10); White Blood Count 11.24 K/ul (4.8-10.8)
[2024-10-20 07:24] LABS: BUN Creatinine Ratio 41.8 (10-20); Calcium 8.2 mg/dl (8.6-10.3); Creatinine Clr Calc Pharmacy 101.3 ml/min
--- NOTE | 2024-10-20 07:31 | Fluoroscopy Report ---
FL hip RT 2-3V CLINICAL HISTORY: RT LONG IM NAIL COMPARISON STUDY: Right femur radiographs October 10, 2024. Fluoroscopy time: 2 minutes and 4 seconds. Number of fluoroscopic images: 5 Ka,r: 22.46 mGy. FINDINGS: Fluoroscopy during open reduction and internal fixation of the intertrochanteric fracture o f the right femur with intramedullary nail. Fracture alignment has markedly improved. No unexpected r adiopaque foreign bodies. IMPRESSION: Fluoroscopy provided during open reduction and internal fixation of the intertrochanteri c fracture of the right femur. ACT 112: Negative or not required by law. Electronically signed by: Jon Valladares M.D. 10/20/2024 7:29 AM
--- NOTE | 2024-10-20 09:18 | Orthopedic Progress Note ---
Date of Service October 20, 2024 Assessment & Plan (1) Intertrochanteric fracture of right femur: Plan: POD 1 - Status post ORIF right intertrochanteric hip fracture with long nail. May weight-bear as tolerated, with assistance at all times. Use walker to assist with ambulation. PT and OT today. Aspirin 81 mg p.o. twice daily for DVT prophylaxis. Also SCDs and ALANA stockings while in house. May be out of bed with assistance as tolerated. Regular diet as ordered. Pain medication as prescribed. Ice to right hip as needed for pain or swelling. Elevate heels off of bed to prevent pressure sores. Elevate right lower extremity to relieve swelling. May do full range of motion of the ankle, knee and hip as tolerated. Will continue to follow. Keep incisions covered. Leave dressings in place. Change as needed. Case management for disposition needs. Patient understands and agrees with the plan. Admission and Anticipated Discharge Date Admission Date: October 18, 2024 Subjective Patient resting in bed. Overall states that he feels fine. States that pain is 5 out of 10. Tolerating breakfast. Denies any postoperative nausea or vom iting. He has not been out of bed since surgery. States that he has pain in his right hip with movement. Physical Exam Musculoskeletal: Exam of his right lower extremity: Mild edema into the right knee. Calf is supple and nontender. Full ankle range of motion with normal strength. Dorsalis pedis pulses 1+. Sensation of the right leg is grossly intact. Distal incision dressing is clean, dry and intact. The middle and proximal incisions are saturated with serosanguineous bloody drainage. These dressings were removed. The incisions were clean, dry and intact. Pam are retained. No active bloody drainage was present. No underlying hematoma or seroma. Minimally tender with palpation. A new dressing with Xeroform, 4 x 4's and Tegaderm was applied to those incisions. Edema throughout the right thigh is present. No pitting. Results & Data Vital Signs (Past 12 Hours) Vital Signs Temp Pulse Pulse Resp BP Pulse Ox O2 Del Method 10/20/24 08:45 93 H 10/20/24 08:00 Nasal Cannula 10/20/24 07:46 36.6 C 99 H 18 129/79 96 Nasal Cannula 10/20/24 03:17 36.7 C 91 H 18 128/79 91 Nasal Cannula 10/19/24 23:10 36.6 C 91 H 18 137/87 98 Nasal Cannula 10/19/24 21:59 90 O2 Flow Rate 10/20/24 08:45 10/20/24 08:00 2 10/20/24 07:46 2 10/20/24 03:17 2 10/19/24 23:10 1 10/19/24 21:59 Laboratory Results 10/18/24 13:10 Urine Culture - Preliminary Urine,Straight Cath Enterococcus faecalis 10/20/24 10/19/24 06:24 18:49 WBC 11.24 H RBC 3.17 L Hgb 8.9 L Hct 27.5 L MCV 86.8 MCH 28.1 MCHC 32.4 RDW Std Deviation 51.1 H RDW Coeff of Carl 16.0 H Plt Count 123 L MPV 8.8 L Immature Gran % (Auto) 1.4 Neut % (Auto) 77.7 Lymph % (Auto) 12.3 Mckean % (Auto) 7.6 Eos % (Auto) 0.6 Baso % (Auto) 0.4 Neut # (Auto) 8.73 H Lymph # (Auto) 1.38 Mckean # (Auto) 0.85 H Eos # (Auto) 0.07 Baso # (Auto) 0.05 Immature Gran # (Auto) 0.16 Sodium 136 Potassium 4.0 Chloride 103 Carbon Dioxide 29 Anion Gap 4 BUN 23 Creatinine 0.55 L Est Cr Clr Drug Dosing 101.3 eGFR 99.56 BUN/Creatinine Ratio 41.8 H Glucose 101 H POC Glucose 90 Calcium 8.2 L 25-OH Vitamin D Total 29.1 L Diagnostic Findings Hip X-Ray 10/19/24 13:00 FL hip RT 2-3V CLINICAL HISTORY: RT LONG IM NAIL COMPARISON STUDY: Right femur radiographs October 10, 2024. Fluoroscopy time: 2 minutes and 4 seconds. Number of fluoroscopic images: 5 Ka,r: 22.46 mGy. FINDINGS: Fluoroscopy during open reduction and internal fixation of the intertrochanteric fracture of the right femur with intramedullary nail. Fracture alignment has markedly improved. No unexpected radiopaque foreign bodies. IMPRESSION: Fluoroscopy provided during open reduction and internal fixation of the intertrochanteric fracture of the right femur. ACT 112: Negative or not required by law. Electronically signed by: Jon Valladares M.D. 10/20/2024 7:29 AM
[2024-10-20] MEDS: ACETAMINOPHEN 500 MG TAB PO SCH (14:34)
[2024-10-21 06:30] LABS: Basophils # (auto) 0.05 K/uL (0.00-0.20); Basophils % (auto) 0.4 %; Eosinophils # (auto) 0.34 K/uL (0.00-0.50); Hematocrit (blood only) 23.5 % (42.0-52.0); Hemoglobin 7.8 g/dl (14.0-18.0); Immature Granulocytes # (auto) 0.17 K/uL (0.01-0.20); Immature Granulocytes % (auto) 1.5 %; Lymphocytes # (auto) 1.27 K/uL (1.20-3.40); Lymphocytes % (auto) 11.2 %; Mean Corpuscular Hemoglobin 29.2 pg (25.0-34.0); Mean Corpuscular Hgb Conc 33.2 g/dL (32.0-36.0); Mean Platelet Volume 9.1 fL (9.4-12.4); Monocytes # (auto) 0.64 K/uL (0.11-0.59); Monocytes % (auto) 5.7 %; Neutrophils # (auto) 8.82 K/uL (1.40-6.50); Neutrophils % (auto) 78.2 %; Platelet Count 126 K/uL (130-400); RDW Coefficient of Variation 16.2 % (11.5-14.5); RDW Standard Deviation 51.8 fL (36.4-46.3); Red Blood Count 2.67 M/uL (4.70-6.10); White Blood Count 11.29 K/ul (4.8-10.8)
[2024-10-21 06:56] LABS: Calcium 8.2 mg/dl (8.6-10.3); Creatinine Clr Calc Pharmacy 73.3 ml/min; Potassium 4.4 mmol/L (3.5-5.1)
[2024-10-21 07:08] LABS: RBC Morphology Unremarkable
--- NOTE | 2024-10-21 07:35 | Hospitalist Progress Note ---
Date of Service October 21, 2024 Assessment & Plan (1) Closed right hip fracture: (2) Steroid dependent: (3) Chronic hypoxic respiratory failure: (4) Rheumatoid arthritis: (5) Hypertension: (6) Urinary retention: Plan 79 y/o with a PMHx of HTN, rheumatoid arthritis on chronic prednisone, BPH with LUTS and urinary retention, CAD, HLD admitted for Right sided intertrochanteric femur frature post fall. Fell with unsteadiness while in [place]. #Right Hip Fracture S/P ORIF Pain control: Tylenol 1 g Q8H SAMMY Tramadol 50 mg Q 4 hr PRN Caution with opioids: Dialudid/ Tramadol/ Oxycodone PRN order in. Avoid NSAIDs PT/OT: recommends rehab. Can bear partial weight per ortho. #Rheumatoid Arthritis #Chronic Steroid Use Patient on 5 mg prednisone daily. Cortisol if > 10, no stress dose needed. #Urinary Retention #Recent UTI Patient with recent UTI with indwelling catheter adequately treated. Urine CS: Mixed growth. Unasyn Stopped. #HTN BP stable now. Code status: full DVT ppx: defer for hematoma. Dispo: OT/PT recs rehab. Lines: Powers placed 10/18, will need voiding trial prior to d/c Admission and Anticipated Discharge Date Admission Date: October 18, 2024 Supervising Physician Co-Signing Physician Notes ATTESTATION I also saw the patient and confirmed balbuena portions of the history and exam. I agree with the impression and plan in the resident documentation, and as summarized below. He feels better. PT went a little better today. EXAM 114/70, 84 Alert and oriented. NAD CV RRR Lungs CTA DATA Labs HgB 8.9 > 7.8 Sodium 135 Micro Urine culture corrected - NOT Enterococcus faecalis, but three types present, all high counts. IMPRESSION & PLAN Right femur fracture History of urinary retention History of Hyponatremia Interstitial pulmonary fibrosis Acute on chronic anemia Post operative anemia RA PT as inpatient; suspect will need further inpatient rehabilitation; case management aware HgB trending down; recheck HgB later today Transfuse if less than 7, or 7.5 and symptoms Additional per resident documentation Subjective Complained of pain at incision site this morning. Nurse at bedside mentioned that his dressing were soaked so she changed this morning. Tramadol was given 30 minuted before zi saw patient. No CP, SOB, nausea, vomiting, belly pain. No fainting, diziness. Review of Systems Review of Systems: As per HPI Physical Exam Physical Exam: Constitutional: Well appearing, No acute distress, Pale looking. HEENT: Atraumatic, Normocephalic, No conjunctival injection CVS: Looks well perfused. Respiratory: No increased work of breathing GI: Soft, Nondistended MSK:Right femur S/P ORIF Decreased ROM, DNVS intact. Skin: Warm, Dry, No rashes Neuro: Alert, Oriented to TPP, No Focal deficit Psych: Mood and Affect congruent, Cooperative on exam Results & Data Results & Data Vital Signs (Past 12 Hours) Vital Signs Temp Pulse Pulse Resp BP Pulse Ox O2 Del Method 10/21/24 03:14 36.6 C 85 20 112/60 Nasal Cannula 10/20/24 23:05 92 H 10/20/24 22:42 36.8 C 92 H 20 100/69 93 Nasal Cannula 10/20/24 20:02 Nasal Cannula 10/20/24 19:44 37.0 C 89 18 98/61 L 94 Nasal Cannula O2 Flow Rate 10/21/24 03:14 2 10/20/24 23:05 10/20/24 22:42 2 10/20/24 20:02 2 10/20/24 19:44 2 Resident Activity Tracking Resident Involvement: Resident Care Provided Care Provided: Adult Hospital Medicine
[2024-10-21] MEDS: traMADol HCL 50 MG TABLET PO PRN (08:40)
--- NOTE | 2024-10-21 09:00 | Electrocardiogram Report ---
Test Reason : Blood Pressure : */* mmHG Vent. Rate : 83 BPM Atrial Rate : 83 BPM P-R Int : 140 ms QRS Dur : 90 ms QT Int : 384 ms P-R-T Axes : 44 -32 36 degrees QTcB Int : 451 ms Sinus rhythm with Premature atrial complexes Left axis deviation Abnormal ECG When compared with ECG of 13-Aug-2024 12:19, Premature atrial complexes are now Present Confirmed by Dakota Best ([id number]) on 10/21/2024 9:00:09 AM Referred By: REFERRED SELF Confirmed By: Dakota Best
--- NOTE | 2024-10-21 09:37 | Orthopedic Progress Note ---
Date of Service October 21, 2024 Assessment & Plan (1) Intertrochanteric fracture of right femur: Plan: POD 2 - Status post ORIF right intertrochanteric hip fracture with long nail. Continue weight-bear as tolerated, with assistance at all times. Required an assist of 2 yesterday. Use walker to assist with ambulation. Continue PT and OT today. Aspirin 81 mg p.o. twice daily for DVT prophylaxis. Also SCDs and ALANA stockings while in house. May be out of bed with assistance as tolerated. Regular diet as ordered. Pain medication as prescribed. Ice to right hip as needed for pain or swelling. Elevate heels off of bed to prevent pressure sores. Elevate right lower extremity to relieve swelling. May do full range of motion of the ankle, knee and hip as tolerated. Will continue to follow. Keep incisions covered. Leave dressings in place. Continue to change as needed. Case management for disposition needs-he would [facility] as primary, [facility] as backup. Admission and Anticipated Discharge Date Admission Date: October 18, 2024 Subjective This 79-year-old male is seen today in his room. He is 2 days status post right hip ORIF. He was sleeping when I entered the room. He states he is having pain of 5/10. He states he has been out of bed. He denies any chest pain, shortness of breath, nausea, vomiting, numbness, or tingling. He is hoping to go to [facility] after being discharged. No additional complaints. Physical Exam Physical Exam: General: Frail, elderly white male, in no acute distress. Laying in bed. Alert and oriented. Skin: Warm dry with fair turgor. No rashes. Postsurgical dressings are in place on the right lateral thigh and hip. They are dry. In speaking with the nurse, they were saturated earlier this morning and were changed about an hour ago. Pam are in place. Wound edges are well-approximated. No erythema or warmth. Musculoskeletal: The patient has intact motor function of his ankle and toes. There is limited motion of the right hip passively secondary to pain. Neurologic: Gross sensation is intact across the right leg by soft touch. Results & Data Vital Signs (Past 12 Hours) Vital Signs Temp Pulse Pulse Resp BP Pulse Ox O2 Del Method 10/21/24 08:15 36.8 C 105 H 19 120/73 94 Nasal Cannula 10/21/24 03:14 36.6 C 85 20 112/60 Nasal Cannula 10/20/24 23:05 92 H 10/20/24 22:42 36.8 C 92 H 20 100/69 93 Nasal Cannula O2 Flow Rate 10/21/24 08:15 1.5 10/21/24 03:14 2 10/20/24 23:05 10/20/24 22:42 2 Laboratory Results CBC obtained this morning shows a white count of 11.29. H&H of 7.8 and 23.5. Platelets 126,000. Sodium 135, potassium 4.4, chloride 102. BUN of 28 with creatinine 0.76. Calcium is 8.2.
[2024-10-21] MEDS: ONDANSETRON INJ 2 MG/ML 2 ML VIAL IV PRN (10:22)
[2024-10-21 15:15] LABS: Hematocrit (blood only) 24.1 % (42.0-52.0); Hemoglobin 7.7 g/dl (14.0-18.0)
[2024-10-21] MEDS: oxyCODONE HCL IR 5 MG TAB (IMMEDIATE RELEASE) PO PRN (21:01)
[2024-10-22 04:02] LABS: Appearance Urine Clear (Clear); Bilirubin Urine Negative (Negative); Blood Urine Negative (Negative); Color Urine Yellow; Glucose Urine UA Negative (Negative); Ketones Urine Negative (Negative); Leukocyte Esterase Urine Negative (Negative); Nitrite Urine Negative (Negative); Protein Urine Negative (Negative); Specific Gravity Urine 1.019 (1.000-1.030); Urobilinogen Urine Negative (Negative)
[2024-10-22 06:39] LABS: Basophils # (auto) 0.05 K/uL (0.00-0.20); Basophils % (auto) 0.5 %; Eosinophils # (auto) 0.27 K/uL (0.00-0.50); Eosinophils % (auto) 2.5 %; Hematocrit (blood only) 22.4 % (42.0-52.0); Hemoglobin 7.3 g/dl (14.0-18.0); Immature Granulocytes # (auto) 0.18 K/uL (0.01-0.20); Immature Granulocytes % (auto) 1.7 %; Lymphocytes # (auto) 1.17 K/uL (1.20-3.40); Mean Corpuscular Hemoglobin 28.3 pg (25.0-34.0); Mean Corpuscular Hgb Conc 32.6 g/dL (32.0-36.0); Mean Corpuscular Volume 86.8 fL (80.0-100.0); Mean Platelet Volume 8.6 fL (9.4-12.4); Monocytes # (auto) 0.59 K/uL (0.11-0.59); Monocytes % (auto) 5.6 %; Neutrophils # (auto) 8.33 K/uL (1.40-6.50); Neutrophils % (auto) 78.7 %; Platelet Count 143 K/uL (130-400); RDW Coefficient of Variation 16.2 % (11.5-14.5); RDW Standard Deviation 51.3 fL (36.4-46.3); Red Blood Count 2.58 M/uL (4.70-6.10); White Blood Count 10.59 K/ul (4.8-10.8)
[2024-10-22 06:56] LABS: Calcium 8.2 mg/dl (8.6-10.3); Creatinine Clr Calc Pharmacy 92.9 ml/min; Potassium 4.4 mmol/L (3.5-5.1)
[2024-10-22 07:01] LABS: Ovalocytes 1+; Polychromasia 1+
--- NOTE | 2024-10-22 07:09 | Hospitalist Progress Note ---
Date of Service October 22, 2024 Assessment & Plan (1) Closed right hip fracture: (2) Steroid dependent: (3) Chronic hypoxic respiratory failure: (4) Rheumatoid arthritis: (5) Hypertension: (6) Urinary retention: Plan 79 y/o with a PMHx of HTN, rheumatoid arthritis on chronic prednisone, BPH with LUTS and urinary retention, CAD, HLD admitted for Right sided intertrochanteric femur frature post fall. Fell with unsteadiness while in [place]. #Right Hip Fracture S/P ORIF Pain control: Tylenol 1 g Q8H SAMMY Tramadol 50 mg Q 4 hr PRN Caution with opioids: Dialudid/ Tramadol/ Oxycodone PRN order in. Avoid NSAIDs PT/OT: recommends rehab. Can bear partial weight per ortho. #Anemia - 2/2 to acute blood loss d/t surgery and large hematoma of fall. - Hb: 10.4( 10/19) -----> 7.3( 10/22) - Transfuse 1 unit of PRBC; started. - Will recheck Hb after 2 hours. #hyponatremia, mild. - Na( 10/22): 133 - Recheck AM lab. encourage PO - May need gentle fluid if trending down. #Rheumatoid Arthritis #Chronic Steroid Use Patient on 5 mg prednisone daily. Cortisol > 10, no stress dose needed. #HTN BP stable now. Code status: full DVT ppx: defer for hematoma. Dispo: OT/PT recs rehab. Lines: Powers placed 10/18, will need voiding trial prior to d/c Admission and Anticipated Discharge Date Admission Date: October 18, 2024 Supervising Physician Co-Signing Physician Notes ATTESTATION I also saw the patient and confirmed balbuena portions of the history and exam. I agree with the impression and plan in the resident documentation, and as summarized below. Feels tired today. Pain under good control. EXAM 108/66, 94, 37.1 Alert and oriented. NAD CV RRR Lungs CTA DATA Labs HgB 8.9 > 7.8 > 7.3 Sodium 135 > 133 Micro Urine culture corrected - NOT Enterococcus faecalis, but three types present, all high counts. IMPRESSION & PLAN Right femur fracture Acute blood loss anemia History of urinary retention History of Hyponatremia Interstitial pulmonary fibrosis Acute on chronic anemia RA, on chronic prednisone PT as inpatient; suspect will need further inpatient rehabilitation; case management aware Recommend transfusion of 1 unit PRBCs, he is agreeable He had a hematoma with the fall likely accounting for majority of loss, with some additional post operative loss Recheck BMP in AM, may need gentle IVF if sodium continues to trend low I believe this is nutritional and related to intake, no other s/s of adrenal insufficiency to support need for stress dose steroids Additional per resident documentation Subjective No new complain. Pain well controlled. No bleeding, no swelling. Got out of bed last day, tolerated. Bearing physical therapy. Review of Systems Review of Systems: As per HPI Physical Exam Physical Exam: Constitutional: Well appearing, No acute distress, Pale looking. HEENT: Atraumatic, Normocephalic, No conjunctival injection CVS: Looks well perfused. Respiratory: No increased work of breathing GI: Soft, Nondistended MSK:Right femur S/P ORIF Decreased ROM, DNVS intact. Dressing serous soakage. Skin: Warm, Dry, No rashes Neuro: Alert, Oriented to TPP, No Focal deficit Psych: Mood and Affect congruent, Cooperative on exam Results & Data Results & Data Vital Signs (Past 12 Hours) Vital Signs Temp Pulse Pulse Resp BP Pulse Ox O2 Del Method 10/22/24 03:57 36.9 C 101 H 18 113/70 94 Nasal Cannula 10/22/24 00:51 36.3 C L 103 H 18 112/70 90 Nasal Cannula 10/21/24 21:40 97 H 10/21/24 21:00 Nasal Cannula 10/21/24 19:48 37.1 C 107 H 18 103/52 L 90 Nasal Cannula O2 Flow Rate 10/22/24 03:57 1.5 10/22/24 00:51 1.5 10/21/24 21:40 10/21/24 21:00 1.5 10/21/24 19:48 1.5 Resident Activity Tracking Resident Involvement: Resident Care Provided Care Provided: Adult Hospital Medicine
--- NOTE | 2024-10-22 09:08 | Orthopedic Progress Note ---
Date of Service October 22, 2024 Assessment & Plan (1) Intertrochanteric fracture of right femur: Plan: POD 3 - Status post ORIF right intertrochanteric hip fracture with long nail. Continue weight-bear as tolerated, with assistance (x2) at all times. Use walker to assist with ambulation. Continue PT and OT today. Aspirin 81 mg p.o. twice daily for DVT prophylaxis. Also SCDs and ALANA stockings while in house. May be out of bed with assistance as tolerated. Regular diet as ordered. Pain medication as prescribed. Ice to right hip as needed for pain or swelling. Elevate heels off of bed to prevent pressure sores. Elevate right lower extremity to relieve swelling. May do full range of motion of the ankle, knee and hip as tolerated. Will continue to follow. Keep incisions covered. Leave dressings in place. Continue to change as needed. Case management for disposition needs-he [facility] as primary, [facility] as backup. Follow-up with [facility] orthopedics in 2 weeks Admission and Anticipated Discharge Date Admission Date: October 18, 2024 Subjective This 79-year-old male is day 3 status post right hip intertrochanteric fracture fixation with long trochanteric nail. Patient is resting comfortably in bed this morning eating his breakfast. States his pain is well-controlled with the pain medication he has been given. States he still is unable to lift his right leg up and has pain with any type of movement. He states that he has been unable to work with physical therapy or occupational therapy. Currently he denies chest pain, shortness of breath, fever, chills, sweats, nausea, vomiting, diarrhea or numbness or tingling in the right lower extremity. He currently has a Powers catheter in place Review of Systems Review of Systems: All systems reviewed & are unremarkable except as noted in Subjective Physical Exam Physical Exam: Right hip: Dressings are clean dry and intact and left in place. Patient is unable to perform active straight leg raise test. He is able to actively dorsi and plantarflex foot and detect light sensation to touch over the pads of all digits. Peripheral pulses are 1+. Patient has discomfort with light passive hip flexion to 70 degrees as well as with light passive internal rotation. He has no discomfort with passive external rotation. Logroll test causes referred pain to the proximal incision site. Patient is neurovascularly intact in right lower extremity. Results & Data Vital Signs (Past 12 Hours) Vital Signs Temp Pulse Pulse Resp BP BP Pulse Ox 10/22/24 07:11 36.9 C 103 H 16 125/74 94 10/22/24 03:57 36.9 C 101 H 18 113/70 94 10/22/24 00:51 36.3 C L 103 H 18 112/70 90 10/21/24 21:40 97 H O2 Del Method O2 Flow Rate 10/22/24 07:11 Room Air 10/22/24 03:57 Nasal Cannula 1.5 10/22/24 00:51 Nasal Cannula 1.5 10/21/24 21:40 Diagnostic Findings Laboratory Results WBC 10.59 K/ul (4.8-10.8) 10/22/24 05:59 RBC 2.58 M/uL (4.70-6.10) L 10/22/24 05:59 Hgb 7.3 g/dl (14.0-18.0) L 10/22/24 05:59 POC Hgb 11.6 g/dl (14.0-18.0) L 10/18/24 14:14 Hct 22.4 % (42.0-52.0) L 10/22/24 05:59 POC Hct 34 % (42-52) L 10/18/24 14:14 MCV 86.8 fL (80.0-100.0) 10/22/24 05:59 MCH 28.3 pg (25.0-34.0) 10/22/24 05:59 MCHC 32.6 g/dL (32.0-36.0) 10/22/24 05:59 RDW Std Deviation 51.3 fL (36.4-46.3) H 10/22/24 05:59 RDW Coeff of Carl 16.2 % (11.5-14.5) H 10/22/24 05:59 Plt Count 143 K/uL (130-400) 10/22/24 05:59 MPV 8.6 fL (9.4-12.4) L 10/22/24 05:59 Immature Gran % (Auto) 1.7 % 10/22/24 05:59 Neut % (Auto) 78.7 % 10/22/24 05:59 Lymph % (Auto) 11.0 % 10/22/24 05:59 [place] % (Auto) 5.6 % 10/22/24 05:59 Eos % (Auto) 2.5 % 10/22/24 05:59 Baso % (Auto) 0.5 % 10/22/24 05:59 Neut # (Auto) 8.33 K/uL (1.40-6.50) H 10/22/24 05:59 Lymph # (Auto) 1.17 K/uL (1.20-3.40) L 10/22/24 05:59 [place] # (Auto) 0.59 K/uL (0.11-0.59) 10/22/24 05:59 Eos # (Auto) 0.27 K/uL (0.00-0.50) 10/22/24 05:59 Baso # (Auto) 0.05 K/uL (0.00-0.20) 10/22/24 05:59 Immature Gran # (Auto) 0.18 K/uL (0.01-0.20) 10/22/24 05:59 RBC Morphology Unremarkable 10/21/24 06:12 Polychromasia 1+ 10/22/24 05:59 Ovalocytes 1+ 10/22/24 05:59 PT 11.1 Seconds (9.0-12.0) 10/18/24 11:35 INR 1.0 (0.9-1.1) 10/18/24 11:35 APTT 26 Seconds (21-31) 10/18/24 11:35 PTT Ratio 1.0 10/18/24 11:35 POC Sodium 138 mmol/L (135-144) 10/18/24 14:14 Sodium 133 mmol/L (136-145) L 10/22/24 05:59 POC Potassium 4.2 mmol/L (3.3-5.0) 10/18/24 14:14 Potassium 4.4 mmol/L (3.5-5.1) 10/22/24 05:59 POC Chloride 99 mmol/L (101-112) L 10/18/24 14:14 Chloride 98 mmol/L (98-107) 10/22/24 05:59 Carbon Dioxide 32 mmol/L (21-32) 10/22/24 05:59 POC Total CO2 27 mmol/L (24-31) 10/18/24 14:14 Anion Gap 3 (3-11) 10/22/24 05:59 POC Anion Gap 18.0 mmol/L (16-25) 10/18/24 14:14 POC BUN 21 mg/dl (7-18) H 10/18/24 14:14 BUN 21 mg/dl (6-23) 10/22/24 05:59 Creatinine 0.60 mg/dl (0.6-1.4) 10/22/24 05:59 POC Creatinine 0.8 mg/dl (0.6-1.3) 10/18/24 14:14 Est Cr Clr Drug Dosing 92.9 ml/min 10/22/24 05:59 eGFR 96.98 10/22/24 05:59 BUN/Creatinine Ratio 41.8 (10-20) H 10/20/24 06:24 Glucose 101 mg/dl (70-99(Fasting)) H 10/20/24 06:24 POC Glucose 90 mg/dl (70-99) 10/19/24 18:49 POC Glucose (other) 123 mg/dl (70-99) H 10/18/24 14:14 Fasting Glucose 88 mg/dl (70-99) 10/22/24 05:59 Calcium 8.2 mg/dl (8.6-10.3) L 10/22/24 05:59 POC Ioniz Calcium Corie 1.21 mmol/l (1.12-1.32) 10/18/24 14:14 Total Bilirubin 0.3 mg/dl (0.2-1.0) 10/18/24 11:35 AST 24 U/L (13-39) 10/18/24 11:35 ALT 18 U/L (7-52) 10/18/24 11:35 Alkaline Phosphatase 89 U/L (34-104) 10/18/24 11:35 Total Protein 6.8 gm/dl (6.0-8.3) 10/18/24 11:35 Albumin 3.3 gm/dl (3.4-5.0) L 10/18/24 11:35 Globulin 3.5 gm/dl (2.5-4.0) 10/18/24 11:35 Albumin/Globulin Ratio 0.9 (0.9-2) 10/18/24 11:35 Prealbumin 13.0 mg/dl (20-40) L 10/20/24 06:24 25-OH Vitamin D Total 29.1 ng/ml (30-100) L 10/20/24 06:24 Cortisol AM Sample 10.66 mcg/dl (6.2-22.6) 10/19/24 07:11 Urine Color Yellow 10/22/24 03:30 Urine Appearance Clear (Clear) 10/22/24 03:30 Urine pH 6.0 (4.5-7.5) 10/22/24 03:30 Ur Specific Casper 1.019 (1.000-1.030) 10/22/24 03:30 Urine Protein Negative (Negative) 10/22/24 03:30 Urine Glucose (UA) Negative (Negative) 10/22/24 03:30 Urine Ketones Negative (Negative) 10/22/24 03:30 Urine Blood Negative (Negative) 10/22/24 03:30 Urine Nitrite Negative (Negative) 10/22/24 03:30 Urine Bilirubin Negative (Negative) 10/22/24 03:30 Urine Urobilinogen Negative (Negative) 10/22/24 03:30 Ur Leukocyte Esterase Negative (Negative) 10/22/24 03:30 Urine WBC (Auto) 6-10 /hpf (0-5) H 10/18/24 13:10 Urine RBC (Auto) 0-2 /hpf (0-2) 10/18/24 13:10 U Hyaline Cast (Auto) 0-2 /lpf (0-2) 10/18/24 13:10 U Epithel Cells (Auto) 0-2 /hpf (0-2) 10/18/24 13:10 Urine Bacteria (Auto) 4+ (None Seen) H 10/18/24 13:10 Blood Type O Negative 10/18/24 14:18 Antibody Screen NEGATIVE 10/18/24 14:18 Crossmatch See Detail 10/18/24 14:[address] 10/18/24 11:56 CT SCAN OF THE CERVICAL SPINE CLINICAL HISTORY: Fall. COMPARISON STUDY: None. TECHNIQUE: CT scan of the cervical spine is performed from the skull base to the upper thoracic spine. Images are reviewed in the axial, sagittal, and coronal planes. IV contrast was not administered for this examination. A dose lowering technique was utilized adhering to the principles of ALARA. FINDINGS: Skeletal structures: There are no fractures within the cervical spine. Slight anterolisthesis of C6 on C7 and C7 on T1 is due to facet arthrosis. Vertebral body height and alignment are maintained. The odontoid process and lateral masses are intact. The atlantoaxial articulation is preserved. The spinous processes appear intact. There is moderate multilevel disc space narrowing and facet arthrosis within the cervical spine. Soft tissues: The prevertebral and paraspinous soft tissues are within normal limits. Calvarium: The visualized calvarium at the skull base appears intact. Brain parenchyma and skull base: Partially visualized brain parenchyma at the skull base is within normal limits. Trace fluid within the left mastoid air cells. Lung apices: Evidence for interstitial lung disease within the lung apices. IMPRESSION: No acute cervical spine fracture or subluxation. ACT 112: Negative or not required by law. Electronically signed by: Jon Valladares M.D. 10/18/2024 12:48 PM Chest X-Ray 10/18/24 11:56 XR chest 1V portable HISTORY: 79 years-old Male Fall acute chest trauma status post fall COMPARISON: 08/13/2024 TECHNIQUE: AP view of the chest FINDINGS: Cardiac silhouette is enlarged. Unchanged right hemidiaphragmatic elevation. Chronic interstitial lung disease with fibrosis again most pronounced in the left lung base. No pneumothorax, large pleural effusion or new airspace consolidation. Right upper quadrant surgical clips. The bones appear grossly intact. IMPRESSION: 1. Cardiomegaly without acute posttraumatic abnormality identified. 2. Chronic pulmonary fibrosis. ACT 112: Negative or not required by law. The above report was generated using voice recognition software. It may contain grammatical, syntax or spelling errors. Electronically signed by: Lalit Lopez M.D. 10/18/2024 12:[address] 10/18/24 11:56 CT head/brain wo con CLINICAL HISTORY: 79 years-old Male with Fall, struck head. Acute head trauma status post fall TECHNIQUE: Multiple axial CT images of the head were obtained without contrast. A dose lowering technique was utilized adhering to the principles of ALARA. CT DOSE: 1152.3 mGy.cm COMPARISON: 06/08/2024 FINDINGS: No acute intracranial hemorrhage, midline shift, intracranial mass, hydrocephalus, territorial ischemia or abnormal extra-axial collection. Involutional changes with white matter hypodensities redemonstrated suggestive of chronic microvascular ischemic disease. The calvarium is intact. Prior bilateral lens repair. The paranasal sinuses, mastoid air cells, and middle ear cavities are clear. IMPRESSION: No acute intracranial abnormality or calvarial fracture. ACT 112: Negative or not required by law. The above report was generated using voice recognition software. It may contain grammatical, syntax or spelling errors. Electronically signed by: Lalit Lopez M.D. 10/18/2024 12:50 PM Hip/Pelvis X-Ray 10/18/24 11:56 XR hip RT 2V w pelvis CLINICAL HISTORY: Fall, R hip pain COMPARISON: CT of the abdomen and pelvis June 26, 2024. FINDINGS: Sacroiliac joints and symphysis pubis are intact. There is an acute comminuted moderately displaced intertrochanteric fracture of the right femur. No additional fractures are identified. IMPRESSION: Acute comminuted moderately displaced intertrochanteric fracture of the right femur. ACT 112: Negative or not required by law. Electronically signed by: Jon Valladares M.D. 10/18/2024 12:[address] 10/18/24 12:12 CT hip RT wo con HISTORY: 79 years-old Male Fall, R hip fx acute right hip pain status post fall COMPARISON: Pelvis and hip radiographs of same day TECHNIQUE: Multiple axial CT images of the right hip were obtained without IV contrast. A dose lowering technique was used consistent with the principals of ALARA. FINDINGS: Confirmation of the acute and comminuted intertrochanteric right femoral fracture with the lesser trochanteric fracture fragment displaced medially approximately 1.7 cm. Moderate osteoarthritis of the right hip. No additional acute fracture or dislocation identified. There is moderate degeneration of the right SI joint. Intramuscular hematoma within the proximal quadriceps musculature measures up to approximately 16 cm in length, partially imaged. Surgical clips of the scrotum. There is a small right hip joint effusion/hemarthrosis. Colonic diverticulosis. Small right inguinal hernia. IMPRESSION: 1. Confirmation of the acute, comminuted and mildly displaced intertrochanteric right femoral fracture. 2. No dislocation. 3. Partially imaged intramuscular hematoma within the proximal quadriceps extends for a length of greater than 16 cm. ACT 112: Negative or not required by law. The above report was generated using voice recognition software. It may contain grammatical, syntax or spelling errors. Electronically signed by: Lalit Lopez M.D. 10/18/2024 1:10 PM Femur X-Ray 10/18/24 12:49 XR femur RT 2V routine HISTORY: 79 years-old Male R hip fx, assess remainder of femur acute pain of the right hip and proximal femur status post fall COMPARISON: CT right hip of same day TECHNIQUE: 2 views of the right femur FINDINGS: Arterial calcifications. Acute, comminuted and displaced intertrochanteric right femoral fracture. No extension of the femoral shaft. Moderate soft tissue swelling of the upper to mid thigh. Surgical clips project over the right scrotum. IMPRESSION: 1. Acute intertrochanteric right femoral fracture redemonstrated with adjacent soft tissue swelling. 2. No fracture extension into the femoral diaphysis. ACT 112: Negative or not required by law. The above report was generated using voice recognition software. It may contain grammatical, syntax or spelling errors. Electronically signed by: Lalit Lopez M.D. 10/18/2024 1:24 PM Hip X-Ray 10/19/24 13:00 FL hip RT 2-3V CLINICAL HISTORY: RT LONG IM NAIL COMPARISON STUDY: Right femur radiographs October 10, 2024. Fluoroscopy time: 2 minutes and 4 seconds. Number of fluoroscopic images: 5 Ka,r: 22.46 mGy. FINDINGS: Fluoroscopy during open reduction and internal fixation of the intertrochanteric fracture of the right femur with intramedullary nail. Fracture alignment has markedly improved. No unexpected radiopaque foreign bodies. IMPRESSION: Fluoroscopy provided during open reduction and internal fixation of the intertrochanteric fracture of the right femur. ACT 112: Negative or not required by law. Electronically signed by: Jon Valladares M.D. 10/20/2024 7:29 AM
[2024-10-22] MEDS ORDERED: SODIUM CHLORIDE 0.9% 100 ML IV PRN (09:46)
[2024-10-22] MEDS: POLYETHYLENE (MIRALAX) 17 GM PACK PO PRN (11:56)
[2024-10-22 18:28] LABS: Hematocrit (blood only) 26.3 % (42.0-52.0); Hemoglobin 8.6 g/dl (14.0-18.0)
[2024-10-23 06:43] LABS: Basophils # (auto) 0.08 K/uL (0.00-0.20); Basophils % (auto) 0.7 %; Eosinophils % (auto) 2.8 %; Hematocrit (blood only) 27.1 % (42.0-52.0); Hemoglobin 8.8 g/dl (14.0-18.0); Immature Granulocytes # (auto) 0.29 K/uL (0.01-0.20); Immature Granulocytes % (auto) 2.7 %; Lymphocytes # (auto) 1.05 K/uL (1.20-3.40); Lymphocytes % (auto) 9.7 %; Mean Corpuscular Hemoglobin 28.2 pg (25.0-34.0); Mean Corpuscular Hgb Conc 32.5 g/dL (32.0-36.0); Mean Corpuscular Volume 86.9 fL (80.0-100.0); Mean Platelet Volume 8.7 fL (9.4-12.4); Monocytes # (auto) 0.65 K/uL (0.11-0.59); Neutrophils % (auto) 78.1 %; Platelet Count 172 K/uL (130-400); RDW Coefficient of Variation 15.9 % (11.5-14.5); RDW Standard Deviation 49.7 fL (36.4-46.3); Red Blood Count 3.12 M/uL (4.70-6.10); White Blood Count 10.77 K/ul (4.8-10.8)
[2024-10-23 07:03] LABS: Calcium 8.3 mg/dl (8.6-10.3); Creatinine Clr Calc Pharmacy 101.5 ml/min; Potassium 4.4 mmol/L (3.5-5.1)
--- NOTE | 2024-10-23 10:04 | Hospitalist Progress Note ---
Date of Service October 23, 2024 Assessment & Plan (1) Closed right hip fracture: (2) Steroid dependent: (3) Chronic hypoxic respiratory failure: (4) Rheumatoid arthritis: (5) Hypertension: (6) Urinary retention: Plan 79 y/o with a PMHx of HTN, rheumatoid arthritis on chronic prednisone, BPH with LUTS and urinary retention, CAD, HLD admitted for Right sided intertrochanteric femur frature post fall. Fell with unsteadiness while in [place]. #Right Hip Fracture S/P ORIF Pain control: Tylenol 1 g Q8H SAMMY Tramadol 50 mg Q 4 hr PRN Caution with opioids: Dialudid/ Tramadol/ Oxycodone PRN order in. Avoid NSAIDs PT/OT: recommends rehab. Can bear partial weight per ortho. #Anemia , transfused 1 U. *stable - 2/2 to acute blood loss d/t surgery and large hematoma of fall. - Hb: 10.4( 10/19) -----> 7.3( 10/22) S/ P transfusion--8.8 gm( 10/23) #hyponatremia, mild. - Na( 10/22): 132 - Recheck AM lab. encourage PO #Rheumatoid Arthritis #Chronic Steroid Use Patient on 5 mg prednisone daily. Cortisol > 10, no stress dose needed. #HTN BP stable now. Code status: full DVT ppx: defer for hematoma. Dispo: OT/PT recs rehab. Lines: Powers placed 10/18, will need voiding trial prior to d/c Admission and Anticipated Discharge Date Admission Date: October 18, 2024 Supervising Physician Co-Signing Physician Notes ATTESTATION I also saw the patient and confirmed balbuena portions of the history and exam. I agree with the impression and plan in the resident documentation, and as summarized below. No new complaints today. EXAM VS as noted Alert and oriented. NAD CV RRR Lungs CTA DATA Labs HgB 8.9 > 7.8 > 7.3 > 8.8 Sodium 135 > 133 > 132 IMPRESSION & PLAN Right femur fracture Acute blood loss anemia History of urinary retention History of Hyponatremia Interstitial pulmonary fibrosis Acute on chronic anemia RA, on chronic prednisone PT as inpatient; suspect will need further inpatient rehabilitation; case management aware S/P one unit PRBCs yesterday; monitor HgB Continue to monitor serum sodium I believe this is nutritional and related to intake, no other s/s of adrenal insufficiency to support need for stress dose steroids Additional per resident documentation Subjective No new change. Pretty stable. Pain well controlled. No nausea, vomiting. Review of Systems Review of Systems: As per HPI Physical Exam Physical Exam: Constitutional: Well appearing, No acute distress, Pale looking. HEENT: Atraumatic, Normocephalic, No conjunctival injection CVS: Looks well perfused. Respiratory: No increased work of breathing GI: Soft, Nondistended MSK:Right femur S/P ORIF Decreased ROM, DNVS intact. Dressing dry. Skin: Warm, Dry, No rashes Neuro: Alert, Oriented to TPP, No Focal deficit Psych: Mood and Affect congruent, Cooperative on exam Results & Data Results & Data Vital Signs (Past 12 Hours) Vital Signs Temp Pulse Resp BP Pulse Ox O2 Del Method O2 Flow Rate 10/23/24 07:00 36.9 C 98 H 18 126/77 94 Room Air 10/23/24 03:16 37.0 C 91 H 18 120/72 96 Nasal Cannula 1.5 10/22/24 23:59 37.1 C 94 H 18 120/73 96 Nasal Cannula 1.5
[2024-10-23] MEDS: SODIUM CHLORIDE 0.9% 500 ML IV SCH (18:35)
[2024-10-24 06:59] LABS: Basophils # (auto) 0.05 K/uL (0.00-0.20); Basophils % (auto) 0.5 %; Eosinophils # (auto) 0.18 K/uL (0.00-0.50); Eosinophils % (auto) 1.7 %; Hematocrit (blood only) 27.1 % (42.0-52.0); Hemoglobin 8.9 g/dl (14.0-18.0); Immature Granulocytes # (auto) 0.31 K/uL (0.01-0.20); Immature Granulocytes % (auto) 2.9 %; Lymphocytes # (auto) 1.06 K/uL (1.20-3.40); Lymphocytes % (auto) 9.9 %; Mean Corpuscular Hemoglobin 28.2 pg (25.0-34.0); Mean Corpuscular Hgb Conc 32.8 g/dL (32.0-36.0); Mean Corpuscular Volume 85.8 fL (80.0-100.0); Mean Platelet Volume 8.7 fL (9.4-12.4); Monocytes # (auto) 0.72 K/uL (0.11-0.59); Monocytes % (auto) 6.7 %; Neutrophils # (auto) 8.43 K/uL (1.40-6.50); Neutrophils % (auto) 78.3 %; Platelet Count 207 K/uL (130-400); RDW Coefficient of Variation 15.8 % (11.5-14.5); RDW Standard Deviation 48.9 fL (36.4-46.3); Red Blood Count 3.16 M/uL (4.70-6.10); White Blood Count 10.75 K/ul (4.8-10.8)
[2024-10-24 07:27] LABS: Calcium 8.4 mg/dl (8.6-10.3); Creatinine Clr Calc Pharmacy 115.1 ml/min; Potassium 4.2 mmol/L (3.5-5.1)
--- NOTE | 2024-10-24 07:29 | Hospitalist Progress Note ---
Date of Service October 24, 2024 Assessment & Plan (1) Closed right hip fracture: (2) Steroid dependent: (3) Chronic hypoxic respiratory failure: (4) Rheumatoid arthritis: (5) Hypertension: (6) Urinary retention: Plan 79 y/o with a PMHx of HTN, rheumatoid arthritis on chronic prednisone, BPH with LUTS and urinary retention, CAD, HLD, S/P ORIF Right sided intertrochanteric femur frature post fall. Fell with unsteadiness while in [place]. #Right Hip Fracture S/P ORIF( 10/19): 5th POD today. Pain control: Tylenol 1 g Q8H SAMMY Tramadol 50 mg Q 4 hr PRN Caution with opioids: Dialudid/ Tramadol/ Oxycodone PRN order in. Avoid NSAIDs for hematoma in right leg PT/OT: recommends rehab. Can bear partial weight per ortho. Follow-up with [facility] orthopedics in 2 weeks #Anemia , transfused 1 U PRBC / Hematoma in right LL. *stable, conservative management for hematoma. Anemia: 2/2 to acute blood loss d/t surgery and hematoma. -Hb: 10.4( 10/19) -----> 7.3( 10/22) S/ P 1 unit PRBC transfusion--8.9 gm( 10/24) #Mild hyponatremia wtih mild dehydration *2/2 Poor po intake - Tachycardic: HR 91-108 in last 24 hours. - Na(10/22): 132---133( 10/24) - S/P 500 ml fluids overnight, will continue LR 80 ml/ hr fluid started today as he looks dry as well on top of mild hyponatremia. - Chest Xray this AM: looks dry. - Trend AM lab. encourage PO #Rheumatoid Arthritis #Chronic Steroid Use Patient on 5 mg prednisone daily. Cortisol level > 10, no stress dose indicated. Continue home dose #HTN BP stable now. Code status: full DVT ppx: defer for hematoma. Dispo: OT/PT recs rehab. He would prefer [facility] as primary, [facility] as backup. Admission and Anticipated Discharge Date Admission Date: October 18, 2024 Supervising Physician Co-Signing Physician Notes ATTESTATION I also saw the patient and confirmed balbuena portions of the history and exam. I agree with the impression and plan in the resident documentation, and as summarized below. No new complaints today. EXAM VS as noted, supplemental oxygen at 2 lpm Alert and oriented. NAD although seems tired CV RRR Lungs CTA DATA Labs HgB 8.9 > 7.8 > 7.3 > 8.8 > 8.9 Sodium 135 > 133 > 132 > 133 IMPRESSION & PLAN Right femur fracture Acute blood loss anemia History of urinary retention History of Hyponatremia, Acute on chronic Interstitial pulmonary fibrosis Acute on chronic anemia RA, on chronic prednisone PT as inpatient; suspect will need further inpatient rehabilitation; case management aware S/P one unit PRBCs yesterday; stable today; continue to monitor HgB Clinically looks dry He received a small bolus yesterday Check CXR today Resume IVF given hypernatremia and tachycardia Additional per resident documentation Subjective Mr Knutson had no active complain this AM. Pain pretty stable, manageable with Meds. Poor baseline appetite,looked little dehydrated to me this mooring. Nurse mentioned about some cough, but No fever, CP, vomiting, nausea. Tolerating phys ical therapy Review of Systems Review of Systems: As per HPI Physical Exam Physical Exam: Constitutional: Well appearing, No acute distress HEENT: Atraumatic, Normocephalic, No conjunctival injection CVS: Looks well perfused. Respiratory: No increased work of breathing GI: Soft, Nondistended MSK:Right femur S/P ORIF Decreased ROM, DNVS intact. Dressing dry. Skin: Warm, Dry, No rashes Neuro: Alert, Oriented to TPP, No Focal deficit Psych: Mood and Affect congruent, Cooperative on exam Results & Data Results & Data Vital Signs (Past 12 Hours) Vital Signs Temp Pulse Pulse Resp BP Pulse Ox O2 Del Method 10/24/24 02:46 37.0 C 97 H 18 127/74 92 Nasal Cannula 10/23/24 22:58 37.1 C 106 H 18 132/76 92 Nasal Cannula 10/23/24 21:38 108 H 10/23/24 21:00 Nasal Cannula O2 Flow Rate 10/24/24 02:46 1.5 10/23/24 22:58 1.5 10/23/24 21:38 10/23/24 21:00 2 Resident Activity Tracking Resident Involvement: Resident Care Provided Care Provided: Adult Hospital Medicine
--- NOTE | 2024-10-24 10:25 | XRay Report ---
HISTORY: Cough TECHNIQUE: Portable AP radiograph of the chest. COMPARISON: Chest radiograph dated 10/18/2024. FINDINGS: Severe interstitial opacity throughout both lungs with lower lung and basilar predominance. Lucency overlying the mid left lung suspicious for underlying emphysema and COPD. No pneumothorax or effusion. Top normal heart size. Left-sided aortic arch. No acute osseous abnormality. Included upper abdomen is unremarkable. IMPRESSION: * No significant interval change. Severe interstitial opacity throughout both lungs with basilar and lower lung predominance favoring underlying interstitial lung disease/fibrosis. It would be difficult to exclude superimposed pneumonia due to the degree of chronic lung opacity. * Findings suspicious for superimposed COPD/emphysema. * Additional findings as detailed above. Electronically signed by Chato Joe 10-24-2024 10:25 AM
[2024-10-24] MEDS: LACTATED RINGER'S 1,000 ML IV SCH (10:48)
[2024-10-24 21:41] LABS: Prothrombin Time 10.9 Seconds (9.0-12.0)
[2024-10-24 21:49] LABS: Hematocrit (blood only) 26.2 % (42.0-52.0); Hemoglobin 8.6 g/dl (14.0-18.0); Mean Corpuscular Hemoglobin 28.6 pg (25.0-34.0); Mean Corpuscular Hgb Conc 32.8 g/dL (32.0-36.0); Mean Platelet Volume 8.9 fL (9.4-12.4); Platelet Count 232 K/uL (130-400); RDW Coefficient of Variation 15.9 % (11.5-14.5); RDW Standard Deviation 50.5 fL (36.4-46.3); Red Blood Count 3.01 M/uL (4.70-6.10); White Blood Count 13.01 K/ul (4.8-10.8)
[2024-10-25] MEDS: ACETAMINOPHEN 1,000 MG/100 ML VIAL IV STA (07:58)
[2024-10-25 08:04] LABS: Basophils # (auto) 0.05 K/uL (0.00-0.20); Basophils % (auto) 0.5 %; Eosinophils # (auto) 0.28 K/uL (0.00-0.50); Eosinophils % (auto) 2.6 %; Hematocrit (blood only) 25.1 % (42.0-52.0); Hemoglobin 8.3 g/dl (14.0-18.0); Immature Granulocytes # (auto) 0.52 K/uL (0.01-0.20); Immature Granulocytes % (auto) 4.9 %; Lymphocytes # (auto) 1.12 K/uL (1.20-3.40); Lymphocytes % (auto) 10.5 %; Mean Corpuscular Hemoglobin 28.9 pg (25.0-34.0); Mean Corpuscular Hgb Conc 33.1 g/dL (32.0-36.0); Mean Corpuscular Volume 87.5 fL (80.0-100.0); Mean Platelet Volume 8.8 fL (9.4-12.4); Monocytes # (auto) 0.69 K/uL (0.11-0.59); Monocytes % (auto) 6.5 %; Neutrophils # (auto) 7.97 K/uL (1.40-6.50); Platelet Count 216 K/uL (130-400); RDW Standard Deviation 51.1 fL (36.4-46.3); Red Blood Count 2.87 M/uL (4.70-6.10); White Blood Count 10.63 K/ul (4.8-10.8)
[2024-10-25 08:31] LABS: Calcium 8.2 mg/dl (8.6-10.3); Creatinine Clr Calc Pharmacy 117.7 ml/min; Potassium 4.2 mmol/L (3.5-5.1)
--- NOTE | 2024-10-25 09:51 | Orthopedic Progress Note ---
Date of Service October 25, 2024 Assessment & Plan (1) Intertrochanteric fracture of right femur: Plan: POD 6 - Status post ORIF right intertrochanteric hip fracture with long nail. Continue weight-bear as tolerated, with assistance (x2) at all times. Use walker to assist with ambulation Continue PT and OT Aspirin 81 mg p.o. twice daily for DVT prophylaxis. Also SCDs and ALANA stockings while in house. May be out of bed with assistance Regular diet as ordered. Pain medication as prescribed. Ice to right hip as needed for pain or swelling. Elevate heels off of bed to prevent pressure sores. Elevate right lower extremity to relieve swelling. May do full range of motion of the ankle, knee and hip as tolerated. Will continue to follow. Keep incisions covered. Leave dressings in place. Continue to change as needed Nurse noted frequent bloody drainage from distal incision over thigh. Incision well approximated, no signs of infection. Pressure dressing applied. No sig hematoma present, nursing to continue to monitor and change dressing as needed. Case management for disposition needs Follow-up with [facility] orthopedics in 2 weeks from surgery, will sign off for now please tiger text with any questions or concerns Admission and Anticipated Discharge Date Admission Date: October 18, 2024 Subjective Pt reports doing well. No pain this morning. No concerns. Nurse had just changed dressing when i entered room. Noted bloody drainage at the distal incision over thigh. Had to change dressings couple times over weekend. Tried working with PT but got dizzy, however BP was stable. Physical Exam Physical Exam: Dressing taken down. No active drainage when I evaluated. Incision clean, dry, intact with some dried blood noted that was able to be wiped away. No fluctuance. No hematoma present. Soft. No pain when palpating. No significant ecchymosis or erythema. Patient is able to wiggle his toes and pump his ankles. He can slightly flex his knee up to about 30 degrees. Poor quad tone. He is able to tolerate light gentle abduction, adduction and flexion of his knee. Results & Data Vital Signs (Past 12 Hours) Vital Signs Temp Pulse Pulse Resp BP Pulse Ox O2 Del Method 10/25/24 08:00 Nasal Cannula 10/25/24 08:00 86 10/25/24 07:06 36.8 C 97 H 16 128/78 94 Nasal Cannula 10/25/24 03:05 36.5 C 89 18 136/83 92 Nasal Cannula 10/24/24 22:43 36.6 C 97 H 18 130/81 95 Nasal Cannula 10/24/24 21:59 96 H O2 Flow Rate 10/25/24 08:00 1 10/25/24 08:00 10/25/24 07:06 1.0 10/25/24 03:05 1 10/24/24 22:43 1 10/24/24 21:59
--- NOTE | 2024-10-25 10:27 | Hospitalist Progress Note ---
Date of Service October 25, 2024 Assessment & Plan (1) Closed right hip fracture: (2) Steroid dependent: (3) Chronic hypoxic respiratory failure: (4) Rheumatoid arthritis: (5) Hypertension: (6) Urinary retention: Plan 79 y/o with a PMHx of HTN, rheumatoid arthritis on chronic prednisone, BPH with LUTS and urinary retention, CAD, HLD, S/P ORIF Right sided intertrochanteric femur frature post fall. Fell with unsteadiness while in [place]. #Right Hip Fracture S/P ORIF( 10/19): 5th POD today. Pain control: Tylenol 1 g Q8H SAMMY Tramadol 50 mg Q 4 hr PRN Caution with opioids: Dialudid/ Tramadol/ Oxycodone PRN order in. Avoid NSAIDs for hematoma in right leg PT/OT: recommends rehab. Can bear partial weight per ortho. #Anemia , transfused 1 U/ Hematoma in right LL. *stable, conservative management for hematoma. - 2/2 to acute blood loss d/t surgery and large hematoma of fall. - Hb: 10.4( 10/19) -----> 7.3( 10/22) S/ P transfusion--8.8 gm( 10/23) #hyponatremia, mild. - Na( 10/22): 132 - Recheck AM lab. encourage PO #Rheumatoid Arthritis #Chronic Steroid Use Patient on 5 mg prednisone daily. Cortisol > 10, no stress dose needed. #HTN BP stable now. Code status: full DVT ppx: defer for hematoma. Dispo: OT/PT recs rehab. Lines: Powers placed 10/18, will need voiding trial prior to d/c Currently because of hypotension we will give patient IV fluids and encourage him to drink water we will evaluate his labs and determine if he is able to walk without getting hypotensive as this is still a risk for fall Admission and Anticipated Discharge Date Admission Date: October 18, 2024 Subjective Pt reports doing well. No pain this morning. No concerns. Nurse had just changed dressing when i entered room. Noted bloody drainage at the distal incision over thigh. Had to change dressings couple times over weekend. Tried working with PT but got dizzy, however BP was stable. Review of Systems Review of Systems: Patient has significant hypotension Physical Exam Physical Exam: Patient has very dark urine in urinary bag Constitutional: Well appearing, No acute distress HEENT: Atraumatic, Normocephalic, No conjunctival injection CVS: Looks well perfused. Respiratory: No increased work of breathing GI: Soft, Nondistended MSK:Right femur S/P ORIF Decreased ROM, DNVS intact. Dressing dry. Skin: Warm, Dry, No rashes Neuro: Alert, Oriented to TPP, No Focal deficit Psych: Mood and Affect congruent, Cooperative on exam Results & Data Results & Data Vital Signs (Past 12 Hours) Vital Signs Temp Pulse Pulse Resp BP Pulse Ox O2 Del Method 10/25/24 08:00 Nasal Cannula 10/25/24 08:00 86 10/25/24 07:06 36.8 C 97 H 16 128/78 94 Nasal Cannula 10/25/24 03:05 36.5 C 89 18 136/83 92 Nasal Cannula 10/24/24 22:43 36.6 C 97 H 18 130/81 95 Nasal Cannula O2 Flow Rate 10/25/24 08:00 1 10/25/24 08:00 10/25/24 07:06 1.0 10/25/24 03:05 1 10/24/24 22:43 1 PG Care Time/CCT Total # of Minutes Spent Total Time Spent with Patient: Total time spent is greater than 50% in coordination of care (as documented) at patient's floor/unit and/or counseling patient: Coding Level of Care Code 52919 SUB INP/OBS CARE 3/50MIN Diagnoses Closed right hip fracture S72.001A 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 Chronic hypoxic respiratory failure J96.11 Rheumatoid arthritis M06.9 Hypertension I10 Urinary retention R33.9
[2024-10-25] MEDS: SODIUM CHLORIDE 0.9% 1,000 ML IV SCH (16:54)
[2024-10-26 09:47] LABS: Hematocrit (blood only) 24.6 % (42.0-52.0); Hemoglobin 7.7 g/dl (14.0-18.0); Mean Corpuscular Hemoglobin 27.9 pg (25.0-34.0); Mean Corpuscular Hgb Conc 31.3 g/dL (32.0-36.0); Mean Corpuscular Volume 89.1 fL (80.0-100.0); Mean Platelet Volume 8.6 fL (9.4-12.4); Platelet Count 242 K/uL (130-400); RDW Coefficient of Variation 16.1 % (11.5-14.5); RDW Standard Deviation 52.6 fL (36.4-46.3); Red Blood Count 2.76 M/uL (4.70-6.10); White Blood Count 10.14 K/ul (4.8-10.8)
[2024-10-26 10:03] LABS: Albumin Globulin Ratio 0.8 (0.9-2); Albumin Level 2.4 gm/dl (3.4-5.0); BUN Creatinine Ratio 44.9 (10-20); Bilirubin,Total 0.7 mg/dl (0.2-1.0); Calcium 8.1 mg/dl (8.6-10.3); Creatinine Clr Calc Pharmacy 108.7 ml/min; Potassium 4.2 mmol/L (3.5-5.1); Total Protein 5.4 gm/dl (6.0-8.3)
--- NOTE | 2024-10-26 17:55 | Hospitalist Progress Note ---
Date of Service October 26, 2024 Assessment & Plan (1) Closed right hip fracture: (2) Steroid dependent: (3) Chronic hypoxic respiratory failure: (4) Rheumatoid arthritis: (5) Hypertension: (6) Urinary retention: Plan 79 y/o with a PMHx of HTN, rheumatoid arthritis on chronic prednisone, BPH with LUTS and urinary retention, CAD, HLD, S/P ORIF Right sided intertrochanteric femur frature post fall. Fell with unsteadiness while in [place]. #Right Hip Fracture S/P ORIF( 10/19): 5th POD today. Pain control: Tylenol 1 g Q8H SAMMY Tramadol 50 mg Q 4 hr PRN Caution with opioids: Dialudid/ Tramadol/ Oxycodone PRN order in. Avoid NSAIDs for hematoma in right leg PT/OT: recommends rehab. Can bear partial weight per ortho. #Anemia , transfused 1 U/ Hematoma in right LL. *stable, conservative management for hematoma. - 2/2 to acute blood loss d/t surgery and large hematoma of fall. - Hb: 10.4( 10/19) -----> 7.3( 10/22) S/ P transfusion--8.8 gm( 10/23) #hyponatremia, mild. - Na( 10/22): 132 - Recheck AM lab. encourage PO #Rheumatoid Arthritis #Chronic Steroid Use Patient on 5 mg prednisone daily. Cortisol > 10, no stress dose needed. #HTN BP stable now. Code status: full DVT ppx: defer for hematoma. Dispo: OT/PT recs rehab. Lines: Powers placed 10/18, will need voiding trial prior to d/c Will order to discontinue catheter and discontinue IV fluids encourage patient to drink more water by mouth Admission and Anticipated Discharge Date Admission Date: October 18, 2024 Subjective Patient is much more awake and alert his blood pressures are good and he is not orthostatic hypotension has significantly resolved patient still requires 2 L of oxygen Physical Exam Physical Exam: Patient has manager mobility colored urine in urinary bag Constitutional: ill appearing, No acute distress, severe protein calorie malnutrition HEENT: Atraumatic, Normocephalic, No conjunctival injection CVS: Looks well perfused. Respiratory: No increased work of breathing GI: Soft, Nondistended MSK:Right femur S/P ORIF Decreased ROM, DNVS intact. Dressing dry. Skin: Warm, Dry, No rashes Neuro: Alert, Oriented to TPP, No Focal deficit Psych: Mood and Affect congruent, Cooperative on exam Results & Data Results & Data Vital Signs (Past 12 Hours) Vital Signs Temp Pulse Resp BP BP Pulse Ox O2 Del Method 10/26/24 15:24 36.6 C 85 18 117/71 98 Nasal Cannula 10/26/24 11:26 36.6 C 101 H 16 103/62 98 Room Air 10/26/24 08:18 Nasal Cannula 10/26/24 07:43 36.8 C 79 18 119/63 96 Nasal Cannula O2 Flow Rate 10/26/24 15:24 2 10/26/24 11:26 10/26/24 08:18 3 10/26/24 07:43 2 PG Care Time/CCT Total # of Minutes Spent Total Time Spent with Patient: Total time spent is greater than 50% in coordination of care (as documented) at patient's floor/unit and/or counseling patient: Coding Level of Care Code 48112 SUB INP/OBS CARE 3/50MIN Diagnoses Closed right hip fracture S72.001A 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 Chronic hypoxic respiratory failure J96.11 Rheumatoid arthritis M06.9 Hypertension I10 Urinary retention R33.9 Time Spent (min) 50
[2024-10-27 12:38] LABS: Hematocrit (blood only) 25.2 % (42.0-52.0); Hemoglobin 8.2 g/dl (14.0-18.0)
--- NOTE | 2024-10-27 19:49 | Hospitalist Progress Note ---
Date of Service October 27, 2024 Assessment & Plan (1) Closed right hip fracture: (2) Steroid dependent: (3) Chronic hypoxic respiratory failure: (4) Rheumatoid arthritis: (5) Hypertension: (6) Urinary retention: Plan 79 y/o with a PMHx of HTN, rheumatoid arthritis on chronic prednisone, BPH with LUTS and urinary retention, CAD, HLD, S/P ORIF Right sided intertrochanteric femur frature post fall. Fell with unsteadiness while in [place]. #Right Hip Fracture S/P ORIF( 10/19): 5th POD today. Pain control: Tylenol 1 g Q8H SAMMY Tramadol 50 mg Q 4 hr PRN PT/OT: recommends rehab. Can bear partial weight per ortho. #Anemia , transfused 1 U/ Hematoma in right LL. *stable, conservative management for hematoma. - 2/2 to acute blood loss d/t surgery and large hematoma of fall. - Hb: 10.4( 10/19) -----> 7.3( 10/22) S/ P transfusion--8.8 gm( 10/23) #hyponatremia, mild. - Na( 10/22): 132 - Recheck AM lab. encourage PO #Rheumatoid Arthritis #Chronic Steroid Use Patient on 5 mg prednisone daily. Cortisol > 10, no stress dose needed. #HTN BP stable now. Code status: full DVT ppx: defer for hematoma. Dispo: OT/PT recs rehab. Lines: Powers placed 10/18, discontinued 10/26 voiding with out issues transfer to rehab tomorrow Will order to discontinue catheter and discontinue IV fluids encourage patient to drink more water by mouth Admission and Anticipated Discharge Date Admission Date: October 18, 2024 Subjective Patient is much more awake and alert his blood pressures are good and he is not orthostatic hypotension has significantly resolved patient still requires 2 L of oxygen Physical Exam Physical Exam: Patient has mine superintendent colored urine in urinary bag Constitutional: ill appearing, No acute distress, severe protein calorie malnutrition HEENT: Atraumatic, Normocephalic, No conjunctival injection CVS: Looks well perfused. Respiratory: No increased work of breathing GI: Soft, Nondistended MSK:Right femur S/P ORIF Decreased ROM, DNVS intact. Dressing dry. Skin: Warm, Dry, No rashes Neuro: Alert, Oriented to TPP, No Focal deficit Psych: Mood and Affect congruent, Cooperative on exam Results & Data Results & Data Vital Signs (Past 12 Hours) Vital Signs Temp Pulse Pulse Resp BP Pulse Ox O2 Del Method 10/27/24 19:33 36.8 C 92 H 16 135/80 98 Nasal Cannula 10/27/24 16:09 36.5 C 90 18 124/69 95 Nasal Cannula 10/27/24 15:26 98 H 10/27/24 11:32 36.6 C 94 H 20 144/75 H 93 Nasal Cannula 10/27/24 08:03 Nasal Cannula 10/27/24 07:52 36.5 C 93 H 18 132/73 95 Nasal Cannula O2 Flow Rate 10/27/24 19:33 2 10/27/24 16:09 2 10/27/24 15:26 10/27/24 11:32 1 10/27/24 08:03 2 10/27/24 07:52 2 PG Care Time/CCT Total # of Minutes Spent Total Time Spent with Patient: Total time spent is greater than 50% in coordination of care (as documented) at patient's floor/unit and/or counseling patient: Coding Level of Care Code 35133 SUB INP/OBS CARE 2/35MIN Diagnoses Closed right hip fracture S72.001A 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 Chronic hypoxic respiratory failure J96.11 Rheumatoid arthritis M06.9 Hypertension I10 Urinary retention R33.9 Time Spent (min) 35
[2024-10-28 07:20] LABS: Hemoglobin 8.7 g/dl (14.0-18.0); Mean Corpuscular Hemoglobin 28.4 pg (25.0-34.0); Mean Corpuscular Hgb Conc 32.2 g/dL (32.0-36.0); Mean Corpuscular Volume 88.2 fL (80.0-100.0); Mean Platelet Volume 8.2 fL (9.4-12.4); Platelet Count 304 K/uL (130-400); RDW Coefficient of Variation 15.8 % (11.5-14.5); RDW Standard Deviation 50.3 fL (36.4-46.3); Red Blood Count 3.06 M/uL (4.70-6.10); White Blood Count 12.81 K/ul (4.8-10.8)
[2024-10-28 07:36] LABS: BUN Creatinine Ratio 32.6 (10-20); Calcium 8.4 mg/dl (8.6-10.3); Creatinine Clr Calc Pharmacy 123.1 ml/min
[2024-10-28 12:02] VITALS: RESP 20; TEMP 98.8; O2SAT 92
[2024-10-28 12:30] VITALS: BP 128/63; PULSE 95
--- NOTE | 2024-10-28 18:19 | Discharge Summary ---
Date of Service October 28, 2024 Admission HPI Per Admitting Provider 79 y/o with a PMHx of HTN, rheumatoid arthritis on chronic prednisone, BPH with LUTS and urinary retention, CAD, HLD presents after a fall. Patient fell backwards striking his head in the [place] parking loss. No LOC. No he adache or vision changes. No CP or SOB. Pain isolated to the right hip. Otherwise feeling fine. No constipation history. Does have a history of BPH and prior urinary retention. Was recently treated for a CAUTI, Powers placed in the ED. Found to have an acute comminuted and displaced intertrochanteric right femoral fracture without extension of the femoral shaft. Ortho rec admission for surgical intervention - hospitalist team consulted for admission. Admission Exam (Per Admitting) Constitutional Gen: well appearing patient in NAD HEENT: AT NC MMM Resp: CTAB no wheezing no increased work of breathing CV: RRR no m/r/g clinically well perfused Abd: +BS, soft, non-tender, non-distended MSK: RLE shortened and externally rotated, neurovascularly intact, thigh compartment is not tight Skin: no rashes or bruising Neuro: alert and oriented Psych: appropriate mood and affect Discharge Data Consultations 10/18/24 12:40 ED Decision to Admit Stat 10/18/24 12:44 Consult Orthopedic Surgery Routine Procedures Performed Operation Date: 10/19/24 13:00 Actual Procedures p Right hip open reduction internal fixation.(Right) - Enio Mcdaniel MD Hospital Course (1) Closed right hip fracture: (2) Steroid dependent: (3) Chronic hypoxic respiratory failure: (4) Rheumatoid arthritis: (5) Hypertension: (6) Urinary retention: Plan 79 y/o with a PMHx of HTN, rheumatoid arthritis on chronic prednisone, BPH with LUTS and urinary retention, CAD, HLD, S/P ORIF Right sided intertrochanteric femur frature post fall. Fell with unsteadiness while in [place]. #Right Hip Fracture S/P ORIF( 10/19): N PT/OT: recommends rehab. Can bear partial weight per ortho. #Anemia , transfused 1 U/ Hematoma in right LL. *stable, conservative management for hematoma. - 2/2 to acute blood loss d/t surgery and large hematoma of fall. - Hb: 10.4( 10/19) -----> 7.3( 10/22) S/ P transfusion--8.8 gm( 10/23) #hyponatremia, mild. 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 Cortisol > 10, no stress dose needed. #HTN BP stable now. Code status: full DVT ppx: defer for hematoma. Dispo: OT/PT recs rehab. Lines: Powers placed 10/18, discontinued 10/26 voiding with out issues transfer to rehab Coding Level of Care Code 58088 INP/OBS DISCH >30 MIN Diagnoses Closed right hip fracture S72.001A 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 Chronic hypoxic respiratory failure J96.11 Rheumatoid arthritis M06.9 Hypertension I10 Urinary retention R33.9 Time Spent (min) 30
== END 2024-10-28 14:55 | DRG 481 ==
LOC: ED 11:22 → SUATTDRO 14:14 → 2S 14:14